=== PATIENT | female | born 1995 | race Caucasian/White ===

== ENCOUNTER → 2020-08-07 08:41 | Outpatient (BNVA) | payer MEDICAID, SELFPAY | PROVIDERS: PCP Internal Medicine; Referring Provider Internal Medicine; Visit Provider Internal Medicine Gastroenterology | DX: K58.1 Irritable bowel syndrome with constipation (principal); R11.0 Nausea; K21.9 Gastro-esophageal reflux disease without esophagitis; Z79.899 Other long term (current) drug therapy | CPT/HCPCS: 99213 ==

== ENCOUNTER 2020-08-20 16:19 | Emergency (ER) | payer MEDICAID, SELFPAY | END 2020-08-20 22:01 | disposition left against medical advice (07) | LOC: HO.ED 22:00 | PROVIDERS: Emergency Provider Internal Medicine; PCP Internal Medicine | DX: R11.2 Nausea with vomiting, unspecified (principal) | CPT/HCPCS: 99281 ==

== ENCOUNTER 2020-08-22 16:37 | Emergency (ER) | payer MEDICAID, SELFPAY ==
--- NOTE | 2020-08-22 19:33 | ED_ITS ---
HPI - Abdominal Pain General Chief Complaint: Nausea/Vomiting/Diarrhea <Jose L Phillips NP - Last Filed: 08/22/20 21:19> Stated Complaint: ABD PAIN/VOMITING <Jose L Phillips NP - Last Filed: 08/22/20 21:19> Time Seen by Provider: 08/22/20 19:30 <Jose L Phillips NP - Last Filed: 08/22/20 21:19> Source: patient <Jose L Phillips NP - Last Filed: 08/22/20 21:19> Mode of arrival: ambulatory <Jose L Phillips NP - Last Filed: 08/22/20 21:19> Limitations: no limitations <Jose L Phillips NP - Last Filed: 08/22/20 21:19> History of Present Illness HPI narrative: 25-year-old with past medical history significant for asthma, PTSD, anxiety, bipolar disorder, gastroesophageal reflux disease with chronic nausea vomiting and IBS with constipation. Presents with past several days of nausea vomiting history of chronic nausea vomiting has seen GI before Has had upper GI studies as well as CT scans Feels similar does take Zofran at home but this episodes has not helped. There is no diarrhea. There is no fever chills. There is no recent travel. There is no recent antibiotic use. <Jose L Phillips NP - Last Filed: 08/22/20 21:19> MD elicited complaint: abdominal pain <Jose L Phillips NP - Last Filed: 08/22/20 21:19> Location: epigastric <Jose L Phillips NP - Last Filed: 08/22/20 21:19> Severity: mild <Jose L Phillips NP - Last Filed: 08/22/20 21:19> Quality: aching <Jose L Phillips NP - Last Filed: 08/22/20 21:19> Radiation: none <Jose L Phillips NP - Last Filed: 08/22/20 21:19> Associated symptoms: nausea and vomiting <Jose L Phillips NP - Last Filed: 08/22/20 21:19> Related Data Home Medications: Home Medications Medication Instructions Recorded Confirmed diazepam 5 mg tablet 5 mg PO BEDTIME PRN 08/06/20 08/07/20 lithium carbonate 300 mg capsule 300 mg PO BEDTIME 08/06/20 08/07/20 lurasidone 20 mg tablet 20 mg PO DAILY 08/06/20 08/07/20 omeprazole 40 mg capsule,delayed 40 mg PO BID cap 08/06/20 08/07/20 release ondansetron HCl 4 mg tablet 4 mg PO Q8H 08/06/20 08/07/20 testosterone cypionate 200 mg/mL 100 mg IM Q4W 08/06/20 08/07/20 intramuscular oil tramadol 50 mg tablet 50 mg PO DAILY 08/06/20 08/07/20 acetazolamide 500 mg 500 mg PO BID 08/07/20 08/07/20 capsule,extended release Previous Rx's Medication Instructions Recorded ondansetron HCl 4 mg tablet 4 mg PO Q8H PRN #30 tab 08/07/20 dicyclomine 20 mg PO BID #14 tab 08/22/20 <Jose L Phillips NP - Last Filed: 08/22/20 21:19> Allergies/Adverse Reactions: Allergies Allergy/AdvReac Type Severity Reaction Status Date / Time trazodone Allergy Unknown Verified 06/13/20 00:00 No Known Allergies Allergy Unverified 07/24/20 16:24 [No Known Allergies*] celexa Allergy Unknown Uncoded 06/13/20 00:00 cymbalta Allergy Unknown Uncoded 06/13/20 00:00 gabapentin Allergy Unknown Uncoded 06/13/20 00:00 lidocaine Allergy Unknown Uncoded 06/13/20 00:00 topamax Allergy Unknown Uncoded 06/13/20 00:00 venlafaxine Allergy Unknown Uncoded 06/13/20 00:00 <Jose L Phillips NP - Last Filed: 08/22/20 21:19> Review of Systems Review of Systems Constitutional: No Weight loss, No Fever, No Chills, No Night Sweats, No Fatigue, No Malaise ENT/Mouth: No Hearing loss, No Ear Pain, No Nasal Congestion, No Sinus Pain, No Hoarseness, No sore throat, No Rhinorrhea, No Swallowing Difficulty Eyes: No Eye Pain, No Swelling, No Redness, No Foreign Body, No Discharge, No Vision Changes Cardiovascular: No Chest Pain, No SOB, No Dyspnea on Exertion, No Orthopnea, No Edema, No Palpitations Respiratory: No Cough, No Sputum, No Wheezing, No Smoke Exposure, No Dyspnea Gastrointestinal: as noted in HPI No Hematochezia, No Melena Genitourinary: no irregular bleeding, No Dysuria, No Urinary Frequency, No Hematuria, No Urinary Incontinence, No Urgency, No Flank Pain, No Urinary Flow Changes, No Hesitancy Musculoskeletal: No joint pain, No Myalgias, No Joint Swelling Skin: No Skin Lesions, No rash Neuro: No Weakness, No Numbness, No Paresthesias, No Loss of Consciousness, No Dizziness, No Headache Psych: No Social Issues Heme/Lymph: No Bruising, No Bleeding,No Lymphadenopathy Endocrine: No Polyuria, No Polydipsia, No Temperature Intolerance <Jose L Phillips NP - Last Filed: 08/22/20 21:19> Physical Exam Vital Signs: Vital Signs: Vital Signs Temp Pulse Resp BP Pulse Ox 08/22/20 21:53 97.8 F 74 99 08/22/20 21:47 78 18 119/63 08/22/20 19:43 95 16 99 Body Mass Index 29.9 Reviewed <Jose L Phillips NP - Last Filed: 08/22/20 21:19> Vital Signs: Vital Signs Temp Pulse Resp BP Pulse Ox 08/22/20 21:53 97.8 F 74 99 08/22/20 21:47 78 18 119/63 08/22/20 19:43 95 16 99 Body Mass Index 29.9 <Galo Robledo MD - Last Filed: 08/23/20 00:29> Const: General: cooperative and healthy appearing; No acute distress or intoxicated appearing <Jos eL Phillips NP - Last Filed: 08/22/20 21:19> Nutritional Appearance: average body habitus <Jose L Phillips NP - Last Filed: 08/22/20 21:19> Orientation/consciousness: patient oriented x3 <Jose L Phillips NP - Last Filed: 08/22/20 21:19> HENMT: Head: Yes normal to inspection <Jose L Phillips NP - Last Filed: 08/22/20 21:19> Ears: hearing grossly normal bilaterally <Jose L Phillips NP - Last Filed: 08/22/20 21:19> Eyes: General: appearance normal, both eyes and all related structures <Jose L Phillips NP - Last Filed: 08/22/20 21:19> Visual Carmona: normal visual carmona by confrontation <[facility] Phillips, [employer] AND D[employer] REPAIRER - Last Filed: 08/22/20 21:19> Neck: Neck: Yes normal visual inspection and No tender <[facility] Phillips, [employer]OL AND DIE REPAIRER - Last Filed: 08/22/20 21:19> Thyroid: Thyroid normal <[facility] Phillips, TOOL AND DIE REPAIRER - Last Filed: 08/22/20 21:19> Chest: Chest palpation & inspection: normal inspection of the chest <[facility] Phillips, TOOL AND DIE REPAIRER - Last Filed: 08/22/20 21:19> Resp: Effort & Inspection: normal respiratory effort <[facility] Phillips, TOOL AND DIE REPAIRER - Last Filed: 08/22/20 21:19> Cardio: Jugular venous distension: no JVD <[facility] - Last Filed: 08/22/20 21:19> GI: Inspection: Yes normal to inspection <[facility] TO[employer] AND DIE REPAIRER - Last Filed: 08/22/20 21:19> Percussion: Yes normal to percussion <[facility] - Last Filed: 08/22/20 21:19> Auscultation: normal bowel sounds <[facility] [employer] AND D[employer] REPAIRER - Last Filed: 08/22/20 21:19> : General: Yes no CVA tenderness <[facility] Phillips, TO[employer] AND DIE REPAIRER - Last Filed: 08/22/20 21:19> Back/Spine/Pelvis: Back: no CVA tenderness <[facility] Phillips, TO[employer] AND DIE REPAIRER - Last Filed: 08/22/20 21:19> Skin: General skin exam: no rashes or lesions noted <[facility] Alan TO[employer] AND DIE REPAIRER - Last Filed: 08/22/20 21:19> Neuro: General: patient oriented x3 <[facility] Alan TO[employer] AND DIE REPAIRER - Last Filed: 08/22/20 21:19> Extrem: General: Yes normal to inspection <[facility] [employer] AND [employer] REPAIRER - Last Filed: 08/22/20 21:19> Course Course Course Narrative: I have reviewed the chart <Galo Robledo MD - Last Filed: 08/23/20 00:29> MDM - Abdominal Pain MDM Narrative Medical decision making narrative: patient has been resting comfortably in no acute distress. Abdominal exam reveals no acute surgical abdomen. Laboratory values overall chronic appearing. No leukocytosis. She received IV fluids here and Zofran. Tolerating p.o. intake afterwards. Will discharge home with Bentyl already has Zofran. Will follow up with GI. Stable for discharge. <Jose L Phillips NP - Last Filed: 08/22/20 21:19> Differential Diagnosis Differential diagnosis: Likely abdominal pain ( IBS), gastroenteritis and gastritis; Unlikely aortic dissection, acute appendicitis, bowel perforation, calculus of kidney, constipation, diverticulitis, endometriosis, mesenteric ischemia, ovarian cyst, pancreatitis, peptic ulcer disease, renal colic and small bowel obstruction <Jose L Phillips NP - Last Filed: 08/22/20 21:19> Medical Records Attestation: I reviewed the patient's medical records. <Jose L Phillips NP - Last Filed: 08/22/20 21:19> Lab Data Result diagrams: : 08/22/20 19:56 08/22/20 19:56 <Jose L Phillips NP - Last Filed: 08/22/20 21:19> Labs: Lab Results 08/22/20 08/22/20 08/22/20 Range/Units 19:56 19:56 19:56 WBC 8.1 (4.8-10.8) X10*3/uL RBC 4.88 (4.20-5.50) X10*6/uL Hgb 15.5 (12.0-16.0) g/dl Hct 46.3 (37-47) % MCV 94.9 (80-98) fL MCH 31.8 (27.0-33.0) pg MCHC 33.5 (31.0-35.0) g/dl RDW 13.5 (11.0-16.0) % Plt Count 247 (160-400) X10*3/uL MPV 13.5 H (9.4-12.3) fL Immature Gran % (Auto) 0.1 (0.0-0.4) % Neut % (Auto) 78.0 H (45-73) % Lymph % (Auto) 14.7 L (20-40) % [place] % (Auto) 5.7 (2-11) % Eos % (Auto) 0.9 (0-4) % Baso % (Auto) 0.6 (0-2) % Lymph # (Auto) 1.2 (1.2-4.9) X10*3/uL [place] # (Auto) 0.5 (0.1-1.2) X10*3/uL Eos # (Auto) 0.1 (0.0-0.4) X10*3/uL Baso # (Auto) 0.1 (0.0-0.2) X10*3/uL Abs Immat Gran (auto) 0.01 (0.00-0.03) X10*3/uL Absolute Neuts (auto) 6.3 (2.0-8.3) X10*3/uL Absolute Nucleated RBC 0.000 (0.0-0.012) X10*3/uL Nucleated RBC % (auto) 0.0 (0.0-0.2) /100WBC Smear Tech's Comments VERIFIED Hold Blue Top SEE NOTE Sodium 141 (135-145) mmol/L Potassium 3.2 L (3.3-5.1) mmol/l Chloride 108 (96-108) mmol/L Carbon Dioxide 22 (22-29) mmol/L Anion Gap 14 (12-20) BUN 6 L (9-16) mg/dL Creatinine 1.23 (0.5-1.4) mg/dL Estim Creat Clear Calc 74.4 Estimated GFR 54 Random Glucose 105 (60-115) mg/dL Calcium 10.0 (8.4-10.2) mg/dL Total Bilirubin 0.3 (0.0-1.0) mg/dL AST 10 (5-31) U/L ALT 13 (0-31) U/L Alkaline Phosphatase 97 (39-117) U/L Total Protein 7.9 (6.5-8.0) g/dL Albumin 4.9 (3.5-5.0) g/dL Lipase 41 (8-78) U/L Urine Color Urine Appearance Urine pH (5.0-8.0) Ur Specific [place] (1.005-1.025) Urine Protein (NEG-TRACE) MG/DL Urine Glucose (UA) (NEG) MG/DL Urine Ketones (NEG) MG/DL Urine Blood (NEG) Urine Nitrite (NEG) Ur Leukocyte Esterase (NEG) Urine RBC (0) /HPF Urine WBC (0-4) /HPF Ur Squamous Epith Cells /LPF Urine Bacteria /LPF Urine Test (NEGATIVE) Urine Opiates Screen (Not Detect) Ur Barbiturates Screen (Not Detect) Ur Phencyclidine Scrn (Not Detect) Ur Amphetamines Screen (Not Detect) U Benzodiazepines Scrn (Not Detect) Urine Cocaine Screen (Not Detect) U Marijuana (THC) Screen (Not Detect) 08/22/20 08/22/20 Range/Units 19:56 19:56 WBC (4.8-10.8) X10*3/uL RBC (4.20-5.50) X10*6/uL Hgb (12.0-16.0) g/dl Hct (37-47) % MCV (80-98) fL MCH (27.0-33.0) pg MCHC (31.0-35.0) g/dl RDW (11.0-16.0) % Plt Count (160-400) X10*3/uL MPV (9.4-12.3) fL Immature Gran % (Auto) (0.0-0.4) % Neut % (Auto) (45-73) % Lymph % (Auto) (20-40) % [place] % (Auto) (2-11) % Eos % (Auto) (0-4) % Baso % (Auto) (0-2) % Lymph # (Auto) (1.2-4.9) X10*3/uL [place] # (Auto) (0.1-1.2) X10*3/uL Eos # (Auto) (0.0-0.4) X10*3/uL Baso # (Auto) (0.0-0.2) X10*3/uL Abs Immat Gran (auto) (0.00-0.03) X10*3/uL Absolute Neuts (auto) (2.0-8.3) X10*3/uL Absolute Nucleated RBC (0.0-0.012) X10*3/uL Nucleated RBC % (auto) (0.0-0.2) /100WBC Smear Tech's Comments Hold Blue Top Sodium (135-145) mmol/L Potassium (3.3-5.1) mmol/l Chloride (96-108) mmol/L Carbon Dioxide (22-29) mmol/L Anion Gap (12-20) BUN (9-16) mg/dL Creatinine (0.5-1.4) mg/dL Estim Creat Clear Calc Estimated GFR Random Glucose (60-115) mg/dL Calcium (8.4-10.2) mg/dL Total Bilirubin (0.0-1.0) mg/dL AST (5-31) U/L ALT (0-31) U/L Alkaline Phosphatase (39-117) U/L Total Protein (6.5-8.0) g/dL Albumin (3.5-5.0) g/dL Lipase (8-78) U/L Urine Color YELLOW Urine Appearance CLEAR Urine pH 7.0 (5.0-8.0) Ur Specific [place] 1.010 (1.005-1.025) Urine Protein 1+ H (NEG-TRACE) MG/DL Urine Glucose (UA) NEG (NEG) MG/DL Urine Ketones NEG (NEG) MG/DL Urine Blood NEG (NEG) Urine Nitrite NEG (NEG) Ur Leukocyte Esterase 2+ H (NEG) Urine RBC 0 (0) /HPF Urine WBC 50-75 H (0-4) /HPF Ur Squamous Epith Cells 2+ /LPF Urine Bacteria TRACE /LPF Urine Test NEGATIVE (NEGATIVE) Urine Opiates Screen Not Detected (Not Detect) Ur Barbiturates Screen Not Detected (Not Detect) Ur Phencyclidine Scrn Not Detected (Not Detect) Ur Amphetamines Screen Not Detected (Not Detect) U Benzodiazepines Scrn POSITIVE H (Not Detect) Urine Cocaine Screen Not Detected (Not Detect) U Marijuana (THC) Screen Not Detected (Not Detect) <Jose L Phillips NP - Last Filed: 08/22/20 21:19> Lab Results 08/22/20 08/22/20 08/22/20 Range/Units 19:56 19:56 19:56 WBC 8.1 (4.8-10.8) X10*3/uL RBC 4.88 (4.20-5.50) X10*6/uL Hgb 15.5 (12.0-16.0) g/dl Hct 46.3 (37-47) % MCV 94.9 (80-98) fL MCH 31.8 (27.0-33.0) pg MCHC 33.5 (31.0-35.0) g/dl RDW 13.5 (11.0-16.0) % Plt Count 247 (160-400) X10*3/uL MPV 13.5 H (9.4-12.3) fL Immature Gran % (Auto) 0.1 (0.0-0.4) % Neut % (Auto) 78.0 H (45-73) % Lymph % (Auto) 14.7 L (20-40) % [place] % (Auto) 5.7 (2-11) % Eos % (Auto) 0.9 (0-4) % Baso % (Auto) 0.6 (0-2) % Lymph # (Auto) 1.2 (1.2-4.9) X10*3/uL [place] # (Auto) 0.5 (0.1-1.2) X10*3/uL Eos # (Auto) 0.1 (0.0-0.4) X10*3/uL Baso # (Auto) 0.1 (0.0-0.2) X10*3/uL Abs Immat Gran (auto) 0.01 (0.00-0.03) X10*3/uL Absolute Neuts (auto) 6.3 (2.0-8.3) X10*3/uL Absolute Nucleated RBC 0.000 (0.0-0.012) X10*3/uL Nucleated RBC % (auto) 0.0 (0.0-0.2) /100WBC Smear Tech's Comments VERIFIED Hold Blue Top SEE NOTE Sodium 141 (135-145) mmol/L Potassium 3.2 L (3.3-5.1) mmol/l Chloride 108 (96-108) mmol/L Carbon Dioxide 22 (22-29) mmol/L Anion Gap 14 (12-20) BUN 6 L (9-16) mg/dL Creatinine 1.23 (0.5-1.4) mg/dL Estim Creat Clear Calc 74.4 Estimated GFR 54 Random Glucose 105 (60-115) mg/dL Calcium 10.0 (8.4-10.2) mg/dL Total Bilirubin 0.3 (0.0-1.0) mg/dL AST 10 (5-31) U/L ALT 13 (0-31) U/L Alkaline Phosphatase 97 (39-117) U/L Total Protein 7.9 (6.5-8.0) g/dL Albumin 4.9 (3.5-5.0) g/dL Lipase 41 (8-78) U/L Urine Color Urine Appearance Urine pH (5.0-8.0) Ur Specific [place] (1.005-1.025) Urine Protein (NEG-TRACE) MG/DL Urine Glucose (UA) (NEG) MG/DL Urine Ketones (NEG) MG/DL Urine Blood (NEG) Urine Nitrite (NEG) Ur Leukocyte Esterase (NEG) Urine RBC (0) /HPF Urine WBC (0-4) /HPF Ur Squamous Epith Cells /LPF Urine Bacteria /LPF Urine Test (NEGATIVE) Urine Opiates Screen (Not Detect) Ur Barbiturates Screen (Not Detect) Ur Phencyclidine Scrn (Not Detect) Ur Amphetamines Screen (Not Detect) U Benzodiazepines Scrn (Not Detect) Urine Cocaine Screen (Not Detect) U Marijuana (THC) Screen (Not Detect) 08/22/20 08/22/20 Range/Units 19:56 19:56 WBC (4.8-10.8) X10*3/uL RBC (4.20-5.50) X10*6/uL Hgb (12.0-16.0) g/dl Hct (37-47) % MCV (80-98) fL MCH (27.0-33.0) pg MCHC (31.0-35.0) g/dl RDW (11.0-16.0) % Plt Count (160-400) X10*3/uL MPV (9.4-12.3) fL Immature Gran % (Auto) (0.0-0.4) % Neut % (Auto) (45-73) % Lymph % (Auto) (20-40) % [place] % (Auto) (2-11) % Eos % (Auto) (0-4) % Baso % (Auto) (0-2) % Lymph # (Auto) (1.2-4.9) X10*3/uL [place] # (Auto) (0.1-1.2) X10*3/uL Eos # (Auto) (0.0-0.4) X10*3/uL Baso # (Auto) (0.0-0.2) X10*3/uL Abs Immat Gran (auto) (0.00-0.03) X10*3/uL Absolute Neuts (auto) (2.0-8.3) X10*3/uL Absolute Nucleated RBC (0.0-0.012) X10*3/uL Nucleated RBC % (auto) (0.0-0.2) /100WBC Smear Tech's Comments Hold Blue Top Sodium (135-145) mmol/L Potassium (3.3-5.1) mmol/l Chloride (96-108) mmol/L Carbon Dioxide (22-29) mmol/L Anion Gap (12-20) BUN (9-16) mg/dL Creatinine (0.5-1.4) mg/dL Estim Creat Clear Calc Estimated GFR Random Glucose (60-115) mg/dL Calcium (8.4-10.2) mg/dL Total Bilirubin (0.0-1.0) mg/dL AST (5-31) U/L ALT (0-31) U/L Alkaline Phosphatase (39-117) U/L Total Protein (6.5-8.0) g/dL Albumin (3.5-5.0) g/dL Lipase (8-78) U/L Urine Color YELLOW Urine Appearance CLEAR Urine pH 7.0 (5.0-8.0) Ur Specific [place] 1.010 (1.005-1.025) Urine Protein 1+ H (NEG-TRACE) MG/DL Urine Glucose (UA) NEG (NEG) MG/DL Urine Ketones NEG (NEG) MG/DL Urine Blood NEG (NEG) Urine Nitrite NEG (NEG) Ur Leukocyte Esterase 2+ H (NEG) Urine RBC 0 (0) /HPF Urine WBC 50-75 H (0-4) /HPF Ur Squamous Epith Cells 2+ /LPF Urine Bacteria TRACE /LPF Urine Test NEGATIVE (NEGATIVE) Urine Opiates Screen Not Detected (Not Detect) Ur Barbiturates Screen Not Detected (Not Detect) Ur Phencyclidine Scrn Not Detected (Not Detect) Ur Amphetamines Screen Not Detected (Not Detect) U Benzodiazepines Scrn POSITIVE H (Not Detect) Urine Cocaine Screen Not Detected (Not Detect) U Marijuana (THC) Screen Not Detected (Not Detect) <Galo Robledo MD - Last Filed: 08/23/20 00:29> Discharge Plan Discharge Clinical Impression: Nausea <Jose L Phillips NP - Last Filed: 08/22/20 21:19> Patient Disposition: Home, Self-Care <Jose L Phillips NP - Last Filed: 08/22/20 21:19> Instructions: Acute Nausea and Vomiting (ED) <Jose L Phillips NP - Last Filed: 08/22/20 21:19> Prescriptions: New dicyclomine 20 mg tablet 20 mg PO BID Qty: 14 RF: 0 No Action acetazolamide 500 mg capsule, extended release 500 mg PO BID RF: 0 ondansetron HCl 4 mg tablet 4 mg PO Q8H PRN (Reason: nausea and vomiting) Qty: 30 RF: 3 lithium carbonate 300 mg capsule 300 mg PO BEDTIME RF: 0 omeprazole 40 mg capsule,delayed release(DR/EC) 40 mg PO BID RF: 0 diazepam [Valium] 5 mg tablet 5 mg PO BEDTIME PRNRF: 0 Latuda 20 mg tablet 20 mg PO DAILY RF: 0 testosterone cypionate 200 mg/mL oil 100 mg IM Q4W RF: 0 ondansetron HCl [Zofran] 4 mg tablet 4 mg PO Q8H RF: 0 tramadol 50 mg tablet 50 mg PO DAILY RF: 0 <Jose L Phillips NP - Last Filed: 08/22/20 21:19> Referrals: Gopi Tapia MD [Physician] - 2 days <Jose L Phillips NP - Last Filed: 08/22/20 21:19> Interventions: ED Discharge Assessment Last Done: 08/22/20 22:56 <Jose L Phillips NP - Last Filed: 08/22/20 21:19> Discharge Date/Time: 08/22/20 22:00 <Jose L Phillips NP - Last Filed: 08/22/20 21:19> [facility] Past Medical History Attestation statement: The following information was validated with the patient. <Jose L Phillips NP - Last Filed: 08/22/20 21:19> Medical History: Medical History (Updated 08/22/20 @ 21:17 by Jose L Phillips NP) Anxiety Asthma Bipolar 1 disorder Gastroesophageal reflux disease without esophagitis Irritable bowel syndrome with constipation Nausea PTSD (post-traumatic stress disorder) <Jose L Phillips NP - Last Filed: 08/22/20 21:19> Surgical History: Surgical History (Updated 08/07/20 @ 09:20 by Lupe Diez MA) No pertinent past surgical history <Jose L Phillips NP - Last Filed: 08/22/20 21:19> Social History Social History: Social History (Updated 08/07/20 @ 09:21 by Lupe Diez MA) Smoking Status: Never smoker Advance Directives: No Advance Directives Information Provided: Yes <Jose L Phillips NP - Last Filed: 08/22/20 21:19>
[2020-08-22 19:43] VITALS: PULSE 95; RESP 16; O2SAT 99; BMI 29.9
[2020-08-22 20:08] LABS: Glucose Urine UA NEG (NEG); Leukocyte Esterase Urine 2+ (NEG); Nitrite Urine NEG (NEG); Urine Blood NEG (NEG); Urine Ketones NEG (NEG); Urine Protein 1+ MG/DL (NEG-TRACE)
[2020-08-22 20:10] LABS: Appearance Urine CLEAR; Color Urine YELLOW
[2020-08-22 20:13] LABS: Basophils Absolute Auto 0.1 X10*3/uL (0.0-0.2); Basophils Percent Auto 0.6 % (0-2); Eosinophils Absolute Auto 0.1 X10*3/uL (0.0-0.4); Eosinophils Percent Auto 0.9 % (0-4); Hematocrit 46.3 % (37-47); Hemoglobin 15.5 g/dl (12.0-16.0); Imm Gran Abs Auto 0.01 X10*3/uL (0.00-0.03); Imm Gran Pct Auto 0.1 % (0.0-0.4); Lymphocytes Absolute Auto 1.2 X10*3/uL (1.2-4.9); Lymphocytes Percent Auto 14.7 % (20-40); MANUAL DIFF FLAG SCAN; Mean Corpuscular HGB Conc 33.5 g/dl (31.0-35.0); Mean Corpuscular Hemoglobin 31.8 pg (27.0-33.0); Mean Corpuscular Volume 94.9 fL (80-98); Mean Platelet Volume 13.5 fL (9.4-12.3); Monocytes Absolute Auto 0.5 X10*3/uL (0.1-1.2); Monocytes Percent Auto 5.7 % (2-11); Neutrophils Absolute Auto 6.3 X10*3/uL (2.0-8.3); Red Blood Count 4.88 X10*6/uL (4.20-5.50); Red Cell Distribution Width 13.5 % (11.0-16.0); SCAN SMEAR FLAG 1; White Blood Count 8.1 X10*3/uL (4.8-10.8)
[2020-08-22 20:22] LABS: Bacteria Urine TRACE /LPF; RBC Urine 0 /HPF (0); Squamous Epithelial Cell Urine 2+ /LPF; WBC Urine 50-75 /HPF (0-4)
[2020-08-22 20:31] LABS: PLT ABN DIST 1
[2020-08-22 20:32] LABS: Platelet Count 247 X10*3/uL (160-400)
[2020-08-22 20:33] LABS: SLIDE REVIEW VERIFIED
[2020-08-22 20:37] LABS: Alanine Aminotransferase 13 U/L (0-31); Albumin Level 4.9 g/dL (3.5-5.0); Alkaline Phosphatase 97 U/L (39-117); Anion Gap 14 (12-20); Aspartate Amino Transferase 10 U/L (5-31); Bilirubin Total 0.3 mg/dL (0.0-1.0); Blood Urea Nitrogen 6 mg/dL (9-16); Carbon Dioxide 22 mmol/L (22-29); Chloride 108 mmol/L (96-108); Creatinine Clr Calc Pharmacy 74.4; Estimated Glomerular Filt Rate 54; Glucose Random 105 mg/dL (60-115); Lipase 41 U/L (8-78); Potassium 3.2 mmol/l (3.3-5.1); Sodium 141 mmol/L (135-145); Total Protein 7.9 g/dL (6.5-8.0)
[2020-08-22 20:38] LABS: Amphetamine Screen Urine Not Detected (Not Detect); Barbiturates, Urine Not Detected (Not Detect); Benzodiazepines Screen Urine POSITIVE (Not Detect); Cannabinoid Screen Urine Not Detected (Not Detect); Cocaine Screen Urine Not Detected (Not Detect); Opiate Screen Urine Not Detected (Not Detect); Phencyclidine Screen Urine Not Detected (Not Detect)
[2020-08-22] MEDS: 0.9 % Sodium Chloride 1,000 ML 999 ML IVCONT (20:53)
[2020-08-22] MEDS: ondansetron HCL 4 MG/2 ML VIAL IVPUSH (20:53)
[2020-08-22 21:15] LABS: UPreg QC Valid YES; Urine Pregnancy NEGATIVE (NEGATIVE)
[2020-08-22 21:47] VITALS: BP 119/63; PULSE 78; RESP 18
[2020-08-22 21:53] VITALS: PULSE 74; TEMP 36.6; O2SAT 99
== END 2020-08-22 22:00 | disposition home or self-care (01) ==
PROVIDERS: Nurse Practitioner Primary Care; Emergency Provider Emergency Medicine
DX: R11.2 Nausea with vomiting, unspecified (principal); R10.9 Unspecified abdominal pain; Z79.899 Other long term (current) drug therapy
CPT/HCPCS: 36415; 80053; 80307; 81001; 81025; 83690; 85025; 96361; 96374; 99284; J2405

== ENCOUNTER 2020-10-16 10:41 | Outpatient (REF) | payer MEDICAID, SELFPAY ==
[2020-10-16 13:54] LABS: Hemoglobin 12.9 g/dl (12.0-16.0)
[2020-10-16 14:41] LABS: Alanine Aminotransferase 7 U/L (0-31); Aspartate Amino Transferase 9 U/L (5-31)
[2020-10-17 08:27] LABS: HIV AB/AG Nonreactive (Nonreactive); HIV Num 1 0.14 S/CO (0.00-0.99)
[2020-10-17 09:16] LABS: Syphilis Screen Nonreactive (Nonreactive)
[2020-10-17 09:58] LABS: Herpes Simplex Type 1 IgG <0.90 index; Herpes Simplex Type 2 IgG <0.90 index
[2020-10-20 16:18] LABS: Testosterone, Free 30.4 pg/mL (0.1-6.4); Testosterone, Total 156 ng/dL (2-45)
== END 2020-10-16 10:42 | disposition home or self-care (01) ==
LOC: HO.HMGCLDS 10:41
PROVIDERS: PCP Internal Medicine; Visit Provider Advanced Practice Midwife
DX: Z11.3 Encounter for screening for infections with a predominantly sexual mode of transmission (principal); F64.9 Gender identity disorder, unspecified
CPT/HCPCS: 36415; 84402; 84403; 84450; 84460; 85014; 85018; 86695; 86696; 86780; 87389

== ENCOUNTER → 2020-10-29 10:29 | Outpatient (BNVA) | payer MEDICAID, SELFPAY | PROVIDERS: PCP Internal Medicine; Visit Provider Nurse Practitioner Family | DX: M25.562 Pain in left knee (principal); M25.561 Pain in right knee; M25.551 Pain in right hip; M25.552 Pain in left hip; M25.571 Pain in right ankle and joints of right foot; M25.572 Pain in left ankle and joints of left foot; M46.1 Sacroiliitis, not elsewhere classified | CPT/HCPCS: 99202 ==

== ENCOUNTER 2020-11-05 12:32 | Outpatient (REF) | payer MEDICAID, SELFPAY ==
--- NOTE | 2020-11-05 12:35 | XR_ITS ---
EXAMINATION: XR KNEE, RIGHT CLINICAL INFORMATION: Right knee pain. COMPARISON: None TECHNIQUE: Four views of the right knee. FINDINGS: Bones and soft tissues are normal. No fracture or joint effusion. Alignment is anatomic. Joint spaces are well maintained. No abnormal soft tissue calcification. XR/XR knee RT 2V IMPRESSION: Unremarkable right knee.
== END 2020-11-05 12:33 | disposition home or self-care (01) ==
LOC: HO.XRAY 12:32
PROVIDERS: PCP Internal Medicine; Visit Provider Nurse Practitioner Family
DX: M25.561 Pain in right knee (principal)
CPT/HCPCS: 73560

== ENCOUNTER 2020-11-06 10:04 | Outpatient (REF) | payer MEDICAID, SELFPAY ==
[2020-11-06 11:14] LABS: MANUAL DIFF FLAG NO
[2020-11-06 11:22] LABS: Basophils Absolute Auto 0.1 X10*3/uL (0.0-0.2); Basophils Percent Auto 0.5 % (0-2); Eosinophils Absolute Auto 0.3 X10*3/uL (0.0-0.4); Eosinophils Percent Auto 3.3 % (0-4); Hematocrit 40.9 % (37-47); Hemoglobin 12.6 g/dl (12.0-16.0); Imm Gran Abs Auto 0.03 X10*3/uL (0.00-0.03); Imm Gran Pct Auto 0.3 % (0.0-0.4); Lymphocytes Absolute Auto 1.4 X10*3/uL (1.2-4.9); Lymphocytes Percent Auto 13.4 % (20-40); Mean Corpuscular HGB Conc 30.8 g/dl (31.0-35.0); Mean Corpuscular Hemoglobin 30.3 pg (27.0-33.0); Mean Corpuscular Volume 98.3 fL (80-98); Monocytes Absolute Auto 0.5 X10*3/uL (0.1-1.2); Monocytes Percent Auto 4.4 % (2-11); Neutrophils Absolute Auto 8.1 X10*3/uL (2.0-8.3); Neutrophils Percent Auto 78.1 % (45-73); Platelet Count 297 X10*3/uL (160-400); Red Blood Count 4.16 X10*6/uL (4.20-5.50); Red Cell Distribution Width 14.1 % (11.0-16.0); White Blood Count 10.3 X10*3/uL (4.8-10.8)
[2020-11-06 11:30] LABS: Estimated Average Glucose 88 mg/dL; Hemoglobin A1c % 4.7 %
[2020-11-06 11:45] LABS: Anion Gap 12 (12-20); Carbon Dioxide 23 mmol/L (22-29); Chloride 108 mmol/L (96-108); Cholesterol 208 mg/dL; HDL Cholesterol 45 mg/dL; LDL Cholesterol Calculated 133 mg/dl; Potassium 4.3 mmol/l (3.3-5.1); Sodium 139 mmol/L (135-145); Triglycerides 153 mg/dL
[2020-11-06 12:08] LABS: Thyroid Stimulating Hormone 1.29 uIU/mL (0.32-4.0)
[2020-11-07 07:07] LABS: Prolactin 12.9 ng/mL
[2020-11-07 09:22] LABS: Insulin Level Total 16.2 uIU/mL
== END 2020-11-06 10:05 | disposition home or self-care (01) ==
LOC: HO.HMGCLDS 10:04
PROVIDERS: PCP Internal Medicine; Visit Provider Registered Nurse Psychiatric/Mental Health
DX: F31.9 Bipolar disorder, unspecified (principal); F43.10 Post-traumatic stress disorder, unspecified; K21.9 Gastro-esophageal reflux disease without esophagitis; Z79.4 Long term (current) use of insulin
CPT/HCPCS: 36415; 80051; 80061; 80178; 83036; 83525; 84146; 84443; 85025

== ENCOUNTER 2020-11-11 05:24 | Outpatient (REF) | payer MEDICAID, SELFPAY ==
--- NOTE | 2020-11-11 13:50 | FL_ITS ---
EXAMINATION: XR FLUOROSCOPY WITH IMAGES CLINICAL INFORMATION: Left sacroiliitis COMPARISON: None. TECHNIQUE: Fluoroscopy performed by Lucia Gonzalez NP. Fluoroscopy time: 0.2 minutes DAP: 1.15 Gycm2 Images: 1 FINDINGS: And the needle positioned overlying left second and with contrast opacifying the adjacent soft tissues and minimal contrast in the joint space. FL/FL guidance in treatment room IMPRESSION: Fluoroscopy provided to referring physician for left SI joint injection.
== END 2020-11-11 05:25 | disposition home or self-care (01) ==
LOC: HO.RADIR 05:24
PROVIDERS: Visit Provider Anesthesiology
DX: M46.1 Sacroiliitis, not elsewhere classified (principal)
CPT/HCPCS: 27096; J3300; Q9967

== ENCOUNTER → 2020-12-18 11:09 | Outpatient (BNVA) | payer MEDICAID, SELFPAY | PROVIDERS: PCP Internal Medicine; Visit Provider Anesthesiology ==

== ENCOUNTER 2020-12-25 12:05 | Outpatient (REF) | payer MEDICAID, SELFPAY ==
[2020-12-25 14:34] LABS: Alanine Aminotransferase 13 U/L (0-31); Aspartate Amino Transferase 12 U/L (5-31)
[2020-12-25 14:37] LABS: Anion Gap 10 (12-20); Blood Urea Nitrogen 8 mg/dL (9-16); Calcium 9.4 mg/dL (8.4-10.2); Carbon Dioxide 28 mmol/L (22-29); Chloride 104 mmol/L (96-108); Estimated Glomerular Filt Rate 56; Glucose Random 86 mg/dL (60-115); Magnesium 2.2 mg/dL (1.6-2.6); Phosphorus 3.2 mg/dL (2.7-4.5); Potassium 4.3 mmol/L (3.3-5.1); Sodium 138 mmol/L (135-145)
[2020-12-31 14:26] LABS: Testosterone, Free 100.5 pg/mL (0.1-6.4); Testosterone, Total 433 ng/dL (2-45)
== END 2020-12-25 12:06 | disposition home or self-care (01) ==
LOC: HO.HMGCLDS 12:05
PROVIDERS: Absent Provider Advanced Practice Midwife; PCP Internal Medicine; Visit Provider Internal Medicine
DX: R25.2 Cramp and spasm (principal); F64.9 Gender identity disorder, unspecified
CPT/HCPCS: 36415; 80048; 83735; 84100; 84402; 84403; 84450; 84460

== ENCOUNTER 2020-12-31 15:28 | Outpatient (REF) | payer MEDICAID, SELFPAY ==
--- NOTE | ~2020-12-31 | US_ITS ---
EXAMINATION: US PELVIS COMPLETE US PELVIS ENDOVAGINAL CLINICAL INFORMATION: Irregular menses COMPARISON: CT 06/05/2020 TECHNIQUE: Transabdominal and transvaginal images of the pelvis were obtained. FINDINGS: UTERUS: Anteverted, anteflexed.. Normal size and contour, measuring 5.0 x 3.2 x 3.3 cm (cervix to fundus x AP x transverse). Uniform, homogeneous endometrium measures 0.2 cm in width. RIGHT OVARY: Normal size and echogenicity measuring 4.5 x 2.3 x 2.6 cm. 14 mL volume. Physiologic follicular cysts are present. LEFT OVARY: Normal size and echogenicity measuring 3.5 x 3.1 x 2.0 cm. 11 mL volume. Physiologic follicular cysts are present. FREE FLUID: No pelvic free fluid. US/US pelvic complete IMPRESSION: Normal pelvic ultrasound. Thin endometrial stripe, 2 mm.
--- NOTE | ~2020-12-31 | US_ITS ---
EXAMINATION: US PELVIS COMPLETE US PELVIS ENDOVAGINAL CLINICAL INFORMATION: Irregular menses COMPARISON: CT 06/05/2020 TECHNIQUE: Transabdominal and transvaginal images of the pelvis were obtained. FINDINGS: UTERUS: Anteverted, anteflexed.. Normal size and contour, measuring 5.0 x 3.2 x 3.3 cm (cervix to fundus x AP x transverse). Uniform, homogeneous endometrium measures 0.2 cm in width. RIGHT OVARY: Normal size and echogenicity measuring 4.5 x 2.3 x 2.6 cm. 14 mL volume. Physiologic follicular cysts are present. LEFT OVARY: Normal size and echogenicity measuring 3.5 x 3.1 x 2.0 cm. 11 mL volume. Physiologic follicular cysts are present. FREE FLUID: No pelvic free fluid. US/US transvaginal IMPRESSION: Normal pelvic ultrasound. Thin endometrial stripe, 2 mm.
== END 2020-12-31 15:29 | disposition home or self-care (01) ==
LOC: HO.US 15:28
PROVIDERS: Visit Provider Advanced Practice Midwife
DX: N92.6 Irregular menstruation, unspecified (principal)
CPT/HCPCS: 76830; 76856

== ENCOUNTER 2021-01-02 13:48 | Outpatient (REF) | payer MEDICAID, SELFPAY ==
--- NOTE | ~2021-01-02 | US_ITS ---
EXAMINATION: US DIAGNOSTIC ULTRASOUND BREAST, RIGHT breast CLINICAL INFORMATION: Right breast pain and palpable lump. COMPARISON: None. TECHNIQUE: Ultrasound of the breast is performed with real-time gaona scale imaging and color Doppler. FINDINGS: Scanning in regions of palpable abnormalities and pain performed in the right breast including the axilla, 9:00, 8:00, 5:00, and 1:00 positions. There is no solid mass, architectural abnormality, duct ectasia, or edema in the soft tissue planes. Results are discussed with the patient at time of visit. US/US breast RT limited IMPRESSION: No suspicious right breast ultrasound findings. ASSESSMENT: BI-RADS 1: Negative RECOMMENDATION: Clinical follow-up
== END 2021-01-02 13:49 | disposition home or self-care (01) ==
LOC: HO.MAMMO 13:48
PROVIDERS: Visit Provider Advanced Practice Midwife
DX: N64.4 Mastodynia (principal)
CPT/HCPCS: 76642

== ENCOUNTER → 2021-01-16 13:06 | Outpatient (BNVA) | payer MEDICAID, SELFPAY | PROVIDERS: PCP Internal Medicine; Visit Provider Nurse Practitioner Family ==

== ENCOUNTER → 2021-01-23 15:30 | Outpatient (BNVA) | payer MEDICAID, SELFPAY | PROVIDERS: PCP Internal Medicine; Visit Provider Nurse Practitioner Family | DX: M79.629 Pain in unspecified upper arm (principal); M62.838 Other muscle spasm; Z79.899 Other long term (current) drug therapy | CPT/HCPCS: 99212 ==

== ENCOUNTER 2021-01-29 07:00 | Outpatient (RCR) | payer MEDICAID, SELFPAY ==
--- NOTE | 2020-11-11 08:53 | MHC.PT.EP ---
[facility] [place] Office [place] Office [place] Office [address] Blanco Hatch [address] [phone] F: [phone] F: [phone] F: [phone] F: [phone] Physical Therapy Plan of Care Date of Evaluation: 11/10/20 Date of Surgery: none Diagnosis: B hip and knee Assessment: Patient is a 25 year old R handed female who presents with s/s consistent with hip and knee pain. Onset has been gradual and not attributed to any incident. She is very sedentary rarely exercising or leaving her home. Patient past medical history includes Anxiety, Asthma, Bipolar 1 disorder, Gastroesophageal reflux disease without esophagitis, Irritable bowel syndrome with constipation, Nausea, PTSD (post-traumatic stress disorder). Current impairments include pain, ROM, strength, safety, independence, activity tolerance and functional mobility. Functional limitations include decreased ability to walk, stand, transfer, negotiate stairs, and perform weight bearing activities.. Patient is motivated with good rehab potential. Skilled PT will address impairments and functional limitations in order to achieve goals. 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 Manual therapy to restore motion and function. Therapeutic exercise to improve strength and flexibility. Neuromuscular re-education for posture and balance. Therapeutic activities to return to functional activities of daily living. Electronically signed by: Mikal Kramer, PT Please sign and return to therapist. Thank you for your referral.
--- NOTE | 2021-03-19 14:42 | MHC.PT.DC ---
[facility] [place] Office [place] Office [place] Office [address] Blanco Hatch [address] [phone] F: [phone] F: [phone] F: [phone] F: [phone] Physical Therapy Discharge Report Diagnosis: B hip and knee Date of Surgery: none Date of Evaluation: 11/10/20 Date of Discharge: 02/17/21 Treatments to Date: 14 Cancellations to Date: 0 No Shows to Date: 0 Discharge Status: Improved Function Discharge Summary: pt notes that she is feeling better overall and returning to work 9-5 schedule. Due to reduced consistence and new work schedule, we will hold on PT at this time. Pt has had some improvement but also continues to have multiple location symptoms from day to day as well Electronically signed by: Mikal Kramer, PT Please sign and return to therapist. Thank you for your referral.
== END 2021-03-19 15:00 | disposition home or self-care (01) ==
LOC: HO.PTCHIC 07:00
PROVIDERS: PCP Internal Medicine; Visit Provider Anesthesiology
DX: M25.50 Pain in unspecified joint (principal)
CPT/HCPCS: 97110; 97162

== ENCOUNTER 2021-01-30 09:42 | Outpatient (REF) | payer MEDICAID, SELFPAY ==
[2021-01-30 10:54] LABS: MANUAL DIFF FLAG NO
[2021-01-30 10:59] LABS: Basophils Absolute Auto 0.1 X10*3/uL (0.0-0.2); Basophils Percent Auto 0.7 % (0-2); Eosinophils Absolute Auto 0.3 X10*3/uL (0.0-0.4); Eosinophils Percent Auto 2.4 % (0-4); Hematocrit 41.8 % (37-47); Hemoglobin 12.9 g/dl (12.0-16.0); Imm Gran Abs Auto 0.04 X10*3/uL (0.00-0.03); Imm Gran Pct Auto 0.3 % (0.0-0.4); Lymphocytes Absolute Auto 1.6 X10*3/uL (1.2-4.9); Lymphocytes Percent Auto 12.1 % (20-40); Mean Corpuscular HGB Conc 30.9 g/dl (31.0-35.0); Mean Corpuscular Hemoglobin 29.5 pg (27.0-33.0); Mean Corpuscular Volume 95.7 fL (80-98); Mean Platelet Volume 11.4 fL (9.4-12.3); Monocytes Absolute Auto 0.6 X10*3/uL (0.1-1.2); Monocytes Percent Auto 4.5 % (2-11); Neutrophils Absolute Auto 10.2 X10*3/uL (2.0-8.3); Platelet Count 374 X10*3/uL (160-400); Red Blood Count 4.37 X10*6/uL (4.20-5.50); Red Cell Distribution Width 13.5 % (11.0-16.0); White Blood Count 12.8 X10*3/uL (4.8-10.8)
[2021-01-30 11:29] LABS: Alanine Aminotransferase 26 U/L (0-31); Albumin Level 4.5 g/dL (3.5-5.0); Alkaline Phosphatase 79 U/L (39-117); Anion Gap 11 (12-20); Aspartate Amino Transferase 20 U/L (5-31); Bilirubin Total 0.4 mg/dL (0.0-1.0); Blood Urea Nitrogen 13 mg/dL (9-16); C Reactive Protein 0.29 mg/dL (< or = 0.50); Calcium 9.6 mg/dL (8.4-10.2); Carbon Dioxide 25 mmol/L (22-29); Chloride 108 mmol/L (96-108); Estimated Glomerular Filt Rate 49; Glucose Random 79 mg/dL (60-115); Potassium 4.4 mmol/L (3.3-5.1); Rheumatoid Factor < 15.0 IU/mL (<15.0); Sodium 140 mmol/L (135-145); Total Protein 7.7 g/dL (6.5-8.0)
[2021-01-30 11:31] LABS: Glucose Urine UA NEG (NEG); Leukocyte Esterase Urine 2+ (NEG); Nitrite Urine NEG (NEG); PH 7.5 (5.0-8.0); Specific Gravity - Urine <= 1.005 (1.005-1.025); Urine Blood NEG (NEG); Urine Ketones NEG (NEG); Urine Protein NEG (NEG-TRACE)
[2021-01-30 11:39] LABS: Appearance Urine CLEAR; Color Urine YELLOW
[2021-01-30 11:45] LABS: Erythrocyte Sedimentation Rate 7 MM/HR (0-20)
[2021-01-30 11:49] LABS: Thyroid Stimulating Hormone 0.86 uIU/mL (0.32-4.0)
[2021-01-30 12:15] LABS: Mucus Urine 1+ /LPF; RBC Urine 0-2 /HPF (0); Squamous Epithelial Cell Urine 1+ /LPF; WBC Urine 0-2 /HPF (0-4)
[2021-01-31 08:31] LABS: Lyme Abs Screen <0.90 index
[2021-01-31 13:16] LABS: Antibody to SS-A Antigen <1.0 NEG AI (<1.0 NEG); Antibody to SS-B Antigen <1.0 NEG AI (<1.0 NEG)
[2021-02-01 13:21] LABS: Anti Nuclear Antibody Screen NEGATIVE (NEGATIVE)
[2021-02-01 23:32] LABS: Cyclic Citrullinated Peptide <16 UNITS
[2021-02-03 14:01] LABS: Vitamin D 25-OH, D2 <4 ng/mL; Vitamin D 25-OH, D3 22 ng/mL; Vitamin D 25-OH, Total 22 ng/mL (30-100)
== END 2021-01-30 09:43 | disposition home or self-care (01) ==
LOC: HO.LAB 09:42
PROVIDERS: PCP Internal Medicine; Visit Provider Student in an Organized Health Care Education/Training Program
DX: M25.50 Pain in unspecified joint (principal); F41.9 Anxiety disorder, unspecified; F31.9 Bipolar disorder, unspecified; Z88.8 Allergy status to other drugs, medicaments and biological substances; Z91.018 Allergy to other foods; Z79.899 Other long term (current) drug therapy
CPT/HCPCS: 36415; 80053; 81001; 82306; 84443; 85025; 85652; 86038; 86039; 86140; 86200; 86235; 86431; 86618; 99202

== ENCOUNTER 2021-05-01 09:43 | Outpatient (REF) | payer MEDICAID, SELFPAY ==
[2021-05-01 11:18] LABS: MANUAL DIFF FLAG NO
[2021-05-01 11:24] LABS: Basophils Absolute Auto 0.1 X10*3/uL (0.0-0.2); Basophils Percent Auto 0.5 % (0-2); Eosinophils Absolute Auto 0.3 X10*3/uL (0.0-0.4); Eosinophils Percent Auto 2.9 % (0-4); Hematocrit 41.4 % (37-47); Hemoglobin 12.5 g/dl (12.0-16.0); Imm Gran Abs Auto 0.03 X10*3/uL (0.00-0.03); Imm Gran Pct Auto 0.3 % (0.0-0.4); Lymphocytes Absolute Auto 1.7 X10*3/uL (1.2-4.9); Lymphocytes Percent Auto 18.3 % (20-40); Mean Corpuscular HGB Conc 30.2 g/dl (31.0-35.0); Mean Corpuscular Hemoglobin 29.1 pg (27.0-33.0); Mean Corpuscular Volume 96.3 fL (80-98); Mean Platelet Volume 12.7 fL (9.4-12.3); Monocytes Absolute Auto 0.6 X10*3/uL (0.1-1.2); Monocytes Percent Auto 6.2 % (2-11); Neutrophils Absolute Auto 6.6 X10*3/uL (2.0-8.3); Neutrophils Percent Auto 71.8 % (45-73); Platelet Count 290 X10*3/uL (160-400); Red Cell Distribution Width 15.9 % (11.0-16.0); White Blood Count 9.2 X10*3/uL (4.8-10.8)
[2021-05-01 11:28] LABS: Lithium 0.86 mmol/L (0.60-1.20)
[2021-05-01 11:35] LABS: Estimated Average Glucose 85 mg/dL; Hemoglobin A1c % 4.6 %
[2021-05-01 11:39] LABS: Anion Gap 11 (12-20); Blood Urea Nitrogen 7 mg/dL (9-16); Calcium 9.2 mg/dL (8.4-10.2); Carbon Dioxide 20 mmol/L (22-29); Chloride 113 mmol/L (96-108); Cholesterol 161 mg/dL; Estimated Glomerular Filt Rate 44; Glucose Fasting 80 mg/dL (60-99); HDL Cholesterol 28 mg/dL; LDL Cholesterol Calculated 111 mg/dl; Potassium 3.9 mmol/L (3.3-5.1); Sodium 140 mmol/L (135-145); Triglycerides 111 mg/dL
[2021-05-02 10:32] LABS: Insulin Level Total 7.6 uIU/mL
== END 2021-05-01 09:44 | disposition home or self-care (01) ==
LOC: HO.HMGCLDS 09:43
PROVIDERS: PCP Internal Medicine; Visit Provider Registered Nurse Psychiatric/Mental Health
DX: F31.9 Bipolar disorder, unspecified (principal); F43.10 Post-traumatic stress disorder, unspecified; Z79.899 Other long term (current) drug therapy
CPT/HCPCS: 36415; 80048; 80061; 80178; 83036; 83525; 84146; 85025

== ENCOUNTER → 2021-06-09 10:33 | Outpatient (BNVA) | payer MEDICAID, SELFPAY | PROVIDERS: PCP Internal Medicine; Visit Provider Nurse Practitioner Family ==

== ENCOUNTER 2021-09-23 08:07 | Outpatient (REF) | payer MEDICAID, SELFPAY ==
[2021-09-23 11:28] LABS: MANUAL DIFF FLAG NO
[2021-09-23 11:42] LABS: Basophils Absolute Auto 0.1 X10*3/uL (0.0-0.2); Basophils Percent Auto 0.5 % (0-2); Eosinophils Absolute Auto 0.4 X10*3/uL (0.0-0.4); Eosinophils Percent Auto 3.2 % (0-4); Hematocrit 42.4 % (37.0-47.0); Hemoglobin 12.7 g/dl (12.0-16.0); Imm Gran Abs Auto 0.05 X10*3/uL (0.00-0.03); Imm Gran Pct Auto 0.5 % (0.0-0.4); Lymphocytes Absolute Auto 1.4 X10*3/uL (1.2-4.9); Lymphocytes Percent Auto 12.8 % (20-40); Mean Corpuscular Hemoglobin 28.9 pg (27.0-33.0); Mean Corpuscular Volume 96.4 fL (80.0-98.0); Mean Platelet Volume 12.7 fL (9.4-12.3); Monocytes Absolute Auto 0.6 X10*3/uL (0.1-1.2); Monocytes Percent Auto 5.5 % (2-11); Neutrophils Absolute Auto 8.6 x10*3/uL (2.0-8.3); Neutrophils Percent Auto 77.5 % (45-73); Platelet Count 299 X10*3/uL (160-400); Red Cell Distribution Width 15.1 % (11.0-16.0); White Blood Count 11.1 X10*3/uL (4.8-10.8)
[2021-09-23 11:51] LABS: Estimated Average Glucose 88 mg/dL; Hemoglobin A1c % 4.7 %
[2021-09-23 11:59] LABS: Alanine Aminotransferase 17 U/L (0-31); Albumin Level 4.3 g/dL (3.5-5.0); Alkaline Phosphatase 99 U/L (39-117); Anion Gap 12 (12-20); Aspartate Amino Transferase 14 U/L (5-31); Bilirubin Direct 0.2 mg/dL (0.0-0.5); Bilirubin Total 0.3 mg/dL (0.0-1.0); Blood Urea Nitrogen 11 mg/dL (9-16); Calcium 9.4 mg/dL (8.4-10.2); Carbon Dioxide 20 mmol/L (22-29); Chloride 112 mmol/L (96-108); Cholesterol 205 mg/dL; Estimated Glomerular Filt Rate 48; Glucose Random 76 mg/dL (60-115); HDL Cholesterol 36 mg/dL; LDL Cholesterol Calculated 142 mg/dl; Potassium 3.9 mmol/L (3.3-5.1); Sodium 140 mmol/L (135-145); Total Protein 7.6 g/dL (6.5-8.0); Triglycerides 138 mg/dL
[2021-09-23 12:21] LABS: TSH reflex Free T4 1.73 uIU/mL (0.32-4.0); Vitamin D 25-OH Total 16.4 ng/mL (>30)
== END 2021-09-23 08:08 | disposition home or self-care (01) ==
LOC: HO.HMGCLDS 08:07
PROVIDERS: PCP Internal Medicine; Visit Provider Internal Medicine
DX: Z00.00 Encounter for general adult medical examination without abnormal findings (principal)
CPT/HCPCS: 36415; 80048; 80061; 80076; 82306; 83036; 84443; 85025

== ENCOUNTER → 2021-11-09 14:32 | Outpatient (BNVA) | payer MEDICAID, SELFPAY | PROVIDERS: PCP Internal Medicine | DX: R33.9 Retention of urine, unspecified (principal) | CPT/HCPCS: 51798; 99202 ==

== ENCOUNTER 2021-11-13 13:23 | Outpatient (REF) | payer MEDICAID, SELFPAY ==
--- NOTE | ~2021-11-13 | MR_ITS ---
MRI OF THE BRAIN WITH AND WITHOUT IV CONTRAST MRV OF THE BRAIN WITH AND WITHOUT IV CONTRAST INDICATION: Encephalopathy. COMPARISON: Head CT 03/17/2020. TECHNIQUE: Multiplanar multisequence MR imaging of the brain was obtained without and following the administration of 10 mL of Gadavist without complication. Additionally, a noncontrast and gadolinium infusion MRV of the head are obtained. Vascular post-processing, including 2-dimensional and 3-dimensional reformatted images were created and reviewed on an independent workstation under concurrent physician supervision. Stenoses are graded per criteria similar to NASCET. FINDINGS: BRAIN MRI: There is no pathologic intracranial enhancement. No parenchymal signal abnormality. There is no hydrocephalus, extra-axial surface collection, or herniation. The major flow voids at the skull base are preserved. There is no acute infarct on diffusion-weighted imaging. There is no intracranial hemorrhage on the gradient recalled echo acquisition. The midline structures are normal. The cerebellar tonsils are normally positioned. The cerebellum and brainstem are normal. The craniocervical junction is normal. Osseous marrow signal intensity is homogenous. The visualized soft tissues are unremarkable. Retention cysts within the maxillary sinuses bilaterally. HEAD MRV: The left venous system is hypoplastic and remains patent. No evidence of cerebral venous thrombosis. MR/MR angio head wo/w con IMPRESSION: - Unremarkable MRI of the brain. - Unremarkable MRV of the head.
--- NOTE | ~2021-11-13 | MR_ITS ---
MRI OF THE BRAIN WITH AND WITHOUT IV CONTRAST MRV OF THE BRAIN WITH AND WITHOUT IV CONTRAST INDICATION: Encephalopathy. COMPARISON: Head CT 03/17/2020. TECHNIQUE: Multiplanar multisequence MR imaging of the brain was obtained without and following the administration of 10 mL of Gadavist without complication. Additionally, a noncontrast and gadolinium infusion MRV of the head are obtained. Vascular post-processing, including 2-dimensional and 3-dimensional reformatted images were created and reviewed on an independent workstation under concurrent physician supervision. Stenoses are graded per criteria similar to NASCET. FINDINGS: BRAIN MRI: There is no pathologic intracranial enhancement. No parenchymal signal abnormality. There is no hydrocephalus, extra-axial surface collection, or herniation. The major flow voids at the skull base are preserved. There is no acute infarct on diffusion-weighted imaging. There is no intracranial hemorrhage on the gradient recalled echo acquisition. The midline structures are normal. The cerebellar tonsils are normally positioned. The cerebellum and brainstem are normal. The craniocervical junction is normal. Osseous marrow signal intensity is homogenous. The visualized soft tissues are unremarkable. Retention cysts within the maxillary sinuses bilaterally. HEAD MRV: The left venous system is hypoplastic and remains patent. No evidence of cerebral venous thrombosis. MR/MR head/brain wo/w con IMPRESSION: - Unremarkable MRI of the brain. - Unremarkable MRV of the head.
== END 2021-11-13 13:24 | disposition home or self-care (01) ==
LOC: HO.MRI 13:23
PROVIDERS: PCP Internal Medicine; Visit Provider Psychiatry & Neurology Neurology
DX: G93.40 Encephalopathy, unspecified (principal)
CPT/HCPCS: 70546; 70553; A9585

== ENCOUNTER 2021-12-25 11:27 | Outpatient (REF) | payer MEDICAID, SELFPAY ==
[2021-12-25 15:18] LABS: Appearance Urine CLEAR; Color Urine YELLOW; Glucose Urine UA 100 MG/DL (NEG); Leukocyte Esterase Urine 3+ (NEG); Nitrite Urine NEG (NEG); Specific Gravity - Urine <= 1.005 (1.005-1.025); Urine Blood NEG (NEG); Urine Ketones NEG (NEG); Urine Protein NEG (NEG-TRACE)
[2021-12-25 15:52] LABS: Bacteria Urine TRACE /LPF; RBC Urine 0 /HPF (0); Squamous Epithelial Cell Urine 1+ /LPF
== END 2021-12-25 11:28 | disposition home or self-care (01) ==
LOC: HO.HMGCLDS 11:27
DX: R33.9 Retention of urine, unspecified (principal)
CPT/HCPCS: 81001; 87086

== ENCOUNTER 2022-01-08 10:35 | Outpatient (REF) | payer MEDICAID, SELFPAY ==
[2022-01-08 11:43] LABS: Hemoglobin 12.7 g/dl (12.0-16.0); Mean Corpuscular HGB Conc 30.2 g/dl (31.0-35.0); Mean Corpuscular Hemoglobin 29.1 pg (27.0-33.0); Mean Corpuscular Volume 96.3 fL (80.0-98.0); Mean Platelet Volume 12.3 fL (9.4-12.3); Platelet Count 313 X10*3/uL (160-400); Red Blood Count 4.36 X10*6/uL (4.20-5.50); Red Cell Distribution Width 16.4 % (11.0-16.0); White Blood Count 12.5 X10*3/uL (4.8-10.8)
[2022-01-08 11:55] LABS: Anion Gap 11 (12-20); Blood Urea Nitrogen 7 mg/dL (9-16); Calcium 9.7 mg/dL (8.4-10.2); Carbon Dioxide 20 mmol/L (22-29); Chloride 111 mmol/L (96-108); Estimated Glomerular Filt Rate 38; Glucose Random 107 mg/dL (60-115); Potassium 3.5 mmol/L (3.3-5.1); Sodium 138 mmol/L (135-145)
== END 2022-01-08 10:36 | disposition home or self-care (01) ==
LOC: HO.HMGCLDS 10:35
PROVIDERS: Visit Provider Ophthalmology
DX: H47.11 Papilledema associated with increased intracranial pressure (principal)
CPT/HCPCS: 36415; 80048; 85027

== ENCOUNTER 2022-01-30 10:06 | Outpatient (REF) | payer MEDICAID, SELFPAY ==
[2022-01-30 11:34] LABS: Lithium 0.63 mmol/L (0.60-1.20)
== END 2022-01-30 10:07 | disposition home or self-care (01) ==
LOC: HO.HMGCLDS 10:06
PROVIDERS: PCP Internal Medicine; Visit Provider Registered Nurse Psychiatric/Mental Health, Adult
DX: F31.9 Bipolar disorder, unspecified (principal); Z51.81 Encounter for therapeutic drug level monitoring; Z79.899 Other long term (current) drug therapy
CPT/HCPCS: 36415; 80178

== ENCOUNTER → 2022-02-19 14:41 | Outpatient (BNVA) | payer MEDICAID, SELFPAY | PROVIDERS: PCP Internal Medicine | DX: R33.9 Retention of urine, unspecified (principal) | CPT/HCPCS: 51798; 99212 ==

== ENCOUNTER 2022-04-16 11:15 | Outpatient (REF) | payer MEDICAID, SELFPAY ==
[2022-04-16 17:07] LABS: Appearance Urine CLEAR; Color Urine YELLOW; Glucose Urine UA NEG (NEG); Leukocyte Esterase Urine 3+ (NEG); Nitrite Urine NEG (NEG); PH 7.5 (5.0-8.0); Specific Gravity - Urine <= 1.005 (1.005-1.025); Urine Blood TRACE (NEG); Urine Ketones NEG (NEG); Urine Protein NEG (NEG-TRACE)
[2022-04-16 17:15] LABS: Bacteria Urine 2+ /LPF; Squamous Epithelial Cell Urine TRACE /LPF
== END 2022-04-16 11:16 | disposition home or self-care (01) ==
LOC: HO.HMGCLDS 11:15
PROVIDERS: PCP Internal Medicine; Visit Provider Urology
DX: R33.9 Retention of urine, unspecified (principal)
CPT/HCPCS: 81001; 87086; 87088; 87186

== ENCOUNTER → 2022-05-17 09:25 | Outpatient (BNVA) | payer MEDICAID, SELFPAY | PROVIDERS: PCP Internal Medicine | DX: R33.9 Retention of urine, unspecified (principal) | CPT/HCPCS: 51798; 99212 ==

== ENCOUNTER → 2022-05-21 08:49 | Outpatient (BNVA) | payer MEDICAID, SELFPAY | PROVIDERS: PCP Internal Medicine; Referring Provider Internal Medicine; Visit Provider Internal Medicine Gastroenterology | DX: K58.1 Irritable bowel syndrome with constipation (principal); K21.9 Gastro-esophageal reflux disease without esophagitis; R11.0 Nausea | CPT/HCPCS: 99212 ==

== ENCOUNTER 2022-06-17 08:17 | Outpatient (REF) | payer MEDICAID, SELFPAY ==
[2022-06-17 11:51] LABS: Appearance Urine HAZY; Color Urine STRAW; Glucose Urine UA NEG (NEG); Leukocyte Esterase Urine 3+ (NEG); Nitrite Urine NEG (NEG); PH 6.5 (5.0-8.0); Specific Gravity - Urine <= 1.005 (1.005-1.025); Urine Blood TRACE (NEG); Urine Ketones NEG (NEG); Urine Protein NEG (NEG-TRACE)
[2022-06-17 12:25] LABS: Anion Gap 14 (12-20); Blood Urea Nitrogen 10 mg/dL (9-16); Calcium 9.3 mg/dL (8.4-10.2); Carbon Dioxide 20 mmol/L (22-29); Chloride 112 mmol/L (96-108); Estimated Glomerular Filt Rate 33; Glucose Random 90 mg/dL (60-115); Potassium 3.9 mmol/L (3.3-5.1); Sodium 142 mmol/L (135-145)
[2022-06-17 12:30] LABS: Bacteria Urine 4+ /LPF; Squamous Epithelial Cell Urine TRACE /LPF
[2022-06-17 12:35] LABS: Lithium 0.89 mmol/L (0.60-1.20)
== END 2022-06-17 08:18 | disposition home or self-care (01) ==
LOC: HO.HMGCLDS 08:17
PROVIDERS: Absent Provider Registered Nurse Psychiatric/Mental Health, Adult; Visit Provider Urology
DX: F31.9 Bipolar disorder, unspecified (principal); Z79.899 Other long term (current) drug therapy
CPT/HCPCS: 36415; 80048; 80178; 81001

== ENCOUNTER 2022-06-18 15:20 | Outpatient (REF) | payer MEDICAID, SELFPAY | END 2022-06-18 15:21 | disposition home or self-care (01) | LOC: HO.HMGCLDS 15:20 | PROVIDERS: Visit Provider Urology | DX: R33.9 Retention of urine, unspecified (principal) | CPT/HCPCS: 87086; 87088; 87186 ==

== ENCOUNTER → 2022-07-14 08:07 | Outpatient (BNVA) | payer MEDICAID, SELFPAY | PROVIDERS: PCP Internal Medicine; Referring Provider Internal Medicine; Visit Provider Internal Medicine | DX: R06.02 Shortness of breath (principal); R00.2 Palpitations | CPT/HCPCS: 93005; 99202 ==

== ENCOUNTER 2022-07-20 10:38 | Outpatient (REF) | payer MEDICAID, SELFPAY ==
--- NOTE | 2022-07-20 | PFT_ITS ---
Forced vital capacity 89%, FEV1 95%, FEV1/FVC ratio is 90, [id number] 125%, and MVV 62%. Post bronchodilator therapy, there is no significant change. Total lung capacity 92%. Residual volume 70%. Diffusion capacity is 103% CONCLUSION: Normal pulmonary function test, and there is no evidence of obstructive or restrictive pulmonary disorder. MD CAIT Ocasio/CARMENCITA / [id number]
== END 2022-07-20 10:39 | disposition home or self-care (01) ==
LOC: HO.RESP 10:38
PROVIDERS: PCP Internal Medicine; Visit Provider Internal Medicine
DX: J45.40 Moderate persistent asthma, uncomplicated (principal)
CPT/HCPCS: 94060; 94727; 94729

== ENCOUNTER → 2022-07-30 09:03 | Outpatient (REF) | payer MEDICAID, SELFPAY ==
--- NOTE | 2022-07-30 09:07 | HM_ITS ---
Conclusion: 1. Patient was monitored for total period of 2 days and 22 hours 2. Baseline was normal sinus rhythm with average heart of 85 beats per minute 3. Very rare ectopy noted 4. No significant pauses or bradycardia noted 5. No patient reported symptoms MTDD
--- NOTE | 2022-07-30 09:07 | CA_ITS ---
Transthoracic Echocardiogram Patient (Last, First, Middle): Denisse Smiley K Gender: Female Date of : 1995 Age: 27 Procedure Date: 07/30/2022 Procedure Type: Transthoracic Echocardiogram Location: OP Height: 167.64 cm Weight: 104.33 kg BSA: 2.12 m2 Heart Rate: 73 bpm BP: 132 / 78 mmHg Leasing Assistant: SB Referring MD: Juarez Lindsey MD Symptoms: R06.02 - Shortness of breath Study Quality: Adequate w contrast ECG Rhythm: Sinus Conclusions: - The left ventricular systolic function is normal. The calculated ejection fraction is 62% by biplane method. - No obvious valvular pathology seen on this study. Findings Procedure Information Contrast agent, definity, is being given per protocol without apparent complications. Left Ventricle Normal left ventricular cavity size. There is normal left ventricular wall thickness. The left ventricular systolic function is normal. The calculated ejection fraction is 62% by biplane method. There is no evidence of regional wall motion abnormalities. Diastolic function is normal for age. Right Ventricle Normal right ventricular cavity size and systolic function. Atria Both atria are normal in size. Aortic Valve There is a normal trileaflet aortic valve. There is no aortic valve stenosis. There is no aortic valve regurgitation. Mitral Valve The mitral valve appears normal. There is no mitral valve regurgitation. There is no mitral valve stenosis. Pulmonic Valve The pulmonic valve is likely normal. Tricuspid Valve Normal tricuspid valve structure. There is no tricuspid valve regurgitation. Tricuspid regurgitation envelope is inadequate for calculation of right ventricular systolic pressure. Great Vessels The aortic annulus, sinuses of valsalva, asc aorta, and aortic arch are normal in size. Venous The inferior vena cava is normal in size and collapses less than 50% with inspiration. Pericardium/Pleural There is no evidence of pericardial effusion. Prior Study Comparison No prior study available for comparison. Recommendations, Care & Conclusions No obvious valvular pathology seen on this study. Measurements 2D Linear Measurements IVSd: 1.01 0.6-0.9/0.6-1.0 cm LVIDd: 5.11 3.9-5.3/4.2-5.9 cm LVIDd Index: 2.41 2.4-3.2/2.2-3.1 cm/m2 LVIDs: 3.07 2.0-3.6 cm LVPWd: 0.69 0.7-1.1 cm LA Diam: 3.30 2.7-3.8/3.0-4.0 cm LAIDs Index: 1.56 1.5-2.3 cm/m2 LV Mass: 190.26 67-162/88-224 g LV Mass Index: 89.75 43-95/49-115 g/m2 LVOT Diam: 2.20 3.0+(-)1.3 cm 2D Systolic Function EF 4C: 68.50 >55% EF 2C: 56.60 >55% EF BiP: 62.40 >55% Mitral Valve MV Pk E: 0.91 MV PK A: 0.54 MV Decel Time: 176.00 E/A: 1.70 E'Lateral: 11.50 E'Medial: 8.05 E/E' Med: 11.30 E/E' Lat: 7.90 PHT: 51.00 MVA PHT: 4.31 Decel [place]: 5.19 Aortic Valve AoV Pk Suraj: 1.06 AoV Mn Suraj: 0.74 AoV VTI: 0.20 AoV Pk Grad: 4.00 Aov Mn Grad: 3.00 KENDRICK Cont.VTI: 3.74 LVOT LVOT Pk Suraj: 1.10 LVOT Mn Suraj: 0.67 LVOT VTI: 0.19 LVOT Pk Grad: 5.00 LVOT Mn Grad: 2.00 LVOT Diam: 2.20 LVOT Area: 3.80 Diastolic Function MV Pk E: 0.91 MV Pk A: 0.54 E/A: 1.70 E'Medial: 8.05 E/E' Med: 11.30 E' Laterial: 11.50 E/E' Lat: 7.90 Right Ventricle TAPSE (mm): 18.00 TVS' Suraj: 7.60 Tricuspid Valve RA Press: 8.00 Great Vessels Aorta Sinus of Valsalva: 3.30 2.0-3.5 cm Ao Asc: 2.70 2.1-3.4 cm Ao Arch: 2.20 Pulmonary Valve PV Pk Suraj: 0.93 Peak PV Grad: 3.00 Updated in Other Vendor System with Status of Final Juarez Lindsey MD electronically signed on 07/31/2022 12:51:33 PM with status of Final
== END ==
LOC: HO.CARD 09:03
PROVIDERS: Visit Provider Internal Medicine
DX: R06.02 Shortness of breath (principal)
CPT/HCPCS: 93242; 93306; Q9957

== ENCOUNTER → 2023-01-17 11:20 | Outpatient (BNVA) | payer MEDICAID, SELFPAY | PROVIDERS: PCP Internal Medicine; Visit Provider Anesthesiology | DX: M62.838 Other muscle spasm (principal); M25.50 Pain in unspecified joint; G43.909 Migraine, unspecified, not intractable, without status migrainosus | CPT/HCPCS: 99212 ==

== ENCOUNTER → 2023-01-31 07:11 | Outpatient (BNVA) | payer MEDICAID, SELFPAY | PROVIDERS: PCP Internal Medicine; Referring Provider Internal Medicine; Visit Provider Internal Medicine Gastroenterology | DX: K58.1 Irritable bowel syndrome with constipation (principal); K21.9 Gastro-esophageal reflux disease without esophagitis; R11.0 Nausea; M25.571 Pain in right ankle and joints of right foot; M25.572 Pain in left ankle and joints of left foot | CPT/HCPCS: 99212 ==

== ENCOUNTER 2023-02-16 13:37 | Outpatient (REF) | payer MEDICAID, SELFPAY | END 2023-02-16 13:38 | disposition home or self-care (01) | LOC: HO.LNP 13:37 | PROVIDERS: PCP Internal Medicine; Visit Provider Nurse Practitioner Family | DX: R33.9 Retention of urine, unspecified (principal); N39.0 Urinary tract infection, site not specified; N18.30 Chronic kidney disease, stage 3 unspecified | CPT/HCPCS: 51798; 87086; 87088; 87186; 99212 ==

== ENCOUNTER 2023-04-08 15:06 | Outpatient (REF) | payer MEDICAID, SELFPAY | END 2023-04-08 15:07 | disposition home or self-care (01) | LOC: HO.LAB 15:06 | PROVIDERS: PCP Internal Medicine; Visit Provider Urology | DX: N39.0 Urinary tract infection, site not specified (principal); R33.9 Retention of urine, unspecified; N39.8 Other specified disorders of urinary system | CPT/HCPCS: 51798; 87086; 99212 ==

== ENCOUNTER 2023-04-08 15:06 | Outpatient (AMB) | payer MEDICAID, SELFPAY ==
--- NOTE | 2023-04-08 15:25 | MHC.OFFVIS ---
Intake Intake Visit Reasons: follow up/UTI Intake Note: Pt presents to the office today for a f/u UTI. Urinalysis done. PVR-128 Allergies lidocaine Allergy (Severe, Verified 04/08/23 15:27) severe burning- injected lidocaine only trazodone Allergy (Severe, Verified 04/08/23 15:27) hives gabapentin Adverse Reaction (Severe, Verified 04/08/23 15:27) blisters sucralose [From Splenda (sucralose)] Adverse Reaction (Severe, Verified 04/08/23 15:27) migraines watermelon Adverse Reaction (Severe, Verified 04/08/23 15:27) swollen tongue Antihistamines - Alkylamine Adverse Reaction (Intermediate, Verified 04/08/23 15:27) nose bleeds citalopram [From Celexa] Adverse Reaction (Intermediate, Verified 04/08/23 15:27) hallucinations duloxetine [From Cymbalta] Adverse Reaction (Intermediate, Verified 04/08/23 15:27) mood swings pregabalin [From Lyrica] Adverse Reaction (Intermediate, Verified 04/08/23 15:27) mood swings tramadol Adverse Reaction (Intermediate, Verified 04/08/23 15:27) hives/itching venlafaxine Adverse Reaction (Intermediate, Verified 04/08/23 15:27) mood swings HPI HPI Comments History of Present Illness Details Denisse is a 28-year-old female who presents to the office for UTI follow-up. 04/08/23-- Hair was seen last in the office by the GORDY Hernandez on 02/16/23. The STERILIZATION TECHNICIAN increased bethanechol dose to 50 mg B.I.D and the patient is adhering to it. Discussed other therapy options to include clean intermittent catheterization. Initially the patient was seen in the urology office by GORDY Christopher. States having urinary retention since 1.5 years. States improvement in the urinary symptoms in the interim. Voiding episodes after 2 hours. States not feeling the urge to void until the bladder is completely full and has to garcia to the washroom. Denies dysuria. The patient does use a cane as an assistive walking aid. Results reviewed--MRI of the brain--11/13/21-- impression was unremarkable Review of chart: OV?02/16/23-- with GORDY Hernandez--Denisse is a pleasant 27-year-old female patient of Dr. Miguel Angel Abel. She presents to the office today for follow-up of her incomplete bladder emptying. In discussion with the patient today she reports recent hospitalization at [facility] approximately 2 weeks ago for urinary retention. She reports having had indwelling Lackey catheter however was able to pass her voiding trial at the hospital and was discharged home with an increase in her bethanechol from 10 mg b.i.d. to 10 mg t.i.d.. In office urinalysis today with 3+ leukocytes negative nitrates. When asked patient does report foul-smelling urine however denies urinary frequency, incontinence, nocturia, hematuria, dysuria, flank pain, fever, and or chills. She does however report urinary urgency however states this is not new for her. PVR 130 mL. Discussed possible near future CIC in the setting of incomplete bladder emptying and recurrent urinary tract infections. Also discussed near future in office cystoscopy if symptoms persist and/or worsen. Will attempt to obtain previous records from [facility] for continuity of care. Patient reports following with Dr. Camacho her field placement director for her chronic kidney disease stage 3. Discussed possible in office cystoscopy for further assessment evaluation given history of recurrent urinary tract infections, incomplete bladder emptying and most recent episode of urinary retention. 04/08/23--Evaluation today: blood: negative, leukocytes: 500 Mariza/uL, Bladder scan PVR: 128 mL. 04/08/23--Plan: Cystoscopy was rescheduled. Retroperitoneal US was ordered. Continue bethanechol 50 mg B.I.D. Follow-up after 3 months. [facility] Medical History Anxiety Asthma Bipolar 1 disorder Encounter for screening Gastroesophageal reflux disease without esophagitis Irritable bowel syndrome with constipation Nausea PTSD (post-traumatic stress disorder) Urinary retention with incomplete bladder emptying Surgical History H/O esophagogastroduodenoscopy Hx of colonoscopy (~02/2020) No pertinent past surgical history (~02/2020) Family History Mother Pacemaker Father Family history unknown Social History Household Members: Family Alcohol intake: current Alcohol intake frequency: holidays/special occasions only Patient Tobacco Use Status: Former Tobacco user Substance Use Type: Marijuana and Other Review of Systems Const All systems reviewed & are unremarkable except as noted in HPI and below Reports no additional complaints Eyes Reports no additional complaints ENT Reports no additional complaints Card Denies dyspnea Resp Denies cough and Denies dyspnea GI Reports no additional complaints Reports no additional complaints Musc Reports no additional complaints Skin/Breast Denies rash and Denies unusual bruising Neuro Reports no additional complaints Psych Reports no additional complaints Endo Reports no additional complaints Jamir/Lymph Reports no additional complaints Aller/Immun Reports no additional complaints Physical Exam Const General: cooperative, healthy appearing and no acute distress Orientation/consciousness: patient oriented x3 HEENT Head: Yes normal to inspection, Yes normocephalic and Yes atraumatic Eyes Conjunctivae: conjunctivae normal Neck Neck: Yes normal visual inspection and Yes trachea midline Chest Chest palpation & inspection: normal inspection of the chest Resp Effort & Inspection: normal respiratory effort Cardio Rate: regular rate GI Inspection: Yes normal to inspection Skin General skin exam: no rashes or lesions noted Neuro General: patient oriented x3 Extrem General: No edema Psych Appearance: grossly normal Office Procedures Post Void Residual Post Residual Void Post Void Residual (PVR): 128 [id number] Void Residual by ultrasound Results AMB Urinalysis, Automated UA Leukoctes 500 Mariza/uL Last Edit by Gwen Swann MA on 04/08/23 15:38 UA Nitrite Negative Last Edit by Gwen Swann MA on 04/08/23 15:38 UA Urobilinogen 0.2 mg/dL Last Edit by Gwen Swann MA on 04/08/23 15:38 UA Protein 0 mg/dL Last Edit by Gwen Swann MA on 04/08/23 15:38 UA pH 7.0 Last Edit by Gwen Swann MA on 04/08/23 15:38 UA Blood 0 Brice/uL Last Edit by Gwen Swann MA on 04/08/23 15:38 UA Specific [place] 1.010 Last Edit by Gwen Swann MA on 04/08/23 15:38 UA Ketone Negative Last Edit by Gwen Swann MA on 04/08/23 15:38 UA Bilirubin 0 mg/dL Last Edit by Gwen Swann MA on 04/08/23 15:38 UA Glucose 0 mg/dL Last Edit by Gwen Swann MA on 04/08/23 15:38 Results Reviewed Results Reviewed: Laboratory Last Values Urine pH (Auto) 7.0 04/08/23 15:36 Specific [place] (Auto) 1.010 04/08/23 15:36 Urine Protein (Auto) 0 mg/dL 04/08/23 15:36 Glucose (UA)(Auto) 0 mg/dL 04/08/23 15:36 Urine Ketones (Auto) Negative 04/08/23 15:36 Urine Blood (Auto) 0 Brice/uL 04/08/23 15:36 Urine Nitrite (Auto) Negative 04/08/23 15:36 Urine Bilirubin (Auto) 0 mg/dL 04/08/23 15:36 Urine Urobilinogen (Auto) 0.2 mg/dL 04/08/23 15:36 Leukocyte Esterase (Auto) 500 Mariza/uL 04/08/23 15:36 Assessment & Plan Assessment & Plan (1) Urinary retention with incomplete bladder emptying: Code(s): R33.9 - Retention of urine, unspecified (2) Voiding dysfunction: Code(s): N39.8 - Other specified disorders of urinary system Plan Cystoscopy was rescheduled. Renal US was ordered. Continue bethanechol 50 mg B.I.D. Follow-up after 3 months. Orders: Orders Urine Culture 04/08/23 N39.0 - Urinary tract infection, site not specified AMB Urinalysis Automated 04/08/23 Z13.9 - Encounter for screening, unspecified AMB Post Void Residual by ultrasound 04/08/23 N39.0 - Urinary tract infection, site not specified Medications: Refilled bethanechol chloride 50 mg PO BID 60 tabs 4RF 30 days N39.0 - Urinary tract infection, site not specified Patient Instructions: The patient had an opportunity to ask questions regarding treatment plan. All questions were answered. Imaging, Laboratory studies and physical exam results were discussed and reviewed in detail. No major barriers to understanding were identified. The patient expressed understanding and agreement with the above treatment plan. The patient is aware they should contact our office by phone for worsening of their current condition or the appearance of new symptoms. Compliance is encouraged with any medications and followup testing that is ordered. It is a privilege to be allowed the opportunity to participate in the urologic care of your patient. If you have any questions or concerns regarding treatment for the above conditions please do not hesitate to contact me. The office telephone contact is [phone]. This note is constructed in part using voice recognition software. While every effort has been made to ensure accuracy internal communications manager errors may have been included. Yours sincerely, Kristi Carpenter MD Coding Level of Care Code Est Pt Level 4 (09716) Diagnoses Urinary retention with incomplete bladder emptying R33.9 Voiding dysfunction N39.8 CPT Codes Post Residual Void - PVR CPT Code: 10113-Gvzu Void Residual by ultrasound ([id number])
== END 2023-04-08 16:02 | disposition home or self-care (01) ==
LOC: HO.HUSH 15:06
PROVIDERS: PCP Internal Medicine; Visit Provider Urology
DX: R33.9 Retention of urine, unspecified (principal); N39.8 Other specified disorders of urinary system
CPT/HCPCS: 99214

== ENCOUNTER 2023-04-14 14:39 | Outpatient (REF) | payer MEDICAID, SELFPAY ==
--- NOTE | ~2023-04-14 | US_ITS ---
EXAMINATION: US SOFT TISSUE, CHEST CLINICAL INFORMATION: Pain upper anterior left chest for close to a year. Intermittent, sharp, some radiation to arm. History fibromyalgia. COMPARISON: None available. TECHNIQUE: Ultrasound of the upper left chest soft tissues is performed using linear grayscale imaging and color Doppler. Patient is able to point to the area of concern at time of imaging. FINDINGS: The area of symptoms corresponds to the soft tissues immediately inferior to the left clavicle. Imaging is performed from the manubrium to the lateral clavicle region. There is no cystic or solid mass or architectural abnormality. No hyperemia. No skin thickening or edema tracking in soft tissue planes. Results are discussed with the patient at time of visit. Additional imaging options discussed as well as availability of pain management consultation. US/US breast LT limited IMPRESSION: -Unremarkable targeted ultrasound left chest soft tissues. -If clinically indicated, further evaluation may be considered with CT or MRI.
== END 2023-04-14 14:40 | disposition home or self-care (01) ==
LOC: HO.MAMMO 14:39
PROVIDERS: PCP Internal Medicine; Visit Provider Advanced Practice Midwife
DX: R07.89 Other chest pain (principal); M79.7 Fibromyalgia
CPT/HCPCS: 76642

== ENCOUNTER 2023-07-12 11:01 | Outpatient (REF) | payer MEDICAID, SELFPAY ==
[2023-07-12 14:21] LABS: MANUAL DIFF FLAG NO
[2023-07-12 14:24] LABS: Basophils Absolute Auto 0.1 X10*3/uL (0.0-0.2); Basophils Percent Auto 0.8 % (0-2); Eosinophils Absolute Auto 0.6 X10*3/uL (0.0-0.4); Eosinophils Percent Auto 3.8 % (0-4); Hematocrit 48.7 % (37.0-47.0); Hemoglobin 15.9 g/dl (12.0-16.0); Imm Gran Abs Auto 0.08 X10*3/uL (0.00-0.03); Imm Gran Pct Auto 0.6 % (0.0-0.4); Lymphocytes Absolute Auto 2.5 X10*3/uL (1.2-4.9); Lymphocytes Percent Auto 17.1 % (20-40); Mean Corpuscular HGB Conc 32.6 g/dl (31.0-35.0); Mean Corpuscular Hemoglobin 32.3 pg (27.0-33.0); Mean Corpuscular Volume 98.8 fL (80.0-98.0); Mean Platelet Volume 12.5 fL (9.4-12.3); Monocytes Absolute Auto 0.8 X10*3/uL (0.1-1.2); Monocytes Percent Auto 5.6 % (2-11); Neutrophils Absolute Auto 10.5 x10*3/uL (2.0-8.3); Neutrophils Percent Auto 72.1 % (45-73); Platelet Count 283 X10*3/uL (160-400); Red Blood Count 4.93 X10*6/uL (4.20-5.50); Red Cell Distribution Width 14.4 % (11.0-16.0); White Blood Count 14.5 X10*3/uL (4.8-10.8)
[2023-07-12 16:07] LABS: Alanine Aminotransferase 47 U/L (0-31); Albumin Level 4.3 g/dL (3.5-5.0); Alkaline Phosphatase 99 U/L (39-117); Anion Gap 14 (12-20); Aspartate Amino Transferase 29 U/L (5-31); Bilirubin Total 0.3 mg/dL (0.0-1.0); Blood Urea Nitrogen 12 mg/dL (9-16); Calcium 9.9 mg/dL (8.4-10.2); Carbon Dioxide 21 mmol/L (22-29); Chloride 107 mmol/L (96-108); Cholesterol 235 mg/dL (<200); Estimated Glomerular Filt Rate 31; Glucose Fasting 121 mg/dL (60-99); HDL Cholesterol 36 mg/dL (>40); Iron 115 mcg/dL (30-160); LDL Cholesterol Calculated 141 mg/dL (<100); Percent Iron Saturation 41 % (15-50); Potassium 3.9 mmol/L (3.3-5.1); Sodium 138 mmol/L (135-145); Total Iron Binding Capacity 281 mcg/dL (228-428); Total Protein 7.6 g/dL (6.5-8.0); Triglycerides 291 mg/dL (<150); Unsaturated Iron Binding 166 ug/dL
== END 2023-07-12 11:02 | disposition home or self-care (01) ==
LOC: HO.CHCLDS 11:01
PROVIDERS: Visit Provider Internal Medicine
DX: D50.8 Other iron deficiency anemias (principal)
CPT/HCPCS: 36415; 80053; 80061; 83540; 85025

== ENCOUNTER 2023-07-20 13:36 | Outpatient (REF) | payer MEDICAID, SELFPAY ==
--- NOTE | ~2023-07-20 | US_ITS ---
EXAMINATION: US RETROPERITONEAL COMPLETE (RENAL) CLINICAL INFORMATION: Other specified disorders of the urinary system. UTI, voiding dysfunction. COMPARISON: CT abdomen and pelvis 06/05/2020. TECHNIQUE: Real-time imaging of the kidneys and bladder. FINDINGS: RIGHT KIDNEY: 11.7 x 4.1 x 5.7 cm (SAG x AP x TRV). The kidney is normal in size, contour, and echogenicity. Renal cortical thickness is normal. No renal calculi or focal parenchymal lesions. There is mild hydronephrosis. LEFT KIDNEY: 9.1 x 4.9 x 4.6 cm (SAG x AP x TRV). The kidney is normal in size, contour, and echogenicity. Renal cortical thickness is normal. No focal parenchymal lesions. There is mild hydronephrosis. At the upper pole, a 6 mm nonobstructing calculus is seen. BLADDER: Well distended and normal. Bilateral ureteral jets are demonstrated. Prevoid bladder volume is 1114 mL. Postvoid bladder volume is 361 mL. US/US retroperitoneal comp IMPRESSION: 1. There is mild bilateral hydronephrosis. 2. A 6 mm nonobstructing left renal calculus is seen. 3. There is an increased postvoid residual volume.
== END 2023-07-20 13:37 | disposition home or self-care (01) ==
LOC: HO.HMGCX 13:36
PROVIDERS: PCP Internal Medicine; Visit Provider Urology
DX: N39.8 Other specified disorders of urinary system (principal); N39.0 Urinary tract infection, site not specified; R33.9 Retention of urine, unspecified
CPT/HCPCS: 76770

== ENCOUNTER 2023-07-25 13:13 | Outpatient (REF) | payer MEDICAID, SELFPAY ==
[2023-07-25 17:24] LABS: Appearance Urine Cloudy; Color Urine Yellow; Glucose Urine UA Negative (Negative); Leukocyte Esterase Urine Large (3+) (Negative); Nitrite Urine Negative (Negative); Specific Gravity - Urine <= 1.005 (1.005-1.025); UMIC TRIGGER UA YES; Urine Blood Large (3+) (Negative); Urine Ketones Negative (Negative); Urine Protein 30 (1+) mg/dL (Neg-Trace)
[2023-07-25 17:52] LABS: Bacteria Urine Trace (None Seen); RBC Urine 0-2 /HPF (0-2); Squamous Epithelial Cell Urine 0-2 /HPF (0-2); WBC Urine >50 /HPF (0-5)
== END 2023-07-25 13:14 | disposition home or self-care (01) ==
LOC: HO.HMGCLDS 13:13
PROVIDERS: PCP Internal Medicine; Visit Provider Urology
DX: N39.0 Urinary tract infection, site not specified (principal)
CPT/HCPCS: 81001; 87086

== ENCOUNTER 2023-07-27 11:31 | Outpatient (AMB) | payer MEDICAID, SELFPAY ==
--- NOTE | 2023-07-27 11:34 | MHC.OFFVIS ---
Intake Intake Visit Reasons: 3m/US Intake Note: Patient presents today for a follow-up on: US booked 07/20/2023 Meds- None Allergies to Antibiotic- No Known Allergies Blood Thinner- None PVR- 118 mL Allergies lidocaine Allergy (Severe, Verified 09/02/23 15:00) severe burning- injected lidocaine only trazodone Allergy (Severe, Verified 09/02/23 15:00) Depression environmental allergies Allergy (Verified 09/02/23 15:00) Runny Nose feathers Allergy (Verified 09/02/23 15:00) Swelling gabapentin Adverse Reaction (Severe, Verified 09/02/23 15:00) blisters sucralose [From Splenda (sucralose)] Adverse Reaction (Severe, Verified 09/02/23 15:00) migraines topiramate [From Topamax] Adverse Reaction (Severe, Verified 09/02/23 15:00) serotonin syndrome watermelon Adverse Reaction (Severe, Verified 09/02/23 15:00) swollen tongue Antihistamines - Alkylamine Adverse Reaction (Intermediate, Verified 09/02/23 15:00) nose bleeds citalopram [From Celexa] Adverse Reaction (Intermediate, Verified 09/02/23 15:00) hallucinations duloxetine [From Cymbalta] Adverse Reaction (Intermediate, Verified 09/02/23 15:00) mood swings pregabalin [From Lyrica] Adverse Reaction (Intermediate, Verified 09/02/23 15:00) mood swings tramadol Adverse Reaction (Intermediate, Verified 09/02/23 15:00) hives/itching venlafaxine Adverse Reaction (Intermediate, Verified 09/02/23 15:00) mood swings HPI HPI Comments History of Present Illness Details Denisse is a 28-year-old female who presents today to the office for a follow-up.? 07/27/2023? Denisse is followed for frequent UTI's, incomplete bladder emptying and LUTS of urgency, here to review US. The patient was last seen by me on 04/08/2023 advised to continue bethanechol 50 mg B.I.D, and Retroperitoneal US was ordered, I reviewed the retroperitoneum US results from 07/20/2023 revealed that there is mild bilateral hydronephrosis. A 6 mm nonobstructing left renal calculus is seen. There is an increased postvoid residual volume. The patient states that she urinates every 2 hours at home in small amounts. She states that she has weakness in her left leg. The patient does use a cane as an assistive walking aid.?She is scheduled for physical therapy. Patient has had full pelvic MRI at the [facility]. Medication list was reviewed and reconciled with the patient. The patient has been on testosterone. Review of chart: Results reviewed--MRI of the brain--11/13/21-- impression was unremarkable 07/27/2023: Plan: Will monitor the left kidney stone. Discussion on treatment options including shock wave lithotripsy. Pt declines at this time. Voiding dysfunction. Consider urod in the future. Recurrent UTI's, LUTS urgency. Cont Bethanochol. Cystoscopy hydrodistention was discussed to be scheduled.?? [facility] Medical History (Updated 09/05/23 @ 12:26 by Kristi Carpenter MD) Hx of concussion History of panic attacks Urinary retention with incomplete bladder emptying Encounter for screening Bipolar 1 disorder Anxiety PTSD (post-traumatic stress disorder) Asthma Irritable bowel syndrome with constipation Gastroesophageal reflux disease without esophagitis Nausea Surgical History (Updated 09/02/23 @ 14:55 by Sara Sevilla RN) Hx of wisdom tooth extraction Hx of colonoscopy (~02/2020) H/O esophagogastroduodenoscopy No pertinent past surgical history (~02/2020) Family History Mother Pacemaker Father Family history unknown Social History (Updated 09/02/23 @ 15:06 by Sara Sevilla RN) Household Members: Family Housing: House Are you a primary acute care certified nursing assistant to a significant other at home: No Do you presently have visiting nurse or other home services: No Alcohol intake: current Alcohol intake frequency: holidays/special occasions only Patient Tobacco Use Status: Former Tobacco user Quit Date: 2008 Tobacco use type: Cigarette Years Smoked: 2008 Substance Use Type: Marijuana and Other Substance Use Type Other:: gummies Have you been hit, kicked, punched, or otherwise hurt by someone within the past year? If so, by whom?: No Review of Systems Const All systems reviewed & are unremarkable except as noted in HPI and below Reports no additional complaints Eyes Reports no additional complaints ENT Reports no additional complaints Card Denies dyspnea Resp Denies cough and Denies dyspnea GI Reports no additional complaints Reports no additional complaints Musc Reports no additional complaints Skin/Breast Denies rash and Denies unusual bruising Neuro Reports no additional complaints Psych Reports no additional complaints Endo Reports no additional complaints Jamir/Lymph Reports no additional complaints Aller/Immun Reports no additional complaints Office Procedures Post Void Residual Post Residual Void Post Void Residual (PVR): 118 [id number] Void Residual by ultrasound Results AMB Urinalysis, Automated UA Leukoctes 0 Mariza/uL Last Edit by Kike Valdez [facility] on 07/27/23 11:51 UA Nitrite Negative Last Edit by Kike Valdez [facility] on 07/27/23 11:51 UA Urobilinogen 0.2 mg/dL Last Edit by Kike Valdez [facility] on 07/27/23 11:51 UA Protein 0 mg/dL Last Edit by Kike Valdez [facility] on 07/27/23 11:51 UA pH 7.0 Last Edit by Kike Valdez [facility] on 07/27/23 11:51 UA Blood 0 Brice/uL Last Edit by Kike Valdez [facility] on 07/27/23 11:51 UA Specific [place] 1.005 Last Edit by Kike Valdez [facility] on 07/27/23 11:51 UA Ketone Negative Last Edit by Kike Valdez [facility] on 07/27/23 11:51 UA Bilirubin 0 mg/dL Last Edit by Kike Valdez [facility] on 07/27/23 11:51 UA Glucose 0 mg/dL Last Edit by Kike Valdez [facility] on 07/27/23 11:51 Results Reviewed Results Reviewed: Laboratory Last Values Urine pH (Auto) 7.0 07/27/23 11:45 Specific [place] (Auto) 1.005 07/27/23 11:45 Urine Protein (Auto) 0 mg/dL 07/27/23 11:45 Glucose (UA)(Auto) 0 mg/dL 07/27/23 11:45 Urine Ketones (Auto) Negative 07/27/23 11:45 Urine Blood (Auto) 0 Brice/uL 07/27/23 11:45 Urine Nitrite (Auto) Negative 07/27/23 11:45 Urine Bilirubin (Auto) 0 mg/dL 07/27/23 11:45 Urine Urobilinogen (Auto) 0.2 mg/dL 07/27/23 11:45 Leukocyte Esterase (Auto) 0 Mariza/uL 07/27/23 11:45 Date of Service: 07/20/23 EXAMINATION:? US RETROPERITONEAL COMPLETE (RENAL) CLINICAL INFORMATION: Other specified disorders of the urinary system. UTI, voiding dysfunction. COMPARISON:? CT abdomen and pelvis 06/05/2020. FINDINGS: RIGHT KIDNEY: 11.7 x 4.1 x 5.7 cm (SAG x AP x TRV). The kidney is normal in size, contour, and echogenicity. Renal cortical thickness is normal. No renal calculi or focal parenchymal lesions. There is mild hydronephrosis. LEFT KIDNEY: 9.1 x 4.9 x 4.6 cm (SAG x AP x TRV). The kidney is normal in size, contour, and echogenicity. Renal cortical thickness is normal. No focal parenchymal lesions. There is mild hydronephrosis. At the upper pole, a 6 mm nonobstructing calculus is seen. BLADDER: Well distended and normal. Bilateral ureteral jets are demonstrated. Prevoid bladder volume is 1114 mL. Postvoid bladder volume is 361 mL. IMPRESSION:? ? 1. There is mild bilateral hydronephrosis. 2. A 6 mm nonobstructing left renal calculus is seen. 3. There is an increased postvoid residual volume. Assessment & Plan Assessment & Plan (1) Urinary retention with incomplete bladder emptying: Code(s): R33.9 - Retention of urine, unspecified (2) Voiding dysfunction: Code(s): N39.8 - Other specified disorders of urinary system (3) Kidney stone on left side: Code(s): N20.0 - Calculus of kidney Plan Will monitor the left kidney stone. Discussion on treatment options including shock wave lithotripsy. Pt declines at this time. Voiding dysfunction. Consider urod in the future. Recurrent UTI's, LUTS urgency. Cont Bethanochol. Cystoscopy hydrodistention was discussed to be scheduled.?? Orders: Orders AMB Urinalysis Automated 07/27/23 Z13.9 - Encounter for screening, unspecified AMB Post Void Residual by ultrasound 07/27/23 N39.8 - Other specified disorders of urinary system Patient Instructions: The patient had an opportunity to ask questions regarding treatment plan. All questions were answered. Imaging, Laboratory studies and physical exam results were discussed and reviewed in detail. No major barriers to understanding were identified. The patient expressed understanding and agreement with the above treatment plan.? ? ? The patient is aware they should contact our office by phone for worsening of their current condition or the appearance of new symptoms. Compliance is encouraged with any medications and followup testing that is ordered.? ? ? It is a privilege to be allowed the opportunity to participate in the urologic care of your patient. If you have any questions or concerns regarding treatment for the above conditions please do not hesitate to contact me. The office telephone contact is [phone].? ? ? This note is constructed in part using voice recognition software. While every effort has been made to ensure accuracy beautician apprentice errors may have been included.? ? ? Yours sincerely,? ? ? Kristi Carpenter MD? Coding Level of Care Code Est Pt Level 4 (19186) Diagnoses Urinary retention with incomplete bladder emptying R33.9 Voiding dysfunction N39.8 Kidney stone on left side N20.0 CPT Codes Post Residual Void - PVR CPT Code: 31955-Dkft Void Residual by ultrasound ([id number])
== END 2023-07-27 12:24 | disposition home or self-care (01) ==
PROVIDERS: PCP Internal Medicine; Visit Provider Urology
DX: R33.9 Retention of urine, unspecified (principal); N39.8 Other specified disorders of urinary system; N20.0 Calculus of kidney
CPT/HCPCS: 99214

== ENCOUNTER → 2023-07-27 11:31 | Outpatient (BNVA) | payer MEDICAID, SELFPAY | PROVIDERS: PCP Internal Medicine; Visit Provider Urology | DX: R33.9 Retention of urine, unspecified (principal); N39.8 Other specified disorders of urinary system; N20.0 Calculus of kidney | CPT/HCPCS: 51798; 81003; 99212 ==

== ENCOUNTER 2023-09-06 05:56 | Day surgery (SDC) | payer OTHER, SELFPAY ==
[2023-09-02 15:08] VITALS: BMI 43.6
--- NOTE | 2023-09-05 09:25 | P.CONAN_ITS ---
Documented by User: Kathleen Hanson NP 09/05/23 09:31 HPI - Anesthesia Eval Consult details Narrative: 28yo F for Cystoscopy Hydrodistention of Bladder *Multiple Med Allergies* Cardiac w/u 2021 for palps was negative Follows renal for CKD [facility] Active Problems Active Problems: All Active Problems (Updated 09/02/23 @ 15:15 by Sara Sevilla, KIMBERLY) Vitamin D deficiency (Acute) Voiding dysfunction (Acute) Urinary tract infection (Acute) Shortness of breath (Acute) Heart palpitations (Acute) Migraines (Acute) Muscle spasm (Acute) Pain in axilla (Acute) Polyarthralgia (Acute) Sacroiliitis (Acute) Bilateral ankle pain (Acute) Bilateral hip pain (Acute) Left knee pain (Acute) Right knee pain (Acute) Urinary retention with incomplete bladder emptying (Acute) Irritable bowel syndrome with constipation (Acute) Gastroesophageal reflux disease without esophagitis (Acute) Nausea (Acute) Past Medical History Medical History Hx of concussion History of panic attacks Urinary retention with incomplete bladder emptying Encounter for screening Bipolar 1 disorder Anxiety PTSD (post-traumatic stress disorder) Asthma Irritable bowel syndrome with constipation Gastroesophageal reflux disease without esophagitis Nausea Family History Family History Mother Pacemaker Father Family history unknown Surgical History Surgical History Hx of wisdom tooth extraction Hx of colonoscopy (~02/2020) H/O esophagogastroduodenoscopy No pertinent past surgical history (~02/2020) Social History Social History Household Members: Family Housing: House Are you a primary farm or ranch animal caretaker to a significant other at home: No Do you presently have visiting nurse or other home services: No Alcohol intake: current Alcohol intake frequency: holidays/special occasions only Patient Tobacco Use Status: Former Tobacco user Quit Date: 2008 Tobacco use type: Cigarette Years Smoked: 2008 Use of substances other than those prescribed or required for medical reasons: Yes Substance Use Type: Marijuana and Other Substance Use Type Other:: gummies Substance Use Frequency: Daily Have you been hit, kicked, punched, or otherwise hurt by someone within the past year? If so, by whom?: No Are you DNR?: No Advance Directives: No Advance Directives Information Provided: Yes Advance Directives on File: No Patient : No FDLMP: 02/15/2020 : No Poor oral hygiene: No Meds Allergies Allergy/AdvReac Type Severity Reaction Status Date / Time lidocaine Allergy Severe severe Verified 09/06/23 06:21 burning- injected lidocaine only trazodone Allergy Severe Depression Verified 09/06/23 06:21 environmental allergies Allergy Runny Nose Verified 09/06/23 06:21 feathers Allergy Swelling Verified 09/06/23 06:21 gabapentin AdvReac Severe blisters Verified 09/06/23 06:21 sucralose AdvReac Severe migraines Verified 09/06/23 06:21 [From Splenda (sucralose)] topiramate [From Topamax] AdvReac Severe serotonin Verified 09/06/23 06:21 syndrome watermelon AdvReac Severe swollen Verified 09/06/23 06:21 tongue Antihistamines - Alkylamine AdvReac Intermediate nose bleeds Verified 09/06/23 06:21 citalopram [From Celexa] AdvReac Intermediate hallucinati Verified 09/06/23 06:21 ons duloxetine [From Cymbalta] AdvReac Intermediate mood swings Verified 09/06/23 06:21 pregabalin [From Lyrica] AdvReac Intermediate mood swings Verified 09/06/23 06:21 tramadol AdvReac Intermediate hives/itchi Verified 09/06/23 06:21 ng venlafaxine AdvReac Intermediate mood swings Verified 09/06/23 06:21 Home Medications Medication Instructions Recorded Confirmed Last Taken Type testosterone cypionate 200 mg/mL 100 mg IM QWEEK 10/29/20 09/02/23 Unknown History intramuscular oil albuterol sulfate 90 mcg/actuation 2 puff inhalation Q4-6H PRN 02/19/22 09/02/23 Unknown History aerosol inhaler (ProAir HFA) Shortness Of Breath Or Wheezing clonazepam 1 mg disintegrating 1 mg PO DAILY PRN panic attack 07/14/22 09/02/23 09/06/23 05:00 History tablet clonazepam 2 mg tablet 2 mg PO BEDTIME 07/14/22 09/02/23 Unknown History amiloride 5 mg tablet 5 mg PO DAILY 01/17/23 09/02/23 Unknown History clonidine HCl 0.1 mg tablet 0.1 mg PO DAILY PRN anxiety attack 01/17/23 09/02/23 09/06/23 05:00 History ferrous sulfate 325 mg (65 mg 325 mg PO DAILY 01/17/23 09/02/23 09/05/23 History iron) tablet (FeroSul) lithium carbonate 450 mg 450 mg PO BID 01/17/23 09/02/23 09/06/23 05:00 History tablet,extended release lurasidone 120 mg tablet 120 mg PO DAILY 01/17/23 09/02/23 Unknown History mirtazapine 45 mg tablet 45 mg PO BEDTIME 01/17/23 09/02/23 Unknown History montelukast 10 mg tablet 10 mg PO QPM 01/17/23 09/02/23 Unknown History naloxone 4 mg/actuation nasal spray spray intranasal DAILY 01/17/23 02/16/23 Unknown History quetiapine 200 mg tablet,extended 200 mg PO BEDTIME 01/17/23 09/02/23 Unknown History release 24 hr calcium 600 mg capsule mg PO 09/02/23 09/02/23 Unknown History Exam Exam Date and Time: September 05, 2023 0925 Height,Weight and Vital Signs: Height 5 ft 6 in Weight 122.47 kg Pertinent Lab Results Pertinent Lab Results: Laboratory Tests 07/12/23 11:03 WBC 14.5 H Hgb 15.9 D Hct 48.7 H Plt Count 283 Sodium 138 Potassium 3.9 Chloride 107 Carbon Dioxide 21 L BUN 12 Creatinine 1.92 H Narrative Narrative: EKG 2021 NSR ECHO 2021 Conclusions: - The left ventricular systolic function is normal. The calculated ejection fraction is 62% by biplane method. - No obvious valvular pathology seen on this study. Holter 2021 Conclusion: 1. Patient was monitored for total period of 2 days and 22 hours 2. Baseline was normal sinus rhythm with average heart of 85 beats per minute 3. Very rare ectopy noted 4. No significant pauses or bradycardia noted 5. No patient reported symptoms Assessment and Plan Assessment Anesthesia Assessment: Chart Reviewed Documented by User: Leonid Baker MD 09/06/23 08:38 PMFSH Past Medical History Medical History Hx of concussion History of panic attacks Urinary retention with incomplete bladder emptying Encounter for screening Bipolar 1 disorder Anxiety PTSD (post-traumatic stress disorder) Asthma Irritable bowel syndrome with constipation Gastroesophageal reflux disease without esophagitis Nausea Family History Family History Mother Pacemaker Father Family history unknown Family history of problems with anesthesia: No Surgical History Surgical History Hx of wisdom tooth extraction Hx of colonoscopy (~02/2020) H/O esophagogastroduodenoscopy No pertinent past surgical history (~02/2020) History of Problems with Anesthesia: No Social History Social History Household Members: Family Housing: House Are you a primary farm or ranch animal caretaker to a significant other at home: No Do you presently have visiting nurse or other home services: No Alcohol intake: current Alcohol intake frequency: holidays/special occasions only Patient Tobacco Use Status: Former Tobacco user Quit Date: 2008 Tobacco use type: Cigarette Years Smoked: 2008 Use of substances other than those prescribed or required for medical reasons: Yes Substance Use Type: Marijuana and Other Substance Use Type Other:: gummies Substance Use Frequency: Daily Have you been hit, kicked, punched, or otherwise hurt by someone within the past year? If so, by whom?: No Are you DNR?: No Advance Directives: No Advance Directives Information Provided: Yes Advance Directives on File: No Patient : No FDLMP: 02/15/2020 : No Poor oral hygiene: No Meds Allergies Allergy/AdvReac Type Severity Reaction Status Date / Time lidocaine Allergy Severe severe Verified 09/06/23 06:21 burning- injected lidocaine only trazodone Allergy Severe Depression Verified 09/06/23 06:21 environmental allergies Allergy Runny Nose Verified 09/06/23 06:21 feathers Allergy Swelling Verified 09/06/23 06:21 gabapentin AdvReac Severe blisters Verified 09/06/23 06:21 sucralose AdvReac Severe migraines Verified 09/06/23 06:21 [From Splenda (sucralose)] topiramate [From Topamax] AdvReac Severe serotonin Verified 09/06/23 06:21 syndrome watermelon AdvReac Severe swollen Verified 09/06/23 06:21 tongue Antihistamines - Alkylamine AdvReac Intermediate nose bleeds Verified 09/06/23 06:21 citalopram [From Celexa] AdvReac Intermediate hallucinati Verified 09/06/23 06:21 ons duloxetine [From Cymbalta] AdvReac Intermediate mood swings Verified 09/06/23 06:21 pregabalin [From Lyrica] AdvReac Intermediate mood swings Verified 09/06/23 06:21 tramadol AdvReac Intermediate hives/itchi Verified 09/06/23 06:21 ng venlafaxine AdvReac Intermediate mood swings Verified 09/06/23 06:21 Home Medications Medication Instructions Recorded Confirmed Last Taken Type testosterone cypionate 200 mg/mL 100 mg IM QWEEK 10/29/20 09/02/23 Unknown History intramuscular oil albuterol sulfate 90 mcg/actuation 2 puff inhalation Q4-6H PRN 02/19/22 09/02/23 Unknown History aerosol inhaler (ProAir HFA) Shortness Of Breath Or Wheezing clonazepam 1 mg disintegrating 1 mg PO DAILY PRN panic attack 07/14/22 09/02/23 09/06/23 05:00 History tablet clonazepam 2 mg tablet 2 mg PO BEDTIME 07/14/22 09/02/23 Unknown History amiloride 5 mg tablet 5 mg PO DAILY 01/17/23 09/02/23 Unknown History clonidine HCl 0.1 mg tablet 0.1 mg PO DAILY PRN anxiety attack 01/17/23 09/02/23 09/06/23 05:00 History ferrous sulfate 325 mg (65 mg 325 mg PO DAILY 01/17/23 09/02/23 09/05/23 History iron) tablet (FeroSul) lithium carbonate 450 mg 450 mg PO BID 01/17/23 09/02/23 09/06/23 05:00 History tablet,extended release lurasidone 120 mg tablet 120 mg PO DAILY 01/17/23 09/02/23 Unknown History mirtazapine 45 mg tablet 45 mg PO BEDTIME 01/17/23 09/02/23 Unknown History montelukast 10 mg tablet 10 mg PO QPM 01/17/23 09/02/23 Unknown History naloxone 4 mg/actuation nasal spray spray intranasal DAILY 01/17/23 02/16/23 Unknown History quetiapine 200 mg tablet,extended 200 mg PO BEDTIME 01/17/23 09/02/23 Unknown History release 24 hr calcium 600 mg capsule mg PO 09/02/23 09/02/23 Unknown History Exam Airway Mallampati Class: II TM Dist: >3cm Neck ROM: Full Loose/Missing/Broken Teeth: Yes (Multiple broken and decayed teeth including front) Assessment and Plan Assessment Anesthesia Assessment: Anesthesia Plan Discussed Final Anesthetic Review Family History of Problems with Anesthesia: No History of Problems with Anesthesia: No NPO: Yes ASA Class: III Final Preanesthetic Review: No Changes in Pt Med Stat, Meds/Allgs Chart Reviewed, Consent Obtained/Reviewed and Anes Risks/Benef Reviewed Patient Risk: High Procedure Risk: Low Anesthetic Plan Anesthetic Plan: GA Disposition: Standard PACU
[2023-09-06 06:19] LABS: UPreg QC Valid YES; Urine Pregnancy NEGATIVE (NEGATIVE)
[2023-09-06 06:24] VITALS: BP 131/84; PULSE 107; RESP 16; TEMP 36.8; O2SAT 94
[2023-09-06] MEDS: Lactated Ringers 1,000 ML 100 ML IVCONT (06:32)
--- NOTE | 2023-09-06 07:46 | MHC.SHP ---
Pre-Procedural Eval Section A Date of Service: 09/06/23 Section B Chief Complaint: Other specified disorders of urinary system Details of Present Illness: Denisse is followed for frequent UTI's, incomplete bladder emptying and LUTS of urgency, I reviewed the retroperitoneum US results from 07/20/2023 revealed that there is mild bilateral hydronephrosis. A 6 mm nonobstructing left renal calculus is seen. There is an increased postvoid residual volume. The patient complains of urinary frequency urgency every 2 hours. h/o KALIA. Relevant Family History (Specify if Yes): No Allergies: Allergies Allergy/AdvReac Type Severity Reaction Status Date / Time lidocaine Allergy Severe severe Verified 09/06/23 06:21 burning- injected lidocaine only trazodone Allergy Severe Depression Verified 09/06/23 06:21 environmental allergies Allergy Runny Nose Verified 09/06/23 06:21 feathers Allergy Swelling Verified 09/06/23 06:21 gabapentin AdvReac Severe blisters Verified 09/06/23 06:21 sucralose AdvReac Severe migraines Verified 09/06/23 06:21 [From Splenda (sucralose)] topiramate [From Topamax] AdvReac Severe serotonin Verified 09/06/23 06:21 syndrome watermelon AdvReac Severe swollen Verified 09/06/23 06:21 tongue Antihistamines - Alkylamine AdvReac Intermediate nose bleeds Verified 09/06/23 06:21 citalopram [From Celexa] AdvReac Intermediate hallucinati Verified 09/06/23 06:21 ons duloxetine [From Cymbalta] AdvReac Intermediate mood swings Verified 09/06/23 06:21 pregabalin [From Lyrica] AdvReac Intermediate mood swings Verified 09/06/23 06:21 tramadol AdvReac Intermediate hives/itchi Verified 09/06/23 06:21 ng venlafaxine AdvReac Intermediate mood swings Verified 09/06/23 06:21 Review of Systems Review of Systems Comment: 10 point ROS negative other than stated in HPI Exam Surgical H&P Exam: Normal: HEENT, Normal: Heart, Normal: Lungs and Normal: Neurological Plan Diagnosis/Plan: Unchanged I have reviewed the history and physical and performed a pertinent physical examination on my patient. No changes have occurred unless specified. Cystoscopy Hydrodistension. Time Spent With Patient Time: Total time managing care of this patient today ____ minutes.
--- NOTE | 2023-09-06 08:19 | W.PM.OPN ---
Operative Note Operative Note Date of Service: 09/06/23 Narrative: PREOP DIAGNOSIS: Frequent UTI's, incomplete bladder emptying, Urgency POSTOP DIAGNOSIS: Frequent UTI's, incomplete bladder emptying, Urgency PROCEDURE: CYSTOSCOPY HYDRODISTENTION Anethesia: General Surgeon: Dr. Kristi Carpenter Indications: Denisse is followed for frequent UTI's, incomplete bladder emptying and LUTS of urgency, I reviewed the retroperitoneum US results from 07/20/2023 revealed that there is mild bilateral hydronephrosis. A 6 mm nonobstructing left renal calculus is seen. There is an increased postvoid residual volume. The patient complains of urinary frequency urgency every 2 hours. h/o KALIA, transgender female to male on testosterone replacement. Details of procedure: The patient was brought into the operating room placed on the OR table in supine position. 2 g of Ancef IV. General anesthesia was administered. The patient was repositioned into lithotomy position, prepped and draped in the usual sterile fashion. Time-out was done per protocol. A 22 fr cystoscope was placed transurethrally into the bladder. Urine was drained from the bladder measuring 550 mL.The right and left ureteral orifices were visualized. The entire bladder was visualized. There were no suspicious bladder lesions seen. There were moderate trabeculations noted. The bladder was filled with sterile water at 80 cm of water pressure under gravity. The bladder was distended for 2 minutes. Bladder capacity measured 400 mL. Revisualization of the bladder, no glomerulations, or Tung ulcerations visualized. The bladder was refilled with sterile water again at 80 cm of water pressure under gravity. The bladder was distended for 1 minutes. The fluid was drained from the bladder and measured 400 mL. The cystoscope was removed. The patient was brought out of anesthesia and taken to recovery in stable condition. Complications: None Drains: none
[2023-09-06 08:23] VITALS: BP 148/90; PULSE 91; RESP 22; TEMP 36.2; O2SAT 95
[2023-09-06 08:28] VITALS: BP 144/83; PULSE 86; RESP 20; O2SAT 93
[2023-09-06 08:33] VITALS: BP 151/82; PULSE 88; RESP 22; O2SAT 93
[2023-09-06 08:38] VITALS: BP 136/87; PULSE 88; RESP 20; TEMP 36.2; O2SAT 93
[2023-09-06 08:53] VITALS: BP 131/78; PULSE 86; RESP 20; TEMP 36.3; O2SAT 94
== END 2023-09-06 10:07 | disposition home or self-care (01) ==
PROVIDERS: Nurse Practitioner; PCP Internal Medicine; Visit Provider Urology
PROC: 0T7B7ZZ Dilation of Bladder, Via Natural or Artificial Opening (ICD-10-PCS; CPT 52000; principal; 2023-09-06 07:30)
DX: N39.8 Other specified disorders of urinary system (principal); Z87.440 Personal history of urinary (tract) infections; R33.9 Retention of urine, unspecified; R39.15 Urgency of urination; N39.43 Post-void dribbling; N20.0 Calculus of kidney; N13.30 Unspecified hydronephrosis; R11.0 Nausea; J45.909 Unspecified asthma, uncomplicated; K21.9 Gastro-esophageal reflux disease without esophagitis; K58.1 Irritable bowel syndrome with constipation; F31.9 Bipolar disorder, unspecified; F41.9 Anxiety disorder, unspecified; F43.10 Post-traumatic stress disorder, unspecified; F12.90 Cannabis use, unspecified, uncomplicated; Z88.8 Allergy status to other drugs, medicaments and biological substances; Z87.891 Personal history of nicotine dependence
CPT/HCPCS: 52000; 81025; J0690; J1100; J1643; J2250; J2405; J2795; J3010

== ENCOUNTER → 2023-09-06 05:56 | Outpatient (BNV) | payer OTHER, SELFPAY | PROVIDERS: PCP Internal Medicine; Visit Provider Urology | DX: N39.8 Other specified disorders of urinary system (principal) | CPT/HCPCS: 52260 ==

== ENCOUNTER → 2023-09-26 09:57 | Outpatient (BNVA) | payer OTHER, SELFPAY | PROVIDERS: PCP Internal Medicine; Visit Provider Urology ==

== ENCOUNTER 2023-10-07 15:33 | Outpatient (AMB) | payer OTHER, SELFPAY ==
--- NOTE | 2023-10-07 15:36 | A.OFFVIS_ITS ---
Intake Intake Visit Reasons: 3 wk ([place]) Intake Note: Patient presents today for a POST OP HYDRO: Meds- FLOMAX Allergies to Antibiotic- No Known Allergies Blood Thinner- None Blister Pack Operator Required: No Accompanied by: Self / Same As Patient Allergies lidocaine Allergy (Severe, Verified 10/07/23 15:49) severe burning- injected lidocaine only trazodone Allergy (Severe, Verified 10/07/23 15:49) Depression environmental allergies Allergy (Verified 10/07/23 15:49) Runny Nose feathers Allergy (Verified 10/07/23 15:49) Swelling gabapentin Adverse Reaction (Severe, Verified 10/07/23 15:49) blisters sucralose [From Splenda (sucralose)] Adverse Reaction (Severe, Verified 10/07/23 15:49) migraines topiramate [From Topamax] Adverse Reaction (Severe, Verified 10/07/23 15:49) serotonin syndrome watermelon Adverse Reaction (Severe, Verified 10/07/23 15:49) swollen tongue Antihistamines - Alkylamine Adverse Reaction (Intermediate, Verified 10/07/23 15:49) nose bleeds citalopram [From Celexa] Adverse Reaction (Intermediate, Verified 10/07/23 15:49) hallucinations duloxetine [From Cymbalta] Adverse Reaction (Intermediate, Verified 10/07/23 15:49) mood swings pregabalin [From Lyrica] Adverse Reaction (Intermediate, Verified 10/07/23 15:49) mood swings tramadol Adverse Reaction (Intermediate, Verified 10/07/23 15:49) hives/itching venlafaxine Adverse Reaction (Intermediate, Verified 10/07/23 15:49) mood swings HPI HPI Comments History of Present Illness Details Denisse is a 28-year-old female who presents today to the office for a follow-up. 10/07/2023?h/o KALIA, transgender female t o male on testosterone replacement. She is a status post cystoscopy hydrodistention done on 09/06/2023. No glomeruations noted, no suspicious bladder lesions noted. Denisse is followed for frequent UTI's, incomplete bladder emptying and LUTS of urgency, etroperitoneum US results from 07/20/2023 note a 6 mm nonobstructing left renal calculus and increased postvoid residual volume. Patient states that she is voiding well at this time. She states that she is not sure that she is emptying the bladder completely. She has been off of the bethanochol and flomax. Bladder scan PVR: 302 mL. Review of chart: retroperitoneum US results from 07/20/2023 revealed that there is mild bilateral hydronephrosis. A 6 mm nonobstructing left renal calculus is seen. There is an increased postvoid residual volume. MRI of the brain--11/13/21-- impression was unremarkable 10/07/2023: Plan: Resume Bethanechol and flomax. Follow-up in 4 months with [facility] Medical History Hx of concussion History of panic attacks Urinary retention with incomplete bladder emptying Encounter for screening Bipolar 1 disorder Anxiety PTSD (post-traumatic stress disorder) Asthma Irritable bowel syndrome with constipation Gastroesophageal reflux disease without esophagitis Nausea Surgical History Hx of wisdom tooth extraction Hx of colonoscopy (~02/2020) H/O esophagogastroduodenoscopy No pertinent past surgical history (~02/2020) Family History Mother Pacemaker Father Family history unknown Social History Household Members: Family Housing: House Are you a primary day care supervisor to a significant other at home: No Do you presently have visiting nurse or other home services: No Alcohol intake: current Alcohol intake frequency: holidays/special occasions only Patient Tobacco Use Status: Former Tobacco user Quit Date: 2008 Tobacco use type: Cigarette Years Smoked: 2008 Substance Use Type: Marijuana and Other Results AMB Urinalysis, Automated UA Leukoctes 15 Mariza/uL Last Edit by Kike Valdez Ephraim on 10/07/23 15:51 UA Nitrite Negative Last Edit by Kike Valdez [facility] on 10/07/23 15:51 UA Urobilinogen 0.2 mg/dL Last Edit by Kike Valdez A on 10/07/23 15:5 1 UA Protein 0 mg/dL Last Edit by Kike Valdez A on 10/07/23 15:51 UA pH 7.5 Last Edit by Kike Valdez A on 10/07/23 15:51 UA Blood 0 Brice/uL Last Edit by Kike Valdez [facility] on 10/07/23 15:51 UA Specific [place]pler 1.005 Last Edit by Kike Valdez [facility] on 10/07/23 15: 51 UA Ketone Negative Last Edit by Kike Valdez [facility] on 10/07/23 15:51 UA Bilirubin 0 mg/dL Last Edit by Kike Valdez [facility] on 10/07/23 15:51 UA Glucose 0 mg/dL Last Edit by Kike Valdez [facility] on 10/07/23 15:51 Results Reviewed Results Reviewed: Laboratory Last Values Urine pH (Auto) 7.5 10/07/23 15:50 Specific Hepler (Auto) 1.005 10/07/23 15:50 Urine Protein (Auto) 0 mg/dL 10/07/23 15:50 Glucose (UA)(Auto) 0 mg/dL 10/07/23 15:50 Urine Ketones (Auto) Negative 10/07/23 15:50 Urine Blood (Auto) 0 Brice/uL 10/07/23 15:50 Urine Nitrite (Auto) Negative 10/07/23 15:50 Urine Bilirubin (Auto) 0 mg/dL 10/07/23 15:50 Urine Urobilinogen (Auto) 0.2 mg/dL 10/07/23 15:50 Leukocyte Esterase (Auto) 15 Mariza/uL 10/07/23 15:50 Assessment & Plan Assessment & Plan (1) Urinary retention with incomplete bladder emptying: Code(s): R33.9 - Retention of urine, unspecified (2) Voiding dysfunction: Code(s): N39.8 - Other specified disorders of urinary system (3) Kidney stone on left side: Code(s): N20.0 - Calculus of kidney Plan Resume Bethanechol and flomax. Follow-up in 4 months with [facility] Orders: Orders AMB Urinalysis Automated 10/07/23 Z13.9 - Encounter for screening, unspecified Medications: New bethanechol chloride 50 mg PO BID 60 tabs 5RF Patient Instructions: The patient had an opportunity to ask questions regarding treatment plan. All questions were answered. Imaging, Laboratory studies and physical exam results were discussed and reviewed in detail. No major barriers to understanding were identified. The patient expressed understanding and agreement with the above treatment plan. The patient is aware they should contact our office by phone for worsening of their current condition or the appearance of new symptoms. Compliance is encouraged with any medications and followup testing that is ordered. It is a privilege to be allowed the opportunity to participate in the urologic care of your patient. If you have any questions or concerns regarding treatment for the above conditions please do not hesitate to contact me. The office telephone contact is [phone]. This note is constructed in part using voice recognition software. While every effort has been made to ensure accuracy sugar cane farm manager errors may have been included. Yours sincerely, Kristi Carpenter MD Coding Level of Care Code Est Pt Level 4 (46973) Diagnoses Urinary retention with incomplete bladder emptying R33.9 Voiding dysfunction N39.8 Kidney stone on left side N20.0
== END 2023-10-07 16:13 | disposition home or self-care (01) ==
PROVIDERS: PCP Internal Medicine; Visit Provider Urology
DX: R33.9 Retention of urine, unspecified (principal); N39.8 Other specified disorders of urinary system; N20.0 Calculus of kidney
CPT/HCPCS: 99214

== ENCOUNTER → 2023-10-07 15:33 | Outpatient (BNVA) | payer OTHER, SELFPAY | PROVIDERS: PCP Internal Medicine; Visit Provider Urology | DX: N39.8 Other specified disorders of urinary system (principal); N20.0 Calculus of kidney; R33.9 Retention of urine, unspecified | CPT/HCPCS: 81003; 99212 ==

== ENCOUNTER 2023-12-24 12:16 | Inpatient (IN) | payer OTHER, SELFPAY ==
--- NOTE | ~2023-12-24 | XR_ITS ---
EXAMINATION: XR ABDOMEN KUB CLINICAL INDICATION: Left lower quadrant pain. Constipation. COMPARISON: None available. TECHNIQUE: AP view of the abdomen. FINDINGS: No dilated air-filled loops of small bowel to suggest an obstructive process. Moderate stool burden throughout the majority of the colon. No acute osseous abnormality. Punctate pelvic calcifications are likely vascular in nature. Visualized lung bases are well aerated. XR/XR KUB IMPRESSION: Moderate colonic stool burden suggesting constipation.
[2023-12-24 12:39] VITALS: BP 126/81; PULSE 96; RESP 17; TEMP 36.7; O2SAT 97; BMI 45.5
--- NOTE | 2023-12-24 12:39 | ED_ITS ---
HPI - Psych General Chief Complaint: Psychiatric Symptoms Stated Complaint: SI Time Seen by Provider: 12/24/23 14:14 Source: patient and RN notes reviewed Mode of arrival: ambulatory Limitations: no limitations History of Present Illness HPI Narrative: This is a 28-year-old female, with a history of anxiety, depression, PTSD, chronic kidney disease, fibromyalgia, urinary retention, and GERD, who presents emergency department with complaints of suicidal homicidal ideation x1 week. Patient states that she has thoughts of ending her life with an overdose. She also reports that she is thoughts of harming her mother. She states that she typically has a good relationship with her mother however for some reason she is thoughts of harming her. She states that she had 8 teeth removed yesterday, has been taking prescribed Tylenol and oxycodone for her pain. She denies any auditory or visual hallucinations. She has been admitted to a psychiatric hospital, states that she has been seeing a psychiatrist and medical provider for many years, denies any missed dosages. Last psychiatric admission was about 10 years ago. She has no physical complaints, no chest pain, shortness of breath, abdominal pain, nausea, vomiting or diarrhea. No other complaints or concerns at this time. MD complaint: suicidal ideation, feels depressed and homicidal ideation Duration: constant History of same: Yes Relieving factors: none Exacerbating factors: none Associated psychiatric symptoms: none Associated symptoms: denies other symptoms Treatments prior to arrival: none Related Data Home Medications Medication Instructions Recorded Confirmed testosterone cypionate 200 mg/mL 100 mg IM QWEEK 10/29/20 12/24/23 intramuscular oil clonazepam 1 mg disintegrating 1 mg PO DAILY PRN panic attack 07/14/22 12/24/23 tablet clonazepam 2 mg tablet 2 mg PO BEDTIME 07/14/22 12/24/23 amiloride 5 mg tablet 5 mg PO DAILY 01/17/23 12/24/23 ferrous sulfate 325 mg (65 mg 160 mg PO DAILY 01/17/23 12/24/23 iron) tablet (FeroSul) lithium carbonate 450 mg 450 mg PO BID 01/17/23 12/24/23 tablet,extended release lurasidone 120 mg tablet 120 mg PO DAILY 01/17/23 12/24/23 mirtazapine 45 mg tablet 45 mg PO BEDTIME 01/17/23 12/24/23 montelukast 10 mg tablet 10 mg PO QPM 01/17/23 12/24/23 quetiapine 200 mg tablet,extended 150 mg PO BEDTIME 01/17/23 12/24/23 release 24 hr calcium 600 mg capsule 600 mg PO QPM 09/02/23 12/24/23 famotidine 20 mg tablet 10 mg PO BID 12/24/23 12/24/23 fexofenadine 180 mg tablet 180 mg PO QPM 12/24/23 12/24/23 finasteride 1 mg tablet 1 mg PO QPM 12/24/23 12/24/23 methocarbamol 750 mg tablet 750 mg PO BID spasms 12/24/23 12/24/23 sertraline 50 mg tablet 50 mg PO DAILY 12/24/23 12/24/23 chlorhexidine gluconate 0.12 % 15 ml PO 12/25/23 mouthwash chlorhexidine gluconate 0.12 % 15 ml PO 12/25/23 mouthwash chlorhexidine gluconate 0.12 % 15 ml mucous membrane BID 12/25/23 12/25/23 mouthwash Previous Rx's Medication Instructions Recorded ondansetron HCl 4 mg tablet 4 mg PO Q8H PRN for 06/29/22 nausea/vomiting #30 tabs omeprazole 40 mg capsule,delayed 40 mg PO BID #180 caps 01/31/23 release bethanechol chloride 50 mg tablet 50 mg PO BID #60 tabs 10/07/23 Allergies Allergy/AdvReac Type Severity Reaction Status Date / Time lidocaine Allergy Severe severe Verified 10/07/23 15:49 burning- injected lidocaine only trazodone Allergy Severe Depression Verified 10/07/23 15:49 environmental allergies Allergy Runny Nose Verified 10/07/23 15:49 feathers Allergy Swelling Verified 10/07/23 15:49 gabapentin AdvReac Severe blisters Verified 10/07/23 15:49 sucralose AdvReac Severe migraines Verified 10/07/23 15:49 [From Splenda (sucralose)] topiramate [From Topamax] AdvReac Severe serotonin Verified 10/07/23 15:49 syndrome watermelon AdvReac Severe swollen Verified 10/07/23 15:49 tongue Antihistamines - Alkylamine AdvReac Intermediate nose bleeds Verified 10/07/23 15:49 citalopram [From Celexa] AdvReac Intermediate hallucinati Verified 10/07/23 15:49 ons duloxetine [From Cymbalta] AdvReac Intermediate mood swings Verified 10/07/23 15:49 pregabalin [From Lyrica] AdvReac Intermediate mood swings Verified 10/07/23 15:49 tramadol AdvReac Intermediate hives/itchi Verified 10/07/23 15:49 ng venlafaxine AdvReac Intermediate mood swings Verified 10/07/23 15:49 Review of Systems 2 Review of Systems: Yes all other systems are reviewed and are negative Constitutional: Constitutional: Reports as per [facility] Past Medical History Medical History Hx of concussion History of panic attacks Urinary retention with incomplete bladder emptying Encounter for screening Bipolar 1 disorder Anxiety PTSD (post-traumatic stress disorder) Asthma Irritable bowel syndrome with constipation Gastroesophageal reflux disease without esophagitis Nausea Surgical History Hx of wisdom tooth extraction Hx of colonoscopy (~02/2020) H/O esophagogastroduodenoscopy No pertinent past surgical history (~02/2020) Family History Family History Mother Pacemaker Father Family history unknown Social History Social History Household Members: Family Housing: House Are you a primary director of career services to a significant other at home: No Do you presently have visiting nurse or other home services: No Alcohol intake: current Alcohol intake frequency: holidays/special occasions only Patient Tobacco Use Status: Former Tobacco user Quit Date: 2008 Tobacco use type: Cigarette Years Smoked: 2009 Smoked in Last 30 Days: No Use of substances other than those prescribed or required for medical reasons: No Substance Use Type: Marijuana and Other Advance Directives: No Advance Directives Information Provided: No Healthcare Proxy: No Guardian: No Patient : No Physical Exam 2 Vital Signs: Vital Signs: Last Vital Signs Temp 97.6 F 12/26/23 06:23 Pulse 93 12/26/23 06:23 Resp 18 12/26/23 06:23 BP 123/78 12/26/23 06:23 Pulse Ox 94 12/26/23 06:23 O2 Del Method Room Air 12/26/23 06:23 BMI result Body Mass Index 45.5 Const: General: cooperative, comfortable and no acute distress O rientation/consciousness: patient oriented x3 Limitations: no limitations HEENT: Head: Yes normal to inspection, Yes normocephalic and Yes atraumatic Ears: hearing grossly normal bilaterally General nose exam: Normal external nose present Face and sinus: Yes normal facial exam Mouth: Normal oral and palatal mucosa present, oropharynx normal and moist mucous membranes Throat: Yes posterior oropharynx normal Eyes: General: appearance normal, both eyes and all related structures E yelids: Yes eyelids normal Conjunctivae: conjunctivae normal Sclerae: s clerae normal Pupils: Equal, round and reactive pupils present EOM: EOMs intact bilaterally Neck: Neck: Yes normal visual inspection, Yes full ROM and Yes no lymphadenopathy Lymphatic: no lymphadenopathy noted Chest: Chest palpation & inspection: normal inspection of the chest Resp: Effort & Inspection: normal respiratory effort and able to speak in complete sentences Auscultation: clear to auscultation bilaterally, no crackles, no rales, no rhonchi and no wheezes Cardio: Rate: regular rate Rhythm: regular rhythm Heart sounds: S1 normal heart sound present and S2 normal heart sound present GI: Inspection: Yes normal to inspection Skin: General skin exam: no rashes or lesions noted Trauma: no lacerations or abrasions Wounds: no wounds Neuro: General: patient oriented x3 and moves all extremities Cranial nerves: Yes CN's II-XII intact bilaterally and Yes Equal, round and reactive pupils present Extrem: General: Yes normal to inspection Right upper extremity: normal to inspection Left upper extremity: normal to inspection Right lower extremity: normal to inspection Left lower extremity: normal to inspection Psych: Speech and movement: Normal speech and movement present Affect: L abile affect present and Sad affect present Attitude: cooperative Thought process: Normal thought process present Thought content: Suicidality present and Homicidality present Insight: Poor insight present (Psych) Judgement: Poor judgement present (Psych) Course Course Course Narrative: RME: 28 year-old F w/ PMHx PTSD, IBS, Asthma, GERD, bipolar, presenting to the ED c/o +SI/HI without plan x this week. Reports medication compliance. denies ETOH or drug use. Admits also had several teeth pulled yesterday, due to broken teeth, currently Rx Oxycodone & mouth wash Labs, Tox screen, CARE team ordered Full HPI, ROS and PE to be performed by primary ED provider. Reevaluation(s) Reevaluation #1: Patient will be an inpatient psychiatric bed search given intrusive thoughts. Physician observation continued pending inpatient bed search Time: 17:02 Reevaluation #2: 07:00 12/25/23 patient remained hemodynamically stable was signed out to me at 07:00, bed search continue Reevaluation #3: 12/26/23 08:00 signed out to me by Dr. Arnold patient is here with inpatient level of care no clinical changes no event overnight continue bed search Time: 07:59 Medications Administered Generic Name Dose Route Start Last Admin Trade Name Freq PRN Reason Stop Dose Admin Bethanechol Chloride 50 mg 12/24/23 21:00 12/25/23 20:33 Bethanechol Chloride 25 Mg Tablet PO 50 mg BID JAVAD Administration Calcium Carbonate 500 mg 12/24/23 17:00 12/25/23 17:01 Calcium Carbonate 500 Mg Tablet PO 500 mg DAILY@1700 JAVAD Administration Chlorhexidine Gluconate 15 ml 12/25/23 09:00 12/25/23 20:37 Chlorhexidine Gluc Oral Rinse 15 Ml Mouthwash BUCCAL 15 ml BID JAVAD Administration Clonazepam 2 mg 12/24/23 21:00 12/25/23 20:36 Clonazepam 1 Mg Tablet PO 2 mg BEDTIME JAVAD Administration Famotidine 10 mg 12/24/23 21:00 12/25/23 20:33 Famotidine 20 Mg Tablet PO 10 mg BID JAVAD Administration Ferrous Sulfate 324 mg 12/25/23 09:00 12/25/23 07:42 Ferrous Sulfate 324 Mg Tablet.Dr PO 324 mg DAILY JAVAD Administration Licking Carbonate 450 mg 12/24/23 21:00 12/25/23 20:36 Licking Carbonate Er 450 Mg Tablet.Er PO 450 mg BID JAVAD Administration Loratadine 10 mg 12/25/23 09:00 12/25/23 07:42 Loratadine 10 Mg Tablet PO 10 mg DAILY JAVAD Administration Lurasidone HCl 120 mg 12/25/23 09:00 12/25/23 07:42 Lurasidone Hcl 40 Mg Tablet PO 120 mg DAILY JAVAD Administration Methocarbamol 750 mg 12/24/23 21:00 12/25/23 20:34 Methocarbamol 750 Mg Tablet PO 750 mg BID JAVAD Administration Mirtazapine 45 mg 12/24/23 21:00 12/25/23 20:36 Mirtazapine 15 Mg Tablet PO 45 mg BEDTIME JAVAD Administration Montelukast Sodium 10 mg 12/24/23 21:00 12/25/23 20:34 Montelukast Sodium 10 Mg Tablet PO 10 mg BEDTIME JAVAD Administration Omeprazole 40 mg 12/25/23 06:30 12/26/23 07:26 Omeprazole 40 Mg Capsule. PO 40 mg BID@0630,1630 JAVAD Administration Oxycodone HCl 5 mg 12/24/23 14:26 12/25/23 17:57 Oxycodone Hcl Immed Release 5 Mg Tablet PO 5 mg Q6H PRN Administration severe pain Quetiapine Fumarate 150 mg 12/24/23 21:00 12/25/23 20:36 Quetiapine Fumarate 50 Mg Tablet PO 150 mg BEDTIME JAVAD Administration Sertraline HCl 50 mg 12/24/23 21:00 12/25/23 20:34 Sertraline Hcl 50 Mg Tablet PO 50 mg BEDTIME JAVAD Administration Spironolactone 25 mg 12/24/23 21:00 12/25/23 20:34 Spironolactone 25 Mg Tablet PO 25 mg BID JAVAD Administration Medical Decision Making Medical Decision Making [facility] Narrative: This is a 28-year-old female, with history of GERD, depression, anxiety, urinary retention, and fibromyalgia, presenting to the emergency department complaints of suicidal or homicidal ideation x1 week. She has been taking her medications as prescribed. No missed dosages. Reports increased anxiety with mother. On arrival, vital signs within normal limits. Patient has slight leukocytosis at 12.3 however denies any current symptoms. She does have leuk esterases however no current urinary symptoms. Will await urine culture for treatment. She has no medical complaints. Patient medically cleared, awaiting crisis eval. Differential Diagnosis Differential Diagnoses: The differential diagnosis associated with the presentation includes Depression, anxiety, suicidal ideation, homicidal ideation Lab Data [facility] Lab Attestation statement: I reviewed the patient's lab results. Slight leukocytosis at 12.3, nonspecific. Creatinine 1.46, she has a history of chronic kidney disease appears to be at around her baseline. Leuk esterases moderate > patient asymptomatic, will await urine culture. 12/24/23 13:39 12/24/23 13:38 Labs: Lab Results 12/24/23 12/24/23 12/24/23 Range/Units 13:12 13:30 13:38 WBC (4.8-10.8) X10*3/uL RBC (4.20-5.50) X10*6/uL Hgb (12.0-16.0) g/dl Hct (37.0-47.0) % MCV (80.0-98.0) fL MCH (27.0-33.0) pg MCHC (31.0-35.0) g/dl RDW (11.0-16.0) % Plt Count (160-400) X10*3/uL MPV (9.4-12.3) fL Immature Gran % (Auto) (0.0-0.4) % Neut % (Auto) (45-73) % Lymph % (Auto) (20-40) % Benzie % (Auto) (2-11) % Eos % (Auto) (0-4) % Baso % (Auto) (0-2) % Lymph # (Auto) (1.2-4.9) X10*3/uL Benzie # (Auto) (0.1-1.2) X10*3/uL Eos # (Auto) (0.0-0.4) X10*3/uL Baso # (Auto) (0.0-0.2) X10*3/uL Abs Immat Gran (auto) (0.00-0.03) X10*3/uL Absolute Neuts (auto) (2.0-8.3) x10*3/uL Absolute Nucleated RBC (0.0-0.012) X10*3/uL Nucleated RBC % (auto) (0.0-0.2) /100WBC Sodium 137 (135-145) mmol/L Potassium 3.8 (3.3-5.1) mmol/L Chloride 106 (96-108) mmol/L Carbon Dioxide 23 (22-29) mmol/L Anion Gap 12 (12-20) BUN 9 (9-16) mg/dL Creatinine 1.46 H (0.5-1.4) mg/dL Estim Creat Clear Calc 79.2 Estimated GFR 43 Random Glucose 87 (60-115) mg/dL Calcium 9.3 D (8.4-10.2) mg/dL Magnesium 2.1 (1.6-2.6) mg/dL Total Bilirubin 0.3 (0.0-1.0) mg/dL Direct Bilirubin 0.1 (0.0-0.5) mg/dL AST 27 (5-31) U/L ALT 41 H (0-31) U/L Alkaline Phosphatase 96 (39-117) U/L Total Protein 7.2 (6.5-8.0) g/dL Albumin 4.1 (3.5-5.0) g/dL Urine Color Yellow Urine Appearance Clear Urine pH 7.0 (5.0-9.0) Ur Specific Lagrange <= 1.005 (1.005-1.025) Urine Protein Negative (Neg-Trace) mg/dL Urine Glucose (UA) Negative (Negative) mg/dL Urine Ketones Negative (Negative) mg/dL Urine Blood Negative (Negative) Urine Nitrite Negative (Negative) Ur Leukocyte Esterase Moderate (2+) H (Negative) Urine RBC 0-2 (0-2) /HPF Urine WBC 6-10 (0-5) /HPF Ur Squamous Epith Cells 0-2 (0-2) /HPF Urine Bacteria None Seen (None Seen) Hyaline Casts 0-2 (0-2) /LPF Salicylates < 5.0 L (15-30) mg/dL Urine Opiates Screen Not Detected (Not Detect) Urine Fentanyl Screen Not Detected (Not Detect) Acetaminophen < 3 (<30) mcg/mL Ur Barbiturates Screen Not Detected (Not Detect) Ur Phencyclidine Scrn Not Detected (Not Detect) Ur Amphetamines Screen Not Detected (Not Detect) U Benzodiazepines Scrn POSITIVE H (Not Detect) Licking (0.60-1.20) mmol/L Urine Cocaine Screen Not Detected (Not Detect) U Marijuana (THC) Screen Not Detected (Not Detect) Ethyl Alcohol < 10 mg/dL COVID-19 (KELLY) Negative (Negative) COVID-19 Clin Com See Note Influenza Type A (ANIVAL) Negative (Negative) Influenza Type B (ANIVAL) Negative (Negative) Influenza A & B Note See Note 12/24/23 Range/Units 13:39 WBC 12.3 H (4.8-10.8) X10*3/uL RBC 4.64 (4.20-5.50) X10*6/uL Hgb 15.0 (12.0-16.0) g/dl Hct 44.9 (37.0-47.0) % MCV 96.8 (80.0-98.0) fL MCH 32.3 (27.0-33.0) pg MCHC 33.4 (31.0-35.0) g/dl RDW 15.3 (11.0-16.0) % Plt Count 243 (160-400) X10*3/uL MPV 11.3 (9.4-12.3) fL Immature Gran % (Auto) 0.4 (0.0-0.4) % Neut % (Auto) 69.6 (45-73) % Lymph % (Auto) 21.0 (20-40) % Benzie % (Auto) 5.4 (2-11) % Eos % (Auto) 3.0 (0-4) % Baso % (Auto) 0.6 (0-2) % Lymph # (Auto) 2.6 (1.2-4.9) X10*3/uL Benzie # (Auto) 0.7 (0.1-1.2) X10*3/uL Eos # (Auto) 0.4 (0.0-0.4) X10*3/uL Baso # (Auto) 0.1 (0.0-0.2) X10*3/uL Abs Immat Gran (auto) 0.05 H (0.00-0.03) X10*3/uL Absolute Neuts (auto) 8.6 H (2.0-8.3) x10*3/uL Absolute Nucleated RBC 0.000 (0.0-0.012) X10*3/uL Nucleated RBC % (auto) 0.0 (0.0-0.2) /100WBC Sodium (135-145) mmol/L Potassium (3.3-5.1) mmol/L Chloride (96-108) mmol/L Carbon Dioxide (22-29) mmol/L Anion Gap (12-20) BUN (9-16) mg/dL Creatinine (0.5-1.4) mg/dL Estim Creat Clear Calc Estimated GFR Random Glucose (60-115) mg/dL Calcium (8.4-10.2) mg/dL Magnesium (1.6-2.6) mg/dL Total Bilirubin (0.0-1.0) mg/dL Direct Bilirubin (0.0-0.5) mg/dL AST (5-31) U/L ALT (0-31) U/L Alkaline Phosphatase (39-117) U/L Total Protein (6.5-8.0) g/dL Albumin (3.5-5.0) g/dL Urine Color Urine Appearance Urine pH (5.0-9.0) Ur Specific Lagrange (1.005-1.025) Urine Protein (Neg-Trace) mg/dL Urine Glucose (UA) (Negative) mg/dL Urine Ketones (Negative) mg/dL Urine Blood (Negative) Urine Nitrite (Negative) Ur Leukocyte Esterase (Negative) Urine RBC (0-2) /HPF Urine WBC (0-5) /HPF Ur Squamous Epith Cells (0-2) /HPF Urine Bacteria (None Seen) Hyaline Casts (0-2) /LPF Salicylates (15-30) mg/dL Urine Opiates Screen (Not Detect) Urine Fentanyl Screen (Not Detect) Acetaminophen (<30) mcg/mL Ur Barbiturates Screen (Not Detect) Ur Phencyclidine Scrn (Not Detect) Ur Amphetamines Screen (Not Detect) U Benzodiazepines Scrn (Not Detect) Licking 0.92 (0.60-1.20) mmol/L Urine Cocaine Screen (Not Detect) U Marijuana (THC) Screen (Not Detect) Ethyl Alcohol mg/dL COVID-19 (KELLY) (Negative) COVID-19 Clin Com Influenza Type A (ANIVAL) (Negative) Influenza Type B (ANIVAL) (Negative) Influenza A & B Note Discharge Plan Discharge Clinical Impression: Suicidal ideation, Homicidal ideation Patient Disposition: Still a Patient Prescriptions: No Action ondansetron HCl 4 mg tablet 4 mg PO Q8H PRN (Reason: for nausea/vomiting) Qty: 30 3RF calcium 600 mg Capsule 600 mg PO QPM famotidine 20 mg tablet 10 mg PO BID methocarbamol 750 mg tablet 750 mg PO BID fexofenadine [Lavonne] 180 mg Tablet 180 mg PO QPM finasteride 1 mg Tablet 1 mg PO QPM sertraline 50 mg Tablet 50 mg PO DAILY chlorhexidine gluconate 0.12 % Mouthwash 15 ml MUCOUS MEMBRANE BID chlorhexidine gluconate 0.12 % mouthwash 15 ml PO chlorhexidine gluconate 0.12 % mouthwash 15 ml PO testosterone cypionate 200 mg/mL oil 100 mg IM QWEEK clonazepam 2 mg tablet 2 mg PO BEDTIME clonazepam 1 mg tablet,disintegrating 1 mg PO DAILY PRN (Reason: panic attack) lurasidone 120 mg tablet 120 mg PO DAILY quetiapine 200 mg tablet extended release 24 hr 150 mg PO BEDTIME mirtazapine 45 mg tablet 45 mg PO BEDTIME lithium carbonate 450 mg tablet extended release 450 mg PO BID montelukast 10 mg tablet 10 mg PO QPM ferrous sulfate [FeroSul] 325 mg (65 mg iron) tablet 160 mg PO DAILY amiloride 5 mg tablet 5 mg PO DAILY omeprazole 40 mg capsule,delayed release(DR/EC) 40 mg PO BID Qty: 180 1RF bethanechol chloride 50 mg tablet 50 mg PO BID Qty: 60 5RF Interventions: [place]-Suicide Risk Severity Scale Last Done: 12/26/23 06:05
[2023-12-24 13:33] LABS: Appearance Urine Clear; Color Urine Yellow; Glucose Urine UA Negative (Negative); Leukocyte Esterase Urine Moderate (2+) (Negative); Nitrite Urine Negative (Negative); Specific Gravity - Urine <= 1.005 (1.005-1.025); UMIC TRIGGER UACC YES; Urine Blood Negative (Negative); Urine Ketones Negative (Negative); Urine Protein Negative (Neg-Trace)
[2023-12-24 13:42] LABS: Bacteria Urine None Seen (None Seen); Hyaline Casts Urine 0-2 /LPF (0-2); RBC Urine 0-2 /HPF (0-2); Squamous Epithelial Cell Urine 0-2 /HPF (0-2); UACC Culture Trigger YES
[2023-12-24 13:43] LABS: Amphetamine Screen Urine Not Detected (Not Detect); Barbiturates, Urine Not Detected (Not Detect); Benzodiazepines Screen Urine POSITIVE (Not Detect); Cannabinoid Screen Urine Not Detected (Not Detect); Cocaine Screen Urine Not Detected (Not Detect); Fentanyl, urine Not Detected (Not Detect); Opiate Screen Urine Not Detected (Not Detect); Phencyclidine Screen Urine Not Detected (Not Detect)
[2023-12-24 13:43] LABS: MANUAL DIFF FLAG NO
[2023-12-24 13:47] LABS: Basophils Absolute Auto 0.1 X10*3/uL (0.0-0.2); Basophils Percent Auto 0.6 % (0-2); Eosinophils Absolute Auto 0.4 X10*3/uL (0.0-0.4); Hematocrit 44.9 % (37.0-47.0); Imm Gran Abs Auto 0.05 X10*3/uL (0.00-0.03); Imm Gran Pct Auto 0.4 % (0.0-0.4); Lymphocytes Absolute Auto 2.6 X10*3/uL (1.2-4.9); Mean Corpuscular HGB Conc 33.4 g/dl (31.0-35.0); Mean Corpuscular Hemoglobin 32.3 pg (27.0-33.0); Mean Corpuscular Volume 96.8 fL (80.0-98.0); Mean Platelet Volume 11.3 fL (9.4-12.3); Monocytes Absolute Auto 0.7 X10*3/uL (0.1-1.2); Monocytes Percent Auto 5.4 % (2-11); Neutrophils Absolute Auto 8.6 x10*3/uL (2.0-8.3); Neutrophils Percent Auto 69.6 % (45-73); Platelet Count 243 X10*3/uL (160-400); Red Blood Count 4.64 X10*6/uL (4.20-5.50); Red Cell Distribution Width 15.3 % (11.0-16.0); White Blood Count 12.3 X10*3/uL (4.8-10.8)
[2023-12-24 14:01] LABS: Lithium 0.92 mmol/L (0.60-1.20)
[2023-12-24 14:02] LABS: COVID-19 Test Negative (Negative); IDNOW Serial# 58CA691E; IDNOW Serial# 9DB6401D; Influenza A Negative (Negative); Influenza B2 Negative (Negative)
[2023-12-24 14:25] LABS: Acetaminophen LAB < 3 mcg/mL (<30); Salicylate < 5.0 mg/dL (15-30)
[2023-12-24 14:26] LABS: Alanine Aminotransferase 41 U/L (0-31); Albumin Level 4.1 g/dL (3.5-5.0); Alkaline Phosphatase 96 U/L (39-117); Anion Gap 12 (12-20); Aspartate Amino Transferase 27 U/L (5-31); Bilirubin Direct 0.1 mg/dL (0.0-0.5); Bilirubin Total 0.3 mg/dL (0.0-1.0); Blood Urea Nitrogen 9 mg/dL (9-16); Calcium 9.3 mg/dL (8.4-10.2); Carbon Dioxide 23 mmol/L (22-29); Chloride 106 mmol/L (96-108); Creatinine Clr Calc Pharmacy 79.2; Estimated Glomerular Filt Rate 43; Ethanol < 10 mg/dL; Glucose Random 87 mg/dL (60-115); Magnesium 2.1 mg/dL (1.6-2.6); Potassium 3.8 mmol/L (3.3-5.1); Sodium 137 mmol/L (135-145); Total Protein 7.2 g/dL (6.5-8.0)
[2023-12-24] MEDS: oxyCODONE HCl Immed Release 5 MG TABLET PO ×2 (14:37→21:42)
[2023-12-24] MEDS: QUEtiapine Fumarate 50 MG TABLET 150 MG PO (21:42)
[2023-12-24] MEDS: Famotidine 20 MG TABLET 10 MG PO (21:42)
[2023-12-24] MEDS: Montelukast Sodium 10 MG TABLET PO (21:42)
[2023-12-24] MEDS: methocarbamoL 750 MG TABLET PO (21:42)
[2023-12-24] MEDS: Spironolactone 25 MG TABLET PO (21:43)
[2023-12-24] MEDS: Sertraline HCL 50 MG TABLET PO (21:43)
[2023-12-24] MEDS: clonazePAM 1 MG TABLET 2 MG PO (21:43)
[2023-12-24] MEDS: Lithium Carbonate ER 450 MG TABLET.ER PO (21:43)
[2023-12-24] MEDS: Mirtazapine 15 MG TABLET 45 MG PO (21:43)
[2023-12-24] MEDS: Bethanechol Chloride 25 MG TABLET 50 MG PO (22:07)
[2023-12-25 00:39] VITALS: BP 126/86; PULSE 91; RESP 16; TEMP 36.6; O2SAT 94
[2023-12-25] MEDS: Omeprazole 40 MG CAPSULE.DR PO ×2 (05:55→17:01)
[2023-12-25] MEDS: oxyCODONE HCl Immed Release 5 MG TABLET PO ×2 (05:58→17:57)
--- NOTE | 2023-12-25 07:25 | PC.NURSE ---
patient awake, ambulated to community area, patient now sitting in room eating breakfast. respirations equal and unlabored, skin PWD.
[2023-12-25] MEDS: Lithium Carbonate ER 450 MG TABLET.ER PO ×2 (07:42→20:36)
[2023-12-25] MEDS: Lurasidone HCl 40 MG TABLET 120 MG PO (07:42)
[2023-12-25] MEDS: Loratadine 10 MG TABLET PO (07:42)
[2023-12-25] MEDS: Ferrous Sulfate 324 MG TABLET.DR PO (07:42)
[2023-12-25] MEDS: methocarbamoL 750 MG TABLET PO ×2 (07:46→20:34)
[2023-12-25] MEDS: Famotidine 20 MG TABLET 10 MG PO ×2 (07:46→20:33)
[2023-12-25] MEDS: Spironolactone 25 MG TABLET PO ×2 (07:46→20:34)
[2023-12-25] MEDS: Bethanechol Chloride 25 MG TABLET 50 MG PO ×2 (09:09→20:33)
[2023-12-25] MEDS: Chlorhexidine Gluc Oral Rinse 15 ML MOUTHWASH BUCCAL ×2 (09:09→20:37)
[2023-12-25 11:40] VITALS: BP 119/71; PULSE 93; RESP 18; TEMP 36.3; O2SAT 98
--- NOTE | 2023-12-25 15:43 | PC.NURSE ---
patient resting quietly in bed, given sensory bin for something to do while in room. patient playing with small toys in room. has remained calm and cooperative able to make needs known
--- NOTE | 2023-12-25 17:58 | PC.NURSE ---
patient requested prn pain medication, medicated per MAR
[2023-12-25] MEDS: Sertraline HCL 50 MG TABLET PO (20:34)
[2023-12-25] MEDS: Montelukast Sodium 10 MG TABLET PO (20:34)
[2023-12-25] MEDS: QUEtiapine Fumarate 50 MG TABLET 150 MG PO (20:36)
[2023-12-25] MEDS: Mirtazapine 15 MG TABLET 45 MG PO (20:36)
[2023-12-25] MEDS: clonazePAM 1 MG TABLET 2 MG PO (20:36)
--- NOTE | 2023-12-26 04:15 | PC.NURSE ---
patient primarily staying intheir own room comes out for water periodically, maintains safe behavior patient appears in no distress.
[2023-12-26 05:19] VITALS: BP 135/77; PULSE 81; RESP 16; TEMP 36.6; O2SAT 93
[2023-12-26 06:23] VITALS: BP 123/78; PULSE 93; RESP 18; TEMP 36.4; O2SAT 94
[2023-12-26] MEDS: Omeprazole 40 MG CAPSULE.DR PO ×2 (07:26→17:26)
--- NOTE | 2023-12-26 07:47 | PC.NURSE ---
Assumed care of patient at 0700, patient appears to be in no apparent distress. Offers no complaints to this RN, respirations even and unlabored. Continue plan of care for IPLOC
[2023-12-26] MEDS: Chlorhexidine Gluc Oral Rinse 15 ML MOUTHWASH BUCCAL ×2 (08:00→20:56)
[2023-12-26] MEDS: Lithium Carbonate ER 450 MG TABLET.ER PO ×2 (08:00→20:59)
[2023-12-26] MEDS: Lurasidone HCl 40 MG TABLET 120 MG PO (08:00)
[2023-12-26] MEDS: methocarbamoL 750 MG TABLET PO ×2 (08:00→20:56)
[2023-12-26] MEDS: Famotidine 20 MG TABLET 10 MG PO ×2 (08:00→20:55)
[2023-12-26] MEDS: Spironolactone 25 MG TABLET PO ×2 (08:00→20:56)
[2023-12-26] MEDS: Loratadine 10 MG TABLET PO (08:00)
[2023-12-26] MEDS: Bethanechol Chloride 25 MG TABLET 50 MG PO ×2 (08:00→20:56)
[2023-12-26] MEDS: Ferrous Sulfate 324 MG TABLET.DR PO (08:01)
[2023-12-26] MEDS: oxyCODONE HCl Immed Release 5 MG TABLET PO ×2 (08:10→18:34)
[2023-12-26 08:40] VITALS: BP 140/84; PULSE 91; RESP 18; TEMP 36.9; O2SAT 96
--- NOTE | 2023-12-26 08:47 | MHC.CARE ---
RAD Team conducted [place] bedsearch, referral being reviewed by j[facility] schuler, [facility], [facility], [facility] , [facility] , [facility] , [facility],and [facility]. RAD team to f/u with facilities to see outcome
[2023-12-26] MEDS: clonazePAM 1 MG TABLET PO (10:10)
[2023-12-26] MEDS: Meclizine HCl 25 MG TABLET PO (11:32)
--- NOTE | 2023-12-26 11:36 | PC.NURSE ---
Pt reporting to this RN that they feel dizzy. Patient was encouraged to drink more water and eat something. MD aware, Meclizine administered per JAN. Pt now resting on stretcher, respirations even and unlabored, no apparent distress
--- NOTE | 2023-12-26 18:43 | PC.NURSE ---
Pt had uneventful day, spending majority of the time in their room, offering no complaints to this RN, ambulatory to nurses station when needing something. Pt is calm and cooperative in no apparent distress at this time
[2023-12-26 20:13] VITALS: BP 129/71; PULSE 86; RESP 18; TEMP 36.6; O2SAT 99
[2023-12-26] MEDS: Sertraline HCL 50 MG TABLET PO (20:56)
[2023-12-26] MEDS: Montelukast Sodium 10 MG TABLET PO (20:56)
[2023-12-26] MEDS: Mirtazapine 15 MG TABLET 45 MG PO (20:59)
[2023-12-26] MEDS: clonazePAM 1 MG TABLET 2 MG PO (20:59)
[2023-12-26] MEDS: QUEtiapine Fumarate 50 MG TABLET 150 MG PO (21:00)
--- NOTE | 2023-12-27 | ECG_ITS ---
Test Reason : QT INTERVAL Blood Pressure : / mmHG Vent. Rate : 076 BPM Atrial Rate : 076 BPM P-R Int : 162 ms QRS Dur : 080 ms QT Int : 392 ms P-R-T Axes : 000 162 169 degrees QTc Int : 441 ms Suspect limb lead reversal, interpretation assumes no reversal Normal sinus rhythm Lateral infarct , age undetermined ST & T wave abnormality, consider inferior ischemia Abnormal ECG No previous ECGs available Referred By: Galo Robledo Electronically Signed By:PAGE JIN MD
[2023-12-27 05:02] VITALS: BP 111/58; PULSE 88; RESP 16; TEMP 37.1; O2SAT 94
[2023-12-27] MEDS: Omeprazole 40 MG CAPSULE.DR PO ×2 (06:52→18:27)
[2023-12-27] MEDS: Chlorhexidine Gluc Oral Rinse 15 ML MOUTHWASH BUCCAL ×2 (08:48→19:34)
[2023-12-27] MEDS: Lithium Carbonate ER 450 MG TABLET.ER PO ×2 (08:48→19:36)
[2023-12-27] MEDS: Famotidine 20 MG TABLET 10 MG PO ×2 (08:48→19:35)
[2023-12-27] MEDS: Ferrous Sulfate 324 MG TABLET.DR PO (08:48)
[2023-12-27] MEDS: Loratadine 10 MG TABLET PO (08:48)
[2023-12-27] MEDS: methocarbamoL 750 MG TABLET PO (08:49)
[2023-12-27] MEDS: Spironolactone 25 MG TABLET PO ×2 (08:50→19:36)
[2023-12-27] MEDS: Lurasidone HCl 40 MG TABLET 120 MG PO (08:50)
[2023-12-27] MEDS: Bethanechol Chloride 25 MG TABLET 50 MG PO ×2 (08:58→19:36)
--- NOTE | 2023-12-27 10:26 | MHC.CARE ---
RAD Team conducted statewide bedsearch, referral being reviewed by [facility]ohn sch[facility], [facility], [facility], [facility] , [facility] , [facility] , [facility] and [facility]. RAD team to f/u with facilities to see outcome
[2023-12-27] MEDS: oxyCODONE HCl Immed Release 5 MG TABLET PO ×2 (11:19→19:34)
[2023-12-27 11:49] LABS: COVID-19 Test Negative (Negative); IDNOW Serial# 9DB6401D
[2023-12-27 15:11] VITALS: BP 127/87; PULSE 85; RESP 16; TEMP 36.6; O2SAT 95
--- NOTE | 2023-12-27 16:22 | PC.NURSE ---
RN-RN report given. pt transported upstairs w tech and security.
[2023-12-27 16:46] VITALS: BP 132/77; PULSE 88; RESP 18; TEMP 36.8; O2SAT 96
[2023-12-27 18:00] VITALS: BP 134/77; PULSE 109; RESP 18; TEMP 36.8; O2SAT 97
--- NOTE | 2023-12-27 19:26 | PC.NURSE ---
Patient was brought up to floor at about 16:30 at which time was assigned to room 512-1, a male bed, per policy as pt is female to male transgender. Pt was not comfortable at all with being in a room with another male patient and requested a single room at which time request was accommodated was accommodated.
[2023-12-27] MEDS: Montelukast Sodium 10 MG TABLET PO (19:34)
[2023-12-27] MEDS: clonazePAM 1 MG TABLET 2 MG PO (19:35)
[2023-12-27] MEDS: QUEtiapine Fumarate 50 MG TABLET 150 MG PO (19:35)
[2023-12-27] MEDS: Mirtazapine 15 MG TABLET 45 MG PO (19:36)
--- NOTE | 2023-12-27 22:52 | PC.ADMIT ---
Addendum entered by Jama Jackson RN 12/28/23 00:23: Reports Insomnia, I haven't slept in a while, reports 2 hours of sleep at most. Denisse recently had 8 teeth removed, poor intake due to pain and discomfort, currently on a soft diet. Original Note: Denisse arrived to the unit at 1630 on a Conditional Voluntary, sharp check done by insurance underwriter sales and female RN, skin appears intact, superficial scratches to abdomen. Denisse appears tremulous, poor eye contact, when asked how he felt stated Ok, reports endorsing 7/10 anxiety, 8/10 depression, denied AVH, when asked if he had any thoughts of wanting to hurt self stated Just thoughts, verbalized to look for staff if urge to hurt self occurred. When asked if he had any thoughts of wanting to hurt others stated My mom, it skips around it can sometimes be other people. Denisse reports trauma, declined to elaborate, identifies as he/him pronouns. Per assessment was assessed by care team after self presenting due to increase SI and HI, per Denisse he was on a virtual session with his therapist through [facility] and said some things to his therapist that caused her to suggest that patient is a harm to self and others. Denisse reports that they have experienced intrusive thoughts to slit the throat of self and others. Reports thoughts have become unmanageable and not feeling safe. Denisse is currently on 5 minute safety checks ULB.
[2023-12-28] MEDS: Acetaminophen 325 MG TABLET 650 MG PO ×2 (03:27→09:27)
[2023-12-28] MEDS: Throat Lozenge, Medicated LOZENGE 1 LOZENGE MUCOUS MEM ×4 (03:28→21:37)
[2023-12-28] MEDS: oxyCODONE HCl Immed Release 5 MG TABLET PO ×4 (03:28→21:37)
[2023-12-28] MEDS: Omeprazole 40 MG CAPSULE.DR PO ×2 (06:39→16:03)
[2023-12-28] MEDS: Loratadine 10 MG TABLET PO (08:01)
[2023-12-28] MEDS: Famotidine 20 MG TABLET 10 MG PO ×2 (08:01→21:35)
[2023-12-28] MEDS: Bethanechol Chloride 25 MG TABLET 50 MG PO ×2 (08:01→21:35)
[2023-12-28] MEDS: Spironolactone 25 MG TABLET PO ×2 (08:01→21:35)
[2023-12-28] MEDS: Ferrous Sulfate 324 MG TABLET.DR PO (08:01)
[2023-12-28] MEDS: Sertraline HCL 50 MG TABLET PO (08:01)
[2023-12-28] MEDS: Lurasidone HCl 40 MG TABLET 120 MG PO (08:01)
[2023-12-28] MEDS: Lithium Carbonate ER 450 MG TABLET.ER PO ×2 (08:01→21:36)
[2023-12-28] MEDS: Chlorhexidine Gluc Oral Rinse 15 ML MOUTHWASH BUCCAL ×2 (08:04→21:34)
[2023-12-28 08:12] VITALS: BP 123/59; PULSE 89; RESP 18; TEMP 36.5; O2SAT 95
[2023-12-28 08:48] LABS: Estimated Average Glucose 85 mg/dL; Hemoglobin A1c % 4.6 % (<6.0)
[2023-12-28 09:02] LABS: Cholesterol 226 mg/dL (<200); HDL Cholesterol 27 mg/dL (>40); LDL Cholesterol Calculated 151 mg/dL (<100); Triglycerides 241 mg/dL (<150)
[2023-12-28 09:16] LABS: Free T4 (Free Thyroxine) 0.83 ng/dL (0.71-1.85); Thyroid Stimulating Hormone 3.65 uIU/mL (0.32-4.0)
[2023-12-28 09:28] LABS: Folate 12.8 ng/mL (> or = 4.0); Vitamin B12 459 pg/mL (200-900)
[2023-12-28] MEDS: Testosterone Cypionate 200 MG/1 ML VIAL 100 MG IM (09:49)
[2023-12-28] MEDS: clonazePAM 1 MG TABLET PO (11:29)
[2023-12-28] MEDS: Ondansetron ODT 4 MG TAB.RAPDIS TRANSLINGU (11:49)
[2023-12-28] MEDS: Meclizine HCl 25 MG TABLET PO (14:26)
[2023-12-28 16:30] VITALS: BP 148/87; PULSE 95; RESP 18; TEMP 36.6; O2SAT 95
--- NOTE | 2023-12-28 18:55 | P.HPPS_ITS ---
HPI Date of Service: 12/28/23 Chief Complaint: Depression anxiety PTSD Autism SI HI Sources of Information: patient interviewed, chart reviewed and crisis/core team assessment reviewed HPI Subjective Notes: [place] Warning and Conditional Voluntary Healthcare Proxy: No Guardianship: No Medical Problems Affecting Mental Status: No Narrative: 28 yo transgender male, prefers he, they pronouns, hx of depression, anxiety, psychosis reports SI, HI. Pt was meeting with therapist on telehealth, discussed thoughts of self harm and harm to others along with intrusive thoughts to slit his throat, his mother's and his cat's. This is not a new sx, however it has become more intense and pt was feeling unable to mange it. Pt reports I think I need my medicine adjusted . I cannot tell if my meds caused this or not. Reports SI for a while with the ability to distract himself. HI is new, within the last week-toward mother and his cat. Denies hx of HI. Reports recent Sertraline increase, 25-50 mg Reports surgery 11/29/23-hysterectomy. No hormone dose changes recently Reports surgery last week-8 teeth removed-oxycodone for pain with sutures to dissolve Past Psychiatric History: IP: 2011 (high school) for SI, [facility]BS-[place]- an awful experience OP: [facility]- Crystal Kristopher therapy- not ideal there are expectations I cannot follow up with and I feel she is disappointed in me Curtis Traore-med provider Trials: Several [place]-caused CKD-wants to get off and was going to do so as an outpatient One trial left-Depakote, others have not been tolerated SIBS-[place], had stopped but re-started recently. Never has urges, just self injures. No window betewen urge and action. Medical Evaluation Reviewed: Yes [facility] Medical History (Updated 12/29/23 @ 17:42 by Nika Matthews APRN) Bipolar disorder Hx of concussion History of panic attacks Urinary retention with incomplete bladder emptying Encounter for screening Bipolar 1 disorder Anxiety PTSD (post-traumatic stress disorder) Asthma Irritable bowel syndrome with constipation Gastroesophageal reflux disease without esophagitis Nausea Narrative: Migraine CKD Fibromyalgia Renal Calculi Recent vertigo with nausea Memory Loss Surgical History Hx of wisdom tooth extraction Hx of colonoscopy (~02/2020) H/O esophagogastroduodenoscopy No pertinent past surgical history (~02/2020) Social History: Reports a great deal of memory loss in childhood. Weighed 9 lbs, 10oz. Met developmental milestones. 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 Currently lives with parents-reports not a great situation. He will be asked to leave the home if he has top surgery. States he did not tell parents about the hysterectomy. Lives with several restrictions. He believes parents are transphobic. They are not accepting of his choices Enjoys: video games, TV, [employer], the show [employer] Substance History: 1-2 times per month, cannabis Trauma History: Affirms Diagnostics Vital Signs (24Hr): Vital Signs - 24 hr 12/28/23 08:12 12/28/23 16:30 Temperature 97.7 F 97.9 F Pulse Rate 89 95 Respiratory Rate 18 18 Blood Pressure 123/59 L 148/87 H Pulse Oximetry 95 95 Oxygen Delivery Method Room Air BMI result Body Mass Index 45.5 Labs 12/24/23 13:39 12/24/23 13:38 Labs: Laboratory Results - last 48 hr 12/27/23 12/28/23 11:16 08:30 Estimat Average Glucose 85 Hemoglobin A1c % 4.6 Magnesium 2.0 Triglycerides 241 H Cholesterol 226 H LDL Cholesterol, Calc 151 H HDL Cholesterol 27 L Vitamin B12 459 Folate 12.8 TSH 3.65 Free T4 0.83 COVID-19 ([facility]) Negative COVID-19 Clin Com See Note Meds/Allergies Meds Home Medications Medication Instructions Recorded Confirmed Type testosterone cypionate 200 mg/mL 100 mg IM QWEEK 10/29/20 12/24/23 History intramuscular oil clonazepam 1 mg disintegrating 1 mg PO DAILY PRN panic attack 07/14/22 12/24/23 History tablet clonazepam 2 mg tablet 2 mg PO BEDTIME 07/14/22 12/24/23 History amiloride 5 mg tablet 5 mg PO DAILY 01/17/23 12/24/23 History ferrous sulfate 325 mg (65 mg 160 mg PO DAILY 01/17/23 12/24/23 History iron) tablet (FeroSul) lithium carbonate 450 mg 450 mg PO BID 01/17/23 12/24/23 History tablet,extended release lurasidone 120 mg tablet 120 mg PO DAILY 01/17/23 12/24/23 History mirtazapine 45 mg tablet 45 mg PO BEDTIME 01/17/23 12/24/23 History montelukast 10 mg tablet 10 mg PO QPM 01/17/23 12/24/23 History quetiapine 200 mg tablet,extended 150 mg PO BEDTIME 01/17/23 12/24/23 History release 24 hr calcium 600 mg capsule 600 mg PO QPM 09/02/23 12/24/23 History famotidine 20 mg tablet 10 mg PO BID 12/24/23 12/24/23 History fexofenadine 180 mg tablet 180 mg PO QPM 12/24/23 12/24/23 History finasteride 1 mg tablet 1 mg PO QPM 12/24/23 12/24/23 History methocarbamol 750 mg tablet 750 mg PO BID spasms 12/24/23 12/24/23 History sertraline 50 mg tablet 50 mg PO DAILY 12/24/23 12/24/23 History chlorhexidine gluconate 0.12 % 15 ml mucous membrane BID 12/25/23 12/25/23 History mouthwash Allergies Allergies Allergy/AdvReac Type Severity Reaction Status Date / Time lidocaine Allergy Severe severe Verified 10/07/23 15:49 burning- injected lidocaine only trazodone Allergy Severe Depression Verified 10/07/23 15:49 environmental allergies Allergy Runny Nose Verified 10/07/23 15:49 feathers Allergy Swelling Verified 10/07/23 15:49 gabapentin AdvReac Severe blisters Verified 10/07/23 15:49 sucralose AdvReac Severe migraines Verified 10/07/23 15:49 [From Splenda (sucralose)] topiramate [From Topamax] AdvReac Severe serotonin Verified 10/07/23 15:49 syndrome watermelon AdvReac Severe swollen Verified 10/07/23 15:49 tongue Antihistamines - Alkylamine AdvReac Intermediate nose bleeds Verified 10/07/23 15:49 citalopram [From Celexa] AdvReac Intermediate hallucinati Verified 10/07/23 15:49 ons duloxetine [From Cymbalta] AdvReac Intermediate mood swings Verified 10/07/23 15:49 pregabalin [From Lyrica] AdvReac Intermediate mood swings Verified 10/07/23 15:49 tramadol AdvReac Intermediate hives/itchi Verified 10/07/23 15:49 ng venlafaxine AdvReac Intermediate mood swings Verified 10/07/23 15:49 NSAIDS (Non-Steroidal AdvReac Unknown Verified 12/29/23 17:23 Anti-Inflamma Mental Status Exam Mental Status Exam Patient Appearance: Appropriate Patient Orientation: Person, Place, Time and Situation Level of Consciousness: Alert Patient Behavior: Appropriate, Talkative, Anxious and Good Eye Contact Mood Description: Depressed and Anxious Affect Description: Flat Patient Cognition Impaired: No Ability to Follow Directions: Good Speech Pattern: Spontaneous Speech Memory Description: Intact (reports limited childhood memory) Hallucinations: Auditory Perceptual Disturbances: Depersonalization and Derealization Thought Process: Rumination Thought Content: positive for [place], positive for Perseveration, positive for Suicidal Ideation and positive for Homicidal Ideation Depressive Symptoms: Increased Anxiety, Changes in Appetite and Thoughts of /Suicide Judgement: Fair Assessment & Plan Assessment & Plan (1) Suicidal ideation: Status: Acute Code(s): R45.851 - Suicidal ideations (2) Homicidal ideation: Status: Acute Code(s): R45.850 - Homicidal ideations (3) Bipolar disorder: Status: Acute Code(s): F31.9 - Bipolar disorder, unspecified Plan 28 yo transgender male, history of PTSD, bipolar disorder with SI, HI. HI being a new sx of approx 1 week. Recent surgery-hysterectomy and several teeth removed with use of pain meds, Hx of CKD secondary to [place]. Pt is interested in making a change to Depakote. Plan: Collateral contact Full milieu Pt will allow discussion with family, however, we are not allowed to share information, only to listen to information given by family. Message left for Curtis Traore APRN to discuss med changes. Clonidine prn-taking at home Meclizine prn for vertigo Oxycodone q 4 hours prn post dental surgical pain. Patient educated on: medication risk/benefits and therapeutic strategies Informed Consent: understands and further education needed Reason for continued inpatient stay Substantial Risk for: harm to self, harm to others and rapid decompensation Statement Statement: I have reviewed the history and physical and performed a pertinent examination on my patient. No changes have occurred unless specified. If the History and Physical was not performed prior to admission, the Hospitalist's service will be consulted for completing the admission physical. Time Spent With Patient Time: Total time managing care of this patient today ____ minutes.
[2023-12-28] MEDS: Mirtazapine 15 MG TABLET 45 MG PO (21:35)
[2023-12-28] MEDS: QUEtiapine Fumarate 50 MG TABLET 150 MG PO (21:35)
[2023-12-28] MEDS: clonazePAM 1 MG TABLET 2 MG PO (21:37)
[2023-12-28] MEDS: Montelukast Sodium 10 MG TABLET PO (21:37)
[2023-12-29] MEDS: Acetaminophen 325 MG TABLET 650 MG PO ×2 (00:25→15:52)
[2023-12-29] MEDS: Omeprazole 40 MG CAPSULE.DR PO ×2 (06:10→15:52)
[2023-12-29] MEDS: Chlorhexidine Gluc Oral Rinse 15 ML MOUTHWASH BUCCAL ×2 (08:48→20:12)
[2023-12-29] MEDS: Famotidine 20 MG TABLET 10 MG PO ×2 (08:49→20:07)
[2023-12-29] MEDS: Loratadine 10 MG TABLET PO (08:49)
[2023-12-29] MEDS: Bethanechol Chloride 25 MG TABLET 50 MG PO ×2 (08:49→20:09)
[2023-12-29] MEDS: Lithium Carbonate ER 450 MG TABLET.ER PO ×2 (08:49→20:10)
[2023-12-29] MEDS: Ferrous Sulfate 324 MG TABLET.DR PO (08:49)
[2023-12-29] MEDS: Sertraline HCL 50 MG TABLET PO (08:49)
[2023-12-29] MEDS: Spironolactone 25 MG TABLET PO ×2 (08:49→20:11)
[2023-12-29] MEDS: Magnesium Oxide 400 MG TABLET PO (08:49)
[2023-12-29 08:50] VITALS: BP 110/55; PULSE 76; RESP 18; TEMP 36.4; O2SAT 94
[2023-12-29] MEDS: Lurasidone HCl 40 MG TABLET 120 MG PO (08:50)
[2023-12-29] MEDS: oxyCODONE HCl Immed Release 5 MG TABLET PO ×3 (08:54→20:10)
[2023-12-29] MEDS: Throat Lozenge, Medicated LOZENGE 1 LOZENGE MUCOUS MEM ×3 (09:38→20:12)
--- NOTE | 2023-12-29 09:44 | MHC.CLN ---
NUTRITION CONSULT FOR SOFTER FOOD CHOICES. PATIENT WITH 8 TEETH REMOVED 12/23 INCLUDING FRONT TEETH. DISCUSSED SELECTING SOFTER FOODS. DISLIKES YOGURT, COTTAGE CHEESE AND ADEN. HAD OMELETTE FOR BREAKFAST. WOULD LIKE ENSURE SUPPLEMENT. ADDING ENSURE MAX PROTEIN BID. PROVIDES 300 KCALS, 60 G PROTEIN.
[2023-12-29] MEDS: Meclizine HCl 25 MG TABLET PO (11:37)
[2023-12-29] MEDS: Ondansetron ODT 4 MG TAB.RAPDIS TRANSLINGU (11:37)
--- NOTE | 2023-12-29 12:06 | P.PNPSI_ITS ---
Subjective Subjective Date of Service: 12/29/23 Reason For Visit: Depression anxiety PTSD Autism SI HI Subjective Notes: Conditional Voluntary Healthcare Proxy: No Guardianship: No Medical Problems Affecting Mental Status: No Interim History: Reports poor sleep-discussed adding trial of Thorazine 25 mg HS for sleep/voices. Discussed Depakote trial, will begin 250 mg bid Reports allergy sx, Benadryl added to claritin Reports sx excema-between fingers-Hydrocortisone cream ordered Reports constipation- colace bid, miralax prn, dulcolax prn ordered Care discussed with Curtis Traore APRN- will begin Depakote transition and will trial some antipsychotics for improved sx control. Pt beginning to integrate into milieu. Medication Compliance: Yes Side effects from medications: No Attending Groups: Intermittent Review of Systems Acute medical concerns: No Medical Review of Systems: unchanged Review of Systems Review of Systems Dental pain Mental Status Exam Mental Status Exam Patient Appearance: Appropriate Patient Orientation: Person, Place, Time and Situation Level of Consciousness: Alert Patient Behavior: Appropriate, Talkative, Anxious and Good Eye Contact Mood Description: Depressed and Anxious Affect Description: Flat Patient Cognition Impaired: No Ability to Follow Directions: Good Speech Pattern: Spontaneous Speech Memory Description: Intact (reports limited childhood memory) Hallucinations: Auditory Perceptual Disturbances: Depersonalization and Derealization Thought Process: Rumination Thought Content: positive for [place], positive for Perseveration, positive for Suicidal Ideation and positive for Homicidal Ideation Depressive Symptoms: Increased Anxiety, Changes in Appetite and Thoughts of /Suicide Judgement: Fair Diagnostics Vital Signs (24Hr): Vital Signs - 24 hr 12/28/23 16:30 12/29/23 08:50 Temperature 97.9 F 97.5 F Pulse Rate 95 76 Respiratory Rate 18 18 Blood Pressure 148/87 H 110/55 L Pulse Oximetry 95 94 Oxygen Delivery Method Room Air BMI result Body Mass Index 45.5 Labs 12/24/23 13:39 12/24/23 13:38 Labs: Laboratory Results - last 48 hr 12/28/23 08:30 Estimat Average Glucose 85 Hemoglobin A1c % 4.6 Magnesium 2.0 Triglycerides 241 H Cholesterol 226 H LDL Cholesterol, Calc 151 H HDL Cholesterol 27 L Vitamin B12 459 Folate 12.8 TSH 3.65 Free T4 0.83 Medications Medications Current Medications Acetaminophen (Acetaminophen 325 Mg Tablet) 650 mg PO Q6H PRN PRN Reason: Headache/Pain Mild Scale (1-3) Last Admin: 12/29/23 00:25 Dose: 650 mg Al Hydroxide/Mg Hydroxide (Magnesium Hydrox/Alum Hydrox 30 Ml Oral.Susp) 30 ml PO Q6H PRN PRN Reason: Heartburn/Nausea Benzocaine (Throat Lozenge, Medicated Lozenge) 1 lozenge MUCOUS MEM Q2H PRN PRN Reason: Sore Throat Last Admin: 12/29/23 09:38 Dose: 1 lozenge Bethanechol Chloride (Bethanechol Chloride 25 Mg Tablet) 50 mg PO BID [facility] Last Admin: 12/29/23 08:49 Dose: 50 mg Calcium Carbonate (Calcium Carbonate 500 Mg Tablet) 500 mg PO DAILY@1700 [facility] Last Admin: 12/28/23 16:03 Dose: 500 mg Chlorhexidine Gluconate (Chlorhexidine Gluc Oral Rinse 15 Ml Mouthwash) 15 ml BUCCAL BID [facility] Last Admin: 12/29/23 08:48 Dose: 15 ml Clonazepam (Clonazepam 1 Mg Tablet) 1 mg PO DAILY PRN PRN Reason: panic attack Last Admin: 12/28/23 11:29 Dose: 1 mg Clonazepam (Clonazepam 1 Mg Tablet) 2 mg PO BEDTIME [facility] Last Admin: 12/28/23 21:37 Dose: 2 mg Clonidine HCl (Clonidine Hcl 0.1 Mg Tablet) 0.1 mg PO DAILY PRN; Protocol PRN Reason: Anxiety Famotidine (Famotidine 20 Mg Tablet) 10 mg PO BID [facility] Last Admin: 12/29/23 08:49 Dose: 10 mg Ferrous Sulfate (Ferrous Sulfate 324 Mg Tablet.Dr) 324 mg PO DAILY [facility] Last Admin: 12/29/23 08:49 Dose: 324 mg Hydroxyzine HCl (Hydroxyzine Hcl 25 Mg Tablet) 25 mg PO Q6H PRN PRN Reason: Anxiety Fyffe Carbonate (Fyffe Carbonate Er 450 Mg Tablet.Er) 450 mg PO BID [facility] Last Admin: 12/29/23 08:49 Dose: 450 mg Loratadine (Loratadine 10 Mg Tablet) 10 mg PO DAILY [facility] Last Admin: 12/29/23 08:49 Dose: 10 mg Lurasidone HCl (Lurasidone Hcl 40 Mg Tablet) 120 mg PO DAILY [facility] Last Admin: 12/29/23 08:50 Dose: 120 mg Magnesium Hydroxide (Milk Of Magnesia 30 Ml Oral.Susp) 30 ml PO DAILY PRN PRN Reason: Constipation Magnesium Oxide (Magnesium Oxide 400 Mg Tablet) 400 mg PO DAILY [facility] Last Admin: 12/29/23 08:49 Dose: 400 mg Meclizine HCl (Meclizine Hcl 25 Mg Tablet) 25 mg PO Q8H PRN PRN Reason: Vertigo Last Admin: 12/29/23 11:37 Dose: 25 mg Methocarbamol (Methocarbamol 750 Mg Tablet) 750 mg PO BID [facility] Last Admin: 12/27/23 08:49 Dose: 750 mg Mirtazapine (Mirtazapine 15 Mg Tablet) 45 mg PO BEDTIME [facility] Last Admin: 12/28/23 21:35 Dose: 45 mg Montelukast Sodium (Montelukast Sodium 10 Mg Tablet) 10 mg PO BEDTIME [facility] Last Admin: 12/28/23 21:37 Dose: 10 mg Pt Own (Finasteride (1 Mg Tablet)) 1 mg PO BEDTIME [facility] Last Admin: 12/28/23 21:48 Dose: Not Given Omeprazole (Omeprazole 40 Mg Capsule.Dr) 40 mg PO BID@0630,1630 [facility] Last Admin: 12/29/23 06:10 Dose: 40 mg Ondansetron HCl (Ondansetron Odt 4 Mg Tab.Rapdis) 4 mg TRANSLINGU Q8H PRN PRN Reason: for nausea/vomiting Last Admin: 12/29/23 11:37 Dose: 4 mg Oxycodone HCl (Oxycodone Hcl Immed Release 5 Mg Tablet) 5 mg PO Q4H PRN PRN Reason: severe pain Last Admin: 12/29/23 08:54 Dose: 5 mg Quetiapine Fumarate (Quetiapine Fumarate 50 Mg Tablet) 150 mg PO BEDTIME [facility] Last Admin: 12/28/23 21:35 Dose: 150 mg Sertraline HCl (Sertraline Hcl 50 Mg Tablet) 50 mg PO DAILY [facility] Last Admin: 12/29/23 08:49 Dose: 50 mg Spironolactone (Spironolactone 25 Mg Tablet) 25 mg PO BID [facility] Last Admin: 12/29/23 08:49 Dose: 25 mg Testosterone Cypionate (Testosterone Cypionate 200 Mg/1 Ml Vial) 100 mg IM We@1000 [facility] Last Admin: 12/28/23 09:49 Dose: 100 mg Allergies Allergies Allergy/AdvReac Type Severity Reaction Status Date / Time lidocaine Allergy Severe severe Verified 10/07/23 15:49 burning- injected lidocaine only trazodone Allergy Severe Depression Verified 10/07/23 15:49 environmental allergies Allergy Runny Nose Verified 10/07/23 15:49 feathers Allergy Swelling Verified 10/07/23 15:49 gabapentin AdvReac Severe blisters Verified 10/07/23 15:49 sucralose AdvReac Severe migraines Verified 10/07/23 15:49 [From Splenda (sucralose)] topiramate [From Topamax] AdvReac Severe serotonin Verified 10/07/23 15:49 syndrome watermelon AdvReac Severe swollen Verified 10/07/23 15:49 tongue Antihistamines - Alkylamine AdvReac Intermediate nose bleeds Verified 10/07/23 15:49 citalopram [From Celexa] AdvReac Intermediate hallucinati Verified 10/07/23 15:49 ons duloxetine [From Cymbalta] AdvReac Intermediate mood swings Verified 10/07/23 15:49 pregabalin [From Lyrica] AdvReac Intermediate mood swings Verified 10/07/23 15:49 tramadol AdvReac Intermediate hives/itchi Verified 10/07/23 15:49 ng venlafaxine AdvReac Intermediate mood swings Verified 10/07/23 15:49 Assessment & Plan Assessment & Plan (1) PTSD (post-traumatic stress disorder): Status: Acute Code(s): F43.10 - Post-traumatic stress disorder, unspecified (2) Bipolar disorder: Status: Acute Code(s): F31.9 - Bipolar disorder, unspecified (3) Suicidal ideation: Status: Acute Code(s): R45.851 - Suicidal ideations (4) Homicidal ideation: Status: Acute Code(s): R45.850 - Homicidal ideations Plan Chlorpromazine 25 mg HS Depakote 250 mg bid- begin transition from Fyffe Benadryl 25 mg prn allergy sx Hydrocortisone cream for eczema Colace bid Miralax, Dulcolax prn Patient educated on: medication risk/benefits and therapeutic strategies Informed Consent: understands and further education needed Reason for continued inpatient stay Substantial Risk for: harm to self, harm to others and rapid decompensation Time Spent With Patient Time: Total time managing care of this patient today ____ minutes.
[2023-12-29 12:15] VITALS: BMI 44.0
[2023-12-29] MEDS: clonazePAM 1 MG TABLET PO (17:28)
[2023-12-29] MEDS: cloNIDine HCL 0.1 MG TABLET PO (17:28)
[2023-12-29 18:00] VITALS: BP 118/56; PULSE 75; RESP 16; TEMP 36.3; O2SAT 97
[2023-12-29] MEDS: clonazePAM 1 MG TABLET 2 MG PO (20:08)
[2023-12-29] MEDS: Mirtazapine 15 MG TABLET 45 MG PO (20:10)
[2023-12-29] MEDS: Docusate Sodium 100 MG CAPSULE PO (20:11)
[2023-12-29] MEDS: QUEtiapine Fumarate 50 MG TABLET 150 MG PO (20:11)
[2023-12-29] MEDS: Montelukast Sodium 10 MG TABLET PO (20:11)
[2023-12-29] MEDS: chlorproMAZINE HCl 25 MG TABLET PO (20:11)
[2023-12-29] MEDS: Divalproex Sodium 250 MG TABLET.DR PO (20:12)
[2023-12-30] MEDS: Omeprazole 40 MG CAPSULE.DR PO ×2 (06:19→16:46)
[2023-12-30] MEDS: Sertraline HCL 50 MG TABLET PO (08:29)
[2023-12-30] MEDS: Divalproex Sodium 250 MG TABLET.DR PO ×2 (08:29→20:37)
[2023-12-30] MEDS: Lurasidone HCl 40 MG TABLET 120 MG PO (08:29)
[2023-12-30] MEDS: Chlorhexidine Gluc Oral Rinse 15 ML MOUTHWASH BUCCAL ×2 (08:29→20:48)
[2023-12-30] MEDS: Famotidine 20 MG TABLET 10 MG PO ×2 (08:29→20:40)
[2023-12-30] MEDS: Ferrous Sulfate 324 MG TABLET.DR PO (08:30)
[2023-12-30] MEDS: Spironolactone 25 MG TABLET PO ×2 (08:30→20:35)
[2023-12-30] MEDS: Loratadine 10 MG TABLET PO (08:30)
[2023-12-30] MEDS: Magnesium Oxide 400 MG TABLET PO (08:30)
[2023-12-30] MEDS: Bethanechol Chloride 25 MG TABLET 50 MG PO ×2 (08:30→20:38)
[2023-12-30] MEDS: Lithium Carbonate ER 450 MG TABLET.ER PO ×2 (08:30→20:39)
[2023-12-30] MEDS: Docusate Sodium 100 MG CAPSULE PO ×2 (08:30→20:39)
[2023-12-30 08:35] VITALS: BP 115/58; PULSE 86; RESP 16; TEMP 36.3; O2SAT 95
[2023-12-30] MEDS: Throat Lozenge, Medicated LOZENGE 1 LOZENGE MUCOUS MEM ×2 (09:01→20:47)
[2023-12-30] MEDS: oxyCODONE HCl Immed Release 5 MG TABLET PO ×3 (09:16→19:46)
[2023-12-30] MEDS: Acetaminophen 325 MG TABLET 650 MG PO ×2 (09:17→16:45)
[2023-12-30] MEDS: bisacodyL 5 MG TABLET.DR 10 MG PO (15:11)
--- NOTE | 2023-12-30 16:11 | P.PNPSI_ITS ---
Subjective Subjective Date of Service: 12/30/23 Reason For Visit: Depression anxiety PTSD Autism SI HI Subjective Notes: Conditional Voluntary Healthcare Proxy: No Guardianship: No Medical Problems Affecting Mental Status: No Interim History: Some improvement in sleep. Feeling some hangover sx, will decrease CPZ to 10 mg hs Headache upon awakening. Tolerating Depakote. Cross tapering [place] Medication Compliance: Yes Side effects from medications: Yes (sedation) Attending Groups: Yes Review of Systems Acute medical concerns: No Medical Review of Systems: unchanged Review of Systems Review of Systems Dental pain Mental Status Exam Mental Status Exam Patient Appearance: Appropriate Patient Orientation: Person, Place, Time and Situation Level of Consciousness: Alert Patient Behavior: Appropriate, Talkative, Anxious and Good Eye Contact Mood Description: Depressed and Anxious Affect Description: Flat Patient Cognition Impaired: No Ability to Follow Directions: Good Speech Pattern: Spontaneous Speech Memory Description: Intact (reports limited childhood memory) Hallucinations: Auditory Perceptual Disturbances: Depersonalization and Derealization Thought Process: Rumination Thought Content: positive for [place], positive for Perseveration, positive for Suicidal Ideation and positive for Homicidal Ideation Depressive Symptoms: Increased Anxiety, Changes in Appetite and Thoughts of /Suicide Judgement: Fair Diagnostics Vital Signs (24Hr): Vital Signs - 24 hr 12/29/23 18:00 12/30/23 08:35 Temperature 97.4 F 97.4 F Pulse Rate 75 86 Respiratory Rate 16 16 Blood Pressure 118/56 L 115/58 L Pulse Oximetry 97 95 Oxygen Delivery Method Room Air Room Air BMI result Body Mass Index 44.0 Labs 12/24/23 13:39 12/24/23 13:38 Medications Medications Current Medications Acetaminophen (Acetaminophen 325 Mg Tablet) 650 mg PO Q4H PRN PRN Reason: Headache/Pain Mild Scale (1-3) Al Hydroxide/Mg Hydroxide (Magnesium Hydrox/Alum Hydrox 30 Ml Oral.Susp) 30 ml PO Q6H PRN PRN Reason: Heartburn/Nausea Benzocaine (Throat Lozenge, Medicated Lozenge) 1 lozenge MUCOUS MEM Q2H PRN PRN Reason: Sore Throat Last Admin: 12/30/23 09:01 Dose: 1 lozenge Bethanechol Chloride (Bethanechol Chloride 25 Mg Tablet) 50 mg PO BID [facility] Last Admin: 12/30/23 08:30 Dose: 50 mg Bisacodyl (Bisacodyl 5 Mg Tablet.) 10 mg PO DAILY PRN PRN Reason: Constipation Last Admin: 12/30/23 15:11 Dose: 10 mg Calcium Carbonate (Calcium Carbonate 500 Mg Tablet) 500 mg PO DAILY@1700 [facility] Last Admin: 12/29/23 15:52 Dose: 500 mg Chlorhexidine Gluconate (Chlorhexidine Gluc Oral Rinse 15 Ml Mouthwash) 15 ml BUCCAL BID [facility] Last Admin: 12/30/23 08:29 Dose: 15 ml Chlorpromazine HCl (Chlorpromazine Hcl 10 Mg Tablet) 10 mg PO BEDTIME [facility] Clonazepam (Clonazepam 1 Mg Tablet) 1 mg PO DAILY PRN PRN Reason: panic attack Last Admin: 12/29/23 17:28 Dose: 1 mg Clonazepam (Clonazepam 1 Mg Tablet) 2 mg PO BEDTIME [facility] Last Admin: 12/29/23 20:08 Dose: 2 mg Clonidine HCl (Clonidine Hcl 0.1 Mg Tablet) 0.1 mg PO DAILY PRN; Protocol PRN Reason: Anxiety Last Admin: 12/29/23 17:28 Dose: 0.1 mg Diphenhydramine HCl (Diphenhydramine Hcl 25 Mg Capsule) 25 mg PO Q6H PRN PRN Reason: allergy sx Divalproex Sodium (Divalproex Sodium 250 Mg Tablet.) 250 mg PO BID [facility] Last Admin: 12/30/23 08:29 Dose: 250 mg Docusate Sodium (Docusate Sodium 100 Mg Capsule) 100 mg PO BID [facility] Last Admin: 12/30/23 08:30 Dose: 100 mg Famotidine (Famotidine 20 Mg Tablet) 10 mg PO BID [facility] Last Admin: 12/30/23 08:29 Dose: 10 mg Ferrous Sulfate (Ferrous Sulfate 324 Mg Tablet.) 324 mg PO DAILY [facility] Last Admin: 12/30/23 08:30 Dose: 324 mg Hydrocortisone (Hydrocortisone 1 % Cream 28.35 Gm Tube) 1 appl TOPICAL BID PRN; Protocol PRN Reason: eczema Hydroxyzine HCl (Hydroxyzine Hcl 25 Mg Tablet) 25 mg PO Q6H PRN PRN Reason: Anxiety [place] Carbonate ([place] Carbonate Er 450 Mg Tablet.Er) 450 mg PO BID [facility] Last Admin: 12/30/23 08:30 Dose: 450 mg Loratadine (Loratadine 10 Mg Tablet) 10 mg PO DAILY [facility] Last Admin: 12/30/23 08:30 Dose: 10 mg Lurasidone HCl (Lurasidone Hcl 40 Mg Tablet) 120 mg PO DAILY [facility] Last Admin: 12/30/23 08:29 Dose: 120 mg Magnesium Hydroxide (Milk Of Magnesia 30 Ml Oral.Susp) 30 ml PO DAILY PRN PRN Reason: Constipation Magnesium Oxide (Magnesium Oxide 400 Mg Tablet) 400 mg PO DAILY [facility] Last Admin: 12/30/23 08:30 Dose: 400 mg Meclizine HCl (Meclizine Hcl 25 Mg Tablet) 25 mg PO Q8H PRN PRN Reason: Vertigo Last Admin: 12/29/23 11:37 Dose: 25 mg Methocarbamol (Methocarbamol 750 Mg Tablet) 750 mg PO BID [facility] Last Admin: 12/27/23 08:49 Dose: 750 mg Mirtazapine (Mirtazapine 15 Mg Tablet) 45 mg PO BEDTIME [facility] Last Admin: 12/29/23 20:10 Dose: 45 mg Montelukast Sodium (Montelukast Sodium 10 Mg Tablet) 10 mg PO BEDTIME [facility] Last Admin: 12/29/23 20:11 Dose: 10 mg Pt Own (Finasteride (1 Mg Tablet)) 1 mg PO BEDTIME [facility] Last Admin: 12/29/23 20:13 Dose: 1 mg Omeprazole (Omeprazole 40 Mg Capsule.Dr) 40 mg PO BID@0630,1630 [facility] Last Admin: 12/30/23 06:19 Dose: 40 mg Ondansetron HCl (Ondansetron Odt 4 Mg Tab.Rapdis) 4 mg TRANSLINGU Q8H PRN PRN Reason: for nausea/vomiting Last Admin: 12/29/23 11:37 Dose: 4 mg Oxycodone HCl (Oxycodone Hcl Immed Release 5 Mg Tablet) 5 mg PO Q4H PRN PRN Reason: severe pain Last Admin: 12/30/23 13:50 Dose: 5 mg Quetiapine Fumarate (Quetiapine Fumarate 50 Mg Tablet) 150 mg PO BEDTIME [facility] Last Admin: 12/29/23 20:11 Dose: 150 mg Sertraline HCl (Sertraline Hcl 50 Mg Tablet) 50 mg PO DAILY [facility] Last Admin: 12/30/23 08:29 Dose: 50 mg Spironolactone (Spironolactone 25 Mg Tablet) 25 mg PO BID [facility] Last Admin: 12/30/23 08:30 Dose: 25 mg Testosterone Cypionate (Testosterone Cypionate 200 Mg/1 Ml Vial) 100 mg IM We@1000 [facility] Last Admin: 12/28/23 09:49 Dose: 100 mg Allergies Allergies Allergy/AdvReac Type Severity Reaction Status Date / Time lidocaine Allergy Severe severe Verified 10/07/23 15:49 burning- injected lidocaine only trazodone Allergy Severe Depression Verified 10/07/23 15:49 environmental allergies Allergy Runny Nose Verified 10/07/23 15:49 feathers Allergy Swelling Verified 10/07/23 15:49 gabapentin AdvReac Severe blisters Verified 10/07/23 15:49 sucralose AdvReac Severe migraines Verified 10/07/23 15:49 [From Splenda (sucralose)] topiramate [From Topamax] AdvReac Severe serotonin Verified 10/07/23 15:49 syndrome watermelon AdvReac Severe swollen Verified 10/07/23 15:49 tongue Antihistamines - Alkylamine AdvReac Intermediate nose bleeds Verified 10/07/23 15:49 citalopram [From Celexa] AdvReac Intermediate hallucinati Verified 10/07/23 15:49 ons duloxetine [From Cymbalta] AdvReac Intermediate mood swings Verified 10/07/23 15:49 pregabalin [From Lyrica] AdvReac Intermediate mood swings Verified 10/07/23 15:49 tramadol AdvReac Intermediate hives/itchi Verified 10/07/23 15:49 ng venlafaxine AdvReac Intermediate mood swings Verified 10/07/23 15:49 NSAIDS (Non-Steroidal AdvReac Unknown Verified 12/29/23 17:23 Anti-Inflamma Assessment & Plan Assessment & Plan (1) PTSD (post-traumatic stress disorder): Status: Acute Code(s): F43.10 - Post-traumatic stress disorder, unspecified (2) Bipolar disorder: Status: Acute Code(s): F31.9 - Bipolar disorder, unspecified (3) Suicidal ideation: Status: Acute Code(s): R45.851 - Suicidal ideations (4) Homicidal ideation: Status: Acute Code(s): R45.850 - Homicidal ideations Plan Chlorpromazine 25 mg HS Depakote 250 mg bid- begin transition from [place] Benadryl 25 mg prn allergy sx Hydrocortisone cream for eczema Colace bid Miralax, Dulcolax prn 12/30/23: Change Tylenol to q 4 hours Decrease CPZ to 10 mg HS Decrease [place] to 300 mg a.m. 450 mg h.s.-cross titration. Informed Consent: understands and further education needed Reason for continued inpatient stay Substantial Risk for: rapid decompensation Time Spent With Patient Time: Total time managing care of this patient today ____ minutes.
[2023-12-30] MEDS: clonazePAM 1 MG TABLET PO (16:45)
[2023-12-30 19:45] VITALS: BP 145/85; PULSE 94; TEMP 36.9
[2023-12-30] MEDS: Montelukast Sodium 10 MG TABLET PO (20:36)
[2023-12-30] MEDS: QUEtiapine Fumarate 50 MG TABLET 150 MG PO (20:36)
[2023-12-30] MEDS: clonazePAM 1 MG TABLET 2 MG PO (20:37)
[2023-12-30] MEDS: chlorproMAZINE HCl 10 MG TABLET PO (20:38)
[2023-12-30] MEDS: Mirtazapine 15 MG TABLET 45 MG PO (20:39)
[2023-12-30] MEDS: Hydrocortisone 1 % Cream 28.35 GM TUBE 1 APPL TOPICAL (20:41)
[2023-12-31] MEDS: Omeprazole 40 MG CAPSULE.DR PO ×2 (05:44→16:54)
[2023-12-31] MEDS: Throat Lozenge, Medicated LOZENGE 1 LOZENGE MUCOUS MEM ×4 (05:44→21:13)
[2023-12-31] MEDS: diphenhydrAMINE HCL 25 MG CAPSULE PO (05:44)
[2023-12-31] MEDS: Acetaminophen 325 MG TABLET 650 MG PO ×2 (05:46→13:14)
[2023-12-31] MEDS: oxyCODONE HCl Immed Release 5 MG TABLET PO ×4 (05:47→20:42)
[2023-12-31 08:20] VITALS: BP 117/69; PULSE 80; RESP 18; TEMP 36.6; O2SAT 94
[2023-12-31] MEDS: Chlorhexidine Gluc Oral Rinse 15 ML MOUTHWASH BUCCAL ×2 (08:33→20:38)
[2023-12-31] MEDS: Ferrous Sulfate 324 MG TABLET.DR PO (08:33)
[2023-12-31] MEDS: Lurasidone HCl 40 MG TABLET 120 MG PO (08:33)
[2023-12-31] MEDS: Divalproex Sodium 250 MG TABLET.DR PO ×2 (08:33→20:35)
[2023-12-31] MEDS: Magnesium Oxide 400 MG TABLET PO (08:33)
[2023-12-31] MEDS: Docusate Sodium 100 MG CAPSULE PO ×2 (08:33→20:36)
[2023-12-31] MEDS: Famotidine 20 MG TABLET 10 MG PO ×2 (08:34→20:35)
[2023-12-31] MEDS: Loratadine 10 MG TABLET PO (08:34)
[2023-12-31] MEDS: Sertraline HCL 50 MG TABLET PO (08:34)
[2023-12-31] MEDS: Spironolactone 25 MG TABLET PO ×2 (08:34→20:38)
[2023-12-31] MEDS: Bethanechol Chloride 25 MG TABLET 50 MG PO ×2 (08:34→20:37)
[2023-12-31] MEDS: Lithium Carbonate 300 MG TABLET PO (08:34)
[2023-12-31] MEDS: Magnesium Hydrox/Alum Hydrox 30 ML ORAL.SUSP PO (11:11)
[2023-12-31] MEDS: bisacodyL 5 MG TABLET.DR 10 MG PO (13:14)
[2023-12-31] MEDS: clonazePAM 1 MG TABLET PO (13:15)
--- NOTE | 2023-12-31 14:55 | P.PNPSI_ITS ---
Subjective Subjective Date of Service: 12/31/23 Reason For Visit: Depression anxiety PTSD Autism SI HI Interim History: Patient seen and discussed. He reports being anxious because there are people on the unit who are loud and yell. One of them across from his room. Tolerating Depakote. Cross tapering [place] Passive SI. No intent of self harm. Denies AVH. Some poor self care. Review of Systems Review of Systems Dental pain Yes all other systems are reviewed and are negative Constitutional: Reports as per HPI Mental Status Exam Mental Status Exam Patient Appearance: Appropriate Patient Orientation: Person, Place, Time and Situation Level of Consciousness: Alert Patient Behavior: Appropriate, Talkative, Anxious and Good Eye Contact Mood Description: Depressed and Anxious Affect Description: Flat Patient Cognition Impaired: No Ability to Follow Directions: Good Speech Pattern: Spontaneous Speech Memory Description: Intact (reports limited childhood memory) Diagnostics Vital Signs (24Hr): Vital Signs - 24 hr 12/30/23 19:45 12/31/23 08:20 Temperature 98.4 F 97.9 F Pulse Rate 94 80 Respiratory Rate 18 Blood Pressure 145/85 H 117/69 Pulse Oximetry 94 Oxygen Delivery Method Room Air BMI result Body Mass Index 44.0 Labs 12/24/23 13:39 12/24/23 13:38 Medications Medications Current Medications Acetaminophen (Acetaminophen 325 Mg Tablet) 650 mg PO Q4H PRN PRN Reason: Headache/Pain Mild Scale (1-3) Last Admin: 12/31/23 13:14 Dose: 650 mg Al Hydroxide/Mg Hydroxide (Magnesium Hydrox/Alum Hydrox 30 Ml Oral.Susp) 30 ml PO Q6H PRN PRN Reason: Heartburn/Nausea Last Admin: 12/31/23 11:11 Dose: 30 ml Benzocaine (Throat Lozenge, Medicated Lozenge) 1 lozenge MUCOUS MEM Q2H PRN PRN Reason: Sore Throat Last Admin: 12/31/23 13:14 Dose: 1 lozenge Bethanechol Chloride (Bethanechol Chloride 25 Mg Tablet) 50 mg PO BID [facility] Last Admin: 12/31/23 08:34 Dose: 50 mg Bisacodyl (Bisacodyl 5 Mg Tablet.Dr) 10 mg PO DAILY PRN PRN Reason: Constipation Last Admin: 12/31/23 13:14 Dose: 10 mg Calcium Carbonate (Calcium Carbonate 500 Mg Tablet) 500 mg PO DAILY@1700 [facility] Last Admin: 12/30/23 16:47 Dose: 500 mg Chlorhexidine Gluconate (Chlorhexidine Gluc Oral Rinse 15 Ml Mouthwash) 15 ml BUCCAL BID [facility] Last Admin: 12/31/23 08:33 Dose: 15 ml Chlorpromazine HCl (Chlorpromazine Hcl 10 Mg Tablet) 10 mg PO BEDTIME [facility] Last Admin: 12/30/23 20:38 Dose: 10 mg Clonazepam (Clonazepam 1 Mg Tablet) 1 mg PO DAILY PRN PRN Reason: panic attack Last Admin: 12/31/23 13:15 Dose: 1 mg Clonazepam (Clonazepam 1 Mg Tablet) 2 mg PO BEDTIME [facility] Last Admin: 12/30/23 20:37 Dose: 2 mg Clonidine HCl (Clonidine Hcl 0.1 Mg Tablet) 0.1 mg PO DAILY PRN; Protocol PRN Reason: Anxiety Last Admin: 12/29/23 17:28 Dose: 0.1 mg Diphenhydramine HCl (Diphenhydramine Hcl 25 Mg Capsule) 25 mg PO Q6H PRN PRN Reason: allergy sx Last Admin: 12/31/23 05:44 Dose: 25 mg Divalproex Sodium (Divalproex Sodium 250 Mg Tablet.) 250 mg PO BID [facility] Last Admin: 12/31/23 08:33 Dose: 250 mg Docusate Sodium (Docusate Sodium 100 Mg Capsule) 100 mg PO BID [facility] Last Admin: 12/31/23 08:33 Dose: 100 mg Famotidine (Famotidine 20 Mg Tablet) 10 mg PO BID [facility] Last Admin: 12/31/23 08:34 Dose: 10 mg Ferrous Sulfate (Ferrous Sulfate 324 Mg Tablet.) 324 mg PO DAILY [facility] Last Admin: 12/31/23 08:33 Dose: 324 mg Hydrocortisone (Hydrocortisone 1 % Cream 28.35 Gm Tube) 1 appl TOPICAL BID PRN; Protocol PRN Reason: eczema Last Admin: 12/30/23 20:41 Dose: 1 appl Hydroxyzine HCl (Hydroxyzine Hcl 25 Mg Tablet) 25 mg PO Q6H PRN PRN Reason: Anxiety [place] Carbonate ([place] Carbonate Er 450 Mg Tablet.Er) 450 mg PO BEDTIME [facility] Last Admin: 12/30/23 20:39 Dose: 450 mg [place] Carbonate ([place] Carbonate 300 Mg Tablet) 300 mg PO DAILY [facility] Last Admin: 12/31/23 08:34 Dose: 300 mg Loratadine (Loratadine 10 Mg Tablet) 10 mg PO DAILY [facility] Last Admin: 12/31/23 08:34 Dose: 10 mg Lurasidone HCl (Lurasidone Hcl 40 Mg Tablet) 120 mg PO DAILY [facility] Last Admin: 12/31/23 08:33 Dose: 120 mg Magnesium Hydroxide (Milk Of Magnesia 30 Ml Oral.Susp) 30 ml PO DAILY PRN PRN Reason: Constipation Magnesium Oxide (Magnesium Oxide 400 Mg Tablet) 400 mg PO DAILY [facility] Last Admin: 12/31/23 08:33 Dose: 400 mg Meclizine HCl (Meclizine Hcl 25 Mg Tablet) 25 mg PO Q8H PRN PRN Reason: Vertigo Last Admin: 12/29/23 11:37 Dose: 25 mg Methocarbamol (Methocarbamol 750 Mg Tablet) 750 mg PO BID [facility] Last Admin: 12/27/23 08:49 Dose: 750 mg Mirtazapine (Mirtazapine 15 Mg Tablet) 45 mg PO BEDTIME [facility] Last Admin: 12/30/23 20:39 Dose: 45 mg Montelukast Sodium (Montelukast Sodium 10 Mg Tablet) 10 mg PO BEDTIME [facility] Last Admin: 12/30/23 20:36 Dose: 10 mg Pt Own (Finasteride (1 Mg Tablet)) 1 mg PO BEDTIME [facility] Last Admin: 12/30/23 20:41 Dose: 1 mg Omeprazole (Omeprazole 40 Mg Capsule.Dr) 40 mg PO BID@0630,1630 [facility] Last Admin: 12/31/23 05:44 Dose: 40 mg Ondansetron HCl (Ondansetron Odt 4 Mg Tab.Rapdis) 4 mg TRANSLINGU Q8H PRN PRN Reason: for nausea/vomiting Last Admin: 12/29/23 11:37 Dose: 4 mg Oxycodone HCl (Oxycodone Hcl Immed Release 5 Mg Tablet) 5 mg PO Q4H PRN PRN Reason: severe pain Last Admin: 12/31/23 13:15 Dose: 5 mg Quetiapine Fumarate (Quetiapine Fumarate 50 Mg Tablet) 150 mg PO BEDTIME [facility] Last Admin: 12/30/23 20:36 Dose: 150 mg Sertraline HCl (Sertraline Hcl 50 Mg Tablet) 50 mg PO DAILY [facility] Last Admin: 12/31/23 08:34 Dose: 50 mg Spironolactone (Spironolactone 25 Mg Tablet) 25 mg PO BID [facility] Last Admin: 12/31/23 08:34 Dose: 25 mg Testosterone Cypionate (Testosterone Cypionate 200 Mg/1 Ml Vial) 100 mg IM We@1000 [facility] Last Admin: 12/28/23 09:49 Dose: 100 mg Allergies Allergies Allergy/AdvReac Type Severity Reaction Status Date / Time lidocaine Allergy Severe severe Verified 10/07/23 15:49 burning- injected lidocaine only trazodone Allergy Severe Depression Verified 10/07/23 15:49 environmental allergies Allergy Runny Nose Verified 10/07/23 15:49 feathers Allergy Swelling Verified 10/07/23 15:49 gabapentin AdvReac Severe blisters Verified 10/07/23 15:49 sucralose AdvReac Severe migraines Verified 10/07/23 15:49 [From Splenda (sucralose)] topiramate [From Topamax] AdvReac Severe serotonin Verified 10/07/23 15:49 syndrome watermelon AdvReac Severe swollen Verified 10/07/23 15:49 tongue Antihistamines - Alkylamine AdvReac Intermediate nose bleeds Verified 10/07/23 15:49 citalopram [From Celexa] AdvReac Intermediate hallucinati Verified 10/07/23 15:49 ons duloxetine [From Cymbalta] AdvReac Intermediate mood swings Verified 10/07/23 15:49 pregabalin [From Lyrica] AdvReac Intermediate mood swings Verified 10/07/23 15:49 tramadol AdvReac Intermediate hives/itchi Verified 10/07/23 15:49 ng venlafaxine AdvReac Intermediate mood swings Verified 10/07/23 15:49 NSAIDS (Non-Steroidal AdvReac Unknown Verified 12/29/23 17:23 Anti-Inflamma Assessment & Plan Assessment & Plan (1) PTSD (post-traumatic stress disorder): Status: Acute Code(s): F43.10 - Post-traumatic stress disorder, unspecified (2) Bipolar disorder: Status: Acute Code(s): F31.9 - Bipolar disorder, unspecified (3) Suicidal ideation: Status: Acute Code(s): R45.851 - Suicidal ideations (4) Homicidal ideation: Status: Acute Code(s): R45.850 - Homicidal ideations Plan Chlorpromazine 25 mg HS Depakote 250 mg bid- begin transition from [place] Benadryl 25 mg prn allergy sx Hydrocortisone cream for eczema Colace bid Miralax, Dulcolax prn 12/30/23: Change Tylenol to q 4 hours Decrease CPZ to 10 mg HS Decrease [place] to 300 mg a.m. 450 mg h.s.-cross titration. 12/31: Possible increase Depakote to 500 mg HS tomorrow and further taper Li. Continue current management and treatment plan. Reason for continued inpatient stay Substantial Risk for: harm to self, inability to function and rapid decompensation Time Spent With Patient Time: Total time managing care of this patient today ____ minutes.
[2023-12-31] MEDS: polyethylene glycoL 3350 17 GM POWD.PACK PO (15:08)
--- NOTE | 2023-12-31 17:07 | PC.NURSE ---
Patient medicated with Oxycodone 5 mg for C/O mouth pain d/t tooth extraction.
[2023-12-31 17:40] VITALS: BP 121/71; PULSE 86; RESP 18; TEMP 36.3; O2SAT 93
[2023-12-31] MEDS: QUEtiapine Fumarate 50 MG TABLET 150 MG PO (20:33)
[2023-12-31] MEDS: Montelukast Sodium 10 MG TABLET PO (20:35)
[2023-12-31] MEDS: chlorproMAZINE HCl 10 MG TABLET PO (20:36)
[2023-12-31] MEDS: Mirtazapine 15 MG TABLET 45 MG PO (20:36)
[2023-12-31] MEDS: Lithium Carbonate ER 450 MG TABLET.ER PO (20:37)
[2023-12-31] MEDS: clonazePAM 1 MG TABLET 2 MG PO (20:38)
[2024-01-01] MEDS: Omeprazole 40 MG CAPSULE.DR PO ×2 (06:25→18:06)
[2024-01-01 08:15] VITALS: BP 101/55; PULSE 77; RESP 18; TEMP 36.3; O2SAT 95
[2024-01-01] MEDS: polyethylene glycoL 3350 17 GM POWD.PACK PO (08:16)
[2024-01-01] MEDS: Bethanechol Chloride 25 MG TABLET 50 MG PO ×2 (08:16→20:28)
[2024-01-01] MEDS: Lurasidone HCl 40 MG TABLET 120 MG PO (08:16)
[2024-01-01] MEDS: Ferrous Sulfate 324 MG TABLET.DR PO (08:16)
[2024-01-01] MEDS: Docusate Sodium 100 MG CAPSULE PO ×2 (08:16→20:28)
[2024-01-01] MEDS: Famotidine 20 MG TABLET 10 MG PO ×2 (08:16→20:28)
[2024-01-01] MEDS: Sertraline HCL 50 MG TABLET PO (08:17)
[2024-01-01] MEDS: Loratadine 10 MG TABLET PO (08:17)
[2024-01-01] MEDS: Divalproex Sodium 250 MG TABLET.DR PO (08:17)
[2024-01-01] MEDS: Lithium Carbonate 300 MG TABLET PO (08:17)
[2024-01-01] MEDS: Magnesium Oxide 400 MG TABLET PO (08:17)
[2024-01-01] MEDS: Chlorhexidine Gluc Oral Rinse 15 ML MOUTHWASH BUCCAL (08:20)
[2024-01-01] MEDS: oxyCODONE HCl Immed Release 5 MG TABLET PO (08:22)
[2024-01-01] MEDS: Acetaminophen 325 MG TABLET 650 MG PO ×2 (08:22→20:27)
[2024-01-01] MEDS: Throat Lozenge, Medicated LOZENGE 1 LOZENGE MUCOUS MEM ×3 (09:02→20:36)
[2024-01-01] MEDS: Spironolactone 25 MG TABLET PO ×2 (09:15→20:27)
[2024-01-01] MEDS: Sodium Phosphate,Mono-Dibasic 133 ML ENEMA PR (12:01)
--- NOTE | 2024-01-01 14:51 | P.PNPSI_ITS ---
Subjective Subjective Date of Service: 01/01/24 Reason For Visit: Depression anxiety PTSD Autism SI HI Interim History: Patient seen and discussed. I was hoping the switching would be faster. Reports he is tolerating the medication cross taper well. Passive SI. No intent of self harm. Denies AVH. Some poor self care. Review of Systems Review of Systems Dental pain Yes all other systems are reviewed and are negative Constitutional: Reports as per HPI Mental Status Exam Mental Status Exam Patient Appearance: Appropriate Patient Orientation: Person, Place, Time and Situation Level of Consciousness: Alert Patient Behavior: Appropriate, Talkative, Anxious and Good Eye Contact Mood Description: Depressed and Anxious Affect Description: Flat Patient Cognition Impaired: No Ability to Follow Directions: Good Speech Pattern: Spontaneous Speech Memory Description: Intact (reports limited childhood memory) Diagnostics Vital Signs (24Hr): Vital Signs - 24 hr 12/31/23 17:40 01/01/24 08:15 Temperature 97.4 F 97.3 F Pulse Rate 86 77 Respiratory Rate 18 18 Blood Pressure 121/71 101/55 L Pulse Oximetry 93 95 Oxygen Delivery Method Room Air Room Air BMI result Body Mass Index 44.0 Labs 12/24/23 13:39 12/24/23 13:38 Medications Medications Current Medications Acetaminophen (Acetaminophen 325 Mg Tablet) 650 mg PO Q4H PRN PRN Reason: Headache/Pain Mild Scale (1-3) Last Admin: 01/01/24 08:22 Dose: 650 mg Al Hydroxide/Mg Hydroxide (Magnesium Hydrox/Alum Hydrox 30 Ml Oral.Susp) 30 ml PO Q6H PRN PRN Reason: Heartburn/Nausea Last Admin: 12/31/23 11:11 Dose: 30 ml Benzocaine (Throat Lozenge, Medicated Lozenge) 1 lozenge MUCOUS MEM Q2H PRN PRN Reason: Sore Throat Last Admin: 01/01/24 14:16 Dose: 1 lozenge Bethanechol Chloride (Bethanechol Chloride 25 Mg Tablet) 50 mg PO BID [facility] Last Admin: 01/01/24 08:16 Dose: 50 mg Bisacodyl (Bisacodyl 5 Mg Tablet.Dr) 10 mg PO DAILY PRN PRN Reason: Constipation Last Admin: 12/31/23 13:14 Dose: 10 mg Calcium Carbonate (Calcium Carbonate 500 Mg Tablet) 500 mg PO DAILY@1700 [facility] Last Admin: 12/31/23 16:54 Dose: 500 mg Chlorhexidine Gluconate (Chlorhexidine Gluc Oral Rinse 15 Ml Mouthwash) 15 ml BUCCAL BID [facility] Last Admin: 01/01/24 08:20 Dose: 15 ml Chlorpromazine HCl (Chlorpromazine Hcl 10 Mg Tablet) 10 mg PO BEDTIME [facility] Last Admin: 12/31/23 20:36 Dose: 10 mg Clonazepam (Clonazepam 1 Mg Tablet) 1 mg PO DAILY PRN PRN Reason: panic attack Last Admin: 12/31/23 13:15 Dose: 1 mg Clonazepam (Clonazepam 1 Mg Tablet) 2 mg PO BEDTIME [facility] Last Admin: 12/31/23 20:38 Dose: 2 mg Clonidine HCl (Clonidine Hcl 0.1 Mg Tablet) 0.1 mg PO DAILY PRN; Protocol PRN Reason: Anxiety Last Admin: 12/29/23 17:28 Dose: 0.1 mg Diphenhydramine HCl (Diphenhydramine Hcl 25 Mg Capsule) 25 mg PO Q6H PRN PRN Reason: allergy sx Last Admin: 12/31/23 05:44 Dose: 25 mg Divalproex Sodium (Divalproex Sodium 500 Mg Tablet.) 500 mg PO BID [facility] Docusate Sodium (Docusate Sodium 100 Mg Capsule) 100 mg PO BID [facility] Last Admin: 01/01/24 08:16 Dose: 100 mg Famotidine (Famotidine 20 Mg Tablet) 10 mg PO BID [facility] Last Admin: 01/01/24 08:16 Dose: 10 mg Ferrous Sulfate (Ferrous Sulfate 324 Mg Tablet.) 324 mg PO DAILY [facility] Last Admin: 01/01/24 08:16 Dose: 324 mg Hydrocortisone (Hydrocortisone 1 % Cream 28.35 Gm Tube) 1 appl TOPICAL BID PRN; Protocol PRN Reason: eczema Last Admin: 12/30/23 20:41 Dose: 1 appl Hydroxyzine HCl (Hydroxyzine Hcl 25 Mg Tablet) 25 mg PO Q6H PRN PRN Reason: Anxiety [place] Carbonate ([place] Carbonate 300 Mg Tablet) 150 mg PO BID [facility] Loratadine (Loratadine 10 Mg Tablet) 10 mg PO DAILY [facility] Last Admin: 01/01/24 08:17 Dose: 10 mg Lurasidone HCl (Lurasidone Hcl 40 Mg Tablet) 120 mg PO DAILY [facility] Last Admin: 01/01/24 08:16 Dose: 120 mg Magnesium Hydroxide (Milk Of Magnesia 30 Ml Oral.Susp) 30 ml PO DAILY PRN PRN Reason: Constipation Magnesium Oxide (Magnesium Oxide 400 Mg Tablet) 400 mg PO DAILY [facility] Last Admin: 01/01/24 08:17 Dose: 400 mg Meclizine HCl (Meclizine Hcl 25 Mg Tablet) 25 mg PO Q8H PRN PRN Reason: Vertigo Last Admin: 12/29/23 11:37 Dose: 25 mg Methocarbamol (Methocarbamol 750 Mg Tablet) 750 mg PO BID [facility] Last Admin: 12/27/23 08:49 Dose: 750 mg Mirtazapine (Mirtazapine 15 Mg Tablet) 45 mg PO BEDTIME [facility] Last Admin: 12/31/23 20:36 Dose: 45 mg Montelukast Sodium (Montelukast Sodium 10 Mg Tablet) 10 mg PO BEDTIME [facility] Last Admin: 12/31/23 20:35 Dose: 10 mg Pt Own (Finasteride (1 Mg Tablet)) 1 mg PO BEDTIME [facility] Last Admin: 01/01/24 00:16 Dose: Not Given Omeprazole (Omeprazole 40 Mg Capsule.Dr) 40 mg PO BID@0630,1630 [facility] Last Admin: 01/01/24 06:25 Dose: 40 mg Ondansetron HCl (Ondansetron Odt 4 Mg Tab.Rapdis) 4 mg TRANSLINGU Q8H PRN PRN Reason: for nausea/vomiting Last Admin: 12/29/23 11:37 Dose: 4 mg Oxycodone HCl (Oxycodone Hcl Immed Release 5 Mg Tablet) 5 mg PO Q4H PRN PRN Reason: severe pain Last Admin: 01/01/24 08:22 Dose: 5 mg Polyethylene Glycol (Polyethylene Glycol 3350 17 Gm Powd.Pack) 17 gm PO BID PRN PRN Reason: Constipation Last Admin: 01/01/24 08:16 Dose: 17 gm Quetiapine Fumarate (Quetiapine Fumarate 50 Mg Tablet) 150 mg PO BEDTIME [facility] Last Admin: 12/31/23 20:33 Dose: 150 mg Sertraline HCl (Sertraline Hcl 50 Mg Tablet) 50 mg PO DAILY [facility] Last Admin: 01/01/24 08:17 Dose: 50 mg Sodium Biphosphate/Sodium Phosphate (Sodium Phosphate,[place]-Dibasic 133 Ml Enema) 133 ml [place] ONCE PRN PRN Reason: Constipation Last Admin: 01/01/24 12:01 Dose: 133 ml Spironolactone (Spironolactone 25 Mg Tablet) 25 mg PO BID [facility] Last Admin: 01/01/24 09:15 Dose: 25 mg Testosterone Cypionate (Testosterone Cypionate 200 Mg/1 Ml Vial) 100 mg IM We@1000 [facility] Last Admin: 12/28/23 09:49 Dose: 100 mg Allergies Allergies Allergy/AdvReac Type Severity Reaction Status Date / Time lidocaine Allergy Severe severe Verified 10/07/23 15:49 burning- injected lidocaine only trazodone Allergy Severe Depression Verified 10/07/23 15:49 environmental allergies Allergy Runny Nose Verified 10/07/23 15:49 feathers Allergy Swelling Verified 10/07/23 15:49 gabapentin AdvReac Severe blisters Verified 10/07/23 15:49 sucralose AdvReac Severe migraines Verified 10/07/23 15:49 [From Splenda (sucralose)] topiramate [From Topamax] AdvReac Severe serotonin Verified 10/07/23 15:49 syndrome watermelon AdvReac Severe swollen Verified 10/07/23 15:49 tongue Antihistamines - Alkylamine AdvReac Intermediate nose bleeds Verified 10/07/23 15:49 citalopram [From Celexa] AdvReac Intermediate hallucinati Verified 10/07/23 15:49 ons duloxetine [From Cymbalta] AdvReac Intermediate mood swings Verified 10/07/23 15:49 pregabalin [From Lyrica] AdvReac Intermediate mood swings Verified 10/07/23 15:49 tramadol AdvReac Intermediate hives/itchi Verified 10/07/23 15:49 ng venlafaxine AdvReac Intermediate mood swings Verified 10/07/23 15:49 NSAIDS (Non-Steroidal AdvReac Unknown Verified 12/29/23 17:23 Anti-Inflamma Assessment & Plan Assessment & Plan (1) PTSD (post-traumatic stress disorder): Status: Acute Code(s): F43.10 - Post-traumatic stress disorder, unspecified (2) Bipolar disorder: Status: Acute Code(s): F31.9 - Bipolar disorder, unspecified (3) Suicidal ideation: Status: Acute Code(s): R45.851 - Suicidal ideations (4) Homicidal ideation: Status: Acute Code(s): R45.850 - Homicidal ideations Plan Chlorpromazine 25 mg HS Depakote 250 mg bid- begin transition from [place] Benadryl 25 mg prn allergy sx Hydrocortisone cream for eczema Colace bid Miralax, Dulcolax prn 12/30/23: Change Tylenol to q 4 hours Decrease CPZ to 10 mg HS Decrease [place] to 300 mg a.m. 450 mg h.s.-cross titration. 12/31: Possible increase Depakote to 500 mg HS tomorrow and further taper Li. Continue current management and treatment plan. 01/01: Increase Depakote to 500 mg BID and taper Li to 150 mg BID. Otherwise continue current management and treatment plan. Reason for continued inpatient stay Substantial Risk for: harm to self, inability to function and rapid decompensation Time Spent With Patient Time: Total time managing care of this patient today ____ minutes.
[2024-01-01 18:00] VITALS: BP 132/84; PULSE 82; RESP 16; TEMP 36.4; O2SAT 95
[2024-01-01] MEDS: clonazePAM 1 MG TABLET PO (19:14)
[2024-01-01] MEDS: cloNIDine HCL 0.1 MG TABLET PO (19:14)
[2024-01-01] MEDS: Montelukast Sodium 10 MG TABLET PO (20:27)
[2024-01-01] MEDS: Mirtazapine 15 MG TABLET 45 MG PO (20:27)
[2024-01-01] MEDS: clonazePAM 1 MG TABLET 2 MG PO (20:28)
[2024-01-01] MEDS: Divalproex Sodium 500 MG TABLET.DR PO (20:28)
[2024-01-01] MEDS: Lithium Carbonate 300 MG TABLET 150 MG PO (20:28)
[2024-01-01] MEDS: QUEtiapine Fumarate 50 MG TABLET 150 MG PO (20:29)
[2024-01-01] MEDS: chlorproMAZINE HCl 10 MG TABLET PO (20:29)
[2024-01-02] MEDS: Omeprazole 40 MG CAPSULE.DR PO ×2 (05:55→16:24)
[2024-01-02 08:15] VITALS: BP 103/59; PULSE 85; RESP 18; TEMP 36.3; O2SAT 93
[2024-01-02] MEDS: Sertraline HCL 50 MG TABLET PO (08:19)
[2024-01-02] MEDS: Bethanechol Chloride 25 MG TABLET 50 MG PO ×2 (08:19→19:33)
[2024-01-02] MEDS: Lurasidone HCl 40 MG TABLET 120 MG PO (08:19)
[2024-01-02] MEDS: Spironolactone 25 MG TABLET PO ×2 (08:21→19:32)
[2024-01-02] MEDS: Ferrous Sulfate 324 MG TABLET.DR PO (08:21)
[2024-01-02] MEDS: Magnesium Oxide 400 MG TABLET PO (08:21)
[2024-01-02] MEDS: Docusate Sodium 100 MG CAPSULE PO ×2 (08:21→19:36)
[2024-01-02] MEDS: Famotidine 20 MG TABLET 10 MG PO ×2 (08:21→19:34)
[2024-01-02] MEDS: Divalproex Sodium 500 MG TABLET.DR PO ×2 (08:21→19:33)
[2024-01-02] MEDS: Loratadine 10 MG TABLET PO (08:21)
[2024-01-02] MEDS: Lithium Carbonate 300 MG TABLET 150 MG PO ×2 (08:22→19:34)
[2024-01-02] MEDS: polyethylene glycoL 3350 17 GM POWD.PACK PO (08:30)
[2024-01-02] MEDS: Throat Lozenge, Medicated LOZENGE 1 LOZENGE MUCOUS MEM ×2 (09:09→19:02)
[2024-01-02] MEDS: Hydrocortisone 1 % Cream 28.35 GM TUBE 1 APPL TOPICAL (09:20)
[2024-01-02] MEDS: Meclizine HCl 25 MG TABLET PO (10:54)
[2024-01-02] MEDS: Ondansetron ODT 4 MG TAB.RAPDIS TRANSLINGU (10:54)
[2024-01-02] MEDS: clonazePAM 1 MG TABLET PO ×2 (11:33→14:28)
[2024-01-02 18:00] VITALS: BP 115/68; PULSE 80; RESP 18; TEMP 36.7; O2SAT 98
[2024-01-02] MEDS: Acetaminophen 325 MG TABLET 650 MG PO (19:31)
[2024-01-02] MEDS: Mirtazapine 15 MG TABLET 45 MG PO (19:31)
[2024-01-02] MEDS: chlorproMAZINE HCl 10 MG TABLET PO (19:32)
[2024-01-02] MEDS: QUEtiapine Fumarate 50 MG TABLET 150 MG PO (19:32)
[2024-01-02] MEDS: clonazePAM 1 MG TABLET 2 MG PO (19:33)
[2024-01-02] MEDS: oxyCODONE HCl Immed Release 5 MG TABLET PO (19:35)
[2024-01-02] MEDS: Montelukast Sodium 10 MG TABLET PO (19:36)
--- NOTE | 2024-01-02 21:56 | P.PNPSI_ITS ---
Subjective Subjective Date of Service: 01/02/24 Reason For Visit: Depression anxiety PTSD Autism SI HI Subjective Notes: Conditional Voluntary Healthcare Proxy: No Guardianship: No Medical Problems Affecting Mental Status: No Interim History: Pt asleep when tw attempted to meet with him today. I am Ok, there is a lot going on and I am tired . Tolerating Depakote transiton but with fatigue. Pt learned over the weekend that their family has declined their return to the family home so they will need to find new housing. Pt does admit to feeling overwhelmed at this time. Medication Compliance: Yes Side effects from medications: No Attending Groups: Yes Review of Systems Acute medical concerns: No Medical Review of Systems: unchanged Review of Systems Review of Systems Yes Unobtainable due to mental status Mental Status Exam Mental Status Exam Patient Appearance: Appropriate Patient Orientation: Person, Place, Time and Situation Level of Consciousness: Sedated and Lethargic Patient Behavior: Appropriate, Talkative, Anxious and Good Eye Contact Mood Description: Depressed and Anxious Affect Description: Flat Patient Cognition Impaired: No Ability to Follow Directions: Good Speech Pattern: Spontaneous Speech Memory Description: Intact (reports limited childhood memory) Diagnostics Vital Signs (24Hr): Vital Signs - 24 hr 01/02/24 08:15 Temperature 97.4 F Pulse Rate 85 Respiratory Rate 18 Blood Pressure 103/59 L Pulse Oximetry 93 Oxygen Delivery Method Room Air BMI result Body Mass Index 44.0 Labs 12/24/23 13:39 12/24/23 13:38 Labs: Laboratory Results - last 48 hr 01/02/24 08:25 [place] 0.60 Medications Medications Current Medications Acetaminophen (Acetaminophen 325 Mg Tablet) 650 mg PO Q4H PRN PRN Reason: Headache/Pain Mild Scale (1-3) Last Admin: 01/02/24 19:31 Dose: 650 mg Al Hydroxide/Mg Hydroxide (Magnesium Hydrox/Alum Hydrox 30 Ml Oral.Susp) 30 ml PO Q6H PRN PRN Reason: Heartburn/Nausea Last Admin: 12/31/23 11:11 Dose: 30 ml Benzocaine (Throat Lozenge, Medicated Lozenge) 1 lozenge MUCOUS MEM Q2H PRN PRN Reason: Sore Throat Last Admin: 01/02/24 19:02 Dose: 1 lozenge Bethanechol Chloride (Bethanechol Chloride 25 Mg Tablet) 50 mg PO BID [facility] Last Admin: 01/02/24 19:33 Dose: 50 mg Bisacodyl (Bisacodyl 5 Mg Tablet.) 10 mg PO DAILY PRN PRN Reason: Constipation Last Admin: 12/31/23 13:14 Dose: 10 mg Calcium Carbonate (Calcium Carbonate 500 Mg Tablet) 500 mg PO DAILY@1700 [facility] Last Admin: 01/02/24 16:24 Dose: 500 mg Chlorhexidine Gluconate (Chlorhexidine Gluc Oral Rinse 15 Ml Mouthwash) 15 ml BUCCAL BID [facility] Last Admin: 01/02/24 08:29 Dose: Not Given Chlorpromazine HCl (Chlorpromazine Hcl 10 Mg Tablet) 10 mg PO BEDTIME [facility] Last Admin: 01/02/24 19:32 Dose: 10 mg Clonazepam (Clonazepam 1 Mg Tablet) 2 mg PO BEDTIME [facility] Last Admin: 01/02/24 19:33 Dose: 2 mg Clonazepam (Clonazepam 1 Mg Tablet) 1 mg PO BID PRN PRN Reason: anxiety Last Admin: 01/02/24 14:28 Dose: 1 mg Clonidine HCl (Clonidine Hcl 0.1 Mg Tablet) 0.1 mg PO DAILY PRN; Protocol PRN Reason: Anxiety Last Admin: 01/01/24 19:14 Dose: 0.1 mg Diphenhydramine HCl (Diphenhydramine Hcl 25 Mg Capsule) 25 mg PO Q6H PRN PRN Reason: allergy sx Last Admin: 12/31/23 05:44 Dose: 25 mg Divalproex Sodium (Divalproex Sodium 500 Mg Tablet.) 500 mg PO BID [facility] Last Admin: 01/02/24 19:33 Dose: 500 mg Docusate Sodium (Docusate Sodium 100 Mg Capsule) 100 mg PO BID [facility] Last Admin: 01/02/24 19:36 Dose: 100 mg Famotidine (Famotidine 20 Mg Tablet) 10 mg PO BID [facility] Last Admin: 01/02/24 19:34 Dose: 10 mg Ferrous Sulfate (Ferrous Sulfate 324 Mg Tablet.) 324 mg PO DAILY [facility] Last Admin: 01/02/24 08:21 Dose: 324 mg Hydrocortisone (Hydrocortisone 1 % Cream 28.35 Gm Tube) 1 appl TOPICAL BID PRN; Protocol PRN Reason: eczema Last Admin: 01/02/24 09:20 Dose: 1 appl Hydroxyzine HCl (Hydroxyzine Hcl 25 Mg Tablet) 25 mg PO Q6H PRN PRN Reason: Anxiety [place] Carbonate ([place] Carbonate 300 Mg Tablet) 150 mg PO BID [facility] Last Admin: 01/02/24 19:34 Dose: 150 mg Loratadine (Loratadine 10 Mg Tablet) 10 mg PO DAILY [facility] Last Admin: 01/02/24 08:21 Dose: 10 mg Lurasidone HCl (Lurasidone Hcl 40 Mg Tablet) 120 mg PO DAILY [facility] Last Admin: 01/02/24 08:19 Dose: 120 mg Magnesium Hydroxide (Milk Of Magnesia 30 Ml Oral.Susp) 30 ml PO DAILY PRN PRN Reason: Constipation Magnesium Oxide (Magnesium Oxide 400 Mg Tablet) 400 mg PO DAILY [facility] Last Admin: 01/02/24 08:21 Dose: 400 mg Meclizine HCl (Meclizine Hcl 25 Mg Tablet) 25 mg PO Q8H PRN PRN Reason: Vertigo Last Admin: 01/02/24 10:54 Dose: 25 mg Methocarbamol (Methocarbamol 750 Mg Tablet) 750 mg PO BID [facility] Last Admin: 12/27/23 08:49 Dose: 750 mg Mirtazapine (Mirtazapine 15 Mg Tablet) 45 mg PO BEDTIME [facility] Last Admin: 01/02/24 19:31 Dose: 45 mg Montelukast Sodium (Montelukast Sodium 10 Mg Tablet) 10 mg PO BEDTIME [facility] Last Admin: 01/02/24 19:36 Dose: 10 mg Pt Own (Finasteride (1 Mg Tablet)) 1 mg PO BEDTIME [facility] Last Admin: 01/02/24 19:36 Dose: 1 mg Omeprazole (Omeprazole 40 Mg Capsule.Dr) 40 mg PO BID@0630,1630 [facility] Last Admin: 01/02/24 16:24 Dose: 40 mg Ondansetron HCl (Ondansetron Odt 4 Mg Tab.Rapdis) 4 mg TRANSLINGU Q8H PRN PRN Reason: for nausea/vomiting Last Admin: 01/02/24 10:54 Dose: 4 mg Oxycodone HCl (Oxycodone Hcl Immed Release 5 Mg Tablet) 5 mg PO Q4H PRN PRN Reason: severe pain Last Admin: 01/02/24 19:35 Dose: 5 mg Polyethylene Glycol (Polyethylene Glycol 3350 17 Gm Powd.Pack) 17 gm PO BID PRN PRN Reason: Constipation Last Admin: 01/02/24 08:30 Dose: 17 gm Quetiapine Fumarate (Quetiapine Fumarate 50 Mg Tablet) 150 mg PO BEDTIME [facility] Last Admin: 01/02/24 19:32 Dose: 150 mg Sertraline HCl (Sertraline Hcl 50 Mg Tablet) 50 mg PO DAILY [facility] Last Admin: 01/02/24 08:19 Dose: 50 mg Sodium Biphosphate/Sodium Phosphate (Sodium Phosphate,[place]-Dibasic 133 Ml Enema) 133 ml [place] ONCE PRN PRN Reason: Constipation Last Admin: 01/01/24 12:01 Dose: 133 ml Spironolactone (Spironolactone 25 Mg Tablet) 25 mg PO BID [facility] Last Admin: 01/02/24 19:32 Dose: 25 mg Testosterone Cypionate (Testosterone Cypionate 200 Mg/1 Ml Vial) 100 mg IM We@1000 [facility] Last Admin: 12/28/23 09:49 Dose: 100 mg Allergies Allergies Allergy/AdvReac Type Severity Reaction Status Date / Time lidocaine Allergy Severe severe Verified 10/07/23 15:49 burning- injected lidocaine only trazodone Allergy Severe Depression Verified 10/07/23 15:49 environmental allergies Allergy Runny Nose Verified 10/07/23 15:49 feathers Allergy Swelling Verified 10/07/23 15:49 gabapentin AdvReac Severe blisters Verified 10/07/23 15:49 sucralose AdvReac Severe migraines Verified 10/07/23 15:49 [From Splenda (sucralose)] topiramate [From Topamax] AdvReac Severe serotonin Verified 10/07/23 15:49 syndrome watermelon AdvReac Severe swollen Verified 10/07/23 15:49 tongue Antihistamines - Alkylamine AdvReac Intermediate nose bleeds Verified 10/07/23 15:49 citalopram [From Celexa] AdvReac Intermediate hallucinati Verified 10/07/23 15:49 ons duloxetine [From Cymbalta] AdvReac Intermediate mood swings Verified 10/07/23 15:49 pregabalin [From Lyrica] AdvReac Intermediate mood swings Verified 10/07/23 15:49 tramadol AdvReac Intermediate hives/itchi Verified 10/07/23 15:49 ng venlafaxine AdvReac Intermediate mood swings Verified 10/07/23 15:49 NSAIDS (Non-Steroidal AdvReac Unknown Verified 12/29/23 17:23 Anti-Inflamma Assessment & Plan Assessment & Plan (1) PTSD (post-traumatic stress disorder): Status: Acute Code(s): F43.10 - Post-traumatic stress disorder, unspecified (2) Bipolar disorder: Status: Acute Code(s): F31.9 - Bipolar disorder, unspecified (3) Suicidal ideation: Status: Acute Code(s): R45.851 - Suicidal ideations (4) Homicidal ideation: Status: Acute Code(s): R45.850 - Homicidal ideations Plan Chlorpromazine 25 mg HS Depakote 250 mg bid- begin transition from [place] Benadryl 25 mg prn allergy sx Hydrocortisone cream for eczema Colace bid Miralax, Dulcolax prn 12/30/23: Change Tylenol to q 4 hours Decrease CPZ to 10 mg HS Decrease [place] to 300 mg a.m. 450 mg h.s.-cross titration. 12/31: Possible increase Depakote to 500 mg HS tomorrow and further taper Li. Continue current management and treatment plan. 01/01: Increase Depakote to 500 mg BID and taper Li to 150 mg BID. Otherwise continue current management and treatment plan. 01/02: Continue tx Informed Consent: understands Reason for continued inpatient stay Substantial Risk for: rapid decompensation Time Spent With Patient Time: Total time managing care of this patient today ____ minutes.
[2024-01-03] MEDS: Omeprazole 40 MG CAPSULE.DR PO ×2 (06:28→15:47)
[2024-01-03 08:10] VITALS: BP 136/95; PULSE 73; RESP 16; TEMP 36.4; O2SAT 95
[2024-01-03] MEDS: Magnesium Oxide 400 MG TABLET PO (09:05)
[2024-01-03] MEDS: Bethanechol Chloride 25 MG TABLET 50 MG PO ×2 (09:06→20:11)
[2024-01-03] MEDS: Divalproex Sodium 500 MG TABLET.DR PO (09:06)
[2024-01-03] MEDS: Sertraline HCL 50 MG TABLET PO (09:06)
[2024-01-03] MEDS: Loratadine 10 MG TABLET PO (09:06)
[2024-01-03] MEDS: Ferrous Sulfate 324 MG TABLET.DR PO (09:06)
[2024-01-03] MEDS: Docusate Sodium 100 MG CAPSULE PO ×2 (09:06→20:12)
[2024-01-03] MEDS: Lithium Carbonate 300 MG TABLET 150 MG PO ×2 (09:06→20:13)
[2024-01-03] MEDS: Lurasidone HCl 40 MG TABLET 120 MG PO (09:06)
[2024-01-03] MEDS: Throat Lozenge, Medicated LOZENGE 1 LOZENGE MUCOUS MEM ×3 (09:08→21:21)
[2024-01-03] MEDS: Spironolactone 25 MG TABLET PO ×2 (09:16→20:15)
[2024-01-03] MEDS: Famotidine 20 MG TABLET 10 MG PO ×2 (09:17→20:14)
--- NOTE | 2024-01-03 09:56 | HO.PSYCHPN ---
Subjective Subjective Date of Service: 01/03/24 Reason For Visit: Depression anxiety PTSD Autism SI HI Subjective Notes: Conditional Voluntary Healthcare Proxy: No Guardianship: No Medical Problems Affecting Mental Status: No Interim History: Tolerating regime. Constipation/ LLQ pain. Agrees to hospitalist consult Will trial Lactulose Family meeting 01/04 with mother. Medication Compliance: Yes Side effects from medications: Yes (constipation) Attending Groups: Yes Review of Systems Acute medical concerns: No Medical Review of Systems: unchanged Review of Systems Review of Systems constipation LLQ pain Mental Status Exam Mental Status Exam Patient Appearance: Appropriate Patient Orientation: Person, Place, Time and Situation Level of Consciousness: Sedated and Lethargic Patient Behavior: Appropriate, Talkative, Anxious and Good Eye Contact Mood Description: Depressed and Anxious Affect Description: Flat Patient Cognition Impaired: No Ability to Follow Directions: Good Speech Pattern: Spontaneous Speech Memory Description: Intact (reports limited childhood memory) Diagnostics Vital Signs (24Hr): Vital Signs - 24 hr 01/02/24 18:00 01/03/24 08:10 Temperature 98.0 F 97.5 F Pulse Rate 80 73 Respiratory Rate 18 16 Blood Pressure 115/68 136/95 H Pulse Oximetry 98 95 Oxygen Delivery Method Room Air Room Air BMI result Body Mass Index 44.0 Labs 12/24/23 13:39 12/24/23 13:38 Labs: Laboratory Results - last 48 hr 01/02/24 08:25 Haena 0.60 Medications Medications Current Medications Acetaminophen (Acetaminophen 325 Mg Tablet) 650 mg PO Q4H PRN PRN Reason: Headache/Pain Mild Scale (1-3) Last Admin: 01/02/24 19:31 Dose: 650 mg Al Hydroxide/Mg Hydroxide (Magnesium Hydrox/Alum Hydrox 30 Ml Oral.Susp) 30 ml PO Q6H PRN PRN Reason: Heartburn/Nausea Last Admin: 12/31/23 11:11 Dose: 30 ml Benzocaine (Throat Lozenge, Medicated Lozenge) 1 lozenge MUCOUS MEM Q2H PRN PRN Reason: Sore Throat Last Admin: 01/03/24 09:08 Dose: 1 lozenge Bethanechol Chloride (Bethanechol Chloride 25 Mg Tablet) 50 mg PO BID JAVAD Last Admin: 01/03/24 09:06 Dose: 50 mg Bisacodyl (Bisacodyl 5 Mg Tablet.) 10 mg PO DAILY PRN PRN Reason: Constipation Last Admin: 12/31/23 13:14 Dose: 10 mg Calcium Carbonate (Calcium Carbonate 500 Mg Tablet) 500 mg PO DAILY@1700 [facility] Last Admin: 01/02/24 16:24 Dose: 500 mg Chlorhexidine Gluconate (Chlorhexidine Gluc Oral Rinse 15 Ml Mouthwash) 15 ml BUCCAL BID [facility] Last Admin: 01/03/24 09:16 Dose: Not Given Chlorpromazine HCl (Chlorpromazine Hcl 10 Mg Tablet) 10 mg PO BEDTIME [facility] Last Admin: 01/02/24 19:32 Dose: 10 mg Clonazepam (Clonazepam 1 Mg Tablet) 2 mg PO BEDTIME [facility] Last Admin: 01/02/24 19:33 Dose: 2 mg Clonazepam (Clonazepam 1 Mg Tablet) 1 mg PO BID PRN PRN Reason: anxiety Last Admin: 01/02/24 14:28 Dose: 1 mg Clonidine HCl (Clonidine Hcl 0.1 Mg Tablet) 0.1 mg PO DAILY PRN; Protocol PRN Reason: Anxiety Last Admin: 01/01/24 19:14 Dose: 0.1 mg Diphenhydramine HCl (Diphenhydramine Hcl 25 Mg Capsule) 25 mg PO Q6H PRN PRN Reason: allergy sx Last Admin: 12/31/23 05:44 Dose: 25 mg Divalproex Sodium (Divalproex Sodium 500 Mg Tablet.) 500 mg PO BID [facility] Last Admin: 01/03/24 09:06 Dose: 500 mg Docusate Sodium (Docusate Sodium 100 Mg Capsule) 100 mg PO BID [facility] Last Admin: 01/03/24 09:06 Dose: 100 mg Famotidine (Famotidine 20 Mg Tablet) 10 mg PO BID [facility] Last Admin: 01/03/24 09:17 Dose: 10 mg Ferrous Sulfate (Ferrous Sulfate 324 Mg Tablet.) 324 mg PO DAILY [facility] Last Admin: 01/03/24 09:06 Dose: 324 mg Hydrocortisone (Hydrocortisone 1 % Cream 28.35 Gm Tube) 1 appl TOPICAL BID PRN; Protocol PRN Reason: eczema Last Admin: 01/02/24 09:20 Dose: 1 appl Hydroxyzine HCl (Hydroxyzine Hcl 25 Mg Tablet) 25 mg PO Q6H PRN PRN Reason: Anxiety Haena Carbonate (Haena Carbonate 300 Mg Tablet) 150 mg PO BID [facility] Last Admin: 01/03/24 09:06 Dose: 150 mg Loratadine (Loratadine 10 Mg Tablet) 10 mg PO DAILY [facility] Last Admin: 01/03/24 09:06 Dose: 10 mg Lurasidone HCl (Lurasidone Hcl 40 Mg Tablet) 120 mg PO DAILY [facility] Last Admin: 01/03/24 09:06 Dose: 120 mg Magnesium Hydroxide (Milk Of Magnesia 30 Ml Oral.Susp) 30 ml PO DAILY PRN PRN Reason: Constipation Magnesium Oxide (Magnesium Oxide 400 Mg Tablet) 400 mg PO DAILY [facility] Last Admin: 01/03/24 09:05 Dose: 400 mg Meclizine HCl (Meclizine Hcl 25 Mg Tablet) 25 mg PO Q8H PRN PRN Reason: Vertigo Last Admin: 01/02/24 10:54 Dose: 25 mg Methocarbamol (Methocarbamol 750 Mg Tablet) 750 mg PO BID [facility] Last Admin: 12/27/23 08:49 Dose: 750 mg Mirtazapine (Mirtazapine 15 Mg Tablet) 45 mg PO BEDTIME [facility] Last Admin: 01/02/24 19:31 Dose: 45 mg Montelukast Sodium (Montelukast Sodium 10 Mg Tablet) 10 mg PO BEDTIME [facility] Last Admin: 01/02/24 19:36 Dose: 10 mg Pt Own (Finasteride (1 Mg Tablet)) 1 mg PO BEDTIME [facility] Last Admin: 01/02/24 19:36 Dose: 1 mg Omeprazole (Omeprazole 40 Mg Capsule.Dr) 40 mg PO BID@0630,1630 [facility] Last Admin: 01/03/24 06:28 Dose: 40 mg Ondansetron HCl (Ondansetron Odt 4 Mg Tab.Rapdis) 4 mg TRANSLINGU Q8H PRN PRN Reason: for nausea/vomiting Last Admin: 01/02/24 10:54 Dose: 4 mg Oxycodone HCl (Oxycodone Hcl Immed Release 5 Mg Tablet) 5 mg PO Q4H PRN PRN Reason: severe pain Last Admin: 01/02/24 19:35 Dose: 5 mg Polyethylene Glycol (Polyethylene Glycol 3350 17 Gm Powd.Pack) 17 gm PO BID PRN PRN Reason: Constipation Last Admin: 01/02/24 08:30 Dose: 17 gm Quetiapine Fumarate (Quetiapine Fumarate 50 Mg Tablet) 150 mg PO BEDTIME [facility] Last Admin: 01/02/24 19:32 Dose: 150 mg Sertraline HCl (Sertraline Hcl 50 Mg Tablet) 50 mg PO DAILY [facility] Last Admin: 01/03/24 09:06 Dose: 50 mg Sodium Biphosphate/Sodium Phosphate (Sodium Phosphate,[place]-Dibasic 133 Ml Enema) 133 ml [place] ONCE PRN PRN Reason: Constipation Last Admin: 01/01/24 12:01 Dose: 133 ml Spironolactone (Spironolactone 25 Mg Tablet) 25 mg PO BID [facility] Last Admin: 01/03/24 09:16 Dose: 25 mg Testosterone Cypionate (Testosterone Cypionate 200 Mg/1 Ml Vial) 100 mg IM We@1000 [facility] Last Admin: 12/28/23 09:49 Dose: 100 mg Allergies Allergies Allergy/AdvReac Type Severity Reaction Status Date / Time lidocaine Allergy Severe severe Verified 10/07/23 15:49 burning- injected lidocaine only trazodone Allergy Severe Depression Verified 10/07/23 15:49 environmental allergies Allergy Runny Nose Verified 10/07/23 15:49 feathers Allergy Swelling Verified 10/07/23 15:49 gabapentin AdvReac Severe blisters Verified 10/07/23 15:49 sucralose AdvReac Severe migraines Verified 10/07/23 15:49 [From Splenda (sucralose)] topiramate [From Topamax] AdvReac Severe serotonin Verified 10/07/23 15:49 syndrome watermelon AdvReac Severe swollen Verified 10/07/23 15:49 tongue Antihistamines - Alkylamine AdvReac Intermediate nose bleeds Verified 10/07/23 15:49 citalopram [From Celexa] AdvReac Intermediate hallucinati Verified 10/07/23 15:49 ons duloxetine [From Cymbalta] AdvReac Intermediate mood swings Verified 10/07/23 15:49 pregabalin [From Lyrica] AdvReac Intermediate mood swings Verified 10/07/23 15:49 tramadol AdvReac Intermediate hives/itchi Verified 10/07/23 15:49 ng venlafaxine AdvReac Intermediate mood swings Verified 10/07/23 15:49 NSAIDS (Non-Steroidal AdvReac Unknown Verified 12/29/23 17:23 Anti-Inflamma Assessment & Plan Assessment & Plan (1) PTSD (post-traumatic stress disorder): Status: Acute Code(s): F43.10 - Post-traumatic stress disorder, unspecified (2) Bipolar disorder: Status: Acute Code(s): F31.9 - Bipolar disorder, unspecified (3) Suicidal ideation: Status: Acute Code(s): R45.851 - Suicidal ideations (4) Homicidal ideation: Status: Acute Code(s): R45.850 - Homicidal ideations Plan Chlorpromazine 25 mg HS Depakote 250 mg bid- begin transition from Haena Benadryl 25 mg prn allergy sx Hydrocortisone cream for eczema Colace bid Miralax, Dulcolax prn 12/30/23: Change Tylenol to q 4 hours Decrease CPZ to 10 mg HS Decrease Haena to 300 mg a.m. 450 mg h.s.-cross titration. 12/31: Possible increase Depakote to 500 mg HS tomorrow and further taper Li. Continue current management and treatment plan. 01/01: Increase Depakote to 500 mg BID and taper Li to 150 mg BID. Otherwise continue current management and treatment plan. 01/03: LLQ pain, constipation -agrees to see hospitalist -Lactulose trial Continue current regime Patient educated on: medication risk/benefits, therapeutic strategies and medical condition Informed Consent: understands Reason for continued inpatient stay Substantial Risk for: rapid decompensation Time Spent With Patient Time: Total time managing care of this patient today ____ minutes.
[2024-01-03] MEDS: Acetaminophen 325 MG TABLET 650 MG PO ×2 (11:10→20:18)
[2024-01-03] MEDS: polyethylene glycoL 3350 17 GM POWD.PACK PO (11:47)
[2024-01-03] MEDS: clonazePAM 1 MG TABLET PO (12:30)
[2024-01-03] MEDS: oxyCODONE HCl Immed Release 5 MG TABLET PO ×2 (13:46→20:18)
[2024-01-03] MEDS: Lactulose 20 GM/30 ML SOLUTION PO (13:46)
--- NOTE | 2024-01-03 14:36 | P.CONHOSP_ITS ---
History of Present Illness Data of Consult Service Date: 01/03/24 Requesting physician: Nika Matthews Primary Care Provider: Sami Abel MD HPI Reason for consult: llq pain 28 year old transgender male s/p elective hysterectomy/R oophorectomy (L ovary in tact), bipolar disorder, gerd, ibs, asthma admitted to psychiatry with consult placed to hospitalist service due to LLQ pain. The patient is reporting new onset LLQ pain since this morning rated as an 8/10 non radiating constant sharp/stabbing pain. There is nausea that has been ongoing for several days with associated room spinning dizziness. he also states he has some positional lightheadedness as well. Reports drinking plenty of water. of note, has been on oxycodone for about one week following multiple dental extractions. No history of similar pain. No fevers, chills, vomiting, vaginal bleeding, dysuria, hematuria, increased urinary frequency, melena, hematochezia. He is reporting clear vaginal discharge with foul odor. He reports lap hysterectomy was performed at [facility] on 11/29/23 and was uncomplicated. Has had no pain since hysterectomy until today and no vaginal bleeding. Last BM was this morning but states BM's have been small and hard. Limited improvement in pain following BM. KUB earlier today showed moderate stool burden, no obstruction. VSS. Review of Systems 2 Review of Systems: Yes all other systems are reviewed and are negative [facility] Medical History Bipolar disorder Hx of concussion History of panic attacks Urinary retention with incomplete bladder emptying Encounter for screening Bipolar 1 disorder Anxiety PTSD (post-traumatic stress disorder) Asthma Irritable bowel syndrome with constipation Gastroesophageal reflux disease without esophagitis Nausea Family History Mother Pacemaker Father Family history unknown Surgical History Hx of wisdom tooth extraction Hx of colonoscopy (~02/2020) H/O esophagogastroduodenoscopy No pertinent past surgical history (~02/2020) Social History Household Members: Unknown / Unable to assess Housing: House Are you a primary senior care specialist to a significant other at home: No Do you presently have visiting nurse or other home services: No Alcohol intake: current Alcohol intake frequency: holidays/special occasions only Patient Tobacco Use Status: Former Tobacco user Quit Date: 2008 Tobacco use type: Cigarette Years Smoked: 2009 Smoked in Last 30 Days: No Use of substances other than those prescribed or required for medical reasons: Yes Substance Use Type: Marijuana Substance Use Frequency: Occasionally Last Used Substance: Unknown Currently Displaying Signs/Symptoms of Drug Intoxication Withdrawal: No Any prior treatment program specific to substance use: No Spiritual Healthcare Practices: None Reported Voodoo Healthcare Practices: None Reported Cultural Healthcare Practices: None Reported Advance Directives: No Advance Directives Information Provided: No Healthcare Proxy: No Guardian: No Do you have thoughts of harming others: None Do you have a plan to hurt others: No Plan Recently lost weight without trying: Unsure How much weight loss: Not applicable Eating poorly because of decreased appetite: Yes Nutrition screen score: 3 Nutrition Risks: No Nutritional Risk Patient : No : No Poor oral hygiene: Yes (Had 8 teeth removed) service: No Sexual orientation: Transgender Meds Allergies Allergy/AdvReac Type Severity Reaction Status Date / Time lidocaine Allergy Severe severe Verified 10/07/23 15:49 burning- injected lidocaine only trazodone Allergy Severe Depression Verified 10/07/23 15:49 environmental allergies Allergy Runny Nose Verified 10/07/23 15:49 feathers Allergy Swelling Verified 10/07/23 15:49 gabapentin AdvReac Severe blisters Verified 10/07/23 15:49 sucralose AdvReac Severe migraines Verified 10/07/23 15:49 [From Splenda (sucralose)] topiramate [From Topamax] AdvReac Severe serotonin Verified 10/07/23 15:49 syndrome watermelon AdvReac Severe swollen Verified 10/07/23 15:49 tongue Antihistamines - Alkylamine AdvReac Intermediate nose bleeds Verified 10/07/23 15:49 citalopram [From Celexa] AdvReac Intermediate hallucinati Verified 10/07/23 15:49 ons duloxetine [From Cymbalta] AdvReac Intermediate mood swings Verified 10/07/23 15:49 pregabalin [From Lyrica] AdvReac Intermediate mood swings Verified 10/07/23 15:49 tramadol AdvReac Intermediate hives/itchi Verified 10/07/23 15:49 ng venlafaxine AdvReac Intermediate mood swings Verified 10/07/23 15:49 NSAIDS (Non-Steroidal AdvReac Unknown Verified 12/29/23 17:23 Anti-Inflamma Active Medications: Current Medications Acetaminophen (Acetaminophen 325 Mg Tablet) 650 mg PO Q4H PRN PRN Reason: Headache/Pain Mild Scale (1-3) Last Admin: 01/03/24 11:10 Dose: 650 mg Al Hydroxide/Mg Hydroxide (Magnesium Hydrox/Alum Hydrox 30 Ml Oral.Susp) 30 ml PO Q6H PRN PRN Reason: Heartburn/Nausea Last Admin: 12/31/23 11:11 Dose: 30 ml Benzocaine (Throat Lozenge, Medicated Lozenge) 1 lozenge MUCOUS MEM Q2H PRN PRN Reason: Sore Throat Last Admin: 01/03/24 14:16 Dose: 1 lozenge Bethanechol Chloride (Bethanechol Chloride 25 Mg Tablet) 50 mg PO BID [facility] Last Admin: 01/03/24 09:06 Dose: 50 mg Bisacodyl (Bisacodyl 5 Mg Tablet.Dr) 10 mg PO DAILY PRN PRN Reason: Constipation Last Admin: 12/31/23 13:14 Dose: 10 mg Calcium Carbonate (Calcium Carbonate 500 Mg Tablet) 500 mg PO DAILY@1700 [facility] Last Admin: 01/02/24 16:24 Dose: 500 mg Chlorhexidine Gluconate (Chlorhexidine Gluc Oral Rinse 15 Ml Mouthwash) 15 ml BUCCAL BID [facility] Last Admin: 01/03/24 09:16 Dose: Not Given Chlorpromazine HCl (Chlorpromazine Hcl 10 Mg Tablet) 10 mg PO BEDTIME [facility] Last Admin: 01/02/24 19:32 Dose: 10 mg Clonazepam (Clonazepam 1 Mg Tablet) 2 mg PO BEDTIME [facility] Last Admin: 01/02/24 19:33 Dose: 2 mg Clonazepam (Clonazepam 1 Mg Tablet) 1 mg PO BID PRN PRN Reason: anxiety Last Admin: 01/02/24 14:28 Dose: 1 mg Clonidine HCl (Clonidine Hcl 0.1 Mg Tablet) 0.1 mg PO DAILY PRN; Protocol PRN Reason: Anxiety Last Admin: 01/01/24 19:14 Dose: 0.1 mg Diphenhydramine HCl (Diphenhydramine Hcl 25 Mg Capsule) 25 mg PO Q6H PRN PRN Reason: allergy sx Last Admin: 12/31/23 05:44 Dose: 25 mg Divalproex Sodium (Divalproex Sodium 500 Mg Tablet.Dr) 500 mg PO BID [facility] Last Admin: 01/03/24 09:06 Dose: 500 mg Docusate Sodium (Docusate Sodium 100 Mg Capsule) 100 mg PO BID [facility] Last Admin: 01/03/24 09:06 Dose: 100 mg Famotidine (Famotidine 20 Mg Tablet) 10 mg PO BID [facility] Last Admin: 01/03/24 09:17 Dose: 10 mg Ferrous Sulfate (Ferrous Sulfate 324 Mg Tablet.) 324 mg PO DAILY [facility] Last Admin: 01/03/24 09:06 Dose: 324 mg Hydrocortisone (Hydrocortisone 1 % Cream 28.35 Gm Tube) 1 appl TOPICAL BID PRN; Protocol PRN Reason: eczema Last Admin: 01/02/24 09:20 Dose: 1 appl Hydroxyzine HCl (Hydroxyzine Hcl 25 Mg Tablet) 25 mg PO Q6H PRN PRN Reason: Anxiety [place] Carbonate ([place] Carbonate 300 Mg Tablet) 150 mg PO BID [facility] Last Admin: 01/03/24 09:06 Dose: 150 mg Loratadine (Loratadine 10 Mg Tablet) 10 mg PO DAILY [facility] Last Admin: 01/03/24 09:06 Dose: 10 mg Lurasidone HCl (Lurasidone Hcl 40 Mg Tablet) 120 mg PO DAILY [facility] Last Admin: 01/03/24 09:06 Dose: 120 mg Magnesium Hydroxide (Milk Of Magnesia 30 Ml Oral.Susp) 30 ml PO DAILY PRN PRN Reason: Constipation Magnesium Oxide (Magnesium Oxide 400 Mg Tablet) 400 mg PO DAILY [facility] Last Admin: 01/03/24 09:05 Dose: 400 mg Meclizine HCl (Meclizine Hcl 25 Mg Tablet) 25 mg PO Q8H PRN PRN Reason: Vertigo Last Admin: 01/02/24 10:54 Dose: 25 mg Methocarbamol (Methocarbamol 750 Mg Tablet) 750 mg PO BID [facility] Last Admin: 12/27/23 08:49 Dose: 750 mg Mineral Oil (Mineral Oil Enema 133 Ml Enema) 133 ml [place] ONCE PRN PRN Reason: constipation Mirtazapine (Mirtazapine 15 Mg Tablet) 45 mg PO BEDTIME [facility] Last Admin: 01/02/24 19:31 Dose: 45 mg Montelukast Sodium (Montelukast Sodium 10 Mg Tablet) 10 mg PO BEDTIME [facility] Last Admin: 01/02/24 19:36 Dose: 10 mg Pt Own (Finasteride (1 Mg Tablet)) 1 mg PO BEDTIME [facility] Last Admin: 01/02/24 19:36 Dose: 1 mg Omeprazole (Omeprazole 40 Mg Capsule.Dr) 40 mg PO BID@0630,1630 [facility] Last Admin: 01/03/24 06:28 Dose: 40 mg Ondansetron HCl (Ondansetron Odt 4 Mg Tab.Rapdis) 4 mg TRANSLINGU Q8H PRN PRN Reason: for nausea/vomiting Last Admin: 01/02/24 10:54 Dose: 4 mg Oxycodone HCl (Oxycodone Hcl Immed Release 5 Mg Tablet) 5 mg PO Q4H PRN PRN Reason: severe pain Last Admin: 01/03/24 13:46 Dose: 5 mg Polyethylene Glycol (Polyethylene Glycol 3350 17 Gm Powd.Pack) 17 gm PO BID PRN PRN Reason: Constipation Last Admin: 01/03/24 11:47 Dose: 17 gm Quetiapine Fumarate (Quetiapine Fumarate 50 Mg Tablet) 150 mg PO BEDTIME [facility] Last Admin: 01/02/24 19:32 Dose: 150 mg Sertraline HCl (Sertraline Hcl 50 Mg Tablet) 50 mg PO DAILY [facility] Last Admin: 01/03/24 09:06 Dose: 50 mg Sodium Biphosphate/Sodium Phosphate (Sodium Phosphate,[place]-Dibasic 133 Ml Enema) 133 ml [place] ONCE PRN PRN Reason: Constipation Last Admin: 01/01/24 12:01 Dose: 133 ml Spironolactone (Spironolactone 25 Mg Tablet) 25 mg PO BID [facility] Last Admin: 01/03/24 09:16 Dose: 25 mg Testosterone Cypionate (Testosterone Cypionate 200 Mg/1 Ml Vial) 100 mg IM We@1000 [facility] Last Admin: 12/28/23 09:49 Dose: 100 mg Home Medications Medication Instructions Recorded Confirmed Last Taken Type testosterone cypionate 200 mg/mL 100 mg IM QWEEK 10/29/20 12/24/23 Unknown History intramuscular oil clonazepam 1 mg disintegrating 1 mg PO DAILY PRN panic attack 07/14/22 12/24/23 09/06/23 05:00 History tablet clonazepam 2 mg tablet 2 mg PO BEDTIME 07/14/22 12/24/23 Unknown History amiloride 5 mg tablet 5 mg PO DAILY 01/17/23 12/24/23 Unknown History ferrous sulfate 325 mg (65 mg 160 mg PO DAILY 01/17/23 12/24/23 09/05/23 History iron) tablet (FeroSul) lithium carbonate 450 mg 450 mg PO BID 01/17/23 12/24/23 09/06/23 05:00 History tablet,extended release lurasidone 120 mg tablet 120 mg PO DAILY 01/17/23 12/24/23 Unknown History mirtazapine 45 mg tablet 45 mg PO BEDTIME 01/17/23 12/24/23 Unknown History montelukast 10 mg tablet 10 mg PO QPM 01/17/23 12/24/23 Unknown History quetiapine 200 mg tablet,extended 150 mg PO BEDTIME 01/17/23 12/24/23 Unknown History release 24 hr calcium 600 mg capsule 600 mg PO QPM 09/02/23 12/24/23 Unknown History famotidine 20 mg tablet 10 mg PO BID 12/24/23 12/24/23 Unknown History fexofenadine 180 mg tablet 180 mg PO QPM 12/24/23 12/24/23 Unknown History finasteride 1 mg tablet 1 mg PO QPM 12/24/23 12/24/23 Unknown History methocarbamol 750 mg tablet 750 mg PO BID spasms 12/24/23 12/24/23 Unknown History sertraline 50 mg tablet 50 mg PO DAILY 12/24/23 12/24/23 Unknown History chlorhexidine gluconate 0.12 % 15 ml mucous membrane BID 12/25/23 12/25/23 12/23/23 History mouthwash Physical Exam 2 Vital Signs and Narrative: Vital Signs: Last Vital Signs Temp 97.5 F 01/03/24 08:10 Pulse 73 01/03/24 08:10 Resp 16 01/03/24 08:10 BP 136/95 H 01/03/24 08:10 Pulse Ox 95 01/03/24 08:10 O2 Del Method Room Air 01/03/24 08:10 BMI result Body Mass Index 44.0 Constitutional - Awake and Alert, No apparent distress Eyes - PERRLA, EOMI Cardiovascular - S1S2, RRR, No edema Respiratory - Normal lung expansion, Normal respiratory effort, No respiratory distress, CTA bilaterally Gastrointestinal - mild llq ttp without guarding or rebound. ND; +BS Extremities - no calf tenderness bilaterally, no swelling Skin - Warm/Dry Neurological - Alert & oriented x3, CN II-XII in tact except slight horizontal nystagmus Psychological - Appropriate affect Results Labs 12/24/23 13:39 12/24/23 13:38 Imaging Radiologist's Impressions: Impressions KUB X-Ray 01/03/24 11:34 IMPRESSION: Moderate colonic stool burden suggesting constipation. Assessment and Plan (1) LLQ pain: Status: Acute Plan 28 year old transgender male s/p elective hysterectomy/R oophorectomy (L ovary in tact), bipolar disorder, gerd, ibs, asthma admitted to psychiatry with consult placed to hospitalist service due to LLQ pain. The patient's abdominal exam is benign overall. I do suspect pain is related to constipation noted on KUB. At this time, further imaging with CT abd/pelvis is not indicated. There is some vaginal discharge. I have low suspicion that the patient's pain is related to the hysterectomy, but given abd discomfort with vaginal discharge s/p hysterectomy, can consider MANAGER PROCESS IMPROVEMENT consult. Would not advise transvaginal U/S at this time unless advised by MANAGER PROCESS IMPROVEMENT. #LLQ pain -likely r/t constipation. Further imaging with CT not indicated at this time given benign exam, absence of fevers/vomiting/rectal bleed -Recommend jamila miralax and docusate BID while on oxycodone. Can return to prn once narcotics are discontinued. Limit narcotic use -Can continue with prn mild of mag -Given vaginal discharge, check for gonorrhea/chlamydia, trich, bv -Consider sheriff detective consult given recent hysterectomy with new llq pain and vaginal discharge #Dizziness -does have exam findings and clinical history consistent with vertigo. Continue meclizine prn -given positional lightheadedness, would also evaluate for orthostatic hypotension. Check orthostatic VS #Vaginal discharge -as above Thank you for this consult. Will continue following for results. Please reach out sooner should patient develop any worsening pain or fevers.
[2024-01-03 14:41] VITALS: BP 132/88
[2024-01-03] MEDS: Meclizine HCl 25 MG TABLET PO (16:06)
[2024-01-03] MEDS: Hydrocortisone 1 % Cream 28.35 GM TUBE 1 APPL TOPICAL (16:07)
[2024-01-03 16:14] VITALS: BP 155/70; PULSE 95; RESP 18; TEMP 36.6; O2SAT 93
[2024-01-03 18:00] VITALS: BP 155/70; PULSE 95; RESP 18; TEMP 36.6; O2SAT 93
[2024-01-03] MEDS: Montelukast Sodium 10 MG TABLET PO (20:12)
[2024-01-03] MEDS: Mirtazapine 15 MG TABLET 45 MG PO (20:12)
[2024-01-03] MEDS: QUEtiapine Fumarate 50 MG TABLET 150 MG PO (20:12)
[2024-01-03] MEDS: Divalproex Sodium 250 MG TABLET.DR 750 MG PO (20:13)
[2024-01-03] MEDS: chlorproMAZINE HCl 10 MG TABLET PO (20:14)
[2024-01-03] MEDS: clonazePAM 1 MG TABLET 2 MG PO (20:14)
[2024-01-04] MEDS: Throat Lozenge, Medicated LOZENGE 1 LOZENGE MUCOUS MEM ×3 (03:58→17:10)
[2024-01-04] MEDS: Acetaminophen 325 MG TABLET 650 MG PO ×2 (03:58→15:25)
[2024-01-04] MEDS: Omeprazole 40 MG CAPSULE.DR PO ×2 (05:57→16:25)
[2024-01-04 08:55] VITALS: BP 100/53; PULSE 70; RESP 16; TEMP 36.2; O2SAT 95
[2024-01-04] MEDS: Lithium Carbonate 300 MG TABLET 150 MG PO ×2 (09:01→20:00)
[2024-01-04] MEDS: Magnesium Oxide 400 MG TABLET PO (09:01)
[2024-01-04] MEDS: Spironolactone 25 MG TABLET PO ×2 (09:01→19:58)
[2024-01-04] MEDS: Famotidine 20 MG TABLET 10 MG PO ×2 (09:03→20:01)
[2024-01-04] MEDS: Docusate Sodium 100 MG CAPSULE PO ×2 (09:03→19:59)
[2024-01-04] MEDS: Sertraline HCL 50 MG TABLET PO (09:03)
[2024-01-04] MEDS: Divalproex Sodium 250 MG TABLET.DR 750 MG PO ×2 (09:03→19:57)
[2024-01-04] MEDS: Loratadine 10 MG TABLET PO (09:03)
[2024-01-04] MEDS: Lurasidone HCl 40 MG TABLET 120 MG PO (09:03)
[2024-01-04] MEDS: Bethanechol Chloride 25 MG TABLET 50 MG PO ×2 (09:04→19:58)
[2024-01-04] MEDS: Ferrous Sulfate 324 MG TABLET.DR PO (09:05)
[2024-01-04] MEDS: polyethylene glycoL 3350 17 GM POWD.PACK PO (09:05)
[2024-01-04] MEDS: clonazePAM 1 MG TABLET PO ×2 (11:30→17:10)
[2024-01-04] MEDS: Testosterone Cypionate 200 MG/1 ML VIAL 100 MG IM (11:48)
[2024-01-04] MEDS: Sodium Phosphate,Mono-Dibasic 133 ML ENEMA PR (11:52)
--- NOTE | 2024-01-04 16:31 | HO.PSYCHPN ---
Subjective Subjective Date of Service: 01/04/24 Reason For Visit: Depression anxiety PTSD Autism SI HI Subjective Notes: Conditional Voluntary Healthcare Proxy: No Guardianship: No Medical Problems Affecting Mental Status: No Interim History: Review of hospitalist consult with recommendations with pt. At this time, he declines STUDENT ACCOUNTS COORDINATOR referral, believes LLQ pain to be constipation related and this to be resolving. Review of diagnostics Meeting with team, mother via zoom. Family has decided pt cannot return home. Mother believes pt is in need of residential care and quotes [employer] that [facility] is responsible for finding him appropriate housing. Team working with pt to identify options. Medication Compliance: Yes Side effects from medications: Yes (constipation) Attending Groups: Yes Review of Systems constipation Medical Review of Systems: unchanged Review of Systems Review of Systems Constipation LLQ Pain Mental Status Exam Mental Status Exam Patient Appearance: Appropriate Patient Orientation: Person, Place, Time and Situation Level of Consciousness: Sedated and Lethargic Patient Behavior: Appropriate, Talkative, Anxious and Good Eye Contact Mood Description: Depressed and Anxious Affect Description: Flat Patient Cognition Impaired: No Ability to Follow Directions: Good Speech Pattern: Spontaneous Speech Memory Description: Intact (reports limited childhood memory) Diagnostics Vital Signs (24Hr): Vital Signs - 24 hr 01/03/24 18:00 01/04/24 08:55 Temperature 97.9 F 97.2 F Pulse Rate 95 70 Respiratory Rate 18 16 Blood Pressure 155/70 H 100/53 L Pulse Oximetry 93 95 Oxygen Delivery Method Room Air Room Air BMI result Body Mass Index 44.0 Labs 12/24/23 13:39 12/24/23 13:38 Imaging Radiology Impressions: ITS Impressions KUB X-Ray 01/03/24 11:34 IMPRESSION: Moderate colonic stool burden suggesting constipation. Medications Medications Current Medications Acetaminophen (Acetaminophen 325 Mg Tablet) 650 mg PO Q4H PRN PRN Reason: Headache/Pain Mild Scale (1-3) Last Admin: 01/04/24 15:25 Dose: 650 mg Acetaminophen/Butalbital/Caffeine (Butalb/Acetamin/Caff 50/325/40 Tablet) 1 tab PO ONCE PRN PRN Reason: Migraine Headache Al Hydroxide/Mg Hydroxide (Magnesium Hydrox/Alum Hydrox 30 Ml Oral.Susp) 30 ml PO Q6H PRN PRN Reason: Heartburn/Nausea Last Admin: 12/31/23 11:11 Dose: 30 ml Benzocaine (Throat Lozenge, Medicated Lozenge) 1 lozenge MUCOUS MEM Q2H PRN PRN Reason: Sore Throat Last Admin: 01/04/24 11:30 Dose: 1 lozenge Bethanechol Chloride (Bethanechol Chloride 25 Mg Tablet) 50 mg PO BID [facility] Last Admin: 01/04/24 09:04 Dose: 50 mg Bisacodyl (Bisacodyl 5 Mg Tablet.) 10 mg PO DAILY PRN PRN Reason: Constipation Last Admin: 12/31/23 13:14 Dose: 10 mg Calcium Carbonate (Calcium Carbonate 500 Mg Tablet) 500 mg PO DAILY@1700 [facility] Last Admin: 01/04/24 16:24 Dose: 500 mg Chlorhexidine Gluconate (Chlorhexidine Gluc Oral Rinse 15 Ml Mouthwash) 15 ml BUCCAL BID [facility] Last Admin: 01/04/24 08:04 Dose: Not Given Chlorpromazine HCl (Chlorpromazine Hcl 10 Mg Tablet) 10 mg PO BEDTIME [facility] Last Admin: 01/03/24 20:14 Dose: 10 mg Clonazepam (Clonazepam 1 Mg Tablet) 2 mg PO BEDTIME [facility] Last Admin: 01/03/24 20:14 Dose: 2 mg Clonazepam (Clonazepam 1 Mg Tablet) 1 mg PO BID PRN PRN Reason: anxiety Last Admin: 01/04/24 11:30 Dose: 1 mg Clonidine HCl (Clonidine Hcl 0.1 Mg Tablet) 0.1 mg PO DAILY PRN; Protocol PRN Reason: Anxiety Last Admin: 01/01/24 19:14 Dose: 0.1 mg Diphenhydramine HCl (Diphenhydramine Hcl 25 Mg Capsule) 25 mg PO Q6H PRN PRN Reason: allergy sx Last Admin: 12/31/23 05:44 Dose: 25 mg Divalproex Sodium (Divalproex Sodium 250 Mg Tablet.) 750 mg PO BID [facility] Last Admin: 01/04/24 09:03 Dose: 750 mg Docusate Sodium (Docusate Sodium 100 Mg Capsule) 100 mg PO BID [facility] Last Admin: 01/04/24 09:03 Dose: 100 mg Famotidine (Famotidine 20 Mg Tablet) 10 mg PO BID [facility] Last Admin: 01/04/24 09:03 Dose: 10 mg Ferrous Sulfate (Ferrous Sulfate 324 Mg Tablet.) 324 mg PO DAILY [facility] Last Admin: 01/04/24 09:05 Dose: 324 mg Hydrocortisone (Hydrocortisone 1 % Cream 28.35 Gm Tube) 1 appl TOPICAL BID PRN; Protocol PRN Reason: eczema Last Admin: 01/03/24 16:07 Dose: 1 appl Hydroxyzine HCl (Hydroxyzine Hcl 25 Mg Tablet) 25 mg PO Q6H PRN PRN Reason: Anxiety Lactulose (Lactulose 20 Gm/30 Ml Solution) 20 gm PO DAILY PRN PRN Reason: severe constipation [place] Carbonate ([place] Carbonate 300 Mg Tablet) 150 mg PO BID [facility] Last Admin: 01/04/24 09:01 Dose: 150 mg Loratadine (Loratadine 10 Mg Tablet) 10 mg PO DAILY [facility] Last Admin: 01/04/24 09:03 Dose: 10 mg Lurasidone HCl (Lurasidone Hcl 40 Mg Tablet) 120 mg PO DAILY [facility] Last Admin: 01/04/24 09:03 Dose: 120 mg Magnesium Hydroxide (Milk Of Magnesia 30 Ml Oral.Susp) 30 ml PO DAILY PRN PRN Reason: Constipation Magnesium Oxide (Magnesium Oxide 400 Mg Tablet) 400 mg PO DAILY [facility] Last Admin: 01/04/24 09:01 Dose: 400 mg Meclizine HCl (Meclizine Hcl 25 Mg Tablet) 25 mg PO Q8H PRN PRN Reason: Vertigo Last Admin: 01/03/24 16:06 Dose: 25 mg Methocarbamol (Methocarbamol 750 Mg Tablet) 750 mg PO BID [facility] Last Admin: 12/27/23 08:49 Dose: 750 mg Mineral Oil (Mineral Oil Enema 133 Ml Enema) 133 ml HI ONCE PRN PRN Reason: constipation Mirtazapine (Mirtazapine 15 Mg Tablet) 45 mg PO BEDTIME [facility] Last Admin: 01/03/24 20:12 Dose: 45 mg Montelukast Sodium (Montelukast Sodium 10 Mg Tablet) 10 mg PO BEDTIME [facility] Last Admin: 01/03/24 20:12 Dose: 10 mg Pt Own (Finasteride (1 Mg Tablet)) 1 mg PO BEDTIME [facility] Last Admin: 01/03/24 20:11 Dose: 1 mg Omeprazole (Omeprazole 40 Mg Capsule.) 40 mg PO BID@0630,1630 [facility] Last Admin: 01/04/24 16:25 Dose: 40 mg Ondansetron HCl (Ondansetron Odt 4 Mg Tab.Rapdis) 4 mg TRANSLINGU Q8H PRN PRN Reason: for nausea/vomiting Last Admin: 01/02/24 10:54 Dose: 4 mg Polyethylene Glycol (Polyethylene Glycol 3350 17 Gm Powd.Pack) 17 gm PO DAILY [facility] Last Admin: 01/04/24 09:05 Dose: 17 gm Quetiapine Fumarate (Quetiapine Fumarate 50 Mg Tablet) 150 mg PO BEDTIME [facility] Last Admin: 01/03/24 20:12 Dose: 150 mg Sertraline HCl (Sertraline Hcl 50 Mg Tablet) 50 mg PO DAILY [facility] Last Admin: 01/04/24 09:03 Dose: 50 mg Sodium Biphosphate/Sodium Phosphate (Sodium Phosphate,[place]-Dibasic 133 Ml Enema) 133 ml HI ONCE PRN PRN Reason: Constipation Last Admin: 01/04/24 11:52 Dose: 133 ml Spironolactone (Spironolactone 25 Mg Tablet) 25 mg PO BID [facility] Last Admin: 01/04/24 09:01 Dose: 25 mg Testosterone Cypionate (Testosterone Cypionate 200 Mg/1 Ml Vial) 100 mg IM We@1000 [facility] Last Admin: 01/04/24 11:48 Dose: 100 mg Allergies Allergies Allergy/AdvReac Type Severity Reaction Status Date / Time lidocaine Allergy Severe severe Verified 10/07/23 15:49 burning- injected lidocaine only trazodone Allergy Severe Depression Verified 10/07/23 15:49 environmental allergies Allergy Runny Nose Verified 10/07/23 15:49 feathers Allergy Swelling Verified 10/07/23 15:49 gabapentin AdvReac Severe blisters Verified 10/07/23 15:49 sucralose AdvReac Severe migraines Verified 10/07/23 15:49 [From Splenda (sucralose)] topiramate [From Topamax] AdvReac Severe serotonin Verified 10/07/23 15:49 syndrome watermelon AdvReac Severe swollen Verified 10/07/23 15:49 tongue Antihistamines - Alkylamine AdvReac Intermediate nose bleeds Verified 10/07/23 15:49 citalopram [From Celexa] AdvReac Intermediate hallucinati Verified 10/07/23 15:49 ons duloxetine [From Cymbalta] AdvReac Intermediate mood swings Verified 10/07/23 15:49 pregabalin [From Lyrica] AdvReac Intermediate mood swings Verified 10/07/23 15:49 tramadol AdvReac Intermediate hives/itchi Verified 10/07/23 15:49 ng venlafaxine AdvReac Intermediate mood swings Verified 10/07/23 15:49 NSAIDS (Non-Steroidal AdvReac Unknown Verified 12/29/23 17:23 Anti-Inflamma Assessment & Plan Assessment & Plan (1) LLQ pain: Status: Acute Code(s): R10.32 - Left lower quadrant pain (2) PTSD (post-traumatic stress disorder): Status: Acute Code(s): F43.10 - Post-traumatic stress disorder, unspecified (3) Bipolar disorder: Status: Acute Code(s): F31.9 - Bipolar disorder, unspecified Assessment and Plan: 01/04- Continue regime Pt working with team on housing and discharge planning. Plan 28 year old transgender male s/p elective hysterectomy/R oophorectomy (L ovary in tact), bipolar disorder, gerd, ibs, asthma admitted to psychiatry with consult placed to hospitalist service due to LLQ pain. The patient's abdominal exam is benign overall. I do suspect pain is related to constipation noted on KUB. At this time, further imaging with CT abd/pelvis is not indicated. There is some vaginal discharge. I have low suspicion that the patient's pain is related to the hysterectomy, but given abd discomfort with vaginal discharge s/p hysterectomy, can consider STUDENT ACCOUNTS COORDINATOR consult. Would not advise transvaginal U/S at this time unless advised by STUDENT ACCOUNTS COORDINATOR. #LLQ pain -likely r/t constipation. Further imaging with CT not indicated at this time given benign exam, absence of fevers/vomiting/rectal bleed -Recommend jamila miralax and docusate BID while on oxycodone. Can return to prn once narcotics are discontinued. Limit narcotic use -Can continue with prn mild of mag -Given vaginal discharge, check for gonorrhea/chlamydia, trich, bv -Consider obstetrics gynecology physician consult given recent hysterectomy with new llq pain and vaginal discharge #Dizziness -does have exam findings and clinical history consistent with vertigo. Continue meclizine prn -given positional lightheadedness, would also evaluate for orthostatic hypotension. Check orthostatic VS #Vaginal discharge -as above Thank you for this consult. Will continue following for results. Please reach out sooner should patient develop any worsening pain or fevers. Patient educated on: medication risk/benefits, therapeutic strategies and medical condition Informed Consent: understands and further education needed Reason for continued inpatient stay Substantial Risk for: rapid decompensation and med/psych decompensation Time Spent With Patient Time: Total time managing care of this patient today ____ minutes.
[2024-01-04 17:03] LABS: CT PCR NOT DETECTED (Not Detect.); NG PCR NOT DETECTED (Not Detect.)
[2024-01-04] MEDS: Butalb/Acetamin/Caff 50/325/40 TABLET 1 TAB PO (17:45)
[2024-01-04 18:00] VITALS: BP 113/55; PULSE 88; TEMP 36.8
[2024-01-04] MEDS: bisacodyL 5 MG TABLET.DR 10 MG PO (18:05)
[2024-01-04] MEDS: Mirtazapine 15 MG TABLET 45 MG PO (19:57)
[2024-01-04] MEDS: Montelukast Sodium 10 MG TABLET PO (19:59)
[2024-01-04] MEDS: clonazePAM 1 MG TABLET 2 MG PO (20:00)
[2024-01-04] MEDS: chlorproMAZINE HCl 10 MG TABLET PO (20:02)
[2024-01-04] MEDS: QUEtiapine Fumarate 50 MG TABLET 150 MG PO (20:02)
[2024-01-05] MEDS: Omeprazole 40 MG CAPSULE.DR PO ×2 (06:17→16:24)
[2024-01-05 07:00] VITALS: BMI 45.7
[2024-01-05 08:05] VITALS: BP 100/54; PULSE 74; RESP 16; TEMP 36.3; O2SAT 95
[2024-01-05] MEDS: Lithium Carbonate 300 MG TABLET 150 MG PO (08:27)
[2024-01-05] MEDS: Ferrous Sulfate 324 MG TABLET.DR PO (08:27)
[2024-01-05] MEDS: Famotidine 20 MG TABLET 10 MG PO ×2 (08:27→20:16)
[2024-01-05] MEDS: Sertraline HCL 50 MG TABLET PO (08:27)
[2024-01-05] MEDS: Divalproex Sodium 250 MG TABLET.DR 750 MG PO ×2 (08:27→20:17)
[2024-01-05] MEDS: Lurasidone HCl 40 MG TABLET 120 MG PO (08:27)
[2024-01-05] MEDS: Docusate Sodium 100 MG CAPSULE PO (08:27)
[2024-01-05] MEDS: Loratadine 10 MG TABLET PO (08:28)
[2024-01-05] MEDS: Spironolactone 25 MG TABLET PO ×2 (08:28→20:15)
[2024-01-05] MEDS: Bethanechol Chloride 25 MG TABLET 50 MG PO ×2 (08:28→20:16)
[2024-01-05] MEDS: Magnesium Oxide 400 MG TABLET PO (08:29)
[2024-01-05 08:48] LABS: Lithium 0.27 mmol/L (0.60-1.20)
[2024-01-05 08:57] LABS: Alanine Aminotransferase 33 U/L (0-31); Albumin Level 3.7 g/dL (3.5-5.0); Alkaline Phosphatase 82 U/L (39-117); Anion Gap 12 (12-20); Aspartate Amino Transferase 19 U/L (5-31); Bilirubin Total 0.2 mg/dL (0.0-1.0); Blood Urea Nitrogen 15 mg/dL (9-16); Calcium 9.2 mg/dL (8.4-10.2); Carbon Dioxide 24 mmol/L (22-29); Chloride 110 mmol/L (96-108); Creatinine Clr Calc Pharmacy 82.2; Estimated Glomerular Filt Rate 46; Glucose Random 96 mg/dL (60-115); Potassium 3.8 mmol/L (3.3-5.1); Sodium 142 mmol/L (135-145); Total Protein 6.7 g/dL (6.5-8.0)
[2024-01-05] MEDS: Acetaminophen 325 MG TABLET 650 MG PO (09:04)
[2024-01-05] MEDS: Throat Lozenge, Medicated LOZENGE 1 LOZENGE MUCOUS MEM ×2 (12:52→15:10)
[2024-01-05] MEDS: Butalb/Acetamin/Caff 50/325/40 TABLET 1 TAB PO (14:24)
[2024-01-05 15:42] LABS: BV Int Neg Control Negative (Negative); BV Int Pos Control Positive (Positive)
[2024-01-05] MEDS: clonazePAM 1 MG TABLET PO (17:48)
[2024-01-05 18:00] VITALS: BP 137/71; PULSE 81; RESP 18; TEMP 36.5; O2SAT 98
[2024-01-05] MEDS: diphenhydrAMINE HCL 25 MG CAPSULE PO (18:44)
--- NOTE | 2024-01-05 18:53 | HO.PSYCHPN ---
Subjective Subjective Date of Service: 01/05/24 Reason For Visit: Depression anxiety PTSD Autism SI HI Subjective Notes: Conditional Voluntary Healthcare Proxy: No Guardianship: No Medical Problems Affecting Mental Status: No Interim History: Pt reports they have found a place to stay with a friend. [place] to decrease to 150 mg Fiorcet prn for migraine Denies SI, HI. Reports feeling improved Discussed discharge for 01/10. Medication Compliance: Yes Side effects from medications: No Attending Groups: Yes Review of Systems Acute medical concerns: No Medical Review of Systems: unchanged Review of Systems Review of Systems migraine constipation resolving LLQ pain resolving Mental Status Exam Mental Status Exam Patient Appearance: Appropriate Patient Orientation: Person, Place, Time and Situation Level of Consciousness: Sedated and Lethargic Patient Behavior: Appropriate, Talkative, Anxious and Good Eye Contact Mood Description: Depressed and Anxious Affect Description: Flat Patient Cognition Impaired: No Ability to Follow Directions: Good Speech Pattern: Spontaneous Speech Memory Description: Intact (reports limited childhood memory) Diagnostics Vital Signs (24Hr): Vital Signs - 24 hr 01/05/24 08:05 Temperature 97.4 F Pulse Rate 74 Respiratory Rate 16 Blood Pressure 100/54 L Pulse Oximetry 95 Oxygen Delivery Method Room Air BMI result Body Mass Index 45.7 Labs 12/24/23 13:39 01/05/24 08:22 Labs: Laboratory Results - last 48 hr 01/04/24 01/05/24 12:10 08:22 Sodium 142 Potassium 3.8 Chloride 110 H Carbon Dioxide 24 Anion Gap 12 BUN 15 Creatinine 1.38 Estim Creat Clear Calc 82.2 Estimated GFR 46 Random Glucose 96 Calcium 9.2 Total Bilirubin 0.2 AST 19 ALT 33 H Alkaline Phosphatase 82 Total Protein 6.7 Albumin 3.7 [place] 0.27 L Donya species DNA Negative Chlam trachomat DNA PCR NOT DETECTED Gardnerella DNA Probe Negative N.gonorrhoeae DNA (PCR) NOT DETECTED Trichomonas DNA Probe Negative Imaging Radiology Impressions: ITS Impressions KUB X-Ray 01/03/24 11:34 IMPRESSION: Moderate colonic stool burden suggesting constipation. Medications Medications Current Medications Acetaminophen (Acetaminophen 325 Mg Tablet) 650 mg PO Q4H PRN PRN Reason: Headache/Pain Mild Scale (1-3) Last Admin: 01/05/24 09:04 Dose: 650 mg Acetaminophen/Butalbital/Caffeine (Butalb/Acetamin/Caff 50/325/40 Tablet) 1 tab PO ONCE PRN PRN Reason: Migraine Headache Last Admin: 01/04/24 17:45 Dose: 1 tab Al Hydroxide/Mg Hydroxide (Magnesium Hydrox/Alum Hydrox 30 Ml Oral.Susp) 30 ml PO Q6H PRN PRN Reason: Heartburn/Nausea Last Admin: 12/31/23 11:11 Dose: 30 ml Benzocaine (Throat Lozenge, Medicated Lozenge) 1 lozenge MUCOUS MEM Q2H PRN PRN Reason: Sore Throat Last Admin: 01/05/24 15:10 Dose: 1 lozenge Bethanechol Chloride (Bethanechol Chloride 25 Mg Tablet) 50 mg PO BID [facility] Last Admin: 01/05/24 08:28 Dose: 50 mg Bisacodyl (Bisacodyl 5 Mg Tablet.) 10 mg PO DAILY PRN PRN Reason: Constipation Last Admin: 01/04/24 18:05 Dose: 10 mg Calcium Carbonate (Calcium Carbonate 500 Mg Tablet) 500 mg PO DAILY@1700 [facility] Last Admin: 01/05/24 16:24 Dose: 500 mg Chlorhexidine Gluconate (Chlorhexidine Gluc Oral Rinse 15 Ml Mouthwash) 15 ml BUCCAL BID [facility] Last Admin: 01/05/24 08:29 Dose: Not Given Chlorpromazine HCl (Chlorpromazine Hcl 10 Mg Tablet) 10 mg PO BEDTIME [facility] Last Admin: 01/04/24 20:02 Dose: 10 mg Clonazepam (Clonazepam 1 Mg Tablet) 2 mg PO BEDTIME [facility] Last Admin: 01/04/24 20:00 Dose: 2 mg Clonazepam (Clonazepam 1 Mg Tablet) 1 mg PO BID PRN PRN Reason: anxiety Last Admin: 01/05/24 17:48 Dose: 1 mg Clonidine HCl (Clonidine Hcl 0.1 Mg Tablet) 0.1 mg PO DAILY PRN; Protocol PRN Reason: Anxiety Last Admin: 01/01/24 19:14 Dose: 0.1 mg Diphenhydramine HCl (Diphenhydramine Hcl 25 Mg Capsule) 25 mg PO Q6H PRN PRN Reason: allergy sx Last Admin: 01/05/24 18:44 Dose: 25 mg Divalproex Sodium (Divalproex Sodium 250 Mg Tablet.) 750 mg PO BID [facility] Last Admin: 01/05/24 08:27 Dose: 750 mg Docusate Sodium (Docusate Sodium 100 Mg Capsule) 100 mg PO DAILY [facility] Famotidine (Famotidine 20 Mg Tablet) 10 mg PO BID [facility] Last Admin: 01/05/24 08:27 Dose: 10 mg Ferrous Sulfate (Ferrous Sulfate 324 Mg Tablet.Dr) 324 mg PO DAILY [facility] Last Admin: 01/05/24 08:27 Dose: 324 mg Hydrocortisone (Hydrocortisone 1 % Cream 28.35 Gm Tube) 1 appl TOPICAL BID PRN; Protocol PRN Reason: eczema Last Admin: 01/03/24 16:07 Dose: 1 appl Hydroxyzine HCl (Hydroxyzine Hcl 25 Mg Tablet) 25 mg PO Q6H PRN PRN Reason: Anxiety Lactulose (Lactulose 20 Gm/30 Ml Solution) 20 gm PO DAILY PRN PRN Reason: severe constipation [place] Carbonate ([place] Carbonate 300 Mg Tablet) 150 mg PO BID [facility] Last Admin: 01/05/24 08:27 Dose: 150 mg Loratadine (Loratadine 10 Mg Tablet) 10 mg PO DAILY [facility] Last Admin: 01/05/24 08:28 Dose: 10 mg Lurasidone HCl (Lurasidone Hcl 40 Mg Tablet) 120 mg PO DAILY [facility] Last Admin: 01/05/24 08:27 Dose: 120 mg Magnesium Hydroxide (Milk Of Magnesia 30 Ml Oral.Susp) 30 ml PO DAILY PRN PRN Reason: Constipation Magnesium Oxide (Magnesium Oxide 400 Mg Tablet) 400 mg PO DAILY [facility] Last Admin: 01/05/24 08:29 Dose: 400 mg Meclizine HCl (Meclizine Hcl 25 Mg Tablet) 25 mg PO Q8H PRN PRN Reason: Vertigo Last Admin: 01/03/24 16:06 Dose: 25 mg Methocarbamol (Methocarbamol 750 Mg Tablet) 750 mg PO BID [facility] Last Admin: 12/27/23 08:49 Dose: 750 mg Mineral Oil (Mineral Oil Enema 133 Ml Enema) 133 ml DC ONCE PRN PRN Reason: constipation Mirtazapine (Mirtazapine 15 Mg Tablet) 45 mg PO BEDTIME [facility] Last Admin: 01/04/24 19:57 Dose: 45 mg Montelukast Sodium (Montelukast Sodium 10 Mg Tablet) 10 mg PO BEDTIME [facility] Last Admin: 01/04/24 19:59 Dose: 10 mg Pt Own (Finasteride (1 Mg Tablet)) 1 mg PO BEDTIME [facility] Last Admin: 01/04/24 20:02 Dose: 1 mg Omeprazole (Omeprazole 40 Mg Capsule.Dr) 40 mg PO BID@0630,1630 [facility] Last Admin: 01/05/24 16:24 Dose: 40 mg Ondansetron HCl (Ondansetron Odt 4 Mg Tab.Rapdis) 4 mg TRANSLINGU Q8H PRN PRN Reason: for nausea/vomiting Last Admin: 01/02/24 10:54 Dose: 4 mg Polyethylene Glycol (Polyethylene Glycol 3350 17 Gm Powd.Pack) 17 gm PO DAILY PRN PRN Reason: Constipation Quetiapine Fumarate (Quetiapine Fumarate 50 Mg Tablet) 150 mg PO BEDTIME [facility] Last Admin: 01/04/24 20:02 Dose: 150 mg Sertraline HCl (Sertraline Hcl 50 Mg Tablet) 50 mg PO DAILY [facility] Last Admin: 01/05/24 08:27 Dose: 50 mg Sodium Biphosphate/Sodium Phosphate (Sodium Phosphate,[place]-Dibasic 133 Ml Enema) 133 ml DC ONCE PRN PRN Reason: Constipation Last Admin: 01/04/24 11:52 Dose: 133 ml Spironolactone (Spironolactone 25 Mg Tablet) 25 mg PO BID [facility] Last Admin: 01/05/24 08:28 Dose: 25 mg Testosterone Cypionate (Testosterone Cypionate 200 Mg/1 Ml Vial) 100 mg IM We@1000 [facility] Last Admin: 01/04/24 11:48 Dose: 100 mg Allergies Allergies Allergy/AdvReac Type Severity Reaction Status Date / Time lidocaine Allergy Severe severe Verified 10/07/23 15:49 burning- injected lidocaine only trazodone Allergy Severe Depression Verified 10/07/23 15:49 environmental allergies Allergy Runny Nose Verified 10/07/23 15:49 feathers Allergy Swelling Verified 10/07/23 15:49 gabapentin AdvReac Severe blisters Verified 10/07/23 15:49 sucralose AdvReac Severe migraines Verified 10/07/23 15:49 [From Splenda (sucralose)] topiramate [From Topamax] AdvReac Severe serotonin Verified 10/07/23 15:49 syndrome watermelon AdvReac Severe swollen Verified 10/07/23 15:49 tongue Antihistamines - Alkylamine AdvReac Intermediate nose bleeds Verified 10/07/23 15:49 citalopram [From Celexa] AdvReac Intermediate hallucinati Verified 10/07/23 15:49 ons duloxetine [From Cymbalta] AdvReac Intermediate mood swings Verified 10/07/23 15:49 pregabalin [From Lyrica] AdvReac Intermediate mood swings Verified 10/07/23 15:49 tramadol AdvReac Intermediate hives/itchi Verified 10/07/23 15:49 ng venlafaxine AdvReac Intermediate mood swings Verified 10/07/23 15:49 NSAIDS (Non-Steroidal AdvReac Unknown Verified 12/29/23 17:23 Anti-Inflamma Assessment & Plan Assessment & Plan (1) PTSD (post-traumatic stress disorder): Status: Acute Code(s): F43.10 - Post-traumatic stress disorder, unspecified (2) Bipolar disorder: Status: Acute Code(s): F31.9 - Bipolar disorder, unspecified Assessment and Plan: 01/04- Continue regime Pt working with team on housing and discharge planning. - Valproate level Fiorcet prn Plan 28 year old transgender male s/p elective hysterectomy/R oophorectomy (L ovary in tact), bipolar disorder, gerd, ibs, asthma admitted to psychiatry with consult placed to hospitalist service due to LLQ pain. The patient's abdominal exam is benign overall. I do suspect pain is related to constipation noted on KUB. At this time, further imaging with CT abd/pelvis is not indicated. There is some vaginal discharge. I have low suspicion that the patient's pain is related to the hysterectomy, but given abd discomfort with vaginal discharge s/p hysterectomy, can consider FUNDRAISING COORDINATOR consult. Would not advise transvaginal U/S at this time unless advised by FUNDRAISING COORDINATOR. #LLQ pain -likely r/t constipation. Further imaging with CT not indicated at this time given benign exam, absence of fevers/vomiting/rectal bleed -Recommend jamila miralax and docusate BID while on oxycodone. Can return to prn once narcotics are discontinued. Limit narcotic use -Can continue with prn mild of mag -Given vaginal discharge, check for gonorrhea/chlamydia, trich, bv -Consider professor sculpture consult given recent hysterectomy with new llq pain and vaginal discharge #Dizziness -does have exam findings and clinical history consistent with vertigo. Continue meclizine prn -given positional lightheadedness, would also evaluate for orthostatic hypotension. Check orthostatic VS #Vaginal discharge -as above Thank you for this consult. Will continue following for results. Please reach out sooner should patient develop any worsening pain or fevers. Informed Consent: understands Reason for continued inpatient stay Substantial Risk for: rapid decompensation Time Spent With Patient Time: Total time managing care of this patient today ____ minutes.
[2024-01-05] MEDS: Mirtazapine 15 MG TABLET 45 MG PO (20:15)
[2024-01-05] MEDS: clonazePAM 1 MG TABLET 2 MG PO (20:15)
[2024-01-05] MEDS: chlorproMAZINE HCl 10 MG TABLET PO (20:16)
[2024-01-05] MEDS: QUEtiapine Fumarate 50 MG TABLET 150 MG PO (20:16)
[2024-01-05] MEDS: Montelukast Sodium 10 MG TABLET PO (20:16)
[2024-01-06] MEDS: Omeprazole 40 MG CAPSULE.DR PO ×2 (05:19→15:38)
[2024-01-06 06:00] VITALS: BP 122/55; PULSE 71; RESP 18; TEMP 36.9; O2SAT 96
[2024-01-06 08:27] LABS: Valproate 51.7 mcg/mL (50.0-100.0)
[2024-01-06] MEDS: Lithium Carbonate 300 MG TABLET 150 MG PO (08:35)
[2024-01-06] MEDS: Lurasidone HCl 40 MG TABLET 120 MG PO (08:35)
[2024-01-06] MEDS: Divalproex Sodium 250 MG TABLET.DR 750 MG PO (08:35)
[2024-01-06] MEDS: Famotidine 20 MG TABLET 10 MG PO ×2 (08:36→21:35)
[2024-01-06] MEDS: Bethanechol Chloride 25 MG TABLET 50 MG PO ×2 (08:36→21:34)
[2024-01-06] MEDS: Magnesium Oxide 400 MG TABLET PO (08:37)
[2024-01-06] MEDS: Docusate Sodium 100 MG CAPSULE PO (08:37)
[2024-01-06] MEDS: Spironolactone 25 MG TABLET PO ×2 (08:37→21:38)
[2024-01-06] MEDS: Ferrous Sulfate 324 MG TABLET.DR PO (08:37)
[2024-01-06] MEDS: Sertraline HCL 50 MG TABLET PO (08:37)
[2024-01-06] MEDS: Loratadine 10 MG TABLET PO (08:37)
[2024-01-06] MEDS: Throat Lozenge, Medicated LOZENGE 1 LOZENGE MUCOUS MEM ×5 (10:04→18:37)
[2024-01-06] MEDS: clonazePAM 1 MG TABLET PO ×2 (11:56→16:56)
--- NOTE | 2024-01-06 13:08 | HO.PSYCHPN ---
Subjective Subjective Date of Service: 01/06/24 Reason For Visit: Depression anxiety PTSD Autism SI HI Subjective Notes: Conditional Voluntary Healthcare Proxy: No Guardianship: No Medical Problems Affecting Mental Status: No Interim History: Valproate level 51.7. Will titrate dosing Diarrhea/Constipation is resolved per pt report Planning discharge for 01/09. Medication Compliance: Yes Side effects from medications: No Attending Groups: Yes Review of Systems Acute medical concerns: No Medical Review of Systems: unchanged Review of Systems Review of Systems Yes all other systems are reviewed and are negative Mental Status Exam Mental Status Exam Patient Appearance: Appropriate Patient Orientation: Person, Place, Time and Situation Level of Consciousness: Sedated and Lethargic Patient Behavior: Appropriate, Talkative, Anxious and Good Eye Contact Mood Description: Depressed and Anxious Affect Description: Flat Patient Cognition Impaired: No Ability to Follow Directions: Good Speech Pattern: Spontaneous Speech Memory Description: Intact (reports limited childhood memory) Diagnostics Vital Signs (24Hr): Vital Signs - 24 hr 01/05/24 18:00 01/06/24 06:00 Temperature 97.7 F 98.4 F Pulse Rate 81 71 Respiratory Rate 18 18 Blood Pressure 137/71 122/55 L Pulse Oximetry 98 96 Oxygen Delivery Method Room Air Room Air BMI result Body Mass Index 45.7 Labs 12/24/23 13:39 01/05/24 08:22 Labs: Laboratory Results - last 48 hr 01/04/24 01/05/24 01/06/24 12:10 08:22 07:57 Sodium 142 Potassium 3.8 Chloride 110 H Carbon Dioxide 24 Anion Gap 12 BUN 15 Creatinine 1.38 Estim Creat Clear Calc 82.2 Estimated GFR 46 Random Glucose 96 Calcium 9.2 Total Bilirubin 0.2 AST 19 ALT 33 H Alkaline Phosphatase 82 Total Protein 6.7 Albumin 3.7 Valproic Acid 51.7 [place]un[place] 0.27 L Donya species DNA Negative Chlam trachomat DNA PCR NOT DETECTED Gardnerella DNA Probe Negative N.gonorrhoeae DNA (PCR) NOT DETECTED Trichomonas DNA Probe Negative Imaging Radiology Impressions: ITS Impressions KUB X-Ray 01/03/24 11:34 IMPRESSION: Moderate colonic stool burden suggesting constipation. Medications Medications Current Medications Acetaminophen (Acetaminophen 325 Mg Tablet) 650 mg PO Q4H PRN PRN Reason: Headache/Pain Mild Scale (1-3) Last Admin: 01/05/24 09:04 Dose: 650 mg Acetaminophen/Butalbital/Caffeine (Butalb/Acetamin/Caff 50/325/40 Tablet) 1 tab PO ONCE PRN PRN Reason: Migraine Headache Last Admin: 01/04/24 17:45 Dose: 1 tab Al Hydroxide/Mg Hydroxide (Magnesium Hydrox/Alum Hydrox 30 Ml Oral.Susp) 30 ml PO Q6H PRN PRN Reason: Heartburn/Nausea Last Admin: 12/31/23 11:11 Dose: 30 ml Benzocaine (Throat Lozenge, Medicated Lozenge) 1 lozenge MUCOUS MEM Q1H PRN PRN Reason: Sore Throat Bethanechol Chloride (Bethanechol Chloride 25 Mg Tablet) 50 mg PO BID [facility] Last Admin: 01/06/24 08:36 Dose: 50 mg Bisacodyl (Bisacodyl 5 Mg Tablet.) 10 mg PO DAILY PRN PRN Reason: Constipation Last Admin: 01/04/24 18:05 Dose: 10 mg Calcium Carbonate (Calcium Carbonate 500 Mg Tablet) 500 mg PO DAILY@1700 [facility] Last Admin: 01/05/24 16:24 Dose: 500 mg Chlorpromazine HCl (Chlorpromazine Hcl 10 Mg Tablet) 10 mg PO BEDTIME [facility] Last Admin: 01/05/24 20:16 Dose: 10 mg Clonazepam (Clonazepam 1 Mg Tablet) 2 mg PO BEDTIME [facility] Last Admin: 01/05/24 20:15 Dose: 2 mg Clonazepam (Clonazepam 1 Mg Tablet) 1 mg PO DAILY [facility] Clonazepam (Clonazepam 1 Mg Tablet) 1 mg PO DAILY PRN PRN Reason: anxiety Clonidine HCl (Clonidine Hcl 0.1 Mg Tablet) 0.1 mg PO DAILY PRN; Protocol PRN Reason: Anxiety Last Admin: 01/01/24 19:14 Dose: 0.1 mg Diphenhydramine HCl (Diphenhydramine Hcl 25 Mg Capsule) 25 mg PO Q6H PRN PRN Reason: allergy sx Last Admin: 01/05/24 18:44 Dose: 25 mg Divalproex Sodium (Divalproex Sodium 500 Mg Tablet.) 1,000 mg PO BID [facility] Docusate Sodium (Docusate Sodium 100 Mg Capsule) 100 mg PO DAILY [facility] Last Admin: 01/06/24 08:37 Dose: 100 mg Famotidine (Famotidine 20 Mg Tablet) 10 mg PO BID [facility] Last Admin: 01/06/24 08:36 Dose: 10 mg Ferrous Sulfate (Ferrous Sulfate 324 Mg Tablet.) 324 mg PO DAILY [facility] Last Admin: 01/06/24 08:37 Dose: 324 mg Hydrocortisone (Hydrocortisone 1 % Cream 28.35 Gm Tube) 1 appl TOPICAL BID PRN; Protocol PRN Reason: eczema Last Admin: 01/03/24 16:07 Dose: 1 appl Hydroxyzine HCl (Hydroxyzine Hcl 25 Mg Tablet) 25 mg PO Q6H PRN PRN Reason: Anxiety Lactulose (Lactulose 20 Gm/30 Ml Solution) 20 gm PO DAILY PRN PRN Reason: severe constipation [place] Carbonate (Ferrer [place]un[place] Carbonate 300 Mg Tablet) 150 mg PO DAILY [facility] Last Admin: 01/06/24 08:35 Dose: 150 mg Loratadine (Loratadine 10 Mg Tablet) 10 mg PO DAILY [facility] Last Admin: 01/06/24 08:37 Dose: 10 mg Lurasidone HCl (Lurasidone Hcl 40 Mg Tablet) 120 mg PO DAILY [facility] Last Admin: 01/06/24 08:35 Dose: 120 mg Magnesium Hydroxide (Milk Of Magnesia 30 Ml Oral.Susp) 30 ml PO DAILY PRN PRN Reason: Constipation Magnesium Oxide (Magnesium Oxide 400 Mg Tablet) 400 mg PO DAILY [facility] Last Admin: 01/06/24 08:37 Dose: 400 mg Meclizine HCl (Meclizine Hcl 25 Mg Tablet) 25 mg PO Q8H PRN PRN Reason: Vertigo Last Admin: 01/03/24 16:06 Dose: 25 mg Methocarbamol (Methocarbamol 750 Mg Tablet) 750 mg PO BID [facility] Last Admin: 12/27/23 08:49 Dose: 750 mg Mineral Oil (Mineral Oil Enema 133 Ml Enema) 133 ml [place] ONCE PRN PRN Reason: constipation Mirtazapine (Mirtazapine 15 Mg Tablet) 45 mg PO BEDTIME [facility] Last Admin: 01/05/24 20:15 Dose: 45 mg Montelukast Sodium (Montelukast Sodium 10 Mg Tablet) 10 mg PO BEDTIME [facility] Last Admin: 01/05/24 20:16 Dose: 10 mg Pt Own (Finasteride (1 Mg Tablet)) 1 mg PO BEDTIME [facility] Last Admin: 01/05/24 20:14 Dose: 1 mg Omeprazole (Omeprazole 40 Mg Capsule.) 40 mg PO BID@0630,1630 [facility] Last Admin: 01/06/24 05:19 Dose: 40 mg Ondansetron HCl (Ondansetron Odt 4 Mg Tab.Rapdis) 4 mg TRANSLINGU Q8H PRN PRN Reason: for nausea/vomiting Last Admin: 01/02/24 10:54 Dose: 4 mg Polyethylene Glycol (Polyethylene Glycol 3350 17 Gm Powd.Pack) 17 gm PO DAILY PRN PRN Reason: Constipation Quetiapine Fumarate (Quetiapine Fumarate 50 Mg Tablet) 150 mg PO BEDTIME [facility] Last Admin: 01/05/24 20:16 Dose: 150 mg Sertraline HCl (Sertraline Hcl 50 Mg Tablet) 50 mg PO DAILY [facility] Last Admin: 01/06/24 08:37 Dose: 50 mg Sodium Biphosphate/Sodium Phosphate (Sodium Phosphate,[place]-Dibasic 133 Ml Enema) 133 ml [place] ONCE PRN PRN Reason: Constipation Last Admin: 01/04/24 11:52 Dose: 133 ml Spironolactone (Spironolactone 25 Mg Tablet) 25 mg PO BID [facility] Last Admin: 01/06/24 08:37 Dose: 25 mg Tamsulosin HCl (Tamsulosin Hcl 0.4 Mg Capsule) 0.4 mg PO BEDTIME [facility] Testosterone Cypionate (Testosterone Cypionate 200 Mg/1 Ml Vial) 100 mg IM We@1000 [facility] Last Admin: 01/04/24 11:48 Dose: 100 mg Allergies Allergies Allergy/AdvReac Type Severity Reaction Status Date / Time lidocaine Allergy Severe severe Verified 10/07/23 15:49 burning- injected lidocaine only trazodone Allergy Severe Depression Verified 10/07/23 15:49 environmental allergies Allergy Runny Nose Verified 10/07/23 15:49 feathers Allergy Swelling Verified 10/07/23 15:49 gabapentin AdvReac Severe blisters Verified 10/07/23 15:49 sucralose AdvReac Severe migraines Verified 10/07/23 15:49 [From Splenda (sucralose)] topiramate [From Topamax] AdvReac Severe serotonin Verified 10/07/23 15:49 syndrome watermelon AdvReac Severe swollen Verified 10/07/23 15:49 tongue Antihistamines - Alkylamine AdvReac Intermediate nose bleeds Verified 10/07/23 15:49 citalopram [From Celexa] AdvReac Intermediate hallucinati Verified 10/07/23 15:49 ons duloxetine [From Cymbalta] AdvReac Intermediate mood swings Verified 10/07/23 15:49 pregabalin [From Lyrica] AdvReac Intermediate mood swings Verified 10/07/23 15:49 tramadol AdvReac Intermediate hives/itchi Verified 10/07/23 15:49 ng venlafaxine AdvReac Intermediate mood swings Verified 10/07/23 15:49 NSAIDS (Non-Steroidal AdvReac Unknown Verified 12/29/23 17:23 Anti-Inflamma Assessment & Plan Assessment & Plan (1) PTSD (post-traumatic stress disorder): Status: Acute Code(s): F43.10 - Post-traumatic stress disorder, unspecified (2) Bipolar disorder: Status: Acute Code(s): F31.9 - Bipolar disorder, unspecified Assessment and Plan: 01/04- Continue regime Pt working with team on housing and discharge planning. 01/05- Continue Depakote titration Plan 28 year old transgender male s/p elective hysterectomy/R oophorectomy (L ovary in tact), bipolar disorder, gerd, ibs, asthma admitted to psychiatry with consult placed to hospitalist service due to LLQ pain. The patient's abdominal exam is benign overall. I do suspect pain is related to constipation noted on KUB. At this time, further imaging with CT abd/pelvis is not indicated. There is some vaginal discharge. I have low suspicion that the patient's pain is related to the hysterectomy, but given abd discomfort with vaginal discharge s/p hysterectomy, can consider BODY JOINER consult. Would not advise transvaginal U/S at this time unless advised by BODY JOINER. #LLQ pain -likely r/t constipation. Further imaging with CT not indicated at this time given benign exam, absence of fevers/vomiting/rectal bleed -Recommend jamila miralax and docusate BID while on oxycodone. Can return to prn once narcotics are discontinued. Limit narcotic use -Can continue with prn mild of mag -Given vaginal discharge, check for gonorrhea/chlamydia, trich, bv -Consider head strength and conditioning coach consult given recent hysterectomy with new llq pain and vaginal discharge #Dizziness -does have exam findings and clinical history consistent with vertigo. Continue meclizine prn -given positional lightheadedness, would also evaluate for orthostatic hypotension. Check orthostatic VS #Vaginal discharge -as above Thank you for this consult. Will continue following for results. Please reach out sooner should patient develop any worsening pain or fevers. Patient educated on: medication risk/benefits Informed Consent: understands Reason for continued inpatient stay Substantial Risk for: rapid decompensation Time Spent With Patient Time: Total time managing care of this patient today ____ minutes.
[2024-01-06 18:15] VITALS: BP 139/64; PULSE 91; RESP 16; TEMP 36.6; O2SAT 95
[2024-01-06] MEDS: Meclizine HCl 25 MG TABLET PO (18:37)
[2024-01-06] MEDS: hydrOXYzine HCL 25 MG TABLET PO (19:25)
[2024-01-06] MEDS: chlorproMAZINE HCl 10 MG TABLET PO (21:34)
[2024-01-06] MEDS: clonazePAM 1 MG TABLET 2 MG PO (21:34)
[2024-01-06] MEDS: Divalproex Sodium 500 MG TABLET.DR 1000 MG PO (21:35)
[2024-01-06] MEDS: QUEtiapine Fumarate 50 MG TABLET 150 MG PO (21:37)
[2024-01-06] MEDS: Mirtazapine 15 MG TABLET 45 MG PO (21:37)
[2024-01-06] MEDS: Montelukast Sodium 10 MG TABLET PO (21:37)
[2024-01-06] MEDS: Tamsulosin HCL 0.4 MG CAPSULE PO (21:38)
[2024-01-06] MEDS: Butalb/Acetamin/Caff 50/325/40 TABLET 1 TAB PO (21:38)
[2024-01-06] MEDS: Acetaminophen 325 MG TABLET 650 MG PO (21:40)
[2024-01-07] MEDS: Omeprazole 40 MG CAPSULE.DR PO ×2 (05:24→16:51)
[2024-01-07 07:38] LABS: Iron 79 mcg/dL (30-160); Percent Iron Saturation 31 % (15-50); Total Iron Binding Capacity 255 mcg/dL (228-428); Unsaturated Iron Binding 176 ug/dL
[2024-01-07] MEDS: Famotidine 20 MG TABLET 10 MG PO ×2 (08:43→20:16)
[2024-01-07] MEDS: Lurasidone HCl 40 MG TABLET 120 MG PO (08:43)
[2024-01-07] MEDS: Loratadine 10 MG TABLET PO (08:43)
[2024-01-07] MEDS: Ferrous Sulfate 324 MG TABLET.DR PO (08:43)
[2024-01-07] MEDS: Docusate Sodium 100 MG CAPSULE PO (08:43)
[2024-01-07] MEDS: Divalproex Sodium 500 MG TABLET.DR 1000 MG PO ×2 (08:43→20:15)
[2024-01-07] MEDS: Magnesium Oxide 400 MG TABLET PO (08:44)
[2024-01-07] MEDS: Bethanechol Chloride 25 MG TABLET 50 MG PO ×2 (08:44→20:15)
[2024-01-07] MEDS: Spironolactone 25 MG TABLET PO ×2 (08:44→20:16)
[2024-01-07] MEDS: Lithium Carbonate 300 MG TABLET 150 MG PO (08:44)
[2024-01-07 08:45] VITALS: BP 93/58; PULSE 84; RESP 18; TEMP 36.4; O2SAT 94
[2024-01-07] MEDS: Sertraline HCL 50 MG TABLET PO (08:45)
[2024-01-07] MEDS: clonazePAM 1 MG TABLET PO (08:45)
[2024-01-07] MEDS: Throat Lozenge, Medicated LOZENGE 1 LOZENGE MUCOUS MEM ×2 (10:11→12:51)
[2024-01-07] MEDS: Meclizine HCl 25 MG TABLET PO (10:11)
[2024-01-07] MEDS: Simethicone 80 MG TAB.CHEW PO (11:22)
--- NOTE | 2024-01-07 12:11 | HO.PSYCHPN ---
Subjective Subjective Date of Service: 01/07/24 Reason For Visit: Depression anxiety PTSD Autism SI HI Subjective Notes: Conditional Voluntary Healthcare Proxy: No Guardianship: No Medical Problems Affecting Mental Status: Yes (kidney impaired from lithium tapering off ) Interim History: Feels less si since admission, depakote is helping - Medication Compliance: Yes Side effects from medications: Yes (mild grogginess with inc dose) Attending Groups: Intermittent Review of Systems Acute medical concerns: No Medical Review of Systems: unchanged Mental Status Exam Mental Status Exam Patient Appearance: Unkempt Patient Orientation: Person, Place, Time and Situation Level of Consciousness: Awake Patient Behavior: Appropriate Mood Description: Anxious Affect Description: Blunted Patient Cognition Impaired: No Ability to Follow Directions: Good Speech Pattern: Clear Hallucinations: None Delusions: Not Present Thought Process: Intact and Goal Oriented Thought Content: positive for Intact, positive for Suicidal Ideation (less) and positive for Homicidal Ideation (lessened) Depressive Symptoms: Increased Anxiety (ongoing but better) and Difficulty Sleeping (slept a bit better last pm- but has never slept well ) Judgement: Fair Diagnostics Vital Signs (24Hr): Vital Signs - 24 hr 01/06/24 18:15 01/07/24 08:45 Temperature 97.9 F 97.6 F Pulse Rate 91 84 Respiratory Rate 16 18 Blood Pressure 139/64 93/58 L Pulse Oximetry 95 94 Oxygen Delivery Method Room Air Room Air BMI result Body Mass Index 45.7 Labs 12/24/23 13:39 01/05/24 08:22 Labs: Laboratory Results - last 48 hr 01/04/24 01/06/24 01/07/24 12:10 07:57 07:14 Iron 79 TIBC 255 % Saturation 31 Unsat Iron Binding 176 Valproic Acid 51.7 Donya species DNA Negative Gardnerella DNA Probe Negative Trichomonas DNA Probe Negative Imaging Radiology Impressions: ITS Impressions KUB X-Ray 01/03/24 11:34 IMPRESSION: Moderate colonic stool burden suggesting constipation. Medications Medications Current Medications Acetaminophen (Acetaminophen 325 Mg Tablet) 650 mg PO Q4H PRN PRN Reason: Headache/Pain Mild Scale (1-3) Last Admin: 01/06/24 21:40 Dose: 650 mg Acetaminophen/Butalbital/Caffeine (Butalb/Acetamin/Caff 50/325/40 Tablet) 1 tab PO Q4H PRN PRN Reason: MANDEL Last Admin: 01/06/24 21:38 Dose: 1 tab Al Hydroxide/Mg Hydroxide (Magnesium Hydrox/Alum Hydrox 30 Ml Oral.Susp) 30 ml PO Q6H PRN PRN Reason: Heartburn/Nausea Last Admin: 12/31/23 11:11 Dose: 30 ml Benzocaine (Throat Lozenge, Medicated Lozenge) 1 lozenge MUCOUS MEM Q1H PRN PRN Reason: Sore Throat Last Admin: 01/07/24 10:11 Dose: 1 lozenge Bethanechol Chloride (Bethanechol Chloride 25 Mg Tablet) 50 mg PO BID [facility] Last Admin: 01/07/24 08:44 Dose: 50 mg Bisacodyl (Bisacodyl 5 Mg Tablet.Dr) 10 mg PO DAILY PRN PRN Reason: Constipation Last Admin: 01/04/24 18:05 Dose: 10 mg Calcium Carbonate (Calcium Carbonate 500 Mg Tablet) 500 mg PO DAILY@1700 [facility] Last Admin: 01/06/24 15:38 Dose: 500 mg Chlorpromazine HCl (Chlorpromazine Hcl 10 Mg Tablet) 10 mg PO BEDTIME [facility] Last Admin: 01/06/24 21:34 Dose: 10 mg Clonazepam (Clonazepam 1 Mg Tablet) 2 mg PO BEDTIME [facility] Last Admin: 01/06/24 21:34 Dose: 2 mg Clonazepam (Clonazepam 1 Mg Tablet) 1 mg PO DAILY [facility] Last Admin: 01/07/24 08:45 Dose: 1 mg Clonazepam (Clonazepam 1 Mg Tablet) 1 mg PO DAILY PRN PRN Reason: anxiety Last Admin: 01/06/24 16:56 Dose: 1 mg Clonidine HCl (Clonidine Hcl 0.1 Mg Tablet) 0.1 mg PO DAILY PRN; Protocol PRN Reason: Anxiety Last Admin: 01/01/24 19:14 Dose: 0.1 mg Diphenhydramine HCl (Diphenhydramine Hcl 25 Mg Capsule) 25 mg PO Q6H PRN PRN Reason: allergy sx Last Admin: 01/05/24 18:44 Dose: 25 mg Divalproex Sodium (Divalproex Sodium 500 Mg Tablet.Dr) 1,000 mg PO BID [facility] Last Admin: 01/07/24 08:43 Dose: 1,000 mg Docusate Sodium (Docusate Sodium 100 Mg Capsule) 100 mg PO DAILY [facility] Last Admin: 01/07/24 08:43 Dose: 100 mg Famotidine (Famotidine 20 Mg Tablet) 10 mg PO BID [facility] Last Admin: 01/07/24 08:43 Dose: 10 mg Ferrous Sulfate (Ferrous Sulfate 324 Mg Tablet.Dr) 324 mg PO DAILY [facility] Last Admin: 01/07/24 08:43 Dose: 324 mg Hydrocortisone (Hydrocortisone 1 % Cream 28.35 Gm Tube) 1 appl TOPICAL BID PRN; Protocol PRN Reason: eczema Last Admin: 01/03/24 16:07 Dose: 1 appl Hydroxyzine HCl (Hydroxyzine Hcl 25 Mg Tablet) 25 mg PO Q6H PRN PRN Reason: Anxiety Last Admin: 01/06/24 19:25 Dose: 25 mg Lactulose (Lactulose 20 Gm/30 Ml Solution) 20 gm PO DAILY PRN PRN Reason: severe constipation [place] Carbonate ([place] Carbonate 300 Mg Tablet) 150 mg PO DAILY [facility] Last Admin: 01/07/24 08:44 Dose: 150 mg Loratadine (Loratadine 10 Mg Tablet) 10 mg PO DAILY [facility] Last Admin: 01/07/24 08:43 Dose: 10 mg Lurasidone HCl (Lurasidone Hcl 40 Mg Tablet) 120 mg PO DAILY [facility] Last Admin: 01/07/24 08:43 Dose: 120 mg Magnesium Hydroxide (Milk Of Magnesia 30 Ml Oral.Susp) 30 ml PO DAILY PRN PRN Reason: Constipation Magnesium Oxide (Magnesium Oxide 400 Mg Tablet) 400 mg PO DAILY [facility] Last Admin: 01/07/24 08:44 Dose: 400 mg Meclizine HCl (Meclizine Hcl 25 Mg Tablet) 25 mg PO Q8H PRN PRN Reason: Vertigo Last Admin: 01/07/24 10:11 Dose: 25 mg Methocarbamol (Methocarbamol 750 Mg Tablet) 750 mg PO BID [facility] Last Admin: 12/27/23 08:49 Dose: 750 mg Mineral Oil (Mineral Oil Enema 133 Ml Enema) 133 ml [place] ONCE PRN PRN Reason: constipation Mirtazapine (Mirtazapine 15 Mg Tablet) 45 mg PO BEDTIME [facility] Last Admin: 01/06/24 21:37 Dose: 45 mg Montelukast Sodium (Montelukast Sodium 10 Mg Tablet) 10 mg PO BEDTIME [facility] Last Admin: 01/06/24 21:37 Dose: 10 mg Pt Own (Finasteride (1 Mg Tablet)) 1 mg PO BEDTIME [facility] Last Admin: 01/06/24 21:36 Dose: 1 mg Omeprazole (Omeprazole 40 Mg Capsule.Dr) 40 mg PO BID@0630,1630 [facility] Last Admin: 01/07/24 05:24 Dose: 40 mg Ondansetron HCl (Ondansetron Odt 4 Mg Tab.Rapdis) 4 mg TRANSLINGU Q8H PRN PRN Reason: for nausea/vomiting Last Admin: 01/02/24 10:54 Dose: 4 mg Polyethylene Glycol (Polyethylene Glycol 3350 17 Gm Powd.Pack) 17 gm PO DAILY PRN PRN Reason: Constipation Quetiapine Fumarate (Quetiapine Fumarate 50 Mg Tablet) 150 mg PO BEDTIME [facility] Last Admin: 01/06/24 21:37 Dose: 150 mg Sertraline HCl (Sertraline Hcl 50 Mg Tablet) 50 mg PO DAILY [facility] Last Admin: 01/07/24 08:45 Dose: 50 mg Simethicone (Simethicone 80 Mg Tab.Chew) 80 mg PO QIDWMHS PRN PRN Reason: Gas Last Admin: 01/07/24 11:22 Dose: 80 mg Sodium Biphosphate/Sodium Phosphate (Sodium Phosphate,[place]-Dibasic 133 Ml Enema) 133 ml [place] ONCE PRN PRN Reason: Constipation Last Admin: 01/04/24 11:52 Dose: 133 ml Spironolactone (Spironolactone 25 Mg Tablet) 25 mg PO BID [facility] Last Admin: 01/07/24 08:44 Dose: 25 mg Tamsulosin HCl (Tamsulosin Hcl 0.4 Mg Capsule) 0.4 mg PO BEDTIME [facility] Last Admin: 01/06/24 21:38 Dose: 0.4 mg Testosterone Cypionate (Testosterone Cypionate 200 Mg/1 Ml Vial) 100 mg IM We@1000 [facility] Last Admin: 01/04/24 11:48 Dose: 100 mg Allergies Allergies Allergy/AdvReac Type Severity Reaction Status Date / Time lidocaine Allergy Severe severe Verified 10/07/23 15:49 burning- injected lidocaine only trazodone Allergy Severe Depression Verified 10/07/23 15:49 environmental allergies Allergy Runny Nose Verified 10/07/23 15:49 feathers Allergy Swelling Verified 10/07/23 15:49 gabapentin AdvReac Severe blisters Verified 10/07/23 15:49 sucralose AdvReac Severe migraines Verified 10/07/23 15:49 [From Splenda (sucralose)] topiramate [From Topamax] AdvReac Severe serotonin Verified 10/07/23 15:49 syndrome watermelon AdvReac Severe swollen Verified 10/07/23 15:49 tongue Antihistamines - Alkylamine AdvReac Intermediate nose bleeds Verified 10/07/23 15:49 citalopram [From Celexa] AdvReac Intermediate hallucinati Verified 10/07/23 15:49 ons duloxetine [From Cymbalta] AdvReac Intermediate mood swings Verified 10/07/23 15:49 pregabalin [From Lyrica] AdvReac Intermediate mood swings Verified 10/07/23 15:49 tramadol AdvReac Intermediate hives/itchi Verified 10/07/23 15:49 ng venlafaxine AdvReac Intermediate mood swings Verified 10/07/23 15:49 NSAIDS (Non-Steroidal AdvReac Unknown Verified 12/29/23 17:23 Anti-Inflamma Assessment & Plan Assessment & Plan (1) PTSD (post-traumatic stress disorder): Status: Acute Code(s): F43.10 - Post-traumatic stress disorder, unspecified Assessment and Plan: decreased anxiety/ managing trigger on unit with roommate situation- (2) Bipolar disorder: Qualifiers: Current bipolar episode type: mixed Current episode severity: moderate Status: Acute Code(s): F31.9 - Bipolar disorder, unspecified Assessment and Plan: 01/04- Continue regime Pt working with team on housing and discharge planning. 01/05- Continue Depakote titration 01/06 tolerating inc depakote Plan 28 year old transgender male s/p elective hysterectomy/R oophorectomy (L ovary in tact), bipolar disorder, gerd, ibs, asthma admitted to psychiatry with consult placed to hospitalist service due to LLQ pain. The patient's abdominal exam is benign overall. I do suspect pain is related to constipation noted on KUB. At this time, further imaging with CT abd/pelvis is not indicated. There is some vaginal discharge. I have low suspicion that the patient's pain is related to the hysterectomy, but given abd discomfort with vaginal discharge s/p hysterectomy, can consider ACTIMIZE ARCHITECT consult. Would not advise transvaginal U/S at this time unless advised by ACTIMIZE ARCHITECT. #LLQ pain -likely r/t constipation. Further imaging with CT not indicated at this time given benign exam, absence of fevers/vomiting/rectal bleed -Recommend jamila miralax and docusate BID while on oxycodone. Can return to prn once narcotics are discontinued. Limit narcotic use -Can continue with prn mild of mag -Given vaginal discharge, check for gonorrhea/chlamydia, trich, bv -Consider simulation specialist consult given recent hysterectomy with new llq pain and vaginal discharge #Dizziness -does have exam findings and clinical history consistent with vertigo. Continue meclizine prn -given positional lightheadedness, would also evaluate for orthostatic hypotension. Check orthostatic VS #Vaginal discharge -as above Thank you for this consult. Will continue following for results. Please reach out sooner should patient develop any worsening pain or fevers. Patient educated on: therapeutic strategies and other Informed Consent: understands Reason for continued inpatient stay Substantial Risk for: rapid decompensation Time Spent With Patient Time: Total time managing care of this patient today ____ minutes.
[2024-01-07] MEDS: hydrOXYzine HCL 25 MG TABLET PO (12:50)
[2024-01-07] MEDS: cloNIDine HCL 0.1 MG TABLET PO (12:54)
[2024-01-07 19:45] VITALS: BP 95/54; PULSE 85; RESP 16; TEMP 36.2; O2SAT 96
[2024-01-07] MEDS: QUEtiapine Fumarate 50 MG TABLET 150 MG PO (20:15)
[2024-01-07] MEDS: Mirtazapine 15 MG TABLET 45 MG PO (20:15)
[2024-01-07] MEDS: clonazePAM 1 MG TABLET 2 MG PO (20:16)
[2024-01-07] MEDS: Tamsulosin HCL 0.4 MG CAPSULE PO (20:16)
[2024-01-07] MEDS: Montelukast Sodium 10 MG TABLET PO (20:16)
[2024-01-07] MEDS: chlorproMAZINE HCl 10 MG TABLET PO (20:16)
[2024-01-08] MEDS: Omeprazole 40 MG CAPSULE.DR PO ×2 (06:23→16:49)
[2024-01-08] MEDS: Magnesium Oxide 400 MG TABLET PO (09:07)
[2024-01-08] MEDS: Ferrous Sulfate 324 MG TABLET.DR PO (09:07)
[2024-01-08] MEDS: Famotidine 20 MG TABLET 10 MG PO ×2 (09:07→20:04)
[2024-01-08] MEDS: Spironolactone 25 MG TABLET PO ×2 (09:07→20:04)
[2024-01-08] MEDS: Lurasidone HCl 40 MG TABLET 120 MG PO (09:07)
[2024-01-08] MEDS: Docusate Sodium 100 MG CAPSULE PO (09:08)
[2024-01-08] MEDS: Loratadine 10 MG TABLET PO (09:08)
[2024-01-08] MEDS: Divalproex Sodium 500 MG TABLET.DR 1000 MG PO ×2 (09:08→20:02)
[2024-01-08] MEDS: Bethanechol Chloride 25 MG TABLET 50 MG PO ×2 (09:08→20:04)
[2024-01-08] MEDS: clonazePAM 1 MG TABLET PO ×2 (09:08→14:09)
[2024-01-08] MEDS: Sertraline HCL 50 MG TABLET PO (09:08)
[2024-01-08 09:15] VITALS: BP 98/63; PULSE 78; RESP 18; TEMP 36.4; O2SAT 94
[2024-01-08] MEDS: Throat Lozenge, Medicated LOZENGE 1 LOZENGE MUCOUS MEM ×4 (09:16→21:00)
[2024-01-08] MEDS: Meclizine HCl 25 MG TABLET PO ×2 (09:16→20:12)
[2024-01-08] MEDS: diphenhydrAMINE HCL 25 MG CAPSULE PO (09:18)
--- NOTE | 2024-01-08 11:09 | HO.PSYCHPN ---
Subjective Subjective Date of Service: 01/08/24 Reason For Visit: Depression anxiety PTSD Autism SI HI Subjective Notes: Conditional Voluntary Healthcare Proxy: No Guardianship: No Medical Problems Affecting Mental Status: Yes (kidney issues from lithium) Interim History: 28 yo Male identified patient who has been having alot of sensory reaction to body aches/pains as well as having had this kidney reaction to lithium- which today was to be last dose but pt refused- Pt feeling over all better- not groggy today and thinks inc depakote with clonazepam yesterday exacerbated making them groggy- feel fine today- also wants colace dced (not found by provider on list though there are many prn anti constipation meds) Hoping to go home tomorrow- tolerating medication changes well denies si/hi. Medication Compliance: Yes Side effects from medications: No Attending Groups: Intermittent Review of Systems Acute medical concerns: No Review of Systems: as discussed above Mental Status Exam Mental Status Exam Patient Appearance: Well Grooomed and Appropriate Patient Orientation: Person, Place, Time and Situation Level of Consciousness: Awake Patient Behavior: Appropriate and Cooperative Mood Description: Anxious Affect Description: Calm Patient Cognition Impaired: No Ability to Follow Directions: Good Speech Pattern: Clear Hallucinations: None Thought Content: positive for Intact Depressive Symptoms: Back Pain ( from kidney problem ) Judgement: Fair Diagnostics Vital Signs (24Hr): Vital Signs - 24 hr 01/07/24 19:45 01/08/24 09:15 Temperature 97.2 F 97.5 F Pulse Rate 85 78 Respiratory Rate 16 18 Blood Pressure 95/54 L 98/63 Pulse Oximetry 96 94 Oxygen Delivery Method Room Air Room Air BMI result Body Mass Index 45.7 Labs 12/24/23 13:39 01/05/24 08:22 Labs: Laboratory Results - last 48 hr 01/07/24 07:14 Iron 79 TIBC 255 % Saturation 31 Unsat Iron Binding 176 Imaging Radiology Impressions: ITS Impressions KUB X-Ray 01/03/24 11:34 IMPRESSION: Moderate colonic stool burden suggesting constipation. Medications Medications Current Medications Acetaminophen (Acetaminophen 325 Mg Tablet) 650 mg PO Q4H PRN PRN Reason: Headache/Pain Mild Scale (1-3) Last Admin: 01/06/24 21:40 Dose: 650 mg Acetaminophen/Butalbital/Caffeine (Butalb/Acetamin/Caff 50/325/40 Tablet) 1 tab PO Q4H PRN PRN Reason: MANDEL Last Admin: 01/06/24 21:38 Dose: 1 tab Al Hydroxide/Mg Hydroxide (Magnesium Hydrox/Alum Hydrox 30 Ml Oral.Susp) 30 ml PO Q6H PRN PRN Reason: Heartburn/Nausea Last Admin: 12/31/23 11:11 Dose: 30 ml Benzocaine (Throat Lozenge, Medicated Lozenge) 1 lozenge MUCOUS MEM Q1H PRN PRN Reason: Sore Throat Last Admin: 01/08/24 10:17 Dose: 1 lozenge Bethanechol Chloride (Bethanechol Chloride 25 Mg Tablet) 50 mg PO BID [facility] Last Admin: 01/08/24 09:08 Dose: 50 mg Bisacodyl (Bisacodyl 5 Mg Tablet.) 10 mg PO DAILY PRN PRN Reason: Constipation Last Admin: 01/04/24 18:05 Dose: 10 mg Calcium Carbonate (Calcium Carbonate 500 Mg Tablet) 500 mg PO DAILY@1700 [facility] Last Admin: 01/07/24 16:52 Dose: 500 mg Chlorpromazine HCl (Chlorpromazine Hcl 10 Mg Tablet) 10 mg PO BEDTIME [facility] Last Admin: 01/07/24 20:16 Dose: 10 mg Clonazepam (Clonazepam 1 Mg Tablet) 2 mg PO BEDTIME [facility] Last Admin: 01/07/24 20:16 Dose: 2 mg Clonazepam (Clonazepam 1 Mg Tablet) 1 mg PO DAILY [facility] Last Admin: 01/08/24 09:08 Dose: 1 mg Clonazepam (Clonazepam 1 Mg Tablet) 1 mg PO DAILY PRN PRN Reason: anxiety Last Admin: 01/06/24 16:56 Dose: 1 mg Clonidine HCl (Clonidine Hcl 0.1 Mg Tablet) 0.1 mg PO DAILY PRN; Protocol PRN Reason: Anxiety Last Admin: 01/07/24 12:54 Dose: 0.1 mg Diphenhydramine HCl (Diphenhydramine Hcl 25 Mg Capsule) 25 mg PO Q6H PRN PRN Reason: allergy sx Last Admin: 01/08/24 09:18 Dose: 25 mg Divalproex Sodium (Divalproex Sodium 500 Mg Tablet.) 1,000 mg PO BID [facility] Last Admin: 01/08/24 09:08 Dose: 1,000 mg Docusate Sodium (Docusate Sodium 100 Mg Capsule) 100 mg PO DAILY [facility] Last Admin: 01/08/24 09:08 Dose: 100 mg Famotidine (Famotidine 20 Mg Tablet) 10 mg PO BID [facility] Last Admin: 01/08/24 09:07 Dose: 10 mg Ferrous Sulfate (Ferrous Sulfate 324 Mg Tablet.Dr) 324 mg PO DAILY [facility] Last Admin: 01/08/24 09:07 Dose: 324 mg Hydrocortisone (Hydrocortisone 1 % Cream 28.35 Gm Tube) 1 appl TOPICAL BID PRN; Protocol PRN Reason: eczema Last Admin: 01/03/24 16:07 Dose: 1 appl Hydroxyzine HCl (Hydroxyzine Hcl 25 Mg Tablet) 25 mg PO Q6H PRN PRN Reason: Anxiety Last Admin: 01/07/24 12:50 Dose: 25 mg Lactulose (Lactulose 20 Gm/30 Ml Solution) 20 gm PO DAILY PRN PRN Reason: severe constipation Rafael Capo Carbonate (Rafael Capo Carbonate 300 Mg Tablet) 150 mg PO DAILY [facility] Last Admin: 01/08/24 09:24 Dose: Not Given Loratadine (Loratadine 10 Mg Tablet) 10 mg PO DAILY [facility] Last Admin: 01/08/24 09:08 Dose: 10 mg Lurasidone HCl (Lurasidone Hcl 40 Mg Tablet) 120 mg PO DAILY [facility] Last Admin: 01/08/24 09:07 Dose: 120 mg Magnesium Hydroxide (Milk Of Magnesia 30 Ml Oral.Susp) 30 ml PO DAILY PRN PRN Reason: Constipation Magnesium Oxide (Magnesium Oxide 400 Mg Tablet) 400 mg PO DAILY [facility] Last Admin: 01/08/24 09:07 Dose: 400 mg Meclizine HCl (Meclizine Hcl 25 Mg Tablet) 25 mg PO Q8H PRN PRN Reason: Vertigo Last Admin: 01/08/24 09:16 Dose: 25 mg Methocarbamol (Methocarbamol 750 Mg Tablet) 750 mg PO BID [facility] Last Admin: 12/27/23 08:49 Dose: 750 mg Mineral Oil (Mineral Oil Enema 133 Ml Enema) 133 ml [place] ONCE PRN PRN Reason: constipation Mirtazapine (Mirtazapine 15 Mg Tablet) 45 mg PO BEDTIME [facility] Last Admin: 01/07/24 20:15 Dose: 45 mg Montelukast Sodium (Montelukast Sodium 10 Mg Tablet) 10 mg PO BEDTIME [facility] Last Admin: 01/07/24 20:16 Dose: 10 mg Pt Own (Finasteride (1 Mg Tablet)) 1 mg PO BEDTIME [facility] Last Admin: 01/07/24 20:36 Dose: 1 mg Omeprazole (Omeprazole 40 Mg Capsule.Dr) 40 mg PO BID@0630,1630 [facility] Last Admin: 01/08/24 06:23 Dose: 40 mg Ondansetron HCl (Ondansetron Odt 4 Mg Tab.Rapdis) 4 mg TRANSLINGU Q8H PRN PRN Reason: for nausea/vomiting Last Admin: 01/02/24 10:54 Dose: 4 mg Polyethylene Glycol (Polyethylene Glycol 3350 17 Gm Powd.Pack) 17 gm PO DAILY PRN PRN Reason: Constipation Quetiapine Fumarate (Quetiapine Fumarate 50 Mg Tablet) 150 mg PO BEDTIME [facility] Last Admin: 01/07/24 20:15 Dose: 150 mg Sertraline HCl (Sertraline Hcl 50 Mg Tablet) 50 mg PO DAILY [facility] Last Admin: 01/08/24 09:08 Dose: 50 mg Simethicone (Simethicone 80 Mg Tab.Chew) 80 mg PO QIDWMHS PRN PRN Reason: Gas Last Admin: 01/07/24 11:22 Dose: 80 mg Sodium Biphosphate/Sodium Phosphate (Sodium Phosphate,Rock-Dibasic 133 Ml Enema) 133 ml [place] ONCE PRN PRN Reason: Constipation Last Admin: 01/04/24 11:52 Dose: 133 ml Spironolactone (Spironolactone 25 Mg Tablet) 25 mg PO BID [facility] Last Admin: 01/08/24 09:07 Dose: 25 mg Tamsulosin HCl (Tamsulosin Hcl 0.4 Mg Capsule) 0.4 mg PO BEDTIME [facility] Last Admin: 01/07/24 20:16 Dose: 0.4 mg Testosterone Cypionate (Testosterone Cypionate 200 Mg/1 Ml Vial) 100 mg IM We@1000 [facility] Last Admin: 01/04/24 11:48 Dose: 100 mg Allergies Allergies Allergy/AdvReac Type Severity Reaction Status Date / Time lidocaine Allergy Severe severe Verified 10/07/23 15:49 burning- injected lidocaine only trazodone Allergy Severe Depression Verified 10/07/23 15:49 environmental allergies Allergy Runny Nose Verified 10/07/23 15:49 feathers Allergy Swelling Verified 10/07/23 15:49 gabapentin AdvReac Severe blisters Verified 10/07/23 15:49 sucralose AdvReac Severe migraines Verified 10/07/23 15:49 [From Splenda (sucralose)] topiramate [From Topamax] AdvReac Severe serotonin Verified 10/07/23 15:49 syndrome watermelon AdvReac Severe swollen Verified 10/07/23 15:49 tongue Antihistamines - Alkylamine AdvReac Intermediate nose bleeds Verified 10/07/23 15:49 citalopram [From Celexa] AdvReac Intermediate hallucinati Verified 10/07/23 15:49 ons duloxetine [From Cymbalta] AdvReac Intermediate mood swings Verified 10/07/23 15:49 pregabalin [From Lyrica] AdvReac Intermediate mood swings Verified 10/07/23 15:49 tramadol AdvReac Intermediate hives/itchi Verified 10/07/23 15:49 ng venlafaxine AdvReac Intermediate mood swings Verified 10/07/23 15:49 NSAIDS (Non-Steroidal AdvReac Unknown Verified 12/29/23 17:23 Anti-Inflamma Assessment & Plan Assessment & Plan (1) PTSD (post-traumatic stress disorder): Status: Acute Code(s): F43.10 - Post-traumatic stress disorder, unspecified Assessment and Plan: decreased anxiety/ managing trigger on unit with roommate situation- (2) Bipolar disorder: Qualifiers: Current bipolar episode type: mixed Current episode severity: moderate Status: Acute Code(s): F31.9 - Bipolar disorder, unspecified Assessment and Plan: 01/04- Continue regime Pt working with team on housing and discharge planning. 01/05- Continue Depakote titration 01/06 tolerating inc depakote 01/08/24- ongoing somatic feelings but managing better and pleased with med changes - hoping for dc Plan 28 year old transgender male s/p elective hysterectomy/R oophorectomy (L ovary in tact), bipolar disorder, gerd, ibs, asthma admitted to psychiatry with consult placed to hospitalist service due to LLQ pain. The patient's abdominal exam is benign overall. I do suspect pain is related to constipation noted on KUB. At this time, further imaging with CT abd/pelvis is not indicated. There is some vaginal discharge. I have low suspicion that the patient's pain is related to the hysterectomy, but given abd discomfort with vaginal discharge s/p hysterectomy, can consider RECRUITING COORDINATOR consult. Would not advise transvaginal U/S at this time unless advised by RECRUITING COORDINATOR. #LLQ pain -likely r/t constipation. Further imaging with CT not indicated at this time given benign exam, absence of fevers/vomiting/rectal bleed -Recommend jamila miralax and docusate BID while on oxycodone. Can return to prn once narcotics are discontinued. Limit narcotic use -Can continue with prn mild of mag -Given vaginal discharge, check for gonorrhea/chlamydia, trich, bv -Consider disintegrator operator consult given recent hysterectomy with new llq pain and vaginal discharge #Dizziness -does have exam findings and clinical history consistent with vertigo. Continue meclizine prn -given positional lightheadedness, would also evaluate for orthostatic hypotension. Check orthostatic VS #Vaginal discharge -as above Thank you for this consult. Will continue following for results. Please reach out sooner should patient develop any worsening pain or fevers. Patient educated on: medication risk/benefits and therapeutic strategies Informed Consent: understands Reason for continued inpatient stay Substantial Risk for: rapid decompensation Time Spent With Patient Time: Total time managing care of this patient today ____ minutes.
[2024-01-08 18:00] VITALS: BP 120/77; PULSE 84; TEMP 36.8; O2SAT 99
[2024-01-08] MEDS: Mirtazapine 15 MG TABLET 45 MG PO (20:02)
[2024-01-08] MEDS: chlorproMAZINE HCl 10 MG TABLET PO (20:03)
[2024-01-08] MEDS: Montelukast Sodium 10 MG TABLET PO (20:03)
[2024-01-08] MEDS: clonazePAM 1 MG TABLET 2 MG PO (20:03)
[2024-01-08] MEDS: Tamsulosin HCL 0.4 MG CAPSULE PO (20:04)
[2024-01-08] MEDS: QUEtiapine Fumarate 50 MG TABLET 150 MG PO (20:05)
[2024-01-08] MEDS: Acetaminophen 325 MG TABLET 650 MG PO (20:12)
[2024-01-09] MEDS: cloNIDine HCL 0.1 MG TABLET PO (00:53)
[2024-01-09] MEDS: Throat Lozenge, Medicated LOZENGE 1 LOZENGE MUCOUS MEM ×3 (00:53→20:34)
[2024-01-09] MEDS: Omeprazole 40 MG CAPSULE.DR PO ×2 (06:03→17:20)
[2024-01-09 08:15] VITALS: BP 86/48; PULSE 80; RESP 18; TEMP 36.2
[2024-01-09] MEDS: Lurasidone HCl 40 MG TABLET 120 MG PO (08:44)
[2024-01-09] MEDS: clonazePAM 1 MG TABLET PO ×2 (08:44→14:34)
[2024-01-09] MEDS: Famotidine 20 MG TABLET 10 MG PO ×2 (08:45→20:25)
[2024-01-09] MEDS: Loratadine 10 MG TABLET PO (08:46)
[2024-01-09] MEDS: Sertraline HCL 50 MG TABLET PO (08:46)
[2024-01-09] MEDS: Ferrous Sulfate 324 MG TABLET.DR PO (08:46)
[2024-01-09] MEDS: Divalproex Sodium 500 MG TABLET.DR 1000 MG PO ×2 (08:46→20:28)
[2024-01-09] MEDS: Bethanechol Chloride 25 MG TABLET 50 MG PO ×2 (08:46→20:29)
[2024-01-09] MEDS: Magnesium Oxide 400 MG TABLET PO (08:46)
[2024-01-09] MEDS: Spironolactone 25 MG TABLET PO ×2 (08:46→20:26)
[2024-01-09 09:35] VITALS: BP 128/75; PULSE 107
[2024-01-09] MEDS: Acetaminophen 325 MG TABLET 650 MG PO ×2 (14:34→20:30)
--- NOTE | 2024-01-09 15:38 | HO.PSYCHPN ---
Subjective Subjective Date of Service: 01/09/24 Reason For Visit: Depression anxiety PTSD Autism SI HI Subjective Notes: Conditional Voluntary Healthcare Proxy: No Guardianship: No Medical Problems Affecting Mental Status: No Interim History: 28 yo Male identified patient states medications are helping; reports still has depression and anxiety but feeling much better; taking care of ADLS and eating well. Has meeting with [facility] to connect with supports and housing options today; feeling ready for discharge tomorrow morning. using PRNS due to noise and high energy on unti - feels helpful; no SI or HO; expresses hope for future Medication Compliance: Yes Side effects from medications: No Attending Groups: Yes Review of Systems Acute medical concerns: No Medical Review of Systems: unchanged Review of Systems Review of Systems migraine constipation resolving LLQ pain resolving Yes all other systems are reviewed and are negative and Unobtainable due to mental status Constitutional: Reports as per [facility] Mental Status Exam Mental Status Exam Patient Appearance: Well Grooomed and Appropriate Patient Orientation: Person, Place, Time and Situation Level of Consciousness: Awake Patient Behavior: Appropriate and Cooperative Mood Description: Anxious Affect Description: Calm Patient Cognition Impaired: No Ability to Follow Directions: Good Speech Pattern: Clear Memory Description: Intact (reports limited childhood memory) Hallucinations: None Delusions: Not Present Thought Process: Intact and Goal Oriented Thought Content: positive for Intact and positive for Goal Oriented Judgement: Good Diagnostics Vital Signs (24Hr): Vital Signs - 24 hr 01/08/24 18:00 01/09/24 08:15 01/09/24 09:35 Temperature 98.2 F 97.2 F Pulse Rate 84 80 107 H Respiratory Rate 18 Blood Pressure 120/77 86/48 L 128/75 Pulse Oximetry 99 Oxygen Delivery Method Room Air Room Air BMI result Body Mass Index 45.7 Labs 12/24/23 13:39 01/05/24 08:22 Imaging Radiology Impressions: ITS Impressions KUB X-Ray 01/03/24 11:34 IMPRESSION: Moderate colonic stool burden suggesting constipation. Medications Medications Current Medications Acetaminophen (Acetaminophen 325 Mg Tablet) 650 mg PO Q4H PRN PRN Reason: Headache/Pain Mild Scale (1-3) Last Admin: 01/09/24 14:34 Dose: 650 mg Acetaminophen/Butalbital/Caffeine (Butalb/Acetamin/Caff 50/325/40 Tablet) 1 tab PO Q4H PRN PRN Reason: MANDEL Last Admin: 01/06/24 21:38 Dose: 1 tab Al Hydroxide/Mg Hydroxide (Magnesium Hydrox/Alum Hydrox 30 Ml Oral.Susp) 30 ml PO Q6H PRN PRN Reason: Heartburn/Nausea Last Admin: 12/31/23 11:11 Dose: 30 ml Benzocaine (Throat Lozenge, Medicated Lozenge) 1 lozenge MUCOUS MEM Q1H PRN PRN Reason: Sore Throat Last Admin: 01/09/24 14:34 Dose: 1 lozenge Bethanechol Chloride (Bethanechol Chloride 25 Mg Tablet) 50 mg PO BID [facility] Last Admin: 01/09/24 08:46 Dose: 50 mg Bisacodyl (Bisacodyl 5 Mg Tablet.Dr) 10 mg PO DAILY PRN PRN Reason: Constipation Last Admin: 01/04/24 18:05 Dose: 10 mg Calcium Carbonate (Calcium Carbonate 500 Mg Tablet) 500 mg PO DAILY@1700 [facility] Last Admin: 01/08/24 16:49 Dose: 500 mg Chlorpromazine HCl (Chlorpromazine Hcl 10 Mg Tablet) 10 mg PO BEDTIME [facility] Last Admin: 01/08/24 20:03 Dose: 10 mg Clonazepam (Clonazepam 1 Mg Tablet) 2 mg PO BEDTIME [facility] Last Admin: 01/08/24 20:03 Dose: 2 mg Clonazepam (Clonazepam 1 Mg Tablet) 1 mg PO DAILY [facility] Last Admin: 01/09/24 08:44 Dose: 1 mg Clonazepam (Clonazepam 1 Mg Tablet) 1 mg PO DAILY PRN PRN Reason: anxiety Last Admin: 01/09/24 14:34 Dose: 1 mg Clonidine HCl (Clonidine Hcl 0.1 Mg Tablet) 0.1 mg PO DAILY PRN; Protocol PRN Reason: Anxiety Last Admin: 01/09/24 00:53 Dose: 0.1 mg Diphenhydramine HCl (Diphenhydramine Hcl 25 Mg Capsule) 25 mg PO Q6H PRN PRN Reason: allergy sx Last Admin: 01/08/24 09:18 Dose: 25 mg Divalproex Sodium (Divalproex Sodium 500 Mg Tablet.) 1,000 mg PO BID [facility] Last Admin: 01/09/24 08:46 Dose: 1,000 mg Famotidine (Famotidine 20 Mg Tablet) 10 mg PO BID [facility] Last Admin: 01/09/24 08:45 Dose: 10 mg Ferrous Sulfate (Ferrous Sulfate 324 Mg Tablet.) 324 mg PO DAILY [facility] Last Admin: 01/09/24 08:46 Dose: 324 mg Hydrocortisone (Hydrocortisone 1 % Cream 28.35 Gm Tube) 1 appl TOPICAL BID PRN; Protocol PRN Reason: eczema Last Admin: 01/03/24 16:07 Dose: 1 appl Hydroxyzine HCl (Hydroxyzine Hcl 25 Mg Tablet) 25 mg PO Q6H PRN PRN Reason: Anxiety Last Admin: 01/07/24 12:50 Dose: 25 mg Lactulose (Lactulose 20 Gm/30 Ml Solution) 20 gm PO DAILY PRN PRN Reason: severe constipation Loratadine (Loratadine 10 Mg Tablet) 10 mg PO DAILY [facility] Last Admin: 01/09/24 08:46 Dose: 10 mg Lurasidone HCl (Lurasidone Hcl 40 Mg Tablet) 120 mg PO DAILY [facility] Last Admin: 01/09/24 08:44 Dose: 120 mg Magnesium Hydroxide (Milk Of Magnesia 30 Ml Oral.Susp) 30 ml PO DAILY PRN PRN Reason: Constipation Magnesium Oxide (Magnesium Oxide 400 Mg Tablet) 400 mg PO DAILY [facility] Last Admin: 01/09/24 08:46 Dose: 400 mg Meclizine HCl (Meclizine Hcl 25 Mg Tablet) 25 mg PO Q8H PRN PRN Reason: Vertigo Last Admin: 01/08/24 20:12 Dose: 25 mg Methocarbamol (Methocarbamol 750 Mg Tablet) 750 mg PO BID [facility] Last Admin: 12/27/23 08:49 Dose: 750 mg Mineral Oil (Mineral Oil Enema 133 Ml Enema) 133 ml [place] ONCE PRN PRN Reason: constipation Mirtazapine (Mirtazapine 15 Mg Tablet) 45 mg PO BEDTIME [facility] Last Admin: 01/08/24 20:02 Dose: 45 mg Montelukast Sodium (Montelukast Sodium 10 Mg Tablet) 10 mg PO BEDTIME [facility] Last Admin: 01/08/24 20:03 Dose: 10 mg Pt Own (Finasteride (1 Mg Tablet)) 1 mg PO BEDTIME [facility] Last Admin: 01/08/24 20:02 Dose: 1 mg Omeprazole (Omeprazole 40 Mg Capsule.) 40 mg PO BID@0630,1630 [facility] Last Admin: 01/09/24 06:03 Dose: 40 mg Ondansetron HCl (Ondansetron Odt 4 Mg Tab.Rapdis) 4 mg TRANSLINGU Q8H PRN PRN Reason: for nausea/vomiting Last Admin: 01/02/24 10:54 Dose: 4 mg Polyethylene Glycol (Polyethylene Glycol 3350 17 Gm Powd.Pack) 17 gm PO DAILY PRN PRN Reason: Constipation Quetiapine Fumarate (Quetiapine Fumarate 50 Mg Tablet) 150 mg PO BEDTIME [facility] Last Admin: 01/08/24 20:05 Dose: 150 mg Sertraline HCl (Sertraline Hcl 50 Mg Tablet) 50 mg PO DAILY [facility] Last Admin: 01/09/24 08:46 Dose: 50 mg Simethicone (Simethicone 80 Mg Tab.Chew) 80 mg PO QIDWMHS PRN PRN Reason: Gas Last Admin: 01/07/24 11:22 Dose: 80 mg Sodium Biphosphate/Sodium Phosphate (Sodium Phosphate,[place]-Dibasic 133 Ml Enema) 133 ml [place] ONCE PRN PRN Reason: Constipation Last Admin: 01/04/24 11:52 Dose: 133 ml Spironolactone (Spironolactone 25 Mg Tablet) 25 mg PO BID [facility] Last Admin: 01/09/24 08:46 Dose: 25 mg Tamsulosin HCl (Tamsulosin Hcl 0.4 Mg Capsule) 0.4 mg PO BEDTIME [facility] Last Admin: 01/08/24 20:04 Dose: 0.4 mg Testosterone Cypionate (Testosterone Cypionate 200 Mg/1 Ml Vial) 100 mg IM We@1000 [facility] Last Admin: 01/04/24 11:48 Dose: 100 mg Allergies Allergies Allergy/AdvReac Type Severity Reaction Status Date / Time lidocaine Allergy Severe severe Verified 10/07/23 15:49 burning- injected lidocaine only trazodone Allergy Severe Depression Verified 10/07/23 15:49 environmental allergies Allergy Runny Nose Verified 10/07/23 15:49 feathers Allergy Swelling Verified 10/07/23 15:49 gabapentin AdvReac Severe blisters Verified 10/07/23 15:49 sucralose AdvReac Severe migraines Verified 10/07/23 15:49 [From Splenda (sucralose)] topiramate [From Topamax] AdvReac Severe serotonin Verified 10/07/23 15:49 syndrome watermelon AdvReac Severe swollen Verified 10/07/23 15:49 tongue Antihistamines - Alkylamine AdvReac Intermediate nose bleeds Verified 10/07/23 15:49 citalopram [From Celexa] AdvReac Intermediate hallucinati Verified 10/07/23 15:49 ons duloxetine [From Cymbalta] AdvReac Intermediate mood swings Verified 10/07/23 15:49 pregabalin [From Lyrica] AdvReac Intermediate mood swings Verified 10/07/23 15:49 tramadol AdvReac Intermediate hives/itchi Verified 10/07/23 15:49 ng venlafaxine AdvReac Intermediate mood swings Verified 10/07/23 15:49 NSAIDS (Non-Steroidal AdvReac Unknown Verified 12/29/23 17:23 Anti-Inflamma Assessment & Plan Assessment & Plan (1) PTSD (post-traumatic stress disorder): Status: Acute Code(s): F43.10 - Post-traumatic stress disorder, unspecified Assessment and Plan: decreased anxiety/ managing trigger on unit with roommate situation- (2) Bipolar disorder: Qualifiers: Current bipolar episode type: mixed Current episode severity: moderate Status: Acute Code(s): F31.9 - Bipolar disorder, unspecified Assessment and Plan: 01/04- Continue regime Pt working with team on housing and discharge planning. 01/05- Continue Depakote titration 01/06 tolerating inc depakote 01/08/24- ongoing somatic feelings but managing better and pleased with med changes - hoping for dc 01/09/24 continue to participate in tx; working on d/c planning and ready for discharge in am Plan 01/09/24 continue to participate in tx; working on d/c planning and ready for discharge in am Patient educated on: diagnosis, medication risk/benefits and therapeutic strategies Informed Consent: understands Reason for continued inpatient stay Substantial Risk for: harm to self and rapid decompensation Time Spent With Patient Time: Total time managing care of this patient today ____ minutes.
[2024-01-09 20:05] VITALS: BP 128/72; PULSE 91; RESP 18; TEMP 36.7; O2SAT 97
[2024-01-09] MEDS: clonazePAM 1 MG TABLET 2 MG PO (20:26)
[2024-01-09] MEDS: Tamsulosin HCL 0.4 MG CAPSULE PO (20:26)
[2024-01-09] MEDS: QUEtiapine Fumarate 50 MG TABLET 150 MG PO (20:27)
[2024-01-09] MEDS: Mirtazapine 15 MG TABLET 45 MG PO (20:27)
[2024-01-09] MEDS: Montelukast Sodium 10 MG TABLET PO (20:28)
[2024-01-09] MEDS: chlorproMAZINE HCl 10 MG TABLET PO (20:29)
[2024-01-09] MEDS: Butalb/Acetamin/Caff 50/325/40 TABLET 1 TAB PO (20:29)
[2024-01-10] MEDS: Omeprazole 40 MG CAPSULE.DR PO (06:28)
[2024-01-10 08:00] VITALS: BP 108/55; PULSE 71; RESP 18; TEMP 36.3; O2SAT 96
[2024-01-10] MEDS: Ferrous Sulfate 324 MG TABLET.DR PO (08:25)
[2024-01-10] MEDS: Spironolactone 25 MG TABLET PO (08:25)
[2024-01-10] MEDS: clonazePAM 1 MG TABLET PO (08:25)
[2024-01-10] MEDS: Famotidine 20 MG TABLET 10 MG PO (08:25)
[2024-01-10] MEDS: Sertraline HCL 50 MG TABLET PO (08:25)
[2024-01-10] MEDS: Loratadine 10 MG TABLET PO (08:26)
[2024-01-10] MEDS: Bethanechol Chloride 25 MG TABLET 50 MG PO (08:26)
[2024-01-10] MEDS: Magnesium Oxide 400 MG TABLET PO (08:26)
[2024-01-10] MEDS: Divalproex Sodium 500 MG TABLET.DR 1000 MG PO (08:26)
[2024-01-10] MEDS: Lurasidone HCl 40 MG TABLET 120 MG PO (08:26)
--- NOTE | 2024-01-10 14:30 | P.DS_ITS ---
DS: Providers Provider Date of Service: 01/10/24 Date of admission: 12/27/23 16:00 Date of discharge: 01/10/24 Primary care physician: Sami Abel MD Admitting clinician: Nika Matthews Attending physician on admission: Nika Matthews Consults: 01/03/24 13:31 Consult to Hospitalist Routine Comment: constipation Consulting Provider: Hospitalist Reason For Exam: LLQ Pain,Hysterectomy 11/29/23-L ovary intact, Attending physician on discharge: Sara Ledezma Discharging clinician: Sara Ledezma DS: Diagnosis Discharge Diagnosis (1) PTSD (post-traumatic stress disorder): Start date: 12/27/23 Start time: 17:00 Status: Acute (2) Bipolar disorder: Start date: 12/27/23 Start time: 17:00 Status: Acute DS: Medications Discharge Medications Home Medications: Home Medications Medication Instructions Recorded Confirmed testosterone cypionate 200 mg/mL 100 mg IM QWEEK 10/29/20 12/24/23 intramuscular oil Previous Rx's Medication Instructions Recorded bethanechol chloride 25 mg tablet 50 mg (2 x 25 mg) PO BID #60 tabs 01/10/24 calcium carbonate 500 mg calcium 500 mg PO DAILY@1700 #30 tabs 01/10/24 (1,250 mg) tablet (Oyster Shell Calcium 500) chlorpromazine 10 mg tablet 10 mg PO BEDTIME #30 tabs 01/10/24 clonazepam 1 mg tablet 1 mg PO DAILY #30 tabs 01/10/24 clonazepam 1 mg tablet 2 mg (2 x 1 mg) PO BEDTIME #30 tabs 01/10/24 clonazepam 2 mg tablet 2 mg PO BEDTIME #30 tabs 01/10/24 clonidine HCl 0.1 mg tablet 0.1 mg PO DAILY PRN Anxiety #30 01/10/24 tabs diphenhydramine HCl 25 mg capsule 25 mg PO Q6H PRN allergy sx #15 01/10/24 caps divalproex 500 mg tablet,delayed 1,000 mg (2 x 500 mg) PO BID #60 01/10/24 release tabs famotidine 20 mg tablet 10 mg (1/2 x 20 mg) PO BID #60 tabs 01/10/24 ferrous sulfate 324 mg (65 mg 324 mg PO DAILY #30 tabs 01/10/24 iron) tablet,delayed release finasteride 1 mg tablet 1 mg PO BEDTIME #30 tabs 01/10/24 loratadine 10 mg tablet 10 mg PO DAILY #30 tabs 01/10/24 lurasidone 40 mg tablet (Latuda) 120 mg (3 x 40 mg) PO DAILY #90 01/10/24 tabs mirtazapine 15 mg tablet 45 mg (3 x 15 mg) PO BEDTIME #30 01/10/24 tabs montelukast 10 mg tablet 10 mg PO BEDTIME #30 tabs 01/10/24 omeprazole 40 mg capsule,delayed 40 mg PO BID@0630,1630 #60 caps 01/10/24 release ondansetron 4 mg disintegrating 4 mg translingual Q8H PRN for 01/10/24 tablet nausea/vomiting #10 tabs quetiapine 50 mg tablet 150 mg (3 x 50 mg) PO BEDTIME #90 01/10/24 tabs sertraline 50 mg tablet 50 mg PO DAILY #30 tabs 01/10/24 spironolactone 25 mg tablet 25 mg PO BID #60 tabs 01/10/24 tamsulosin 0.4 mg capsule 0.4 mg PO BEDTIME #30 caps 01/10/24 Mental Status Exam Mental Status Exam Narrative: Well-developed, well-nourished, in NAD. Alert and oriented x4. General appearance, well groomed, appropriately dressed for season and age. Musculoskeletal: No involuntary movements noted, motor activity calm, posture within normal limits. Manner/behavior: Calm, cooperative. Speech: Fluent, unimpaired, normal rate volume and rhythm. Mood: anxious. Affect: Mood congruent. Thought process/associations: Linear Thought content: Normal Delusions: None. Hallucinations: None. Suicidality/self destructive behavior: No SI, no intent or plan Homicidality/violence: none. Reliability: Good Judgment: good Insight: Fair MSK exam: Normal ambulation, no cogwheeling or rigidity noted. Data Data Completed and Pending Completed studies during hospitalization [Text1]: 01/04/24 01/05/24 01/06/24 12:10 08:22 07:57 Sodium 142 Potassium 3.8 Chloride 110 H Carbon Dioxide 24 Anion Gap 12 BUN 15 Creatinine 1.38 Estim Creat Clear Calc 82.2 Estimated GFR 46 Random Glucose 96 Calcium 9.2 Iron TIBC % Saturation Unsat Iron Binding Total Bilirubin 0.2 AST 19 ALT 33 H Alkaline Phosphatase 82 Total Protein 6.7 Albumin 3.7 Valproic Acid 51.7 [place] 0.27 L Donya species DNA Negative Chlam trachomat DNA PCR NOT DETECTED Gardnerella DNA Probe Negative N.gonorrhoeae DNA (PCR) NOT DETECTED Trichomonas DNA Probe Negative 01/07/24 07:14 Sodium Potassium Chloride Carbon Dioxide Anion Gap BUN Creatinine Estim Creat Clear Calc Estimated GFR Random Glucose Calcium Iron 79 TIBC 255 % Saturation 31 Unsat Iron Binding 176 Total Bilirubin AST ALT Alkaline Phosphatase Total Protein Albumin Valproic Acid [place] Donya species DNA Chlam trachomat DNA PCR Gardnerella DNA Probe N.gonorrhoeae DNA (PCR) Trichomonas DNA Probe 12/24/23 Unknown Urine clean catch - Urine gaona top Urine Culture - Final Imaging Diagnostic Imaging Impressions KUB X-Ray 01/03/24 11:34 IMPRESSION: Moderate colonic stool burden suggesting constipation. DS: Summary Hospital Course Hospital Course: 28 year old transgender male with Bipolar Disorder and PTSD admitted to inpatient psychiatry . Pt also s/p elective hysterectomy/R oophorectomy (L ovary in tact), bipolar disorder, gerd, ibs, asthma admitted to psychiatry with consult placed to hospitalist service due to LLQ pain. The patient's abdominal exam is benign overall. I do suspect pain is related to constipation noted on KUB. At this time, further imaging with CT abd/pelvis is not indicated. There is some vaginal discharge. I have low suspicion that the patient's pain is related to the hysterectomy, but given abd discomfort with vaginal discharge s/p hysterectomy, can consider MRI TECHNICIAN consult. Pt treated for constipation with good results; Pt tapered off lithium due to kidney involvement and symptom and titrated onto Depakote with good results. Pt connected with additional support while inpatient and participated in discharge planning. Time spent discussing smoking cessation with patient: more than 10 minutes Status at Discharge Cognitive/behavioral status at discharge: alert and oriented x 4 ; anxious; mood stable; no pressure speech, expressing hope for future; no SI or HI. no psychosis Functional status at discharge: independent ambulation Overall status at discharge: patient is back to baseline (continues with mild anxiety) Time Spent with Patient Time attestation: Total time managing care of this patient today __35__ minutes. Time spent: Greater than 30 minutes Specific discharge activities: meeting with patient, discussion with team, review of medications, prescribing, document d/c summary Discharge Plan Discharge Anticipated Discharge Date/Time: 01/10/24 11:00 Patient Disposition: Home, Self-Care Discharge Diagnosis: Bipolar Disorder, PTSD Referrals: [facility] Therapy w Wilma Summers [Other] - 01/20/24 2:00 pm [facility] Psychiatry w Jean Traore [Other] - 01/30/24 4:15 pm (Telehealth) [facility] [Other] - 1 Week [facility] Behavioral Health Clinician Billy Peterson [Other] - 1 Week Sami Shaffer MD [Primary Care Provider] - 1 Week Discharge Medications: New clonidine HCl 0.1 mg Tablet 0.1 mg PO DAILY PRN (Reason: Anxiety) Qty: 30 0RF Protocol: Hold for SBP< HOLD for SBP < : 90 spironolactone 25 mg Tablet 25 mg PO BID Qty: 60 0RF bethanechol chloride 25 mg Tablet 50 mg PO BID Qty: 60 0RF tamsulosin 0.4 mg Capsule 0.4 mg PO BEDTIME Qty: 30 0RF diphenhydramine HCl 25 mg Capsule 25 mg PO Q6H PRN (Reason: allergy sx) Qty: 15 0RF mirtazapine 15 mg Tablet 45 mg PO BEDTIME Qty: 30 0RF sertraline 50 mg Tablet 50 mg PO DAILY Qty: 30 0RF loratadine 10 mg Tablet 10 mg PO DAILY Qty: 30 0RF quetiapine 50 mg Tablet 150 mg PO BEDTIME Qty: 90 0RF ferrous sulfate 324 mg (65 mg iron) Tablet,Delayed Release (Dr/Ec) 324 mg PO DAILY Qty: 30 0RF lurasidone [Latuda] 40 mg Tablet 120 mg PO DAILY Qty: 90 0RF clonazepam 1 mg Tablet 2 mg PO BEDTIME Qty: 30 0RF clonazepam 1 mg Tablet 1 mg PO DAILY Qty: 30 0RF divalproex 500 mg Tablet,Delayed Release (Dr/Ec) 1,000 mg PO BID Qty: 60 0RF omeprazole 40 mg Capsule,Delayed Release(Dr/Ec) 40 mg PO BID@0630,1630 Qty: 60 0RF chlorpromazine 10 mg Tablet 10 mg PO BEDTIME Qty: 30 0RF famotidine 20 mg Tablet 10 mg PO BID Qty: 60 0RF calcium carbonate [Oyster Shell Calcium 500] 500 mg calcium (1,250 mg) Tablet 500 mg PO DAILY@1700 Qty: 30 0RF montelukast 10 mg Tablet 10 mg PO BEDTIME Qty: 30 0RF ondansetron 4 mg Tablet,Disintegrating 4 mg translingual Q8H PRN (Reason: for nausea/vomiting) Qty: 10 0RF finasteride 1 mg Tablet 1 mg PO BEDTIME Qty: 30 0RF Continued clonazepam 2 mg tablet 2 mg PO BEDTIME Qty: 30 0RF testosterone cypionate 200 mg/mL oil 100 mg IM QWEEK Discontinued ondansetron HCl 4 mg tablet 4 mg PO Q8H PRN (Reason: for nausea/vomiting) Qty: 30 3RF calcium 600 mg Capsule 600 mg PO QPM famotidine 20 mg tablet 10 mg PO BID methocarbamol 750 mg tablet 750 mg PO BID fexofenadine [Lavonne] 180 mg Tablet 180 mg PO QPM finasteride 1 mg Tablet 1 mg PO QPM sertraline 50 mg Tablet 50 mg PO DAILY chlorhexidine gluconate 0.12 % Mouthwash 15 ml MUCOUS MEMBRANE BID clonazepam 1 mg tablet,disintegrating 1 mg PO DAILY PRN (Reason: panic attack) lurasidone 120 mg tablet 120 mg PO DAILY quetiapine 200 mg tablet extended release 24 hr 150 mg PO BEDTIME mirtazapine 45 mg tablet 45 mg PO BEDTIME lithium carbonate 450 mg tablet extended release 450 mg PO BID montelukast 10 mg tablet 10 mg PO QPM ferrous sulfate [FeroSul] 325 mg (65 mg iron) tablet 160 mg PO DAILY amiloride 5 mg tablet 5 mg PO DAILY omeprazole 40 mg capsule,delayed release(DR/EC) 40 mg PO BID Qty: 180 1RF bethanechol chloride 50 mg tablet 50 mg PO BID Qty: 60 5RF Discharge Orders: Discharge Order (Routine); Ordered 01/10/24 Ordered By: Sara Ledezma Activity on Discharge: As tolerated Stand Alone Forms: Patient Portal Discharge page, Community Support Care Plan Goals: continue medications follow up with outpatient providers Health Concerns: mood stabilty Plan of Treatment: continue medications as prescribed Assessment: alert and oriented x 4 ; mood stable mild anxiety, future oriented, no psychosis, no SI or HI Discharge Date/Time: 01/10/24 11:59
== END 2024-01-10 11:59 | disposition home or self-care (01) | DRG 885 ==
LOC: HO.ED 16:31 → HO.PM5 12-27 16:09
PROVIDERS: Emergency Medicine; Physician Assistant; Physician Assistant Medical; Admitting Provider Clinical Nurse Specialist Psychiatric/Mental Health, Adult; Emergency Provider Internal Medicine; PCP Internal Medicine; Visit Provider Clinical Nurse Specialist Psychiatric/Mental Health, Adult
DX: F31.9 Bipolar disorder, unspecified (principal); R45.851 Suicidal ideations; F43.10 Post-traumatic stress disorder, unspecified; K59.00 Constipation, unspecified; F64.0 Transsexualism; R45.850 Homicidal ideations; K21.9 Gastro-esophageal reflux disease without esophagitis; Z20.822 Contact with and (suspected) exposure to COVID-19; Z87.891 Personal history of nicotine dependence; Z79.899 Other long term (current) drug therapy
CPT/HCPCS: 0353U; 36415; 74018; 80048; 80053; 80061; 80076; 80143; 80164; 80178; 80179; 80307; 81001; 82607; 82746; 83036; 83540; 83735; 84439; 84443; 85025; 87086; 87480; 87502; 87510; 87635; 87660; 93005; 99285; J1071; S9485

== ENCOUNTER → 2023-12-27 12:35 | Outpatient (BNV) | payer OTHER, SELFPAY | PROVIDERS: Admitting Provider Clinical Nurse Specialist Psychiatric/Mental Health, Adult; Emergency Provider Internal Medicine; PCP Internal Medicine; Visit Provider Internal Medicine Cardiovascular Disease | DX: I45.81 Long QT syndrome (principal) | CPT/HCPCS: 93010 ==

== ENCOUNTER → 2023-12-27 16:00 | Outpatient (BNV) | payer OTHER, SELFPAY | PROVIDERS: Admitting Provider Clinical Nurse Specialist Psychiatric/Mental Health, Adult; Emergency Provider Internal Medicine; PCP Internal Medicine; Visit Provider Clinical Nurse Specialist Psychiatric/Mental Health, Adult | DX: F31.4 Bipolar disorder, current episode depressed, severe, without psychotic features (principal); F43.11 Post-traumatic stress disorder, acute | CPT/HCPCS: 90792; 99231; 99232; 99239 ==

== ENCOUNTER → 2023-12-27 16:00 | Outpatient (BNV) | payer OTHER, SELFPAY | PROVIDERS: Admitting Provider Clinical Nurse Specialist Psychiatric/Mental Health, Adult; Emergency Provider Internal Medicine; PCP Internal Medicine; Visit Provider Physician Assistant | DX: R10.32 Left lower quadrant pain (principal) | CPT/HCPCS: 99222 ==

== ENCOUNTER 2024-02-29 10:24 | Outpatient (AMB) | payer OTHER, SELFPAY ==
--- NOTE | 2024-02-29 10:25 | A.OFFVIS_ITS ---
Vital Signs 02/29/24 10:36 Height 5 ft 6 in Weight 288 lb 6 oz BMI 46.5 BP 124/76 Blood Pressure Location Lt brachial Position Sitting Respiration 18 Pulse 100 Pulse Source Pulse Oximeter Pulse Oximetry (%) 95 Oxygen Delivery Method Room Air Intake Visit Reasons: Medication review Intake Note: Patient comes in for medication review. Reports pain 05/16. Allergies lidocaine Allergy (Severe, Verified 02/29/24 10:38) severe burning- injected lidocaine only trazodone Allergy (Severe, Verified 02/29/24 10:38) Depression environmental allergies Allergy (Verified 02/29/24 10:38) Runny Nose feathers Allergy (Verified 02/29/24 10:38) Swelling gabapentin Adverse Reaction (Severe, Verified 02/29/24 10:38) blisters sucralose [From Splenda (sucralose)] Adverse Reaction (Severe, Verified 02/29/24 10:38) migraines topiramate [From Topamax] Adverse Reaction (Severe, Verified 02/29/24 10:38) serotonin syndrome watermelon Adverse Reaction (Severe, Verified 02/29/24 10:38) swollen tongue Antihistamines - Alkylamine Adverse Reaction (Intermediate, Verified 02/29/24 10:38) nose bleeds citalopram [From Celexa] Adverse Reaction (Intermediate, Verified 02/29/24 10:38) hallucinations duloxetine [From Cymbalta] Adverse Reaction (Intermediate, Verified 02/29/24 10:38) mood swings pregabalin [From Lyrica] Adverse Reaction (Intermediate, Verified 02/29/24 10:38) mood swings tramadol Adverse Reaction (Intermediate, Verified 02/29/24 10:38) hives/itching venlafaxine Adverse Reaction (Intermediate, Verified 02/29/24 10:38) mood swings NSAIDS (Non-Steroidal Anti-Inflamma Adverse Reaction (Verified 02/29/24 10:38) Unknown HPI Comments Details: Denisse is very pleasant 29 years old transgender female who presents in my office with complains on lower back pain. She was in the past in this office with widespread spasticity symptoms. She was started on Robaxin. Now she reports that most of the pain she has in the projection of the lower lumbar spine. Physical exam is as below. I suspect sacroiliitis bilateral more on the right, I will schedule the patient for bilateral sacroiliac joint injection and I will see her after the injection in my office. She was under care of search specialist in the past. She request the renewal of her Robaxin prescription. Explained to the patient that the her primary care physician may continue to prescribe the same medication for her. I do not mind to renew his prescription with some refills for her but she is recommended to continue with PCP [facility] Medical History Bipolar disorder Hx of concussion History of panic attacks Urinary retention with incomplete bladder emptying Encounter for screening Bipolar 1 disorder Anxiety PTSD (post-traumatic stress disorder) Asthma Irritable bowel syndrome with constipation Gastroesophageal reflux disease without esophagitis Nausea Surgical History Hx of wisdom tooth extraction Hx of colonoscopy (~02/2020) H/O esophagogastroduodenoscopy No pertinent past surgical history (~02/2020) Family History Mother Pacemaker Father Family history unknown Social History Household Members: Unknown / Unable to assess Housing: House Are you a primary long term care administrator to a significant other at home: No Do you presently have visiting nurse or other home services: No Alcohol intake: current Alcohol intake frequency: holidays/special occasions only Patient Tobacco Use Status: Former Tobacco user Quit Date: 2008 Tobacco use type: Cigarette Years Smoked: 2008 Substance Use Type: Marijuana service: No Sexual orientation: Transgender Review of Systems Const All systems reviewed & are unremarkable except as noted in HPI and below ENT Denies Normal hearing present Neuro Denies Normal hearing present, Denies Abnormal speech present and Denies confusion Psych Denies confusion Physical Exam Vital Signs: Last Vital Signs Pulse 100 02/29/24 10:36 Resp 18 02/29/24 10:36 BP 124/76 02/29/24 10:36 Pulse Ox 95 02/29/24 10:36 Oxygen Delivery Method Room Air 02/29/24 10:36 BMI result Body Mass Index 46.5 Const General: No confusion Orientation/consciousness: No confusion Resp Effort & Inspection: normal respiratory effort and able to speak in complete sentences Back/Spine/Pelvis Other: Yan test is positive more on the left and less on the right. Stinchfield test is positive on the right. Pelvic compression test is positive on the right. Pelvic distraction test is negative. Fourteen finger test is positive on the right. Neuro General: No confusion Cranial nerves: No Normal hearing present Speech: No Abnormal speech present Psych Mental Status: mental status grossly normal Speech and movement: Clear speech present Attitude: cooperative Thought process: Normal thought process present Thought content: Normal thought content present Insight: Good insight present (Psych) Judgement: Good judgement present (Psych) Assessment & Plan Assessment & Plan (1) Muscle spasm: Code(s): M62.838 - Other muscle spasm Category: Medical (2) Polyarthralgia: Code(s): M25.50 - Pain in unspecified joint Category: Medical (3) Migraines: Code(s): G43.909 - Migraine, unspecified, not intractable, without status migrainosus Category: Medical (4) Bilateral sacroiliitis: Code(s): M46.1 - Sacroiliitis, not elsewhere classified Category: Medical (5) Sacroiliac joint pain: Code(s): M53.3 - Sacrococcygeal disorders, not elsewhere classified Category: Medical Plan Sacroiliac joint injection will be scheduled for this patient. It will be bilateral sacroiliac joint injection. After that I will see the patient for the follow-up soon after the procedure. Patient Instructions: I here by testify that I spent 30 minutes in conversation with this patient as well as planning their care and organizing this note. Coding Level of Care Code Est Pt Level 4 (12187) Diagnoses Muscle spasm M62.838 Polyarthralgia M25.50 Migraines G43.909 Bilateral sacroiliitis M46.1 Sacroiliac joint pain M53.3
[2024-02-29 10:36] VITALS: BP 124/76; PULSE 100; RESP 18; O2SAT 95; BMI 46.5
== END 2024-02-29 10:44 | disposition home or self-care (01) ==
PROVIDERS: PCP Internal Medicine; Visit Provider Anesthesiology
DX: M62.838 Other muscle spasm (principal); M25.50 Pain in unspecified joint; G43.909 Migraine, unspecified, not intractable, without status migrainosus; M46.1 Sacroiliitis, not elsewhere classified; M53.3 Sacrococcygeal disorders, not elsewhere classified
CPT/HCPCS: 99214

== ENCOUNTER → 2024-02-29 10:24 | Outpatient (BNVA) | payer OTHER, SELFPAY | PROVIDERS: PCP Internal Medicine; Visit Provider Anesthesiology | DX: Z51.81 Encounter for therapeutic drug level monitoring (principal); M53.3 Sacrococcygeal disorders, not elsewhere classified; M46.1 Sacroiliitis, not elsewhere classified; M25.50 Pain in unspecified joint; M62.838 Other muscle spasm; G43.909 Migraine, unspecified, not intractable, without status migrainosus; Z79.899 Other long term (current) drug therapy | CPT/HCPCS: 99212 ==

== ENCOUNTER 2024-04-03 06:18 | Outpatient (REF) | payer OTHER, SELFPAY | END 2024-04-03 06:19 | disposition home or self-care (01) | LOC: CF 06:18 | PROVIDERS: Visit Provider Anesthesiology | DX: Z13.89 Encounter for screening for other disorder (principal) ==

== ENCOUNTER 2024-05-08 10:39 | Outpatient (AMB) | payer OTHER, SELFPAY ==
--- NOTE | 2024-05-08 10:47 | MHC.OFFVIS ---
Vital Signs 05/08/24 10:55 Height 5 ft 6 in Weight 298 lb BMI 48.1 BP 137/60 Blood Pressure Location Rt brachial Position Sitting Pulse 116 H Intake Visit Reasons: Abdominal wall lipoma Intake Note: Patient referred by pcp Dr. Michelle for lipoma on abdomen. Noticed it about 1.5m ago. Patient c/o: tender to touch, enlarging. No hx of skin CA. Allergy: Lidocaine Professor Of Religion Required: No Accompanied by: Self / Same As Patient Allergies lidocaine Allergy (Severe, Verified 05/08/24 10:52) severe burning- injected lidocaine only trazodone Allergy (Severe, Verified 05/08/24 10:52) Depression environmental allergies Allergy (Verified 05/08/24 10:52) Runny Nose feathers Allergy (Verified 05/08/24 10:52) Swelling gabapentin Adverse Reaction (Severe, Verified 05/08/24 10:52) blisters sucralose [From Splenda (sucralose)] Adverse Reaction (Severe, Verified 05/08/24 10:52) migraines topiramate [From Topamax] Adverse Reaction (Severe, Verified 05/08/24 10:52) serotonin syndrome watermelon Adverse Reaction (Severe, Verified 05/08/24 10:52) swollen tongue Antihistamines - Alkylamine Adverse Reaction (Intermediate, Verified 05/08/24 10:52) nose bleeds citalopram [From Celexa] Adverse Reaction (Intermediate, Verified 05/08/24 10:52) hallucinations duloxetine [From Cymbalta] Adverse Reaction (Intermediate, Verified 05/08/24 10:52) mood swings pregabalin [From Lyrica] Adverse Reaction (Intermediate, Verified 05/08/24 10:52) mood swings tramadol Adverse Reaction (Intermediate, Verified 05/08/24 10:52) hives/itching venlafaxine Adverse Reaction (Intermediate, Verified 05/08/24 10:52) mood swings NSAIDS (Non-Steroidal Anti-Inflamma Adverse Reaction (Verified 05/08/24 10:52) Unknown Medication List - Last Reconciled 05/08/24 by Abdifatah Carter MD bethanechol chloride 50 mg PO BID calcium carbonate (Oyster Shell Calcium 500) 500 mg PO DAILY@1700 chlorpromazine 10 mg PO BEDTIME clonazepam 2 mg (2 x 1 mg) PO BEDTIME clonazepam 1 mg PO DAILY clonazepam 2 mg PO BEDTIME clonidine HCl 0.1 mg See Protocol PO DAILY PRN diphenhydramine HCl 25 mg PO Q6H PRN divalproex 1,000 mg (2 x 500 mg) PO BID famotidine 10 mg (1/2 x 20 mg) PO BID finasteride 1 mg PO BEDTIME linaclotide (Linzess) 72 mcg PO QAM 60 days lurasidone mg PO methocarbamol 750 mg PO BID PRN 30 days mirtazapine 45 mg PO BEDTIME montelukast 10 mg PO BEDTIME omeprazole 40 mg PO BID@0630,1630 ondansetron 4 mg translingual Q8H PRN quetiapine mg PO sertraline 50 mg PO DAILY tamsulosin 0.4 mg PO BEDTIME testosterone cypionate 100 mg IM QWEEK HPI Comments Details: Patient presents for evaluation of a symptomatic abdominal wall lipoma. Been there several months time. Increasing in size and become more symptomatic. Patient would like to have this removed. No such lesions elsewhere. Chart was reviewed the patient evaluate [facility] Medical History Bipolar disorder Hx of concussion History of panic attacks Urinary retention with incomplete bladder emptying Encounter for screening Bipolar 1 disorder Anxiety PTSD (post-traumatic stress disorder) Asthma Irritable bowel syndrome with constipation Gastroesophageal reflux disease without esophagitis Nausea Surgical History (Updated 05/08/24 @ 11:27 by Abdifatah Carter MD) H/O: hysterectomy Hx of wisdom tooth extraction Hx of colonoscopy (~02/2020) H/O esophagogastroduodenoscopy No pertinent past surgical history (~02/2020) Family History Mother Pacemaker Father Family history unknown Social History Household Members: Unknown / Unable to assess Housing: House Are you a primary care support representative to a significant other at home: No Do you presently have visiting nurse or other home services: No Alcohol intake: current Alcohol intake frequency: holidays/special occasions only Patient Tobacco Use Status: Former Tobacco user Tobacco use type: Cigarette Years Smoked: 2008 Substance Use Type: Marijuana service: No Sexual orientation: Transgender Physical Exam Vital Signs: Last Vital Signs Pulse 116 H 05/08/24 10:55 BP 137/60 05/08/24 10:55 BMI result Body Mass Index 48.1 GI Other: Abdomen corpulent, soft. Right of umbilicus is a deeply situated lipoma measuring approximately 3 x 3 cm. Office Procedures Excision Details: Risks, benefits, alternatives of abdominal wall lipoma excision reviewed the patient included but not limited to bleeding, infection, recurrence, numbness, pain, scarring and the patient wished to proceed. All questions answered. Consent signed. After appropriate positioning patient underwent 1% lidocaine (without preservative) and Betadine prep and a transverse incision was made over the deeply situated lipoma in question and carried down through skin, subcutaneous tissue, was uneventfully excision. Specimen measured approximately 3 x 3 cm. Specimen sent to pathology. Wound was irrigated, secured hemostasis, and closed using running subcuticular 3-0 Vicryl suture followed by Steri-Strips and sterile dressings. Patient tolerated procedure well. 07631-dlusv/arms/legs 2.1-3cm Procedure code (CPT) selection complete Office Meds lidocaine 1 %-epinephrine 1:100,000 injection solution Performing Provider: Abdifatah Carter MD Performing Location: [facility] [place] [facility] Sur[facility] Administered by: Abdifatah Carter MD on 05/08/24 11:26 Dose Route Admin Location Dispensed Lot Number Expiration Date [facility] Line Maintenance Supervisor 12 mL Infiltration 12 mL Comments: Lidocaine without preservative patient can use and this is what was used today Assessment & Plan Assessment & Plan (1) Lipoma of abdominal wall: Code(s): D17.1 - Benign lipomatous neoplasm of skin and subcutaneous tissue of trunk Category: Surgical Plan: Patient has been given local instructions including ice to the wound periodically, Tylenol p.r.n. pain, shower in 2 days, least Steri-Strips intact. All questions answered. Patient will see me as directed or p.r.n.. Orders: Orders Surgical Today D17.9 - Benign lipomatous neoplasm, unspecified AMB Excision Today D17.1 - Benign lipomatous neoplasm of skin and subcutaneous tissue of trunk Medications: New lidocaine-epinephrine 1 %-1:100,000 12 mL Infiltration ONCE 30 mL 0RF D17.1 - Benign lipomatous neoplasm of skin and subcutaneous tissue of trunk Coding Level of Care Code New Pt Level 5 (30620) Diagnoses Lipoma of abdominal wall D17.1 CPT Codes Trunk/Arms/Legs - CPT: 77291-zhiov/arms/legs 2.1-3cm ([id number])
[2024-05-08 10:55] VITALS: BP 137/60; PULSE 116; BMI 48.1
== END 2024-05-08 11:19 | disposition home or self-care (01) ==
PROVIDERS: PCP Internal Medicine; Visit Provider Surgery
DX: D17.1 Benign lipomatous neoplasm of skin and subcutaneous tissue of trunk (principal)
CPT/HCPCS: 22903; 99204

== ENCOUNTER 2024-05-08 10:39 | Outpatient (REF) | payer OTHER, SELFPAY | END 2024-05-08 10:40 | disposition home or self-care (01) | LOC: HO.LNP 10:39 | PROVIDERS: PCP Internal Medicine; Visit Provider Surgery | DX: D17.1 Benign lipomatous neoplasm of skin and subcutaneous tissue of trunk (principal) | CPT/HCPCS: 22903; 88304; 99202 ==

== ENCOUNTER 2024-06-02 11:15 | Outpatient (REF) | payer OTHER, SELFPAY ==
--- NOTE | ~2024-06-02 | XR_ITS ---
EXAMINATION: XR FOOT, RIGHT CLINICAL INFORMATION: Right foot pain. COMPARISON: None available. TECHNIQUE: AP, lateral, and oblique views of the right foot. FINDINGS: Bipartite medial hallux sesamoid. No fracture or malalignment. Bone mineralization is normal. Mild generalized soft tissue swelling in the foot with associated subcutaneous edema. XR/XR foot RT min 3V IMPRESSION: No acute osseous findings. Mild generalized soft tissue swelling.
[2024-06-02 13:19] LABS: Appearance Urine Clear; Color Urine Yellow; Glucose Urine UA Negative (Negative); Leukocyte Esterase Urine Moderate (2+) (Negative); Nitrite Urine Negative (Negative); PH 6.5 (5.0-9.0); UMIC TRIGGER UA YES; Urine Blood Negative (Negative); Urine Ketones Negative (Negative); Urine Protein Negative (Neg-Trace)
[2024-06-02 13:34] LABS: Bacteria Urine None Seen (None Seen); Hyaline Casts Urine 0-2 /LPF (0-2); RBC Urine 0-2 /HPF (0-2); WBC Urine 21-50 /HPF (0-5)
== END 2024-06-02 11:16 | disposition home or self-care (01) ==
LOC: HO.HMGCX 11:15
PROVIDERS: PCP Internal Medicine; Referring Provider Registered Nurse; Visit Provider Nurse Practitioner Family
DX: N20.0 Calculus of kidney (principal); N39.0 Urinary tract infection, site not specified; R33.9 Retention of urine, unspecified; M79.671 Pain in right foot
CPT/HCPCS: 73630; 81001; 87086

== ENCOUNTER 2024-06-05 13:50 | Outpatient (REF) | payer OTHER, SELFPAY ==
--- NOTE | ~2024-06-05 | US_ITS ---
EXAMINATION: US RETROPERITONEAL COMPLETE (RENAL) CLINICAL INFORMATION: Kidney stone, UTI, incomplete emptying of bladder. COMPARISON: KUB 01/03/2024, ultrasound retroperitoneum 07/20/2023. TECHNIQUE: Real-time imaging of the kidneys and bladder. Limited visualization due to bowel gas. FINDINGS: RIGHT KIDNEY: 11.9 x 5.9 x 5.0 cm (SAG x AP x TRV). Mild hydronephrosis. No renal calculi. Renal cortical thickness is normal. Limited visualization. LEFT KIDNEY: 9.1 x 5.4 x 5.4 cm (SAG x AP x TRV). No hydronephrosis. No renal calculi. Renal cortical thickness is normal. Limited visualization. BLADDER: Well-distended. Bilateral ureteral jets are demonstrated. Prevoid bladder volume is 569 mL. Postvoid bladder volume is 16 mL. US/US retroperitoneal comp IMPRESSION: 1. Mild right hydronephrosis. No renal calculi. 2. Postvoid bladder volume is 16 mL. This study was presented today June 06, 2024 for interpretation. Stat results provided at this time as requested by referring provider.
== END 2024-06-05 13:51 | disposition home or self-care (01) ==
LOC: HO.HMGCX 13:50
PROVIDERS: PCP Internal Medicine; Visit Provider Nurse Practitioner Family
DX: N20.0 Calculus of kidney (principal); N39.0 Urinary tract infection, site not specified; R33.9 Retention of urine, unspecified
CPT/HCPCS: 76770

== ENCOUNTER 2024-06-13 13:53 | Outpatient (AMB) | payer OTHER, SELFPAY ==
--- NOTE | 2024-06-13 13:56 | MHC.OFFVIS ---
Intake Visit Reasons: 4m follow up Intake Note: Patient is present for 4M F/U Urology Medication: Antibiotic Allergy:TAMSULOSIN,FINASTERIDE Blood Thinner:NONE Ems Coordinator Required: No Accompanied by: Self / Same As Patient Allergies lidocaine Allergy (Severe, Verified 06/13/24 14:22) severe burning- injected lidocaine only trazodone Allergy (Severe, Verified 06/13/24 14:22) Depression environmental allergies Allergy (Verified 06/13/24 14:22) Runny Nose feathers Allergy (Verified 06/13/24 14:22) Swelling gabapentin Adverse Reaction (Severe, Verified 06/13/24 14:22) blisters sucralose [From Splenda (sucralose)] Adverse Reaction (Severe, Verified 06/13/24 14:22) migraines topiramate [From Topamax] Adverse Reaction (Severe, Verified 06/13/24 14:22) serotonin syndrome watermelon Adverse Reaction (Severe, Verified 06/13/24 14:22) swollen tongue Antihistamines - Alkylamine Adverse Reaction (Intermediate, Verified 06/13/24 14:22) nose bleeds citalopram [From Celexa] Adverse Reaction (Intermediate, Verified 06/13/24 14:22) hallucinations duloxetine [From Cymbalta] Adverse Reaction (Intermediate, Verified 06/13/24 14:22) mood swings pregabalin [From Lyrica] Adverse Reaction (Intermediate, Verified 06/13/24 14:22) mood swings tramadol Adverse Reaction (Intermediate, Verified 06/13/24 14:22) hives/itching venlafaxine Adverse Reaction (Intermediate, Verified 06/13/24 14:22) mood swings NSAIDS (Non-Steroidal Anti-Inflamma Adverse Reaction (Verified 06/13/24 14:22) Unknown Medication List - Last Reconciled 06/13/24 by JEANNETTE Hauser bethanechol chloride 50 mg PO BID 90 days calcium carbonate (Oyster Shell Calcium 500) 500 mg PO DAILY@1700 chlorpromazine 10 mg PO BEDTIME clonazepam 2 mg (2 x 1 mg) PO BEDTIME clonazepam 1 mg PO DAILY clonazepam 2 mg PO BEDTIME clonidine HCl 0.1 mg See Protocol PO DAILY PRN diphenhydramine HCl 25 mg PO Q6H PRN divalproex 1,000 mg (2 x 500 mg) PO BID famotidine 10 mg (1/2 x 20 mg) PO BID finasteride 1 mg PO BEDTIME linaclotide (Linzess) 72 mcg PO QAM 60 days lurasidone mg PO methocarbamol 750 mg PO BID PRN 30 days mirtazapine 45 mg PO BEDTIME omeprazole 40 mg PO BID@0630,1630 ondansetron 4 mg translingual Q8H PRN quetiapine mg PO sertraline 50 mg PO DAILY tamsulosin 0.4 mg PO BEDTIME 90 days testosterone cypionate 100 mg IM QWEEK HPI Comments Details: Denisse is a 29-year-old female patient who presents of Dr.?Betancourt Abel. She has a past medical history of bipolar, anxiety, panic attacks, PTSD, asthma, transgender on testosterone therapy and irritable bowel syndrome. She presents to the office today for follow-up of her incomplete bladder emptying, frequent urinary tract infections, and LUTS of urgency. Of note, patient underwent cystoscopy hydrodistention with Dr. Pedro Grigsby 08/29 no glomerulations noted, no suspicious bladder lesions noted. She reports since her last office visit here approximately 8 months ago she has been doing and feeling well urologically. She denies any bothersome urinary issues or concerns. She discusses having missed her last office appointment and is in need of refills. In office urinalysis results reviewed with the patient today. [id number]. When asked she denies urinary urgency, urinary frequency, incontinence, nocturia, hematuria, dysuria, foul smelling urine, changes to urinary stream, flank pain, fever, and or chills. She is happy with her current voiding parameters. She otherwise denies any bothersome urinary issues or concerns. Previous workup has included a retroperitoneal ultrasound noting bilateral hydronephrosis, a 6 mm nonobstructing left renal calculus and increased postvoid residual volume. [facility] Medical History Bipolar disorder Hx of concussion History of panic attacks Urinary retention with incomplete bladder emptying Encounter for screening Bipolar 1 disorder Anxiety PTSD (post-traumatic stress disorder) Asthma Irritable bowel syndrome with constipation Gastroesophageal reflux disease without esophagitis Nausea Surgical History (Updated 05/08/24 @ 11:27 by Abdifatah Carter MD) H/O: hysterectomy Hx of wisdom tooth extraction Hx of colonoscopy (~02/2020) H/O esophagogastroduodenoscopy No pertinent past surgical history (~02/2020) Family History Mother Pacemaker Father Family history unknown Social History Household Members: Unknown / Unable to assess Housing: House Are you a primary intensive care specialist to a significant other at home: No Do you presently have visiting nurse or other home services: No Alcohol intake: current Alcohol intake frequency: holidays/special occasions only Patient Tobacco Use Status: Former Tobacco user Tobacco use type: Cigarette Years Smoked: 2008 Substance Use Type: Marijuana service: No Sexual orientation: Transgender Review of Systems Eyes Reports no additional complaints ENT Reports no additional complaints Card Reports no additional complaints Resp Reports no additional complaints GI Reports as per HPI Reports as per HPI Musc Reports no additional complaints Neuro Reports as per HPI Psych Reports as per HPI Endo Reports no additional complaints Jamir/Lymph Reports no additional complaints Aller/Immun Reports no additional complaints Physical Exam Const General: cooperative, comfortable, no acute distress, well developed, alert and awake Nutritional Appearance: overweight Orientation/consciousness: patient oriented x3 Limitations: ambulation with cane HEENT Head: Yes normal to inspection, Yes normocephalic and Yes atraumatic Ears: hearing grossly normal bilaterally Eyes General: appearance normal, both eyes and all related structures Neck Neck: Yes normal visual inspection and Yes trachea midline Chest Chest palpation & inspection: normal inspection of the chest Resp Effort & Inspection: normal respiratory effort and able to speak in complete sentences Cardio Rate: regular rate GI Inspection: Yes normal to inspection General: Yes no CVA tenderness Back/Spine/Pelvis Back: no CVA tenderness Skin General skin exam: no rashes or lesions noted Neuro General: patient oriented x3 Extrem Other: tremors noted to bilateral upper extremities General: Yes normal to inspection Psych Appearance: grossly normal and well kempt Mental Status: mental status grossly normal Speech and movement: Normal speech and movement present and Clear speech present Affect: Other affect and mood findings present (flat affect) Attitude: cooperative Thought process: Normal thought process present Thought content: Normal thought content present Insight: Fair insight present (Psych) Judgement: Fair judgement present (Psych) Results AMB Urinalysis, Automated UA Leukoctes 0 Mariza/uL Last Edit by CHARLI Lewis on 06/13/24 14:10 UA Nitrite Negative Last Edit by Milla Hyatt [facility] on 06/13/24 14:10 UA Urobilinogen 0.2 mg/dL Last Edit by Milla Hyatt [facility] on 06/13/24 14:10 UA Protein 0 mg/dL Last Edit by Milla Hyatt [facility] on 06/13/24 14:10 UA pH 6.0 Last Edit by Milla Hyatt [facility] on 06/13/24 14:10 UA Blood 0 Brice/uL Last Edit by Milla Hyatt [facility] on 06/13/24 14:10 UA Specific [place] 1.015 Last Edit by Milla Hyatt [facility] on 06/13/24 14:10 UA Ketone Negative Last Edit by Milla Hyatt [facility] on 06/13/24 14:10 UA Bilirubin 0 mg/dL Last Edit by Milla Hyatt [facility] on 06/13/24 14:10 UA Glucose 0 mg/dL Last Edit by Milla Hyatt [facility] on 06/13/24 14:10 Results Reviewed Results Reviewed: Laboratory Last Values Urine pH (Auto) 6.0 06/13/24 14:08 Specific [place] (Auto) 1.015 06/13/24 14:08 Urine Protein (Auto) 0 mg/dL 06/13/24 14:08 Glucose (UA)(Auto) 0 mg/dL 06/13/24 14:08 Urine Ketones (Auto) Negative 06/13/24 14:08 Urine Blood (Auto) 0 Brice/uL 06/13/24 14:08 Urine Nitrite (Auto) Negative 06/13/24 14:08 Urine Bilirubin (Auto) 0 mg/dL 06/13/24 14:08 Urine Urobilinogen (Auto) 0.2 mg/dL 06/13/24 14:08 Leukocyte Esterase (Auto) 0 Mariza/uL 06/13/24 14:08 Assessment & Plan Assessment & Plan (1) Urinary retention with incomplete bladder emptying: Code(s): R33.9 - Retention of urine, unspecified Category: Medical (2) Voiding dysfunction: Code(s): N39.8 - Other specified disorders of urinary system Category: Medical (3) Kidney stone on left side: Code(s): N20.0 - Calculus of kidney Category: Medical Plan In office urinalysis results reviewed with the patient today; as noted above. PVR 112 mL. Continue Flomax and bethanechol as discussed and prescribed; refills provided. Patient currently denies any bothersome urinary issues or concerns. She reports be happy with current voiding parameters. Discussed obtaining retroperitoneal ultrasound for surveillance monitoring of nephrolithiasis as well as voiding dysfunction Discussed bladder triggers/irritants. Discussed lifestyle modifications to assist with incomplete bladder emptying such as double voiding Follow-up in 6 months with imaging to be completed prior and PVR at next office visit; or sooner with any issues, concerns, and or questions.. Orders: Orders AMB Urinalysis Automated Today Z13.9 - Encounter for screening, unspecified US retroperitoneal comp Today N20.0 - Calculus of kidney, N39.8 - Other specified disorders of urinary system, R33.9 - Retention of urine, unspecified Medications: Changed From tamsulosin 0.4 mg PO BEDTIME 30 caps 0RF To tamsulosin 0.4 mg PO BEDTIME 90 caps 2RF 90 days From bethanechol chloride 50 mg PO BID To bethanechol chloride 50 mg PO BID 180 tabs 1RF 90 days Patient Instructions: The patient had an opportunity to ask questions regarding the treatment plan. All questions were answered. Physical exam, labs, and imaging were discussed and reviewed in detail. As well as risks, benefits, and discussion of treatment choices. No major barriers to understanding were identified. The patient expressed understanding and agreement with the above treatment plan. The patient was made aware they should contact our office by phone for worsening of their current condition, the appearance of new symptoms, or with any questions or concerns. Compliance is encouraged with any medications and follow up testing that is ordered. It is a privilege to be allowed the opportunity to participate in? your urological care.? Again, if you have any questions or concerns If you have any questions or concerns please do not hesitate to contact me. The office is [phone]. This note is constructed using voice recognition software. While every effort has been made to ensure accuracy card lacer errors may have been included. Yours sincerely, OLU Hauser- Scribe Plan - Not visible on output: Scribed for Dr. Kristi Carpenter by dion hernandez, medical billing and coding specialist, 10/07/2023. I, Dr. Kristi Carpenter, have personally reviewed and agree with the information entered by the scribe. Coding Level of Care Code Est Pt Level 3 (58592) Complex EM visit Add On G2211 Diagnoses Urinary retention with incomplete bladder emptying R33.9 Voiding dysfunction N39.8 Kidney stone on left side N20.0
== END 2024-06-13 14:15 | disposition home or self-care (01) ==
PROVIDERS: PCP Internal Medicine; Visit Provider Nurse Practitioner Family
DX: R33.9 Retention of urine, unspecified (principal); N39.8 Other specified disorders of urinary system; N20.0 Calculus of kidney; Z13.9 Encounter for screening, unspecified
CPT/HCPCS: 99213; G2211

== ENCOUNTER → 2024-06-13 13:53 | Outpatient (BNVA) | payer OTHER, SELFPAY | PROVIDERS: PCP Internal Medicine; Visit Provider Nurse Practitioner Family | DX: R33.9 Retention of urine, unspecified (principal); N39.8 Other specified disorders of urinary system; N20.0 Calculus of kidney | CPT/HCPCS: 81003; 99212 ==

== ENCOUNTER 2024-06-29 13:51 | Outpatient (REF) | payer OTHER, SELFPAY ==
--- NOTE | ~2024-06-29 | US_ITS ---
EXAMINATION: US RETROPERITONEAL COMPLETE (RENAL) CLINICAL INFORMATION: Calculus of kidney. COMPARISON: Ultrasound kidneys and bladder 06/05/2024 and 07/20/2023. TECHNIQUE: Real-time imaging of the kidneys and bladder. FINDINGS: RIGHT KIDNEY: 10.9 x 4.8 x 5.3 cm (SAG x AP x TRV). The kidney is normal in size, contour, and echogenicity. Renal cortical thickness is normal. No calculi or focal parenchymal lesions. No hydronephrosis. LEFT KIDNEY: 9.7 x 6.1 x 5.8 cm (SAG x AP x TRV). The kidney is normal in size, contour, and echogenicity. Renal cortical thickness is normal. No calculi or focal parenchymal lesions. No hydronephrosis. BLADDER: Well distended and normal. Bilateral ureteral jets are demonstrated. Prevoid bladder volume is 274 mL. Postvoid bladder volume is 3.9 mL. US/US retroperitoneal comp IMPRESSION: No nephrolithiasis or hydronephrosis. Electronically signed by: Alan Wise MD 07/17/2024 10:40 AM EDT
== END 2024-06-29 13:52 | disposition home or self-care (01) ==
LOC: HO.HMGCX 13:51
PROVIDERS: PCP Internal Medicine; Visit Provider Nurse Practitioner Family
DX: N20.0 Calculus of kidney (principal); N39.8 Other specified disorders of urinary system; R33.9 Retention of urine, unspecified
CPT/HCPCS: 76770

== ENCOUNTER 2024-08-07 06:22 | Outpatient (REF) | payer OTHER, SELFPAY | END 2024-08-07 06:23 | disposition home or self-care (01) | LOC: CF 06:22 | PROVIDERS: Visit Provider Anesthesiology | DX: M53.3 Sacrococcygeal disorders, not elsewhere classified (principal); M46.1 Sacroiliitis, not elsewhere classified | CPT/HCPCS: 27096; J2003; J2795; J3301; Q9967 ==

== ENCOUNTER 2024-08-07 14:19 | Outpatient (AMB) | payer OTHER, SELFPAY ==
--- NOTE | 2024-08-07 14:20 | A.OFFVIS_ITS ---
Vital Signs 08/07/24 14:53 08/07/24 14:54 Height 5 ft 6 in 5 ft 6 in Weight 298 lb 298 lb BMI 48.1 48.1 BP 129/86 133/78 Blood Pressure Location Rt radial Lt radial Position Sitting Sitting Respiration 16 16 Pulse 105 H 90 Pulse Source Pulse Oximeter Pulse Oximeter Pulse Oximetry (%) 97 96 Oxygen Delivery Method Room Air Room Air Comment pre-op post-op Intake Visit Reasons: BILATERAL THERAPEUTIC SIJ INJECTIONS Allergies lidocaine Allergy (Severe, Verified 08/07/24 14:54) severe burning- injected lidocaine only trazodone Allergy (Severe, Verified 08/07/24 14:54) Depression environmental allergies Allergy (Verified 08/07/24 14:54) Runny Nose feathers Allergy (Verified 08/07/24 14:54) Swelling gabapentin Adverse Reaction (Severe, Verified 08/07/24 14:54) blisters sucralose [From Splenda (sucralose)] Adverse Reaction (Severe, Verified 08/07/24 14:54) migraines topiramate [From Topamax] Adverse Reaction (Severe, Verified 08/07/24 14:54) serotonin syndrome watermelon Adverse Reaction (Severe, Verified 08/07/24 14:54) swollen tongue Antihistamines - Alkylamine Adverse Reaction (Intermediate, Verified 08/07/24 14:54) nose bleeds citalopram [From Celexa] Adverse Reaction (Intermediate, Verified 08/07/24 14:54) hallucinations duloxetine [From Cymbalta] Adverse Reaction (Intermediate, Verified 08/07/24 14:54) mood swings pregabalin [From Lyrica] Adverse Reaction (Intermediate, Verified 08/07/24 14:54) mood swings tramadol Adverse Reaction (Intermediate, Verified 08/07/24 14:54) hives/itching venlafaxine Adverse Reaction (Intermediate, Verified 08/07/24 14:54) mood swings NSAIDS (Non-Steroidal Anti-Inflamma Adverse Reaction (Verified 08/07/24 14:54) Unknown [facility] Medical History Bipolar disorder Hx of concussion History of panic attacks Urinary retention with incomplete bladder emptying Encounter for screening Bipolar 1 disorder Anxiety PTSD (post-traumatic stress disorder) Asthma Irritable bowel syndrome with constipation Gastroesophageal reflux disease without esophagitis Nausea Surgical History (Updated 05/08/24 @ 11:27 by Abdifatah Carter MD) H/O: hysterectomy Hx of wisdom tooth extraction Hx of colonoscopy (~02/2020) H/O esophagogastroduodenoscopy No pertinent past surgical history (~02/2020) Family History Mother Pacemaker Father Family history unknown Social History Household Members: Unknown / Unable to assess Housing: House Are you a primary child care attendant to a significant other at home: No Do you presently have visiting nurse or other home services: No Alcohol intake: current Alcohol intake frequency: holidays/special occasions only Patient Tobacco Use Status: Former Tobacco user Tobacco use type: Cigarette Years Smoked: 2008 Substance Use Type: Marijuana service: No Sexual orientation: Transgender Physical Exam Vital Signs: Last Vital Signs Pulse 90 08/07/24 14:54 Resp 16 08/07/24 14:54 BP 133/78 08/07/24 14:54 Pulse Ox 96 08/07/24 14:54 Oxygen Delivery Method Room Air 08/07/24 14:54 BMI result Body Mass Index 48.1 Assessment & Plan Assessment & Plan (1) Sacroiliac joint pain: Code(s): M53.3 - Sacrococcygeal disorders, not elsewhere classified Category: Medical (2) Bilateral sacroiliitis: Code(s): M46.1 - Sacroiliitis, not elsewhere classified Category: Medical Plan Bilateral therapeutic sacroiliac joint injection Informed consent was explained thoroughly to the patient.? All questions about benefits and risks for the procedure were answered. Patient came to the operating room and was positioned prone on the operating table with the pillow under the abdomen. The lower back and buttocks of the patient were prepped with ChloraPrep prepped and draped with sterile utility towels.? Sterilely draped C-arm was brought over the operating field and sq picture of patient's pelvis was demonstrated on the screen.? For the right joint tilting C-arm contralateral to the site of the joint the most posterior portion of the joints was superimposed with anterior silhouette of the joint.? Skin was injected in the projection of the joint slightly medial to the location of the joint with 25 gauge 1/2 inch needle using local lidocaine 2% . After that 22 gauge 3 and 1/2 inch needle was driven to the right joint in tunnel vision fashion.? When needle entered the joint capsule injection of the contrast was performed demonstrating intra-articular and minimally periarticular spread of the contrast.? After that 4 cc. of ropivacaine 0.5% mixed with Kenalog 40 mg was injected in the joint. After that procedure was repeated on the left side in mirroring fashion. Same dose of ropivacaine was injected into the joint. And same dose of the Kenalog was injected into the left joint. Total dose of Kenalog was 80 mg. Upon completion of the injections the needle was removed and Band-Aid was applied.? Upon completion of the injection patient was taken outside of the operating room to the recovery room where recovered uneventfully. Orders: Orders FL guidance in treatment room Today M53.3 - Sacrococcygeal disorders, not elsewhere classified Coding Level of Care Code Procedure Only Diagnoses Sacroiliac joint pain M53.3 Bilateral sacroiliitis M46.1
[2024-08-07 14:53] VITALS: BP 129/86; PULSE 105; RESP 16; O2SAT 97; BMI 48.1
[2024-08-07 14:54] VITALS: BP 133/78; PULSE 90; RESP 16; O2SAT 96; BMI 48.1
== END 2024-08-07 14:47 | disposition home or self-care (01) ==
LOC: HO.PMCPRC 14:19
PROVIDERS: PCP Internal Medicine; Visit Provider Anesthesiology
DX: M53.3 Sacrococcygeal disorders, not elsewhere classified (principal); M46.1 Sacroiliitis, not elsewhere classified
CPT/HCPCS: 27096

== ENCOUNTER 2024-08-28 10:18 | Outpatient (REF) | payer OTHER, SELFPAY ==
[2024-08-28 14:11] LABS: TSH reflex Free T4 3.89 uIU/mL (0.32-4.0)
[2024-08-28 14:12] LABS: Valproate 50.2 mcg/mL (50.0-100.0)
== END 2024-08-28 10:19 | disposition home or self-care (01) ==
LOC: HO.HMGCX 10:18
PROVIDERS: PCP Internal Medicine; Visit Provider Internal Medicine
DX: E04.1 Nontoxic single thyroid nodule (principal); F31.77 Bipolar disorder, in partial remission, most recent episode mixed; Z79.899 Other long term (current) drug therapy
CPT/HCPCS: 36415; 76536; 80164; 84443

== ENCOUNTER 2024-09-06 14:28 | Outpatient (AMB) | payer OTHER, SELFPAY ==
--- NOTE | 2024-09-06 14:37 | A.OFFVIS_ITS ---
Vital Signs 09/06/24 14:48 Height 5 ft 6 in Weight 298 lb 8 oz BMI 48.2 BP 148/90 H Blood Pressure Location Lt brachial Position Sitting Respiration 17 Pulse 112 H Pulse Source Pulse Oximeter Pulse Oximetry (%) 97 Oxygen Delivery Method Room Air Intake Visit Reasons: BILATERAL THERAPEUTIC SIJ INJECTIONS Intake Note: Patient comes in for post-op. Reports pain 3-4. Allergies lidocaine Allergy (Severe, Verified 09/06/24 14:46) severe burning- injected lidocaine only trazodone Allergy (Severe, Verified 09/06/24 14:46) Depression environmental allergies Allergy (Verified 09/06/24 14:46) Runny Nose feathers Allergy (Verified 09/06/24 14:46) Swelling gabapentin Adverse Reaction (Severe, Verified 09/06/24 14:46) blisters sucralose [From Splenda (sucralose)] Adverse Reaction (Severe, Verified 09/06/24 14:46) migraines topiramate [From Topamax] Adverse Reaction (Severe, Verified 09/06/24 14:46) serotonin syndrome watermelon Adverse Reaction (Severe, Verified 09/06/24 14:46) swollen tongue Antihistamines - Alkylamine Adverse Reaction (Intermediate, Verified 09/06/24 14:46) nose bleeds citalopram [From Celexa] Adverse Reaction (Intermediate, Verified 09/06/24 14:46) hallucinations duloxetine [From Cymbalta] Adverse Reaction (Intermediate, Verified 09/06/24 14:46) mood swings pregabalin [From Lyrica] Adverse Reaction (Intermediate, Verified 09/06/24 14:46) mood swings tramadol Adverse Reaction (Intermediate, Verified 09/06/24 14:46) hives/itching venlafaxine Adverse Reaction (Intermediate, Verified 09/06/24 14:46) mood swings NSAIDS (Non-Steroidal Anti-Inflamma Adverse Reaction (Verified 09/06/24 14:46) Unknown HPI Comments Details: Denisse is very pleasant 29 years old transgender female who presents in my office with complains on lower back pain. She was in the past in this office with widespread spasticity symptoms. She was started on Robaxin. Now she reports that most of the pain she has in the projection of the lower lumbar spine. We performed bilateral therapeutic sacroiliac joint injection however patient reported that her pain relief lasted only 2 days. Not enough for therapeutic injection. I decided to explore a possibility that the pain generators is facet joints in the lumbar spine. I will schedule the patient for the bilateral L3-L4 dorsal ramus L5 medial branch block diagnostic after that I will evaluate the results of the injections. She also reported today that she was diagnose with idiopathic intracranial hypertension. She was started on Diamox. 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 She request the renewal of her Robaxin prescription. Explained to the patient that the her primary care physician may continue to prescribe the same medication for her. I do not mind to renew his prescription with some refills for her but she is recommended to continue with PCP [facility] Medical History Bipolar disorder Hx of concussion History of panic attacks Urinary retention with incomplete bladder emptying Encounter for screening Bipolar 1 disorder Anxiety PTSD (post-traumatic stress disorder) Asthma Irritable bowel syndrome with constipation Gastroesophageal reflux disease without esophagitis Nausea Surgical History (Updated 05/08/24 @ 11:27 by Abdifatah Carter MD) H/O: hysterectomy Hx of wisdom tooth extraction Hx of colonoscopy (~02/2020) H/O esophagogastroduodenoscopy No pertinent past surgical history (~02/2020) Family History Mother Pacemaker Father Family history unknown Social History Household Members: Unknown / Unable to assess Housing: House Are you a primary pet care attendant to a significant other at home: No Do you presently have visiting nurse or other home services: No Alcohol intake: current Alcohol intake frequency: holidays/special occasions only Patient Tobacco Use Status: Former Tobacco user Tobacco use type: Cigarette Years Smoked: 2008 Substance Use Type: Marijuana service: No Sexual orientation: Transgender Review of Systems Const All systems reviewed & are unremarkable except as noted in HPI and below ENT Denies Normal hearing present Neuro Denies Normal hearing present, Denies Abnormal speech present and Denies confusion Psych Denies confusion Physical Exam Vital Signs: Last Vital Signs Pulse 112 H 09/06/24 14:48 Resp 17 09/06/24 14:48 BP 148/90 H 10/31/24 14:48 Pulse Ox 97 09/06/24 14:48 Oxygen Delivery Method Room Air 09/06/24 14:48 BMI result Body Mass Index 48.2 Const General: No confusion Orientation/consciousness: No confusion Resp Effort & Inspection: normal respiratory effort and able to speak in complete sentences Back/Spine/Pelvis Other: Yan test is positive more on the left and less on the right. Stinchfield test is positive on the right. Pelvic compression test is positive on the right. Pelvic distraction test is negative. Loading test is positive bilaterally, tenderness on palpation in bilateral paraspinal spinal region lumbar spine. Flexing backwards aggravate pain slightly. Neuro General: No confusion Cranial nerves: No Normal hearing present Speech: No Abnormal speech present Psych Mental Status: mental status grossly normal Speech and movement: Clear speech present Attitude: cooperative Thought process: Normal thought process present Thought content: Normal thought content present Insight: Good insight present (Psych) Judgement: Good judgement present (Psych) Assessment & Plan Assessment & Plan (1) Muscle spasm: Code(s): M62.838 - Other muscle spasm Category: Medical (2) Polyarthralgia: Code(s): M25.50 - Pain in unspecified joint Category: Medical (3) Migraines: Code(s): G43.909 - Migraine, unspecified, not intractable, without status migrainosus Category: Medical (4) Bilateral sacroiliitis: Code(s): M46.1 - Sacroiliitis, not elsewhere classified Category: Medical (5) Sacroiliac joint pain: Code(s): M53.3 - Sacrococcygeal disorders, not elsewhere classified Category: Medical Plan The patient received sacroiliac joint injection therapeutic however she reported that her pain relief lasted only 2 days. I decided based on physical exam today to address the possibility of her pain stemming out of the lower lumbar facet joints. I will schedule her for bilateral L3-L4 dorsal ramus L5 medial branch block. Patient also received today that she has idiopathic intracranial hypertension she recently was started on Diamox. Coding Level of Care Code Est Pt Level 3 (81084) Diagnoses Muscle spasm M62.838 Polyarthralgia M25.50 Migraines G43.909 Bilateral sacroiliitis M46.1 Sacroiliac joint pain M53.3
[2024-09-06 14:48] VITALS: BP 148/90; PULSE 112; RESP 17; O2SAT 97; BMI 48.2
== END 2024-09-06 15:04 | disposition home or self-care (01) ==
LOC: HO.PMC 14:28
PROVIDERS: PCP Internal Medicine; Visit Provider Anesthesiology
DX: M62.838 Other muscle spasm (principal); M25.50 Pain in unspecified joint; G43.909 Migraine, unspecified, not intractable, without status migrainosus; M46.1 Sacroiliitis, not elsewhere classified; M53.3 Sacrococcygeal disorders, not elsewhere classified
CPT/HCPCS: 99213

== ENCOUNTER → 2024-09-06 14:28 | Outpatient (BNVA) | payer OTHER, SELFPAY | PROVIDERS: PCP Internal Medicine; Visit Provider Anesthesiology | DX: M62.838 Other muscle spasm (principal); M46.1 Sacroiliitis, not elsewhere classified; M53.3 Sacrococcygeal disorders, not elsewhere classified; M25.50 Pain in unspecified joint; G43.909 Migraine, unspecified, not intractable, without status migrainosus | CPT/HCPCS: 99212 ==

== ENCOUNTER 2024-09-24 15:49 | Outpatient (REF) | payer OTHER, SELFPAY ==
[2024-09-24 23:15] LABS: Influenza A PCR NEGATIVE (Negative); Influenza B PCR NEGATIVE (Negative); Resp Syncy Virus RNA Qual PCR NEGATIVE (Negative); SARS COV2 PCR INHOUSE NEGATIVE (Negative)
== END 2024-09-24 15:50 | disposition home or self-care (01) ==
LOC: HO.CHCLNP 15:49
PROVIDERS: Visit Provider Registered Nurse
DX: B34.9 Viral infection, unspecified (principal); H92.03 Otalgia, bilateral
CPT/HCPCS: 0241U; 36415; 87070

== ENCOUNTER 2025-02-20 11:38 | Outpatient (REF) | payer OTHER, SELFPAY ==
[2025-02-20 13:21] LABS: Valproate 80.8 mcg/mL (50.0-100.0)
--- OUTSIDE RECORDS SUMMARY | 2025-02-20 14:09 | XMS_ITS | Encounter Summary ---
Author Organization [employer] Address [address] [facility] 7t [place] [address] Care Team Providers Care Assistant Paralegal Name Role Phone Sami Shaffer MD Primary Care Prov ider Reason for Visit * Reason Onset Date Comments Durable Medical Equipment 01/23/2025 Encounter Details Date Type Department Care Team (Late st Contact Info) Description 01/23/2025 Telephone [facility] [address] [place] [address] Sami Shaffer MD [address] [place] [address] Durable Medical Equipment Social History Tobacco Use Types Packs/Day Years Used Date Smoking Tobacco: Never Passive Smoke Exposure: Never Smokeless Tobacco: Never Alcohol Use Standard Drinks/Week Comments Not Currently 0 (1 standard drink = 0.6 oz pur e alcohol) Depression Answer Date Recorded Patient Health Questionnaire-9 Score 15 01/19/2024 Patient Health Questionnaire-9 Score 15 01/19/2024 Last PHQ-9: Questionnaire Data Not on file 0 01/19/2024 Housing Stability Answer Date Recorded What is your housing situation today? I have ewelina dill 04/11/[address] you li ve. Do you have problems with any of the following? None of the above 04/11/2024 Food Insecurity Answer Date Recorded Within the past 12 months, y ou worried that your food would run out before you got money to buy more: Never True 04/11/2024 Within the past 12 months,th e food you bought just didn't last and you didn't have enough money to get more: Never True 03/2024 Transportation Answer Date Recorded In the past 12 months, has l ack of transportation kept you from medical appts, meetings, work or from getting things needed for daily living? No 04/11/2024 Utilities Answer Date Recorded In the past 12 months, has t he electric, gas, oil or water company threatened to shut off services in your home? No 04/11/2024 Depression Answer Date Recorded Patient Health Questionnaire-2 Score 0 01/19/2024 Comments Unknown Sex and Gender Information Value Date Recorded Sex Assigned at Female 09/06/2022 10:36 AM EDT Legal Sex Male 10:36 AM EDT Gender Identity Non-Binary Transmasculine 2022 12:54 PM EDT Sexual Orientation Bisexual 09/06/2022 10 :36 AM EDT documented as of this encounter Miscellaneous Notes * Telephone Encounter - Carolee Berger LPN - 01/25/2025 1:45 PM EDT Please review message below and advise if agreed please provide DX to support. Tc from pt requesting Compression socks. Pt has tried to buy them online but every time they are too small. Pt would like to get measured. Contact pt at [phone] * Telephone Encounter - Kavon Walter - 01/23/2025 11:14 AM EDT Tc from pt requesting Compression socks. Pt has tried to buy them online but every time they are too small. Pt would like to get measured. Contact pt at [phone] documented in this encounter Plan of Treatment Not on file documented as of this encounter Visit Diagnoses Not on filedocumented in this encounter Additional Health Concerns Assessment Noted Time PHQ-9 Depression Total Score: 15 024 12:57 PM EDT documented as of this encounter Care Teams Assistant Paralegal Relationship Specialty Start Date End Date Sami Shaffer MD [address] [place] [address] PCP - General Internal Medicine 08/28/19 documented as of this encounter
--- OUTSIDE RECORDS SUMMARY | 2025-02-20 14:09 | XMS_ITS | Encounter Summary ---
Author Organization [employer] Address 75 [facility] 7t [place] [address] Care Team Providers Care Information Clerk [employer] Name Role Phone Sami Shaffer MD Primary Care Prov ider Reason for Visit * Reason Comments Med Refill Encounter Details Date Type Department Care Team ([facility] Contact Info) Description 03/30/2023 Refill [facility] CHC MED & PEDS [address] [place] [address] Sami Shaffer MD [address] [place] [address] Chronic rhinitis Social History Tobacco Use Types Packs/Day Years Used Date Smoking Tobacco: Never Smokeless Tobacco: Never Comments Unknown Sex and Gender Information Value Date Recorded Sex Assigned at Female 09/06/2022 10:36 AM EDT Legal Sex Male 10:36 AM EDT Gender Identity Non-Binary Transmasculine 2022 12:54 PM EDT Sexual Orientation Bisexual 09/06/2022 10 :36 AM EDT COVID-19 Exposure Response Date Recorded In the last 10 days, have yo u been in contact with someone who was confirmed or suspected to have Coronavirus/COVID-19? No / Unsure 03/29/2023 12:43 PM EDT documented as of this encounter Miscellaneous Notes * Telephone Encounter - Felisha Sanchez RN - 03/31/2023 10:23 AM EDT Okay, will give Gardasil shot at her BP check - nurse visit. Thanks! * Telephone Encounter - Sissy Valadez CNM - 03/30/2023 11:17 AM EDT Actually, second dose can be given 1-2m after first dose * Telephone Encounter - Felisha Sanchez RN - 03/30/2023 11:10 AM EDT The second dose should be given 2 months after the first dose and he received it on 03/08. We also can't have to different types of visit within 1 visit. * Telephone Encounter - Sissy Valadez CNM - 03/30/2023 11:06 AM EDT Noted. Thanks. Does he want 2nd dose at nurse visit? I will send in vaccine rx to [facility] pharmacy. * Telephone Encounter - Felisha Sanchez RN - 03/30/2023 11:03 AM EDT TC placed to pt in regards to below message. Pt agrees to nurse visit on 04/05 for a BP check. Pt requesting a manual BP cuff be used. Pt wants Sissy to know that pt received first Gardasil shot on 03/08/23 and would like to receive the rest of the series. Will fwd to Sissy. Pt to f/u PRN. * Telephone Encounter - Sissy Valadez CNM - 03/30/2023 10:54 AM EDT Needs nurse visit for BP check this week. documented in this encounter Plan of Treatment Not on file documented as of this encounter Visit Diagnoses Diagnosis Chronic rhinitis documented in this encounter Care Teams Information Clerk [employer] Relationship Specialty Start Date End Date Sami Shaffer MD [address] [place] [id number] PCP - General Internal Medicine 08/28/19 documented as of this encounter
--- OUTSIDE RECORDS SUMMARY | 2025-02-20 14:09 | XMS_ITS | Encounter Summary ---
Author Organization [employer] Address 75 [facility] 7t [place] [address] Care Team Providers Care Pumper Head Name Role Phone Sami Shaffer MD Primary Care Prov ider Reason for Visit * Reason Onset Date Comments Nurse Triage 08/21/2024 Encounter Details Date Type Department Care Team ([facility] st Contact Info) Description 08/21/2024 Telephone [facility] CHC MED & PEDS [address] [place] [address] Sami Shaffer MD [address] [place] [address] Nurse Triage Social History Tobacco Use Types Packs/Day Years [...] encounter Miscellaneous Notes * Telephone Encounter - Do Wolf RN - 08/21/2024 12:16 PM EDT Pt. States having an ongoing migraine x 5 days. Pt states that they do not have a Neurologist anymore due to Neurologist not in practice anymore. Pt did go to [facility] ED 08/17/24 for a migraine and they did CT scan and found a nodule on thyroid. Pt was given Reglan in ED and given a RX for Fioricet butonly took one dose and has been relying on Tylenol and Caffeine. Pt still having migraine sx and also wants new referral and further testing on Thyroid nodule found on CT scan. Will send note to clinical coordinators to get [facility] ED note into chart from 08/17/24 visit for todays televisit with PCP at 215pm. [facility] ED note is in chart under Media * Telephone Encounter - Mary Jo Sandoval - 08/21/2024 12:07 PM EDT Symptom: Headache ( migraine) Outcome: Schedule a same-day appointment or talk to a nurse or provider today Reason: Caller denied all higher acuity questions The caller accepted this outcome. Patient calling to report ED visit on : Date: 08/17/24 Hospital: [facility] Seen for: blood pressure and migraine documented in this encounter Plan of Treatment Not on file documented as of this encounter Visit Diagnoses Not on filedocumented in this encounter Additional Health Concerns Assessment Noted Time PHQ-9 Depression Total Score: 15 024 12:57 PM EDT documented as of this encounter Care Teams Pumper Head Relationship Specialty Start Date End Date Sami Shaffer MD [address] [place] [id number] PCP - General Internal Medicine 08/28/19 documented as of this encounter
--- OUTSIDE RECORDS SUMMARY | 2025-02-20 14:09 | XMS_ITS | Encounter Summary ---
Author Organization [employer] Address [address] [facility] 7t [place] [address] Care Team Providers Care Concession Manager Name Role Phone Sami Shaffer MD Primary Care Prov ider Reason for Visit * Reason Comments Med Refill Encounter Details Date Type Department Care Team ([facility] Contact Info) Description 05/20/[address] [facility] CHC MED & PEDS [address] [place] [address] Sami Shaffer MD [address] [place] [address] Social History Tobacco Use Types Packs/Day Years Used Date Smoking Tobacco: Never Smokeless Tobacco: Never Alcohol Use Standard [...] AM EDT documented as of this encounter Plan of Treatment Not on file documented as of this encounter Visit Diagnoses Not on filedocumented in this encounter Additional Health Concerns Assessment Noted Time PHQ-9 Depression Total Score: 15 024 12:57 PM EDT documented as of this encounter Care Teams Concession Manager Relationship Specialty Start Date End Date Sami Shaffer MD [address] [place] [id number] PCP - General Internal Medicine 08/28/19 documented as of this encounter
--- OUTSIDE RECORDS SUMMARY | 2025-02-20 14:09 | XMS_ITS | Encounter Summary ---
Author Organization [employer] Address 75 [facility] 7t [place] [address] Care Team Providers Care Brush Maker Name Role Phone Sami Shaffer MD Primary Care Prov ider Reason for Visit * Reason Onset Date Comments Appointment Request 06/25/2024 Encounter Details Date Type Department Care Team ([facility] st Contact Info) Description 06/25/2024 Telephone [facility] MEDICINE [address] [place] [address] Sami Shaffer MD [address] [place], [place] [phone] Appointment Request Social History Tobacco Use Types Packs/Day Years [...] encounter Miscellaneous Notes * Telephone Encounter - Mulugeta Ennis - 06/25/2024 12:11 PM EDT Tc from patient calling to cancel appt with on 06/26 due to having Covid documented in this encounter Plan of Treatment Not on file documented as of this encounter Visit Diagnoses Not on filedocumented in this encounter Additional Health Concerns Assessment Noted Time PHQ-9 Depression Total Score: 15 024 12:57 PM EDT documented as of this encounter Care Teams Brush Maker Relationship Specialty Start Date End Date Sami Shaffer MD [address] [place] [address] PCP - General Internal Medicine 08/28/19 documented as of this encounter
--- OUTSIDE RECORDS SUMMARY | 2025-02-20 14:09 | XMS_ITS | Clinical Summary ---
Author Organization [facility] Address [address] [facility] [address] [place] [address] Phone Care Team Providers Care Professional Shopper Name Role Phone Miguel Angel Sami Primary Care Provider [phone] Allergies Active Allergy Reactions Criticality Noted Date Comments Adhesive Tape Rash,Swelling Low 06/18/2022 Mcadoo Oil Other (see comments) 06/18/2022 Cat Dander 10/29/2022 Citalopram Anxiety,Other (see comments),Palpitatio ns High 06/18/2022 Citrullus Vulgaris Anaphylaxis,Itching, Swelling High 06/18/2022 Duloxetine Other (see comments) 06/18/2022 Flavoring Agent (Non-Screening) 10/29/2022 Gabapentin Dermatitis,Hives,Oth er (see comments),Rash Low 06/18/2022 Other reaction(s): Tremor Lidocaine 06/18/2022 Mixed Feathers 10/29/2022 Nsaids 10/29/2022 Pregabalin Other (see comments) 06/18/2022 Sucralose 10/29/2022 Topiramate Other (see comments) 06/18/2022 Tramadol Hives 06/18/2022 Trazodone Other (see comments) 06/18/2022 Venlafaxine Other (see comments) 06/18/2022 Medications Calcium Carb-Cholecalcif macarena (Calcium-Vitamin D3) 250-125 MG-UNIT tablet Use 1,200 mg in the mouth or throat twice a day Active clonazePAM (KlonoPIN) 2 MG tablet Take 2 mg by mouth Active methocarbamol (ROBAXIN) 750 MG tablet Take 1,500 mg by mouth in the morning. 2021 Active testosterone cypionate (DEPO-TESTOTERON E) 200 MG/ML injection per week 04/11/2021 Active ondansetron (ZOFRAN) 4 MG tablet Take 4 mg by mouth Active omeprazole (PriLOSEC) [address] capsule Take 40 mg by mouth in the morning and 40 mg in the evening. 05/16/2022 Active clonazePAM (KlonoPIN) 1 MG dispersible tablet TAKE ONE TABLET BY MOUTH ONCE A DAY NEEDED FOR PANIC ATTACK UP TO 10 TIMES PER MONTH 07/15/2022 Active famotidine (PEPCID) 20 MG tablet Take 20 mg by mouth in the morning and 20 mg in the evening. 06/28/2022 Active mirtazapine (REMERON) 45 MG tablet Take 45 mg by mouth every night 09/01/2022 Active Latuda 120 MG tablet TAKE ONE TABLET BY MOUTH ONCE A DAY WITH MEAL 11/02/2022 Active bethanechol (URECHOLINE) 50 MG tablet Take 50 mg by mouth in the morning and 50 mg in the evening. 04/08/2023 Active cloNIDine (CATAPRES) 0.1 MG tablet TAKE ONE TABLET BY MOUTH EVERY DAY NEEDED FOR SEVERE ANXIETY/AGIT ATION 04/24/2023 Active Linzess 72 MCG capsule every other day 03/13/2023 Active Botox 200 units injection 04/27/2023 Active QUEtiapine (SEROquel) 100 MG tablet Take 200 mg by mouth at bed time 03/18/2023 Active divalproex (DEPAKOTE) 500 MG EC tablet Take 1,000 mg by mouth in the morning and 1,000 mg in the evening. 01/11/2024 Active finasteride (PROSCAR) 5 MG tablet Take 5 mg by mouth 1 (one) time each day DO NOT CRUSH CHEW OR SPLIT Active co-enzyme Q-10 30 MG capsule Take 400 mg by mouth 1 (one) time each day Active Magnesium 400 MG tablet Take by mouth Active acetaZOLAMIDE (DIAMOX) 500 MG 12 hr capsule Take 500 mg by mouth in the morning and 500 mg in the evening. Active Active Problems Problem Noted Date Diagnosed Date Adjustment disorder with mixed emotional feature s 12/31/2024 Migraine without aura 12/31/2024 Severe obesity 12/31/2024 Irritable bowel syndrome with constipation 11/19 Acute otitis media 10/01/2024 Iron deficiency anemia 11/30/2023 Increased frequency of urination 08/29/2023 Loss of hair 08/29/2023 Gender dysphoria 03/28/2023 Fibromyalgia 02/10/2023 Chronic migraine without aura 02/10/2023 Bipolar disorder 02/10/2023 Benign intracranial hypertension 02/10/2023 Pain of breast 02/10/2023 Recurrent major depression in partial remission 02/10/2023 Severe obesity 02/10/2023 Visual disturbance 02/10/2023 Multiple joint pain 10/29/2022 Overview (11/10/2022): Last Assessment & Plan: Patient refers that for the past 2 weeks has been having ankle, shoulder, hand pain, denied swelling, has been trying tylenol and robaxin without improvement in symptoms, no trauma. Since patient has CKD, will provide tramadol, continue resting, applying ice/heat, in case of swelling, redness, visit er Ay[place] 02/18/2022 Encounters Date Type Department Care Team Description 01/04/2025 Orders Only [facility] [address] [facility] [address] [place] [address] Du Nolen MD Stage 3 chronic kidney disease, not otherwise specified (HCC) 12/31/2024 2:30 PM EST Office Visit [facility] [address] [facility] [address] [place] [address] Du Nolen MD Stage 3 chronic kidney disease, not otherwise specified (HCC) (Primary Dx); Nephrogenic diabetes insipidus (HCC); Hematuria of undiagnosed cause from Last 3 Months Immunizations Immunization Administration Dates Next Due Pfizer SARS-COV-2 02/22/2021,01/30/2021 Social History Tobacco Use Types Packs/Day Years Used Date Smoking Tobacco: Never Passive Smoke Exposure: Never Smokeless Tobacco: Never Tobacco Cessation:Counseling Given: Not Answered Alcohol Use Standard Drinks/Week Comments Yes 0 (1 standard drink = 0.6 oz pur e alcohol) once a year Comments Unknown Sex and Gender Information Value Date Recorded Sex Assigned at Female 05/31/2022 9:21 AM EDT Legal Sex Male 7:24 AM EDT Gender Identity Transgender Male 05/31/2022 9:21 AM EDT Sexual Orientation Not on file Last Filed Vital Signs Vital Sign Reading Time Taken Comments Blood Pressure 132/88 12/31/2024 2:23 PM EST Pulse 64 12/31/2024 2:23 PM EST Temperature - - Respiratory Rate - - Oxygen Saturation 99% 12/31/2024 2:23 PM EST Inhaled Oxygen Concentration - - Weight 132 kg (291 lb) 12/31/2024 2:23 PM EST Height - - Body Mass Index - - Plan of Treatment Upcoming Encounters Date Type Department Care Team (Late st Contact Info) Description 07/03/2025 1:00 PM EDT Office Visit [facility] [address] [address] Du Nolen MD [address] [phone] Health Maintenance Due Date Last Done Comments Hepatitis B Vaccine (1 of 3 - 19+ 3-dose series) 02/25/2015 06/09/2020 Pneumococcal Vaccine: Peds ( 0 to 5 Years) and At-Risk Patients (6 to 49 Years) (1 of 2 - PCV) 02/25/2015 Influenza Vaccine Completed 09/03/2024, , 09/22/2021, Additional history exists Procedures Procedure Name Priority Date/Time Associated Diagnosis Comments URINALYSIS WITH MICROSCOPIC Routine 01/09/2025 3:41 PM EST Stage 3 chronic kidney disease, not otherwise specified (HCC) VITAMIN D 25 HYDROXY Routine 01/09/2025 3:41 PM EST Stage 3 chronic kidney disease, not otherwise specified (HCC) PTH, INTACT Routine 01/09/2025 3:41 PM EST Stage 3 chronic kidney disease, not otherwise specified (HCC) URINE ALBUMIN / CREATININE RATIO Routine 01/09/2025 3:41 PM EST Stage 3 chronic kidney disease, not otherwise specified (HCC) RENAL FUNCTION PANEL Routine 01/09/2025 3:41 PM EST Stage 3 chronic kidney disease, not otherwise specified (HCC) MICROSCOPIC EXAMINATION - DO NOT USE Routine 01/09/2025 3:41 PM EST from Last 3 Months Results * Microscopic Examination (01/09/2025 3:41 PM EST) WBC, Urine None seen 0 - 5 /hpf [facility] RBC, Urine None seen 0 - 2 /hpf [facility] Squamous Epithelial, Urine None seen 0 - 10 /hpf [facility] Casts None seen None seen /lpf [facility] Bacteria, Urine None seen None seen/Few [facility] 01/09/2025 3:41 PM EST 01/09/2025 Du Nolen MD LAB MICROBIOLOGY - GENERAL ORDER ABIGAIL Final Result [facility] [address] [place] [address] * urine albumin / creatinine ratio (01/09/2025 3:41 PM EST) Creatinine, Ur 50.4 Not Estab. mg/dL [facility] Albumin, Urine 3.1 Not Estab. ug/mL [facility] Albumin/Creatin ine Ratio 6 0 - 29 mg/g creat [facility] Comment: ? Normal: ?0 - ??29 ? Moderately increased: 30 - 300 ? Severely increased: ? >300 Urine (Urine, Clean Catch) 01/09/2025 3:41 PM EST 01/09/2025 Du Nolen MD LAB URINE ORDERABLES Final Resul t [facility] [address] [place] [address] * (ABNORMAL) Vit D 25 hydroxy (01/09/2025 3:41 PM EST) Vitamin D, 25-OH, Total 19.7(L) 30.0 - 100.0 ng/mL [facility] Comment: Vitamin D deficiency has been defined by the [place] [employer] and an Endocrine Society practice guideline as a level of serum 25-OH vitamin D less than 20 ng/mL (1,2). The Endocrine Society went on to further define vitamin D insufficiency as a level between 21 and 29 ng/mL (2). 1. IOM ([place] [employer]). 2010. Dietary reference ?? intakes for calcium and D. [place]: The ?? National [employer] Press. 2. Maximo MF, Trevor NC, Fredis MANDEL, et al. ?? Evaluation, treatment, and prevention of vitamin D ?? deficiency: an Endocrine Society clinical practice ?? guideline. JCEM. 2010; 96(7):1911-30. Blood (Blood, Venous) 01/09/2025 3:41 PM EST 01/09/2025 Du Nolen MD LAB BLOOD ORDERABLES Final Resul t [facility] [address] [place] [address] * Urinalysis with microscopic exam OUTSIDE OFFICE (01/09/2025 3:41 PM EST) Specific [place], Urine 1.008 1.005 - 1.030 [facility] [phone] pH Urine 7.0 5.0 - 7.5 [facility] Color, Urine Yellow Yellow [facility] Appearance Urine Clear Clear [facility] [phone] WBC Esterase Urine Negative Negative [facility] Protein, Ur Negative Negative/Tra ce [facility] Glucose, Ur Negative Negative [facility] Ketones, Urine Negative Negative [facility] Blood Urine Negative Negative [facility] [phone] Bilirubin Urine Negative Negative [facility] Urobilinogen Urine 0.2 0.2 - 1.0 mg/dL [facility] Nitrite, Urine Negative Negative [facility] [phone] Microscopic Examination Comment [facility] Comment:Microscopic follows if indicated. Other Microsc. Observations See below: [facility] Comment:Microscopic was glory cated and was performed. Urine (Urine, Clean Catch) 01/09/2025 3:41 PM EST 01/09/2025 Du Nolen MD LAB URINE ORDERABLES Final Resul t Performing Organization Address City/[facility]/ZIP Co de Phone Number [facility] [address] [place] [address] * PTH, intact (01/09/2025 3:41 PM EST) PTH 38 15 - 65 pg/mL [facility] Blood (Blood, Venous) 01/09/2025 3:41 PM EST 01/09/2025 Du Nolen MD LAB BLOOD ORDERABLES Final Resul t [facility] [address] [place] [address] * (ABNORMAL) Renal funtion panel (01/09/2025 3:41 PM EST) Glucose 87 70 - 99 mg/dL [facility] BUN 14 6 - 20 mg/dL [facility] Creatinine 1.64(H) 0.76 - 1.27 mg/dL [facility] eGFR CKD-EPI CR 2020 58(L) >59 mL/min/1.7 3 [facility] BUN/Creatinine Ratio 9 9 - 20 [facility] Sodium 141 134 - 144 mmol/L [facility] Potassium 3.8 3.5 - 5.2 mmol/L [facility] Chloride 109(H) 96 - 106 mmol/L [facility] Bicarbonate (CO2) 17(L) 20 - 29 mmol/L [facility] Calcium 9.4 8.7 - 10.2 mg/dL [facility] Albumin 4.1(L) 4.3 - 5.2 g/dL [facility] Phosphorus 2.7(L) 2.8 - 4.1 mg/dL [facility] Blood (Blood, Venous) 01/09/2025 3:41 PM EST 01/09/2025 us Du Nolen MD LAB BLOOD ORDERABLES Final Resul t [facility] [address] [place] [address] from Last 3 Months Insurance [facility] ([id number]) [facility] ([id number]) Care Teams Professional Shopper Relationship Specialty Start Date End Date Sami Michelle [address] [place] [phone] PCP - General Internal Medicine 07/05/24
--- OUTSIDE RECORDS SUMMARY | 2025-02-20 14:09 | XMS_ITS | Encounter Summary ---
Author Organization [employer] Address [address] [place] [address] [address] [place] [address] Care Team Providers Care Scarfer Operator Name Role Phone Sami Shaffer MD Primary Care Prov ider Reason for Visit * Reason Onset Date Comments Appointment Request 04/21/2023 Encounter Details Date Type Department Care Team ([facility] st Contact Info) Description 04/21/2023 Telephone [facility] CHC MED & PEDS [address] [place] [address] Sami Shaffer MD [address] [place] [address] Appointment Request Social History Tobacco Use Types [...] suspected to have Coronavirus/COVID-19? No / Unsure 04/22/2023 10:49 AM EDT documented as of this encounter Miscellaneous Notes * Telephone Encounter - Sergey Ching - 04/21/2023 2:41 PM EDT Tc from pt requesting the second does of Gardasil shot Please contact pt at [phone] documented in this encounter Plan of Treatment Not on file documented as of this encounter Visit Diagnoses Not on filedocumented in this encounter Care Teams Scarfer Operator Relationship Specialty Start Date End Date Sami Shaffer MD [address] [place] [id number] PCP - General Internal Medicine 08/28/19 documented as of this encounter
--- OUTSIDE RECORDS SUMMARY | 2025-02-20 14:09 | XMS_ITS | Clinical Summary ---
Author Organization [facility] Address [address] [place] [address] Care Team Providers Care Energy Control Officer Name Role Phone Unavailable Primary Care Provider Unavailabl e Social History Tobacco Use Types Packs/Day Years Used Date Smoking Tobacco: Never Assessed Comments Unknown Sex and Gender Information Value Date Recorded Sex Assigned at Not on file Legal Sex Unknown 10/04/2022 7:43 PM EST Gender Identity Not on file Sexual Orientation Not on file Plan of Treatment Health Maintenance Due Date Last Done Comments DTaP,Tdap,and Td Vaccines (1 - Tdap) 02/25/2015 Hepatitis B Vaccines (1 of 3 - 19+ 3-dose series) 02/25/2015 Cervical Cancer Screening: P ap Smear 02/25/2017 COVID-19 Vaccine (2023-2 5 season) 2024 Influenza Vaccine (Season Ended) 2025 HIB Vaccines Aged Out No longer eligi ble based on patient's age to complete this topic HPV Vaccines Aged Out No longer eligi ble based on patient's age to complete this topic Hepatitis A Vaccines Aged Out No long er eligible based on patient's age to complete this topic IPV Vaccines Aged Out No longer eligi ble based on patient's age to complete this topic MMR Vaccines Aged Out No longer eligi ble based on patient's age to complete this topic Meningococcal ACWY Vaccine Aged Out N o longer eligible based on patient's age to complete this topic Meningococcal B Vaccine Aged Out No l onger eligible based on patient's age to complete this topic Pneumococcal Vaccine: Pediat rics (0 to 5 Years) and At-Risk Patients (6 to 64 Years) Aged Out No longer eligible b ased on patient's age to complete this topic RSV Immunization Patients Un andrew 20 months Aged Out No longer eligible b ased on patient's age to complete this topic Varicella Vaccines Aged Out No longer eligible based on patient's age to complete this topic
--- OUTSIDE RECORDS SUMMARY | 2025-02-20 14:09 | XMS_ITS | Encounter Summary ---
Author Organization [employer] Address [address] [place] [address] Care Team Providers Care Document Control Manager Name Role Phone Sami Shaffer MD Primary Care Prov ider Encounter Details Date Type Department Care Team ([facility] st Contact Info) Description 11/30/2024 Telephone [facility] [address] [place] [address] Sami Shaffer MD [address] [place] [address] Social History Tobacco Use Types Packs/Day Years [...] encounter Miscellaneous Notes * Telephone Encounter - Sheri Gunn RN - 11/30/2024 2:02 PM EST TC to patient. She states she has started going to a neurologist ([facility]) to rule out MS d/t her having multiple falls, unbalanced, dropping items. Per patient, approximately 3 months ago, patient had fallen with positive head strike, which lead to bloody nose. Neurologist stated she would need to get a CT of head completed at the ER. Patient is wondering if it was possible for an order for CT of head could be placed so she does not have to go to ER to have it completed? Routing to provider for review and advice. * Telephone Encounter - Mary Jo Sandoval - 11/30/2024 1:37 PM EST TC from the patient requesting a CT scan of her head. She states that her neurologist requested it,but she was advised to go to the ER. The patient does not want to go to the emergency room and is asking to see if PCP can do the order. Please call the patient to clarify. documented in this encounter Plan of Treatment Not on file documented as of this encounter Visit Diagnoses Not on filedocumented in this encounter Additional Health Concerns Assessment Noted Time PHQ-9 Depression Total Score: 15 024 12:57 PM EDT documented as of this encounter Care Teams Document Control Manager Relationship Specialty Start Date End Date Sami Shaffer MD [address] [place] [id number] PCP - General Internal Medicine 08/28/19 documented as of this encounter
--- OUTSIDE RECORDS SUMMARY | 2025-02-20 14:09 | XMS_ITS | Encounter Summary ---
Author Organization [employer] Address [address] [facility] [address] [place] [address] Care Team Providers Care Clerk Guide Name Role Phone Sami Shaffer MD Primary Care Prov ider Reason for Visit * Reason Onset Date Comments Referral 06/28/2024 Encounter Details Date Type Department Care Team (Late st Contact Info) Description 06/28/2024 Telephone [facility] [address] [place] [address] Sami Shaffer MD [address] [place], [place] [phone] Referral Social History Tobacco Use Types Packs/Day Years [...] encounter Miscellaneous Notes * Telephone Encounter - Nakul Sanchez - 06/28/2024 2:06 PM EDT TC from pt requesting new referral: Address: [address] [place] [address] Facility Name: [facility] Type of Specialist: Gastroenterology documented in this encounter Plan of Treatment Not on file documented as of this encounter Visit Diagnoses Not on filedocumented in this encounter Additional Health Concerns Assessment Noted Time PHQ-9 Depression Total Score: 15 024 12:57 PM EDT documented as of this encounter Care Teams Clerk Guide Relationship Specialty Start Date End Date Sami Shaffer MD [address] [place] [id number] PCP - General Internal Medicine 08/28/19 documented as of this encounter
--- OUTSIDE RECORDS SUMMARY | 2025-02-20 14:09 | XMS_ITS | Data Portability ---
Author Organization [employer], [place] [facility] Address [address] [place] [address] Care Team Providers Care Cio Name Role Phone HIM CCA OTHER Assessment Encounter Date Assessment Date Assessment LastModified by Organization Details LastModified Time 06/28/2024 06/28/2024 29 yo F with CKD (2/2 long-term lithium use), on day 5 of COVID19 with ongoing malaise, myalgias. No SOB or CP. VS wnl, lungs CTAB. Unable to offer toradol given CKD (per patient last Cr 1.9). Offered tylenol, but pt already taking 4g total daily. Given reassurance about time limited symptom course and reviewed red flag precautions for which to call back or go to ED. Not available 06/28/2024 21:01:34 08/17/2024 08/17/2024 I provided real -time medical direction via phone for this encounter, and was available for additional phone based assistance as needed. I have reviewed and agree with the Assessment and Plan as documented by the Acoustical Material Worker. We discussed the diagnostic uncertainty of home visits and the risk associated with this. [email or web address] Not available 08/17/2024 12:54:11 12/20/2024 12/20/2024 I have reviewed and agree with the assessment and plan as documented by the e learning designer. I provided real time medical direction for this encounter and was immediately available to provide additional phone based assistance as needed. History as noted by e learning designer. Pt with history of chronic intermittent vertigo, migraine MANDEL and recurrent syncope and falls. Pt reports that yesterday AM she had an episode of dizziness and syncope and struck her head on a dresser during the fall. She reports 5-10 secs of LOC. She reports that she had a MANDEL initially after the episode but this has resolved. She reports persistent vertigo since the fall which continues today. She reports that this is unusual as her episodes of vertigo typically last for only a few seconds after her syncope. She also reports blurred vison but no diplopia. No neck pain or vomiting. On exam, pt alert, no distress. Vitals ok. Pupils normal and reactive. Speech normal. Neuro exam non focal. Impression: Pt with recurrent syncope and vertigo, reporting an episode of syncope and head injury with LOC yesterday AM. She reports persistent vertigo and feeling off balance since the episode yesterday AM which is unusual for her. She denies any current MANDEL or neck pain but does endorse blurred vision. I suspect that her symptoms are related to concussive injury, but I discuss with her that given her symptoms, she should have a CT scan of her head to r/o acute intracranial injury. She agrees to go to the ED for evaluation. Medic arranges for EMS transport to the [facility] ED and I call a pt expect to the ED grip assembler as well. [email or web address] Not available 12/20/2024 15:43:36 Plan of Treatment Reminders Order Date Submit Date Provider Last Modified By Organization Details Last Modified Time Details Appointments None recorded . Lab BMP, serum or plasma 024 08/17/20 [email or web address], [phone] 13:00:20 Referral None recorded . Procedures None recorded . Surgeries None recorded . Imaging None recorded . Medication Orders None recorded . Patient TargetsNo targets recorded. Patient InstructionsNo instructions recorded. Reason for Referral None Reported. Results Created Date Observation Date Name Description Value Unit Range Abnormal Flag Note LastModifiedBy Organization Detail LastModifiedTime 08/17/2008/17/2024 BMP, serum or plasm a CRE 1.8 Not Available [facility] - [facility] [address] [place] [address], [phone] 08/17/2024 12:58:44 Result Notes None recorded. Medical Equipment None Reported. Allergies Allergen ID Allergen Name Allergen Category Reaction Reaction Severity Criticality Documentation Date Start Date Code Code System Note Provider Name and Address Organization Details Recorded Time 6508 almond allergeni c extract food Not available Not available Not available 08/17/2024 86921 7 RxNorm Lizzette Lizama MD [address] [place] [address],[address], [place], [address], [employer] 19:31:33 6506 tramadol medicatio n hives Not available Not available 08/17/2024 23718 RxNorm Lizzette Lizama MD [address] [place] [address],[address], [place], [phone], [employer] 19:31:47 6507 citalopra m medicatio n hallucina tions Not available Not available 08/17/2024 2556 RxNorm Lizzette Lizama MD [address] [facility],[address], [place], [address], [employer] 19:32:07 6508 gabapenti n medicatio n Not available Not available Not available 08/17/2024 62566 RxNorm mood swing s Lizzette Lizama MD [address] [place] [address],[address], [place], [address], [employer] 19:32:28 6509 duloxetin e medicatio n Not available Not available Not available 08/17/2024 82539 RxNorm mood swing s Lizzette Lizama MD [address] [facility],[address], [place], [address], [employer] 19:32:47 6510 venlafaxi ne medicatio n Not available Not available Not available 08/17/2024 09899 RxNorm mood swing s Lizzette Lizama MD [address] [place] [address],[address], [place], [address], [employer] 19:32:57 6511 Non-stero idal anti-infl ammatory agent (product) medicatio n Not available Not available Not available 08/17/2024 17949 005 SNOMED State s she canno t take it as it inter acts with her Depak ote Lizzette Lizama MD [address] [facility],[address], [place], [address], [employer] 19:33:45 6512 sucralose food,medi cation headache Not available Not available 08/17/2024 20874 15 RxNorm Lizzette Lizama MD [address] [place] [address],[address], [place], [address], [employer] 4 19:33:55 6513 topiramat e medicatio n Not available Not available Not available 08/17/2024 61338 RxNorm serot onin syndr ome Lizzette Lizama MD [address] [place] [address],[address], [place], [address], [employer] 19:34:35 6514 trazodone medicatio n Not available Not available Not available 08/17/2024 71874 RxNorm incre asing depre ssion Lizzette Lizama MD [address] [place] [address],[address], [place], [address], [employer] 19:34:54 6515 watermelo n preparati on food Not available Not available Not available 08/17/2024 01483 4 RxNorm tongu e swell s Lizzette Lizama MD [address] [place] [address],[address], [place], [address], [employer] 19:35:07 6516 adhesive tape environme nt,medica tion hives Not available Not available 08/17/2024 56772 UNK Lizzette Lizama MD [address] [place] [address],[address], [place], [address], [employer] 19:35:25 6517 lidocaine medicatio n Not available Not available Not available 08/17/2024 6387 RxNorm Not Available [facility] - production 04:13:21 Medications Name Sig Start Date Stop Date Status Note LastModified by Organization Details LastModified Time Rogaine 2 % topical solution APPLY TWO TIMES A DAY active Not Available Not Available Not Available clonidine HCl 0.1 mg tablet TAKE ONE TABLET BY MOUTH EVERY DAY NEEDED FOR ANXIETY active Not Available Not Available No t Available acetaminophe n 325 mg tablet TAKE 3 TABLETS BY MOUTH EVERY 6 HOURS (LIMIT 4000MG OF TYLENOL/RUBEN TAMINOPHEN PER DAY) active Not Available Not Available No t Available quetiapine 300 mg tablet TAKE ONE TABLET BY MOUTH EVERY DAY AT BEDTIME active Not Available Not Available No t Available clonazepam 1 mg tablet TAKE ONE TABLET BY MOUTH EVERY MORNING active Not Available Not Available No t Available divalproex 500 mg tablet,delay ed release TAKE TWO TABLETS BY MOUTH TWICE A DAY active Not Available Not Available No t Available omeprazole 40 mg capsule,maria dolores yed release TAKE ONE CAPSULE BY MOUTH TWICE A DAY AT 0630 AND 1630 active Not Available Not Available No t Available acetaminophe n 500 mg tablet TAKE ONE TABLET BY MOUTH EVERY 4 TO 6 HOURS NEEDED active Not Available Not Available No t Available spironolacto ne 25 mg tablet TAKE ONE TABLET BY MOUTH TWICE A DAY active Not Available Not Available No t Available butalbital-a cetaminophen -caffeine 50 mg-325 mg-40 mg tablet TAKE 1 TABLET BY MOUTH EVERY 4 HOURS NEEDED FOR MIGRAINE NOT TO EXCEED 4000MG OF ACETAMINOPH EN PER DAY active Not Available Not Available N ot Available lithium carbonate ER 450 mg tablet,exten ded release TAKE ONE TABLET BY MOUTH TWICE A DAY active Not Available Not Available No t Available chlorpromazi ne 10 mg tablet TAKE ONE TABLET BY MOUTH EVERY NIGHT AT 04:00 ON NIGHTTIME AWAKENING) active Not Available Not Available N ot Available bethanechol chloride 25 mg tablet TAKE TWO TABLETS BY MOUTH TWICE A DAY active Not Available Not Available No t Available amiloride 5 mg tablet TAKE ONE TABLET BY MOUTH EVERY DAY active Not Available Not Available No t Available clonidine HCl 0.2 mg tablet TAKE ONE TABLET BY MOUTH TWICE A DAY NEEDED FOR SEVERE ANXIETY / AGITATION active Not Available Not Available No t Available hydromorphon e 2 mg tablet TAKE ONE TABLET BY MOUTH EVERY 4 HOURS active Not Available Not Available No t Available famotidine 20 mg tablet TAKE 1/2 TABLET BY MOUTH TWICE DAILY active Not Available Not Available No t Available methocarbamo l 750 mg tablet TAKE ONE TABLET BY MOUTH TWICE A DAY NEEDED FOR MUSCLE SPASM active Not Available Not Available No t Available tamsulosin 0.4 mg capsule TAKE ONE CAPSULE BY MOUTH DAILY AT BEDTIME active Not Available Not Available N ot Available phenazopyrid ine 100 mg tablet TAKE ONE TABLET BY MOUTH THREE TIMES A DAY AFTER MEALS NEEDED active Not Available Not Available No t Available bisacodyl 10 mg rectal suppository INSERT ONE SUPPOSITORY RECTALLY EVERY DAY active Not Available Not Available No t Available ferrous sulfate 325 mg (65 mg iron) tablet TAKE ONE TABLET BY MOUTH EVERY MORNING active Not Available Not Available No t Available divalproex ER 500 mg tablet,exten ded release 24 hr TAKE TWO TABLETS BY MOUTH TWICE A DAY active Not Available Not Available No t Available clonazepam 2 mg tablet TAKE ONE TABLET BY MOUTH DAILY AT BEDTIME active Not Available Not Available N ot Available docusate sodium 100 mg capsule TAKE 1 CAPSULE BY MOUTH TWO TIMES A DAY NEEDED FOR CONSTIPATIO N active Not Available Not Available No t Available sertraline 25 mg tablet TAKE ONE TABLET BY MOUTH EVERY DAY active Not Available Not Available No t Available omeprazole 20 mg capsule,maria dolores yed release TAKE ONE CAPSULE BY MOUTH EVERY DAY BEFORE BREAKFAST DO NOT CRUSH OR CHEW active Not Available Not Available No t Available Banophen 25 mg capsule TAKE 1 CAPSULE BY MOUTH EVERY 6 HOURS NEEDED FOR ALLERGY SYMPTOMS active Not Available Not Available No t Available mirtazapine 45 mg tablet TAKE ONE TABLET BY MOUTH EVERY DAY AT BEDTIME active Not Available Not Available No t Available montelukast 10 mg tablet TAKE ONE TABLET BY MOUTH EVERY EVENING AT BEDTIME active Not Available Not Available No t Available mupirocin 2 % topical ointment APPLY ONE APPLICATION EXTERNALLY THREE TIMES A DAY FOR 10 DAYS active Not Available Not Available No t Available bethanechol chloride 50 mg tablet TAKE ONE TABLET BY MOUTH TWICE A DAY active Not Available Not Available No t Available mirtazapine 15 mg tablet TAKE THREE TABLETS BY MOUTH EVERY EVENING AT BEDTIME active Not Available Not Available No t Available testosterone cypionate 200 mg/mL intramuscula r oil INJECT 0.5 ML INTRAMUSCUL CHOLO ONCE A WEEK active Not Available Not Available No t Available hydromorphon e 4 mg tablet TAKE 1 TABLET BY MOUTH EVERY 4 HOURS NEEDED FOR MODERATE PAIN active Not Available Not Available No t Available ondansetron 4 mg disintegrati ng tablet DISSOLVE ONE TABLET BY MOUTH EVERY 8 HOURS NEEDED FOR NAUSEA AND VOMITING active Not Available Not Available No t Available fluoxetine 20 mg capsule TAKE ONE CAPSULE BY MOUTH EVERY DAY IN THE MORNING active Not Available Not Available No t Available clotrimazole 1 % topical cream APPLY ONE APPLICATION EXTERNAL TWICE A DAY active Not Available Not Available Not Available sertraline 50 mg tablet TAKE ONE TABLET BY MOUTH EVERY DAY active Not Available Not Available No t Available finasteride 5 mg tablet TAKE ONE TABLET BY MOUTH EVERY DAY. DO NOT CRUSH, CHEW, OR SPLIT. active Not Available Not Available No t Available dextroamphet amine-amphet amine 5 mg tablet TAKE ONE TABLET BY MOUTH EVERY MORNING active Not Available Not Available No t Available simethicone 80 mg chewable tablet CHEW 1 TABLET BY MOUTH 5 TIMES A DAY NEEDED FOR GASEOUS DISTENTION/ DISCOMFORT active Not Available Not Available N ot Available oxycodone 5 mg tablet TAKE ONE TABLET BY MOUTH EVERY 6 HOURS NEEDED FOR BREAK THROUGH PAIN active Not Available Not Available No t Available Oyster Shell Calcium-500 500 mg (as carbonate 1,250 mg) tablet TAKE ONE TABLET BY MOUTH EVERY DAY AT 1700 active Not Available Not Available Not Available Allergy Relief (loratadine) 10 mg tablet TAKE ONE TABLET BY MOUTH EVERY DAY active Not Available Not Available No t Available clonazepam 1 mg disintegrati ng tablet DISSOLVE ONE TABLET BY MOUTH EVERY DAY NEEDED FOR PANIC ATTACK UP TO 10 TIMES PER MONTH active Not Available Not Available No t Available nitrofuranto in monohydrate/ macrocrystal s 100 mg capsule TAKE ONE CAPSULE BY MOUTH TWICE A DAY FOR 7 DAYS active Not Available Not Available No t Available cholecalcife rol (vitamin D3) 250 mcg (10,000 unit) capsule TAKE ONE CAPSULE 2 TIMES A WEEK active Not Available Not Available No t Available chlorhexidin e gluconate 0.12 % mouthwash RINSE MOUTH WITH 15ML 1 CAPFUL) FOR 30 SECONDS IN THE MORNING AND EVENING AFTER BRUSHING TEETH. EXPECTORATE AFTER RINSING, DO NOT SWALLOW active Not Available Not Available Not Available quetiapine 50 mg tablet TAKE THREE TABLETS BY MOUTH EVERY EVENING AT BEDTIME active Not Available Not Available No t Available ferrous sulfate 324 mg (65 mg iron) tablet,delay ed release TAKE ONE TABLET BY MOUTH EVERY DAY active Not Available Not Available No t Available quetiapine ER 150 mg tablet,exten ded release 24 hr TAKE ONE TABLET BY MOUTH EVERY DAY AT BEDTIME active Not Available Not Available No t Available Botox 200 unit injection active Not Available Not Available No t Available lurasidone 40 mg tablet TAKE THREE TABLETS BY MOUTH EVERY DAY active Not Available Not Available No t Available lurasidone 120 mg tablet TAKE ONE TABLET BY MOUTH EVERY DAY WITH MEAL active Not Available Not Available No t Available Linzess 72 mcg capsule TAKE ONE CAPSULE BY MOUTH EVERY MORNING active Not Available Not Available No t Available quetiapine 150 mg tablet TAKE ONE TABLET BY MOUTH DAILY AT BEDTIME active Not Available Not Available N ot Available Vitals Date Recorded Oxygen saturation Oxygen saturation in Arterial blood by Pulse oximetry Body temperature Respiratory rate Heart rate Systolic blood pressure Diastolic blood pressure Provider Name and Address Organization Details Last Updated DateTime 4 97 % 97 % 97.7 [degF] 18 /min 98 /min 138 mm[Hg] 76 mm[Hg] Not Available [facility] 4 20:21:06 Date Recorded Oxygen saturation Oxygen saturation in Arterial blood by Pulse oximetry Respiratory rate Body weight Body temperature Heart rate Body height Systolic blood pressure Diastolic blood pressure Provider Name and Address Organization Details Last Updated DateTime 4 97 % 97 % 18 /min 345159. 6 g 97.7 [degF] 81 /min 167.64 cm 126 mm[Hg] 88 mm[Hg] Not Available [facility] - [facility] 4 12:40:07 Date Recorded Body temperature Heart rate Oxygen saturation Oxygen saturation in Arterial blood by Pulse oximetry Respiratory rate Systolic blood pressure Diastolic blood pressure Provider Name and Address Organization Details Last Updated DateTime 5 97.8 [degF] 105 /min 98 % 98 % 20 /min 142 mm[Hg] 84 mm[Hg] Not Available [facility] 5 15:19:46 Social History None recorded. Functional Status None recorded. Mental Status None recorded. Family History Nothing Reported. Medical History No medical history recorded. Gynecological HistoryNo gynecological history recorded. Obstetrics History GPAL:G 0 P 0 0 0 0 Past Encounters Encounter ID Performer Location Encounter Start Date Encounter Closed Date Diagnosis/Indication Diagnosis SNOMED-CT Code Diagnosis ICD10 Code Diagnosis Note [id number] BENEDICTO GAO MD [facility] [address] [place] [address] 06/28/2024 20:21:04 06/28/2024 22:41:06 COVID-19 [id number] U07.1 [id number] Lizzette Lizama MD [facility] [address] [place] [address] 08/17/2024 12:39:55 08/18/2024 17:22:49 Headache 11446183 R51.9 possible complex migraine but w/ visual changes left- feels different / more severe from usual migraine/ needs ophthalmos copic exam / possible head Ct to r/o incr ICP- also since cannot take nsaids and cannot medicate for pain other than APAP- declined given that we have nsaids/ apap only/advis ed in patient best interest to go into ED for further w/u and treatment- She requests to go to [facility]- has no ride- medic alled EMS- I called report to the ED [id number] Jorge Alberto Linn MD [facility] [address] [place] [address] 12/20/2024 15:19:44 12/20/2024 22:54:55 Syncope [id number] R55 Closed injury of head 45 72939100 06 S09.90XA Dizziness 724159438 R42 Health Concerns Section Related Observation LastModified by Organization Detai ls LastModified Time None Recorded Concern Status LastModified by Organization Details LastModified Time None Recorded Advance Directives Directive None Recorded Payers Encounter Date Sequence Insurance Name Policy Number Policy Aguilar Covered Member ID Aguilar Member ID Guarantor Name 06/28/2024 1 [employer] - DOS ON OR AFTER 2023 - DUAL ELIGIBLE - PENITENTIARY OPTIONS AND ONE CARE (MEDICARE REPLACEMENT/ADV ANTAGE - HMO) [facility] [place] [id number] [facility] 08/17/2024 1 [employer] - DOS ON OR AFTER 2023 - DUAL ELIGIBLE - PENITENTIARY OPTIONS AND ONE CARE (MEDICARE REPLACEMENT/ADV ANTAGE - HMO) [facility] [id number] [facility] 12/20/2024 1 [employer] - DOS ON OR AFTER 2023 - DUAL ELIGIBLE - PENITENTIARY OPTIONS AND ONE CARE (MEDICARE REPLACEMENT/ADV ANTAGE - HMO) [facility] [id number] [facility] Notes Date Note Type Note Provider Name and Address Organization Details Recorded Time 06/28/2024 text/html HPI: Iglesia pimentel ................... ................... ................... ................... ................... ................... ................... ........ CRC Nurse Triage Notes (Grace Jeff): Reason For Request: URI Chief Complaints: URI, Nausea/Vomiting PMH: COPD/Asthma, Other Allergies: Lidocaine Other Allergies: lidocaine celexa, Topamax, Cymbalta Lyrica tramadol Comments: Image Scientist verified the member's name//address and phone number. Member is a 29 yr old female PMH >H3 Kidney Disease, Mental illness that she takes meds for. fibromyalgia, chronic Migraines , asthma , cycling Vomiting Allergies >lidocaine celexa, Topamax, Cymbalta Lyrica tramadol The patient has been positive for COVID since Tuesday. The symptoms started around Tuesday. The patient is having MANDEL, Running eyes, nose, coughing, sore throat, chills, but no fever, mild nausea, and loose stool. Is able to drink but small amounts of food. The first few days the pt took OTC but has stopped since Tuesday. Mild sob , secondary to ASthma . Did explain she is past the Paxlovid marker as it is past 5 days Education provided on the response time and the member was advised to monitor reported s/s and seek emergency treatment if needed ................... ................... ................... ................... ................... ................... ................... ........ Acoustical Material Worker Note From Evan Barbosa: Dispatched to above address for Covid-19 symptoms. On arrival patient 29 y/o F, met SC8 at the door, walking unassisted with normal gait, AOX4, airway patent, speaking in full sentences, good color, in no apparent distress. Patient reports she began feeling unwell on Tuesday, reports malaise body aches headache and mild shortness of breath, tested positive for Covid-19 on Tuesday, symptoms have been getting worse, no relief from Dayquil, has been taking 2g Tylenol twice a day. Patients vital signs checked. Secondary assessment, pupils PERRL, airway patent, no JVD, trachea midline, equal chest rise and fall, lungs clear all maxwell, abdomen soft non tender, no signs of trauma, good radial pulse, skin pink warm and dry. [facility] contacted, spoke with Dr. Gao, advised of patient complaints and exam findings. [facility] recommends increase fluid intake rest and home care, follow up if symptoms worsen or continue without improvement for several days. Patient advised of [facility] recommendations. Patient understands. Patient has no additional questions or concerns at this time. SC8 clear. EOR. ................... ................... ................... ................... ................... ................... ................... ........ Disposition: Fulfilled BENEDICTO GAO MD [address] [place] [address],[address], [place], [address], [employer] 06/28/2024 21:01:46 08/17/2024 text/html HPI: Allergies (11)Monarch Oil? N ot Specified? C at Hair Extract? N ot Specified? C italopram? N ot Specified? G abapentin? N ot Specified? M ixed Feathers? N ot Specified? N saids? N ot Specified? S ucralose? N ot Specified? T opiramate? N ot Specified? T razodone? N ot Specified? W atermelon Flavor [flavoring Agent]? N ot Specified? W ound Dressing Adhesive? P atient with noted buykmhy4l BP last evening with headache and blurry vision as taken manually by friend 140/96. No facial numbness or weakness. Slight headache this morning also with redness of left eye. No drainage. No diagnosis of HTN not on meds. ................... ................... ................... ................... ................... ................... ................... ........ CRC Nurse Triage Notes (Grace Jeff): Chief Complaints: Headache, Hypertension PMH: COPD/Asthma Allergies: Lidocaine Other Allergies: See List in History Comments: CRC RN DID NOT NEED FURTHER INFO Acoustical Material Worker Organization Information for [facility] Legal Name: [employer] Address: [address] [place] [id number], Hot Top Liner: Rajat Robert MD CLIA No.: [id number] Acoustical Material Worker POC Test Results from [facility]STAT Chem8+ (12:26:22) Na: 142 mEq/L K: 4.2 mEq/L Cl: 104 mEq/L iCa: 1.19 mmol/L TCO2: 25 mmol/L Glu: 88 mg/dL BUN: 16 mg/dL Crea: 1.8 mg/dL Hct: 51 % Hb: 17.3 g/dL A ................... ................... ................... ................... ................... ................... ................... ........ Acoustical Material Worker Note From Mariah Lopez: Sent to a call for a pt complaining of headache and blurry vision. SC8 arrives on scene, pt is alert and oriented, airway is patent, gait is steady. Following list of allergies/reactions verified: Almonds (Migraine), Tramadol (hives), Citalopram (Hallucinations), Gabapentin (mood swings), Nsaids (contraindicated due to taking Depakote), Sucralose (Migraines), Topiramate (Serotonin Syndrome), Trazodone (Depressive thoughts), Watermelon (swollen tongue), Adhesive (hives), Preservatives in Lidocaine (itching/burning sensation), Duloxetine (mood swings), Venlafaxine (mood swings); Pt states they have a history of Migraines, and CKD III. Pt states chronic nausea and RLQ abd pain are at baseline. Pt complains of right side headache (behind eye), Left eye blurry vision,redness on side of left eye(and in left globe of eye last night) and feeling off balance when closing eyes since last night. Pt denies cp, sob, vomiting, diarrhea, fever, or loc. Pt states they took Tylenol 1,500mg last night which helped headache, but did not take it away. Pt states this headache is worse than normal migraines, and denies blurry vision in the past. (sitting) BP:126/88, P:81, RR:18, SpO2:97% RA, T:97.7; (standing) BP:155/102, P:92; Neuro exam: negative; Head: no tenderness; slight erythema near left eye; Eyes: PERRL bilaterally, no erythema or discharge noted in/coming from eye; Lung sounds: clear bilaterally; Abdomen: soft, non-tender, no distention; Back: unremarkable; Extremities: unremarkable; Skin: pink, warm, dry; Venous blood draw performed; Istat Chem8+ results: uploaded to [facility]; [facility] consulted and pt is advised they need to go to ED for further eval as we are limited in home setting. Pt agrees to transport to [facility] ED by ambulance. 911 called; Pt care is transferred to [facility] Dept. ................... ................... ................... ................... ................... ................... ................... ........ Disposition: FulfilledSEGMD: As above- allergies/ adrs reviewed- states has never had visual changes /ocular pain or redness, or dizziness with prior migraines. Denies falls, speech changes, focal weakness or numbness. Lizzette Lizama MD [address] [place] [address],[address], [place], [phone], [facility] [employer] [facility] 08/17/2024 23:43:46 12/20/2024 text/html This was a supervised home visit with e learning designer García Gudino. [facility] Nurse Triage Notes (Vanessa Fountain - KIMBERLY): Patient Reports: Dizziness with positional changeDenies: Worst Headache of life New onset of vision loss Sudden onset -unilateral weakness/gait disturbance Fall with head strike and altered LOC New onset of Slurred speech or difficulty finding words Sudden Mental status changes Head pain with fever chills and neck pain Seizure activity Chief Complaints: Falls, Back pain, DizzinessPMH: COPD/Asthma, MigrainePMH Reviewed at 12/20/2024 - :23Allergies Reviewed at 12/20/2024 - :23Comments: Patient sustained a fall yesterday due to dizziness. History of dizziness, vertigo. Patient states she has these episodes frequently. Fell backwards into your dresser with headstrike. + LOC yesterday. Patient continuing to feel dizzy. No headache or visual changes. Declines ER. Patient would like to be seen first. Patient sees a neurologist. Denies chest pain or shortness of breath. Speech is clear. Eating and drinking normally. Education provided on the response time and the member was advised to monitor reported s/s and seek emergency treatment if needed. Member to create a list of Medication allergies and Past medical history for responding medic. ................... ................... ................... ................... ................... ................... ................... ........ Acoustical Material Worker Note From García Gudino: [facility] dispatched to the address listed above for the report of a female libertarian with dizziness. Arrival on scene, patient found inside residence seated in chair, alert and oriented x4, patent airway, breathing non labored speaking in complete sentences, skin WPD in no immediate distress. +/= Chest rise. -SOB, -CP, -NVD, +Trauma, -Fever. GCS 15. Lung sounds clear in all maxwell. FASTED - 0. Abdomen soft, non tender, and non distended. Pupils 3mm and PERRL. Patient reports that she had a syncopal episode yesterday, unwitnessed lasting approximately 5-10 seconds and hit her upper forehead on a dresser when she passed out. Patient reports no neck/back pain on palpation and denies any blood thinners. Additionally patient also reports blurred vision and continuous dizziness since yesterday. Patient reports that she has history of vertigo and low K, reports she normally has about 2 syncopal episodes per week for the last 5 years. Patient reports that the dizziness does not normally last this long. Patient reports normal food/fluid intake and medication compliance. Patient vital signs obtained as noted. [facility] was consulted, recommended that patient go to the ED for a CT scan and given the patient's symptoms which patient agreed to, 911 called for patient. IV access was attempted but unsuccessful. Galina MOLINA arrival on scene, patient report given to EMS and care was transferred. EMS assisted on scene until transport initiated. [facility] clear. ................... ................... ................... ................... ................... ................... ................... ........ [facility] Consulted: Jorge Alberto Linn ................... ................... ................... ................... ................... ................... ................... ........ Disposition: Fulfilled Jorge Alberto Linn MD [address] [facility],[address], [place], [address], [employer] [facility] [employer] 12/20/2024 16:43:55 OBGyn Episode No OBEpisode recorded.
--- OUTSIDE RECORDS SUMMARY | 2025-02-20 14:09 | XMS_ITS | Encounter Summary ---
Author Organization [employer] Address [address] [place] [address] [address] [place] [address] Care Team Providers Care Plastic Press Molder Name Role Phone Sami Shaffer MD Primary Care Prov ider Encounter Details Date Type Department Care Team (Late st Contact Info) Description 07/26/2023 Orders Only [facility] [address] [place] [address] Sami Shaffer MD [address] [place] [address] Social History Tobacco Use Types Packs/Day Years Used Date Smoking Tobacco: Never Smokeless Tobacco: Never Alcohol Use Standard Drinks/Week Comments Not Currently 0 (1 standard drink = 0.6 oz pur e alcohol) Comments Unknown Sex and Gender Information Value [...] on filedocumented in this encounter Care Teams Plastic Press Molder Relationship Specialty Start Date End Date Sami Shaffer MD [address] [place] [address] PCP - General Internal Medicine 08/28/19 documented as of this encounter
--- OUTSIDE RECORDS SUMMARY | 2025-02-20 14:09 | XMS_ITS | Clinical Summary ---
Author Organization [employer] [facility] Address [address] [place] [address] 7[address] [place] [address] Care Team Providers Care Jewelry Sales Representative Name Role Phone Sami Shaffer MD Primary Care Prov ider Allergies Active Allergy Reactions Criticality Noted Date Comments [place] Oil 10/29/2022 Cat Dander 10/29/2022 Citalopram 10/29/2022 Citrullus Vulgaris Anaphylaxis,Itching, Swelling High 01/01/2020 Duloxetine Mental status change,Other 06/18/2022 Duloxetine Hcl 09/12/2024 Gabapentin 10/29/2022 Lidocaine 06/18/2022 Mixed Feathers 01/01/2020 Nsaids 03/31/2021 Other 09/12/2024 Other Reaction(s): artificial sweetener Artificial Sweetener: Causes Migraines Pregabalin Mental status change,Other 06/18/2022 Sucralose 10/29/2022 Topiramate 10/29/2022 Tramadol Hives 06/18/2022 Trazodone 10/29/2022 Venlafaxine Mental status change,Other 06/18/2022 Flavoring Agent (Non-Screening) 10/29/2022 Wound Dressing Adhesive Rash,Swelling Low 06/18/2022 Medications * This document contains information received from the source organization and may not represent a complete record from that organization. clonazePAM (KlonoPIN) 2 MG tablet Take 1 tablet by mouth at bedtime. 12/28/19 Active diphenhydrAMINE (BENADryl) 25 MG capsule Take 1 capsule by mouth Every 4-6 hours as needed. Active lurasidone (Latuda) 120 MG tablet Take 1 tablet by mouth 1 (one) time each day. With a meal 02/27/20 23 Active chlorproMAZINE (Thorazine) 10 MG tablet Take 10 mg by mouth at bedtime. 01/11/20 24 Active tamsulosin (Flomax) 0.4 MG 24 hr capsule Take 0.4 mg by mouth in the morning. Active cholecalciferol 250 MCG (56340 UT) capsule Take 1 capsule by mouth twice a week 04/26/20 Active clonazePAM (KlonoPIN) 1 MG tablet Take 1 mg by mouth in the morning. Active finasteride (Proscar) 5 MG tabletIndication s:Hair loss Take 1 tablet (5 mg) by mouth Once per day. Do not crush, chew, or split. 30 tablet 11 03/20/20 24 025 Active buPROPion SR (Wellbutrin SR) 150 MG 12 hr tablet TAKE ONE TABLET BY MOUTH TWICE A DAY TAKE 2ND DOSE NO LATER THAN 2:00PM) 07/26/20 Active amphetamine-dext roamphetamine (Adderall) 10 MG tablet Take 1 tablet by mouth in the morning. 07/26/20 24 Active Acetaminophen 500 MG capsule Take 1 capsule orally every 6 hours prn fever or pain 90 capsule 2 08/02/20 24 Active acetaZOLAMIDE (Diamox) 250 MG tablet Take 1 tablet by mouth every 8 (eight) hours. 09/03/20 24 Active butalbital-aceta minophen-caffein e 50-325-40 MG tablet Take 1 tablet by mouth every 4 (four) hours if needed for headaches. Active cloNIDine (Catapres) 0.2 MG tablet Take 1 tablet by mouth if needed in the morning and at bedtime (severe anxiety/agita tion). 08/23/20 24 Active methocarbamol (Robaxin) 750 MG tablet Take 1 tablet by mouth if needed in the morning and at bedtime for muscle spasms. Active mirtazapine (Remeron) 15 MG tablet Take 1 tablet by mouth at bedtime. 08/14/20 Active senna (Senokot) 8.6 MG tablet Take 2 tablets by mouth Once per day. 09/03/20 Active divalproex (Depakote ER) 500 MG 24 hr tablet Take 2 tablets by mouth 2 times daily. 07/26/20 Active QUEtiapine (SEROquel) 100 MG tablet Take 100 mg by mouth at bedtime. 08/14/20 Active albuterol 108 (90 Base) MCG/ACT inhaler Inhale 2 puffs every 6 (six) hours if needed for wheezing. 18 g 11 09/28/20 Active omeprazole (PriLOSEC) [address] capsule TAKE ONE CAPSULE BY MOUTH EVERY DAY BEFORE BREAKFAST DO NOT CRUSH OR CHEW 90 capsule 1 10/15/20 Active famotidine (Pepcid) 20 MG tablet Take 1 tablet by mouth 2 times daily. 11/05/20 025 Discontinued montelukast (Singulair) 10 MG tabletIndication s:Moderate persistent asthma without complication TAKE ONE TABLET BY MOUTH EVERY DAY AT BEDTIME 90 tablet 08/25/20 025 Discontinued Linzess 72 MCG capsule Take 72 mcg by mouth in the morning. 025 Discontinued ferrous sulfate 325 (65 Fe) MG tablet Take 1 tablet by mouth in the morning. 11/30/19 025 Discontinued Oyster Shell Calcium 500 MG tablet TAKE ONE TABLET BY MOUTH EVERY DAY AT 1700 01/11/20 025 Discontinued bethanechol (Urecholine) 50 MG tablet Take 50 mg by mouth 2 times daily. 025 Discontinued aMILoride (Midamor) 5 MG tablet Take 1 tablet by mouth Once per day. 01/26/20 025 Discontinued eszopiclone (Lunesta) 2 MG tablet Take 1 tablet by mouth at bedtime. 08/15/20 025 Discontinued Active Problems Problem Noted Date Diagnosed Date Irritable bowel syndrome with constipation 11/19 Assessment & Plan (11/19/2024 11:31 PM EST): Patient has tried multiple remeides and diet without improvement in symptoms, will refer to gi Acute otitis media 10/01/2024 Iron deficiency anemia 11/30/2023 Assessment & Plan (11/30/2023 7:43 PM EST): Will discontinue iron replacement, told to increase diet rich in iron will monitor Hair loss 08/29/2023 Assessment & Plan (08/29/2023 4:39 PM EDT): Will provide minoxidil shampoo, patient refers lost of hair is mostly on taoist area, no circular hair loss, no rash, will also place dermatology referral Urinary frequency 08/29/2023 Assessment & Plan (11/30/2023 7:44 PM EST): Followed by urology, had cystoscopy, taking flomax and bethanechol Assessment & Plan (08/29/2023 4:41 PM EDT): Patient refer symptoms did not resolved at all after last antibiotic therapy, will place new u/a and culture for follow up, denied fever/chills, hematuria. Gender dysphoria 03/28/2023 Assessment & Plan (05/03/2023 1:37 PM EDT): Assessment: Patient with consistent and persistent gender dysphoria since before age 14, yet did not have the language to understand their experience as transgender until they were about 16 years old. Denisse came out to their parents and community and made a social gender transition at age 23. Denisse symptoms do meet DSM-5-TR criteria for a Gender Dysphoria diagnosis, and they have been living in Non-[facility] for over 5 years. Denisse has been evaluated for coexisting mental health diagnoses and presents with history of Major Depressive Disorder, Generalized Anxiety, Bipolar Disorder and Post-Traumatic Stress Disorder which are adequately managed by outpatient mental health providers at [facility] and [facility]. Denisse is emotionally stable, and is intellectually able to make an informed decision to undergo gender- affirming hysterectomy. I strongly recommend hysterectomy to alleviate Denisse's Gender Dysphoria. Denisse indicated they have a post-surgery care plan and support with live-in family members, including mother and sibling. Hysterectomy: According to the World Professional Association for Transgender Health (WPATH) Standards of Care, Version 7, criteria for gender affirming surgery include: 1. persistent, well-documented gender dysphoria; 2. capacity to make a fully informed decision and to consent for treatment; 3. age of majority in a given country; 4. insignificant or well-controlled medical or mental health concerns; 5. 12 continuous months of hormone therapy. Denisse easily meets these criteria, and is a strong candidate for hysterectomy. Patient ready to address current needs Yes Strengths include Supportive medical team and hx of compliance with medical and mental health treatment PLAN: 1. Follow up with [facility]: Not recommended for follow-up 2. Patient goal is Continue Gender Affirming treatment to cope with Gender Dysphoria 3. Behavioral Recommendations a. Continue MH treatment with therapist and psychiatric medication management provider. b. Continue Affirming Hormone tx with Sissy Valadez Assessment & Plan (03/28/2023 11:03 AM EDT): Will renew testosterone in order for patient to get full month treatment, no complains with treatment reported, has appointment tomorrow with CNM. Recurrent major depressive disorder, in partial remission 02/10/2023 Assessment & Plan (01/19/2024 1:55 PM EDT): PLAN: (check all that apply) Continue with current services (defined as services in the past 12 months) Behavioral Health Integration Plan Patient Self Plan [facility], Comply with medication , Patient to engage in OP therapy , Patient to reach out to CB as needed, and Patient to follow-up with external team Patient is connected with [facility] ?? Patient has crisis information. Bipolar disorder 02/10/2023 Chronic migraine without aura 02/10/2023 Assessment & Plan (11/19/2024 11:30 PM EST): Patient was at [facility] from 09/01-09/03 due to headache ongoing for the past [address] scan of head and cervical spine done was non acute. Was discharged to continue fioricet and acetazolamide and follow up with neurology. Patient refers feeling better, no acute neurologic deficit. Fibromyalgia 02/10/2023 Pain of breast 02/10/2023 Pseudotumor cerebri syndrome 02/10/2023 Severe obesity 02/10/2023 Visual disturbance 02/10/2023 Multiple joint pain 10/29/2022 Assessment & Plan (10/29/2022 2:47 PM EST): Patient refers that for the past 2 weeks has been having ankle, shoulder, hand pain, denied swelling, has been trying tylenol and robaxin without improvement in symptoms, no trauma. Since patient has CKD, will provide tramadol, continue resting, applying ice/heat, in case of swelling, redness, visit er [place] 02/18/2022 Encounters Date Type Department Care Team Description 01/29/2025 2:15 PM EDT Telemedicine [facility] [address] [place] [address] Sami Shaffer MD Numbness and tingling of lower extremity (Primary Dx) 01/29/2025 Travel 01/28/2025 Travel 01/23/2025 Telephone [facility] [address] [place], [place] [phone] Sami Shaffer MD Durable Medical Equipment 01/15/2025 Telephone [facility] [address] [place], [place] [phone] Sami Shaffer MD 11/30/2024 Telephone [facility] [address] [place], [place] [phone] Sami Shaffer MD 11/23/2024 Telephone [facility] [address] [place], [place] [phone] Sami Shaffer MD from Last 3 Months Immunizations Name Administration Dates Next Due HPV 9-Valent 07/15/2023,04/22/2023,03/08/2023 HPV, Quadrivalent 07/15/2023,04/22/2023,03/08/20 23 Hep A, Adult 04/15/2015 Hep B, adult 06/09/2020 Influenza Injectable Quadriv alant Preservative Free IIV4 MDCK 10/25/2018 Influenza injectable quadriv alent IIV4 with preservative 08/30/2019,11/03/2015 Influenza injectable quadriv alent preservative free 07/26/2023,09/22/2021 Influenza, IIV3, injectable 07/26/2023,,08/12/2016 Influenza, seasonal, injecta ble, preservative free 09/03/2024 MMR 06/09/2020 Pfizer Covid-19 Vaccine 12+ 02/22/2021, Tdap 05/09/2019 Social History Tobacco Use Types Packs/Day Years Used Date Smoking Tobacco: Never Passive Smoke Exposure: Never Smokeless Tobacco: Never Tobacco Cessation:Counseling Given: Not Answered Alcohol Use Standard Drinks/Week Comments Not Currently [...] Orientation Bisexual 09/06/2022 10 :36 AM EDT Last Filed Vital Signs Vital Sign Reading Time Taken Comments Blood Pressure 131/82 09/24/2024 11:21 AM EST Pulse 108 09/24/2024 11:21 AM EST Temperature 36.1 ??C (97 ??F) 09/24/2024 11:21 AM EST Respiratory Rate 22 09/24/2024 11:21 AM EST Oxygen Saturation 97% 09/24/2024 11:21 AM EST Inhaled Oxygen Concentration - - Weight 134 kg (295 lb) 09/24/2024 11:21 AM EST Height 167.6 cm (5' 6 ) 09/24/2024 11:21 AM EST Body Mass Index 47.61 09/24/2024 11:21 AM EST Plan of Treatment Health Maintenance Due Date Last Done Comments Alcohol/Substance Use Screening 2008 Family Planning (PISQ) 02/25/2011 Pneumococcal Vaccine: Pediatrics (0 to 5 Years) and At-Risk Patients (6 to 49) Years) (1 of 2 - PCV) 02/25/2015 Hepatitis B Vaccines (2 of 3 - 19+ 3-dose series) 07/07/2020 06/09/2020 HPV Vaccines (3 - 3-dose SCDM series) 10/07/2023 07/15/2023, 07/15/2023, 04/22/2023, Additional history exists HPV/Cotest 03/17/2024 Pap Smear 03/17/2024 03/17/2021, 03/17/2021 COVID-19 Vaccine ( - 2023- season) 2024 02/22/2021, 01/30/2021 Depression Monitoring 07/21/2024 01/19/2024, 024 Depression Screening 01/18/2025 01/19/2024, 01/19/20 24 SDOH Screening 04/11/2025 04/11/2024 Tobacco Screening 09/24/2025 09/24/2024 Lipid Panel 07/12/2028 07/12/2023, 05/21/2022 DTaP/Tdap/Td Vaccines (2 - Td or Tdap) 05/09/2029 05/09/2019 Zoster Vaccines (1 of 2) 02/25/2046 RSV Patients and Patients Aged 60 years or older (1 - 1-dose 75+ series) 02/25/2071 Hepatitis A Vaccines Aged Out 04/15/2015 No long er eligible based on patient's age to complete this topic HIV Screening Completed 04/22/2023, 10/16/2020 Hepatitis C Screening Completed 04/22/2023, 022 Influenza Vaccine Completed 09/03/2024, , 07/26/2023, Additional history exists HIB Vaccines Aged Out No longer eligi ble based on patient's age to complete this topic IPV Vaccines Aged Out No longer eligi ble based on patient's age to complete this topic Meningococcal Vaccine Aged Out No pedrito romie eligible based on patient's age to complete this topic RSV under 20 months Aged Out No longe r eligible based on patient's age to complete this topic Rotavirus Vaccines Aged Out No longer eligible based on patient's age to complete this topic Procedures Procedure Name Priority Date/Time Associated Diagnosis Comments LIPID PANEL, STANDARD Routine 07/12/2023 11:03 AM EDT Iron deficiency anemia secondary to inadequate dietary iron intake HEPATITIS C AB W/REFL TO HCV RNA, QN, PCR Routine 04/22/2023 11:25 AM EDT Screening examination for venereal disease HIV 1/2 ANTIGEN/ANTIBODY, FOURTH GENERATION W/RFL Routine 04/22/2023 11:25 AM EDT Screening examination for venereal disease PAP SMEAR Routine 03/17/2021 12:00 AM EDT from Last 3 Months or Most Recently Relevant to Health Maintenance Results * (ABNORMAL) Lipid Panel, Standard (07/12/2023 11:03 AM EDT) Triglycerides 291(H) <150 mg/dL [facility] Comment:Desirable Triglyceri de: less than 150 mg/dLBorderline High Triglyceride 150-199 mg/dLHigh Triglyceride: 200-499 mg/dLVery High Triglyceride: greater than or equal to 5OO mg/dL Cholesterol 235(H) <200 mg/dL [facility] Comment:Desirable Cholestero l: less than 200 mg/dLBorderline High Cholesterol: 200-239 mg/dLHigh Cholesterol: greater than 239 mg/dL LDL Cholesterol Calculated 141(H) <100 mg/dL [facility] Comment:Desirable LDL: less than 100 mg/dLNear Optimal/Above Optimal LDL: 110- 129 mg/dLBorderline High LDL: 130-159 mg/dLHigh LDL: 160-189 mg/dLVery High LDL: greater than or equal to 190 mg/dL HDL Cholesterol 36(L) >40 mg/dL [facility] Comment:Desirable HDL: great er than 40 mg/dL Note: This HDL assay may give artificially low results in patients with liver disease. Blood Venous blood specimen / Unknown 07/12/2023 11:03 AM EDT 07/12/2023 2:17 PM EDT Sami Abel MD LAB BLOOD ORDERABL ES Final Result Performing Organization Address City/[facility]/ZIP Co de Phone Number [facility] [address] [place] [phone] * Hepatitis C Antibody with Reflex to HCV, RNA, Quantitative, Real-Time PCR (04/22/2023 11:25 AM EDT) Pathologist [facility] Hepatitis C Antibody NON-REACT DESIRE NON-REACT DESIRE [facility] [place] [facility] Index 0.09 <1.00 [facility] [place] [facility] Comment: HCV antibody was non-reactive. There is no laboratory evidence of HCV infection. In most cases, no further action is required. However, if recent HCV exposure is suspected, a test for HCV RNA (test code 03843) is suggested. For additional information please refer to http://education.MemberTender.com/faq/EBF06v1 (This link is being provided for informational/ educational purposes only.) Blood Venous blood specimen / Unknown 04/22/2023 11:25 AM EDT 04/22/2023 11:26 AM EDT us Sissy TYLER LAB BLOOD ORDERABLES Stephany l Result Performing Organization Address City/[facility]/ZIP Co de Phone Number [facility] [address], [place] [address] [facility] [place] [facility] [address] [place] [address] * HIV-1/2 Antigen and Antibodies, Fourth Generation, with Reflexes (04/22/2023 11:25 AM EDT) Pathologist [facility] HIV Antigen/Antibody, 4th Generation NON-REAC TIVE NON-REAC TIVE [facility] [place] [facility] Comment: HIV-1 antigen and HIV-1/HIV-2 antibodies were not detected. There is no laboratory evidence of HIV infection. PLEASE NOTE: This information has been disclosed to you from records whose confidentiality may be protected by state law. ??If your state requires such protection, then the state law prohibits you from making any further disclosure of the information without the specific written consent of the person to whom it pertains, or as otherwise permitted by law. A general authorization for the release of medical or other information is NOT sufficient for this purpose. ?? For additional information please refer to http://education.MemberTender.com/faq/ZCW070 (This link is being provided for informational/ educational purposes only.) The performance of this assay has not been clinically validated in patients less than 2 years old. Blood Venous blood specimen / Unknown 04/22/2023 11:25 AM EDT 04/22/2023 11:26 AM EDT Sissy Valadez [facility] LAB BLOOD ORDERABLES Stephany l Result Performing Organization Address [facility] de Phone Number [employer] [address] [place] [address], [place] [address] [facility] [address] [place] [address] * Pap Smear (03/17/2021 12:00 AM EDT) [facility] LAB CYTOLOGY ORDERABLES F inal Result Performing Organization Address [facility] Co de Phone Number [employer] [address] [place] [address], [place] [address] from Last 3 Months or Most Recently Relevant to Health Maintenance Insurance [address] [place] [address] - [employer] Care Teams Jewelry Sales Representative Relationship Specialty Start Date End Date Sami Shaffer MD [address] [place] [address] PCP - General Internal Medicine 08/28/19
--- OUTSIDE RECORDS SUMMARY | 2025-02-20 14:09 | XMS_ITS | Encounter Summary ---
Author Organization [employer] Address [address] [facility] 7t [place] [address] Care Team Providers Care Coil Former Name Role Phone Sami Shaffer MD Primary Care Prov ider Reason for Visit * Reason Onset Date Comments Referral 05/29/2024 Encounter Details Date Type Department Care Team (Late st Contact Info) Description 05/29/2024 Telephone [facility] [address] [place] [address] Sami Shaffer MD [address] [place], [place] [phone] Referral Social History Tobacco Use Types Packs/Day [...] * Telephone Encounter - Sergey Ching - 06/14/2024 11:21 AM EDT Tc from pt requesting status on referrals below. * Telephone Encounter - Lila Gipson RN - 06/05/2024 10:19 AM EDT TC to pt in regarding message below form pt- The pt would like to following referrals put in. As for the gastro referral, pt states they are unsatisfied with [facility] G[facility] and would like to see [facility] G[facility]. Pt was advised message would be sentto PCP. Pt verbalized understanding and agrees to plan. Tc from pt requesting referral for massage therapy: Address: [address] [place] [address] Facility Name: [facility] Type of specialist: Chiropractic and massage therapy TC from pt requesting new referral for Gastro: Address: [address] [place] [address] Facility Name: [facility] Type of Specialist: Gastro . * Telephone Encounter - Nakul Sanchez - 05/29/2024 11:37 AM EDT Tc from pt requesting referral for massage therapy: Address: [address] [place] [address] [place] , [place], [place] Facility Name: [facility] Type of specialist: Chiropractic and massage therapy TC from pt requesting new referral for Gastro: Address: [address] [place] [address] Facility Name: [facility]astroenterology Type of Specialist: Gastro . documented in this encounter Plan of Treatment Not on file documented as of this encounter Visit Diagnoses Not on filedocumented in this encounter Additional Health Concerns Assessment Noted Time PHQ-9 Depression Total Score: 15 024 12:57 PM EDT documented as of this encounter Care Teams Coil Former Relationship Specialty Start Date End Date Sami Shaffer MD [address] [place] [phone] PCP - General Internal Medicine 08/28/19 documented as of this encounter
--- OUTSIDE RECORDS SUMMARY | 2025-02-20 14:09 | XMS_ITS | Encounter Summary ---
Author Organization [employer] Address [address] [place] [address] [address] [place] [address] Care Team Providers Care Pharmacy Technician Name Role Phone Sami Shaffer MD Primary Care Prov ider Reason for Visit * Reason Onset Date Comments PT1 03/10/2023 Encounter Details Date Type Department Care Team (Late st Contact Info) Description 03/10/2023 Telephone [facility] [address] [place] [address] Sami Shaffer MD [address] [place] [address] PT1 Social History Tobacco Use Types Packs/Day Years [...] suspected to have Coronavirus/COVID-19? No / Unsure 02/10/2023 2:35 PM EDT documented as of this encounter Miscellaneous Notes * Telephone Encounter - Sergey Ching - 03/10/2023 9:29 AM EDT Jose Manuel ackerman with [facility] requesting to renew PT1 orders for: PT1 Name of facility: Pediatric Ophthalmology Specialty: Location: [facility] [address] [place], [place] [address] Date: June 10, 2023 Time: 3:15 pm fax: n/a wheelchair: n/a Colorist Formulator: n/a [facility] PT1 Name of facility: Specialty: [facility] Location: [address] [place] [address] Date: n/a Time: n/a fax: n/a Phone: n/a wheelchair: n/a Colorist Formulator: n/a [facility] If any questions please contact Hilda at [phone] documented in this encounter Plan of Treatment Not on file documented as of this encounter Visit Diagnoses Not on filedocumented in this encounter Care Teams Pharmacy Technician Relationship Specialty Start Date End Date MichelleSami Heredia MD [address] [place] [phone] PCP - General Internal Medicine 08/28/19 documented as of this encounter
--- OUTSIDE RECORDS SUMMARY | 2025-02-20 14:09 | XMS_ITS | Encounter Summary ---
Author Organization [employer] Address [address] [place] [address] [address] [place] [address] Care Team Providers Care Quality Assurance Auditor Name Role Phone Sami Shaffer MD Primary Care Prov ider Reason for Visit * Reason Comments Med Refill Encounter Details Date Type Department Care Team (Late st Contact Info) Description 12/22/2022 Refill [facility]EDS [address] [place] [address] Sami Shaffer MD [address] [place] [address] Gastroesophageal reflux disease without esophagitis Social History Tobacco Use Types Packs/Day Years [...] as of this encounter Visit Diagnoses Diagnosis Gastroesophageal reflux disease without esophagitis Esophageal reflux documented in this encounter Care Teams Quality Assurance Auditor Relationship Specialty Start Date End Date Sami Shaffer MD [address] [place] [address] PCP - General Internal Medicine 08/28/19 documented as of this encounter
--- OUTSIDE RECORDS SUMMARY | 2025-02-20 14:09 | XMS_ITS | Encounter Summary ---
Author Organization [employer] Address [address] [facility] 7t [place] [address] Care Team Providers Care Yarn Sorter Name Role Phone Sami Shaffer MD Primary Care Prov ider Encounter Details Date Type Department Care Team ([facility] st Contact Info) Description 01/15/2025 Telephone [facility] CHC MED & PEDS 505 [place] [address] Sami Shaffer MD 505 [place] [address] Social History Tobacco Use Types Packs/Day Years [...] documented as of this encounter Care Teams Yarn Sorter Relationship Specialty Start Date End Date Sami Shaffer MD [address] [place] [id number] PCP - General Internal Medicine 08/28/19 documented as of this encounter
--- OUTSIDE RECORDS SUMMARY | 2025-02-20 14:09 | XMS_ITS | Encounter Summary ---
Author Organization [employer] Address [address] [place] [address] 7 [place] [address] Care Team Providers Care Glove Pairer Name Role Phone Sami Shaffer MD Primary Care Prov ider Reason for Visit * Reason Comments Med Refill Encounter Details Date Type Department Care Team (Late st Contact Info) Description 12/29/2022 Refill [facility] CHC MED & PEDS 505 [place] [address] Sami Shaffer MD 505 [place] [address] Gastroesophageal reflux disease without esophagitis Social History [...] reflux documented in this encounter Care Teams Glove Pairer Relationship Specialty Start Date End Date Sami Shaffer MD 505 [place] [address] PCP - General Internal Medicine 08/28/19 documented as of this encounter
--- OUTSIDE RECORDS SUMMARY | 2025-02-20 14:09 | XMS_ITS | Encounter Summary ---
Author Organization [employer] Address [address] [place] [address] [place] [address] Care Team Providers Care Chief Telephone Operator Name Role Phone Sami Shaffer MD Primary Care Prov ider Reason for Visit * Reason Onset Date Comments PT1 07/25/2023 Encounter Details Date Type Department Care Team (Late st Contact Info) Description 07/25/2023 Telephone [facility] CHC MED & PEDS [address] [place] [address] Sami Shaffer MD 505 [place] [address] PT1 Social History Tobacco Use Types Packs/Day [...] encounter Miscellaneous Notes * Telephone Encounter - Pina Santiago - 07/25/2023 3:48 PM EDT PT-1 submitted for patient. They will receive a letter of approval or denial in the mail. * Telephone Encounter - Marlene Robertson - 07/25/2023 10:40 AM EDT PT1 Address verfied Date: 07/27/23 Time: 10:45 am Visits: Address: [address] [place] [address] [place] [address] Facility: Urology Wheel Chair: n/a Manugrapher Needed: no documented in this encounter Plan of Treatment Not on file documented as of this encounter Visit Diagnoses Not on filedocumented in this encounter Care Teams Chief Telephone Operator Relationship Specialty Start Date End Date Sami Shaffer MD [address] [place] [address] PCP - General Internal Medicine 08/28/19 documented as of this encounter
--- OUTSIDE RECORDS SUMMARY | 2025-02-20 14:09 | XMS_ITS | Encounter Summary ---
Author Organization [employer] Address [address] [facility] [address] 7t [place] [address] Care Team Providers Care Neurocritical Care Physician Name Role Phone Saim Shaffer MD Primary Care Prov ider Encounter Details Date Type Department Care Team (Late st Contact Info) Description 06/22/2024 Telephone [facility] [address] [place] [address] Sami Shaffer MD 505 [place], [place] [id number] Social History Tobacco Use Types Packs/Day Years [...] documented as of this encounter Care Teams Neurocritical Care Physician Relationship Specialty Start Date End Date Sami Shaffer MD [address] [place] [id number] PCP - General Internal Medicine 08/28/19 documented as of this encounter
--- OUTSIDE RECORDS SUMMARY | 2025-02-20 14:09 | XMS_ITS | Encounter Summary ---
Author Organization [employer] Address [address] [place] [address] 7 [place] [address] Care Team Providers Care Medical Numerical Control Operator Name Role Phone Sami Shaffer MD Primary Care Prov ider Reason for Visit * Reason Onset Date Comments PT1 07/25/2023 Encounter Details Date Type Department Care Team (Late st Contact Info) Description 07/25/2023 Telephone [facility] CHC MED & PEDS 505 [place] [address] Sami Shaffer MD 505 [place] [address] PT1 Social History Tobacco Use Types Packs/Day [...] * Telephone Encounter - Pina Santiago - 08/24/2023 12:57 PM EDT Patient doesn't qualify for PT-1. He now has [facility] for insurance and they will arrange transportation. * Telephone Encounter - Cindy Diez - 07/25/2023 9:44 AM EDT Tc harini ackerman with [facility] requesting a renewal on PT1 for pt. Date: 08/05 Time: 3 PM address: [address] [address] specialty: [place] [facility] # visits: n/a evaluation specialist: n/a Wheelchair: no turn supervisor location confirmed: [address] [place] [address] [place] [address] documented in this encounter Plan of Treatment Not on file documented as of this encounter Visit Diagnoses Not on filedocumented in this encounter Care Teams Medical Numerical Control Operator Relationship Specialty Start Date End Date MichelleSami Heredia MD [address] [place] [address] [place] [address] PCP - General Internal Medicine 08/28/19 documented as of this encounter
--- OUTSIDE RECORDS SUMMARY | 2025-02-20 14:09 | XMS_ITS | Encounter Summary ---
Author Organization [employer] Address [address] [facility] 7t [place] [address] Care Team Providers Care Apprentice Funeral Director Name Role Phone Sami Shaffer MD Primary Care Prov ider Reason for Visit * Reason Onset Date Comments Nurse Triage 03/27/2024 Encounter Details Date Type Department Care Team ([facility] st Contact Info) Description 03/27/2024 Telephone [facility] CHC MED & PEDS 505 [place] [address] Sami Shaffer MD 505 [place] [address] Nurse Triage Social History Tobacco Use Types [...] Recorded What is your housing situation today? Not on yamilet e 08/22/[address] you li ve. Do you have problems with any of the following? None of the above 08/22/2023 Food Insecurity Answer Date Recorded Within the past 12 months, y ou worried that your food would run out before you got money to buy more: Never True 08/22/2023 Within the past 12 months,th e food you bought just didn't last and you didn't have enough money to get more: Never True Transportation Answer Date Recorded In the past 12 months, has l ack of transportation kept you from medical appts, meetings, work or from getting things needed for daily living? No 08/22/2023 Utilities Answer Date Recorded In the past 12 months, has t he electric, gas, oil or water company threatened to shut off services in your home? No 08/22/2023 Depression Answer Date Recorded Patient Health Questionnaire-2 Score 0 01/19/2024 Comments Unknown Sex and Gender Information Value Date Recorded Sex Assigned at Female 09/06/2022 10:36 AM EDT Legal Sex Male 10:36 AM EDT Gender Identity Non-Binary Transmasculine 2022 12:54 PM EDT Sexual Orientation Bisexual 09/06/2022 10 :36 AM EDT documented as of this encounter Miscellaneous Notes * Telephone Encounter - Evelyn Silverio RN - 03/27/2024 10:23 AM EDT called pt to triage, spoke to pt. pt states persistent rash on right hand. pt seen 1 week ago by [facility] Derm and prescribed a cream to use. pt using the cream, but it has not gone away. pt denies worsening or severe symptoms. advised we do not schedule Derm follow up and will task to team [place] to followup. pt understands and agrees with plan. insurance verified. Protocol Used: Rash or Redness - Localized (Adult) Care Advice Discussed: * Reassurance and Education - Mild Localized Rash * Cold Pack for Mild Itching or Mild Pain * Hydrocortisone Cream for Itching * Don't Scratch * Reasons To Call Back - Rash spreads or becomes worse - Rash lasts longer than 1 week - You become worse * Telephone Encounter - Cindy Diez - 03/27/2024 9:14 AM EDT Symptom: Rash or Redness on One Body Area Only Outcome: Schedule an appointment to be seen within 3 days Reason: pt was given mupirocin (Bactroban) 2 % ointment to take for 10 days. States rash has not gotten worse but is still there. The caller accepted this outcome Please contact pt at [phone] documented in this encounter Plan of Treatment Not on file documented as of this encounter Visit Diagnoses Not on filedocumented in this encounter Additional Health Concerns Assessment Noted Time PHQ-9 Depression Total Score: 15 024 12:57 PM EDT documented as of this encounter Care Teams Apprentice Funeral Director Relationship Specialty Start Date End Date Sami Shaffer MD [address] [place] [address] PCP - General Internal Medicine 08/28/19 documented as of this encounter
--- OUTSIDE RECORDS SUMMARY | 2025-02-20 14:09 | XMS_ITS | Encounter Summary ---
Author Organization [employer] Address [address] [place] [address] 7 [place] [address] Care Team Providers Care Sewage Plant Attendant Name Role Phone Sami Shaffer MD Primary Care Prov ider Reason for Visit * Reason Comments Med Refill Encounter Details Date Type Department Care Team (Late st Contact Info) Description 01/05/2023 Refill [facility] CHC MED & PEDS [address] [place] [address] Sami Shaffer MD 505 [place] [address] Gastroesophageal reflux disease without esophagitis Social History [...] reflux documented in this encounter Care Teams Sewage Plant Attendant Relationship Specialty Start Date End Date Sami Shaffer MD 505 [place] [address] PCP - General Internal Medicine 08/28/19 documented as of this encounter
== END 2025-02-20 11:39 | disposition home or self-care (01) ==
LOC: HO.LAB 11:38
PROVIDERS: PCP Registered Nurse; Visit Provider Registered Nurse Psychiatric/Mental Health, Adult
DX: F33.2 Major depressive disorder, recurrent severe without psychotic features (principal); F64.1 Dual role transvestism; F45.1 Undifferentiated somatoform disorder
CPT/HCPCS: 36415; 80164

== ENCOUNTER 2025-04-04 14:26 | Outpatient (AMB) | payer OTHER, SELFPAY ==
--- OUTSIDE RECORDS SUMMARY | 2025-04-04 14:32 | XMS_ITS | Encounter Summary ---
Author Organization [employer] Address [address] [place] [address] 7 [place] [address] Care Team Providers Care Coil Rewind Machine Operator Name Role Phone Sami Shaffer MD Primary Care Prov ider Reason for Visit * Reason Onset Date Comments PT1 03/10/2023 Encounter Details Date Type Department Care Team ([facility] st Contact Info) Description 03/10/2023 Telephone [facility] CHC MED & PEDS 505 [place] [address] Sami Shaffer MD 505 [place] [address] PT1 Social History Tobacco Use Types Packs/Day [...] Name of facility: Pediatric Ophthalmology Specialty: Location: [facility] [address], [place] [address] Date: June 10, 2023 Time: 3:15 pm fax: n/a wheelchair: n/a Top Executive: n/a ALL Future Appts PT1 Name of facility: Specialty: ALL future Appts Location: [address] [place] [address] Date: n/a Time: n/a fax: n/a Phone: n/a wheelchair: n/a Top Executive: n/a All Future appts If any questions please contact Hilda at [phone] documented in this encounter Plan of Treatment Not on file documented as of this encounter Visit Diagnoses Not on filedocumented in this encounter Care Teams Coil Rewind Machine Operator Relationship Specialty Start Date End Date Sami Shaffer MD [address] [place] [address] PCP - General Internal Medicine 08/28/19 documented as of this encounter
--- NOTE | 2025-04-04 14:52 | MHC.OFFVIS ---
Intake Visit Reasons: 6m/PVR Intake Note: Patient presents today for follow up on: urinary retention Urology Medication: Tamsulosin Antibiotic Allergy: none Blood Thinner:NONE PVR: 14ml's Dispatch Lead Required: No Accompanied by: Self / Same As Patient Allergies lidocaine Allergy (Severe, Verified 04/04/25 15:27) severe burning- injected lidocaine only trazodone Allergy (Severe, Verified 04/04/25 15:27) Depression environmental allergies Allergy (Verified 04/04/25 15:27) Runny Nose feathers Allergy (Verified 04/04/25 15:27) Swelling gabapentin Adverse Reaction (Severe, Verified 04/04/25 15:27) blisters sucralose [From Splenda (sucralose)] Adverse Reaction (Severe, Verified 04/04/25 15:27) migraines topiramate [From Topamax] Adverse Reaction (Severe, Verified 04/04/25 15:27) serotonin syndrome watermelon Adverse Reaction (Severe, Verified 04/04/25 15:27) swollen tongue Antihistamines - Alkylamine Adverse Reaction (Intermediate, Verified 04/04/25 15:27) nose bleeds citalopram [From Celexa] Adverse Reaction (Intermediate, Verified 04/04/25 15:27) hallucinations duloxetine [From Cymbalta] Adverse Reaction (Intermediate, Verified 04/04/25 15:27) mood swings pregabalin [From Lyrica] Adverse Reaction (Intermediate, Verified 04/04/25 15:27) mood swings tramadol Adverse Reaction (Intermediate, Verified 04/04/25 15:27) hives/itching venlafaxine Adverse Reaction (Intermediate, Verified 04/04/25 15:27) mood swings NSAIDS (Non-Steroidal Anti-Inflamma Adverse Reaction (Verified 04/04/25 15:27) Unknown Medication List - Last Reconciled 04/04/25 by JEANNETTE Hauser clonazepam 2 mg (2 x 1 mg) PO BEDTIME clonazepam 1 mg PO DAILY clonazepam 2 mg PO BEDTIME clonidine HCl 0.1 mg See Protocol PO DAILY PRN diphenhydramine HCl 25 mg PO Q6H PRN divalproex 1,000 mg (2 x 500 mg) PO BID divalproex ER mg PO BID eszopiclone 3 mg PO BEDTIME famotidine 10 mg (1/2 x 20 mg) PO BID finasteride 1 mg PO BEDTIME lurasidone mg PO mirtazapine 45 mg PO BEDTIME omeprazole 40 mg PO BID@0630,1630 ondansetron 4 mg translingual Q8H PRN quetiapine mg PO sertraline 50 mg PO DAILY tamsulosin 0.4 mg PO BEDTIME 90 days HPI Comments Details: Denisse is a 30-year-old female patient who presents of Dr.?Betancourt Abel. She has a past medical history of bipolar, anxiety, panic attacks, PTSD, asthma, transgender on testosterone therapy and irritable bowel syndrome. She presents to the office today for follow-up of her incomplete bladder emptying, frequent urinary tract infections, and LUTS of urgency. In discussion with the patient today she reports to be doing and feeling well. She reports having had issues with bethanechol in her med box and has not been on bethanechol over the last 3 months. She denies having had any bothersome urinary issues or concerns since her last office visit. She does continue to report compliance with Flomax. In office urinalysis results reviewed with the patient today. PVR 14 mL. We discussed significant decrease in PVR without the use of bethanechol. Will continue with Flomax. When asked she denies urinary urgency, urinary frequency, incontinence, nocturia, hematuria, dysuria, foul smelling urine, changes to urinary stream, flank pain, fever, and or chills. She does report at times feeling episodes of incomplete bladder emptying however describes these episodes as infrequent. She is happy with her current voiding parameters. She otherwise denies any bothersome urinary issues or concerns. Previous workup has included a retroperitoneal ultrasound 06/30 noting bilateral hydronephrosis, a 6 mm nonobstructing left renal calculus and increased postvoid residual volume. [facility] Medical History Bipolar disorder Hx of concussion History of panic attacks Urinary retention with incomplete bladder emptying Encounter for screening Bipolar 1 disorder Anxiety PTSD (post-traumatic stress disorder) Asthma Irritable bowel syndrome with constipation Gastroesophageal reflux disease without esophagitis Nausea Surgical History H/O: hysterectomy Hx of wisdom tooth extraction Hx of colonoscopy (~02/2020) H/O esophagogastroduodenoscopy No pertinent past surgical history (~02/2020) Family History Mother Pacemaker Father Family history unknown Social History Household Members: Unknown / Unable to assess Housing: House Are you a primary respiratory care practitioner to a significant other at home: No Do you presently have visiting nurse or other home services: No Alcohol intake: current Alcohol intake frequency: holidays/special occasions only Patient Tobacco Use Status: Former Tobacco user Tobacco use type: Cigarette Years Smoked: 2008 Substance Use Type: Marijuana service: No Sexual orientation: Transgender Review of Systems Eyes Reports no additional complaints ENT Reports no additional complaints Card Reports no additional complaints Resp Reports no additional complaints GI Reports as per HPI Reports as per HPI Musc Reports no additional complaints Neuro Reports as per HPI Psych Reports as per HPI Endo Reports no additional complaints Jamir/Lymph Reports no additional complaints Aller/Immun Reports no additional complaints Physical Exam Const General: cooperative, comfortable, no acute distress, well developed, alert and awake Nutritional Appearance: overweight Orientation/consciousness: patient oriented x3 Limitations: ambulation with cane HEENT Head: Yes normal to inspection, Yes normocephalic and Yes atraumatic Ears: hearing grossly normal bilaterally Eyes General: appearance normal, both eyes and all related structures Neck Neck: Yes normal visual inspection and Yes trachea midline Chest Chest palpation & inspection: normal inspection of the chest Resp Effort & Inspection: normal respiratory effort and able to speak in complete sentences Cardio Rate: regular rate GI Inspection: Yes normal to inspection General: Yes no CVA tenderness Back/Spine/Pelvis Back: no CVA tenderness Skin General skin exam: no rashes or lesions noted Neuro General: patient oriented x3 Extrem Other: tremors noted to bilateral upper extremities General: Yes normal to inspection Psych Appearance: grossly normal and well kempt Mental Status: mental status grossly normal Speech and movement: Normal speech and movement present and Clear speech present Affect: Other affect and mood findings present (flat affect) Attitude: cooperative Thought process: Normal thought process present Thought content: Normal thought content present Insight: Fair insight present (Psych) Judgement: Fair judgement present (Psych) Office Procedures Post Void Residual Post Residual Void Post Void Residual (PVR): 14 [id number] Void Residual by ultrasound Results AMB Urinalysis, Automated UA Leukoctes 0 Mariza/uL Last Edit by [employer] Jacobo on 04/04/25 15:40 UA Nitrite Last Edit by Biju Jacobo on 04/04/25 15:40 UA Urobilinogen 0.2 mg/dL Last Edit by Biju Jacobo on 04/04/25 15:40 UA Protein 0 mg/dL Last Edit by [employer] on 04/04/25 15:40 UA pH 7.0 Last Edit by [employer] on 04/04/25 15:40 UA Blood 0 Brice/uL Last Edit by [employer] on 04/04/25 15:40 UA Specific [place] 1.005 Last Edit by [employer] [facility] on 04/04/25 15:40 UA Ketone Last Edit by [employer] [facility] on 04/04/25 15:40 UA Bilirubin 0 mg/dL Last Edit by [employer] on 04/04/25 15:40 UA Glucose 0 mg/dL Last Edit by [employer] [facility] on 04/04/25 15:40 Results Reviewed Results Reviewed: Laboratory Last Values Urine pH (Auto) 7.0 04/04/25 15:39 Specific [place] (Auto) 1.005 04/04/25 15:39 Urine Protein (Auto) 0 mg/dL 04/04/25 15:39 Glucose (UA)(Auto) 0 mg/dL 04/04/25 15:39 Urine Blood (Auto) 0 Brice/uL 04/04/25 15:39 Urine Bilirubin (Auto) 0 mg/dL 04/04/25 15:39 Urine Urobilinogen (Auto) 0.2 mg/dL 04/04/25 15:39 Leukocyte Esterase (Auto) 0 Mariza/uL 04/04/25 15:39 Assessment & Plan Assessment & Plan (1) Urinary retention with incomplete bladder emptying: Code(s): R33.9 - Retention of urine, unspecified Category: Medical Plan In office urinalysis results reviewed with the patient today; as noted above. PVR 14 mL. She currently denies any bothersome urinary issues or concerns. Stop bethanechol as discussed. Continue Flomax as discussed and prescribed; refill provided. Will continue with surveillance monitoring of postvoid residuals. Follow-up in 3 months with PVR; or sooner with any issues, concerns, and or questions. Orders: Orders AMB Urinalysis Automated Today Z13.9 - Encounter for screening, unspecified AMB Post Void Residual by ultrasound Today R33.9 - Retention of urine, unspecified Medications: Refilled tamsulosin 0.4 mg PO BEDTIME 90 days 90 caps 2RF Patient Instructions: The patient had an opportunity to ask questions regarding the treatment plan. All questions were answered. Physical exam, labs, and imaging were discussed and reviewed in detail. As well as risks, benefits, and discussion of treatment choices. No major barriers to understanding were identified. The patient expressed understanding and agreement with the above treatment plan. The patient was made aware they should contact our office by phone for worsening of their current condition, the appearance of new symptoms, or with any questions or concerns. Compliance is encouraged with any medications and follow up testing that is ordered. It is a privilege to be allowed the opportunity to participate in? your urological care.? Again, if you have any questions or concerns If you have any questions or concerns please do not hesitate to contact me. The office is [phone]. This note is constructed using voice recognition software. While every effort has been made to ensure accuracy baggage and mail agent errors may have been included. Yours sincerely, JEANNETTE Hauser Coding Level of Care Code Est Pt Level 3 (14384) Diagnoses Urinary retention with incomplete bladder emptying R33.9 CPT Codes Post Residual Void - PVR CPT Code: 27526-Omua Void Residual by ultrasound ([id number])
== END 2025-04-04 15:25 | disposition home or self-care (01) ==
LOC: HO.HUSH 14:26
PROVIDERS: PCP Internal Medicine; Visit Provider Nurse Practitioner Family
DX: Z13.9 Encounter for screening, unspecified (principal); R33.9 Retention of urine, unspecified
CPT/HCPCS: 99213

== ENCOUNTER → 2025-04-04 14:26 | Outpatient (BNVA) | payer OTHER, SELFPAY | PROVIDERS: PCP Internal Medicine; Visit Provider Nurse Practitioner Family | DX: R33.9 Retention of urine, unspecified (principal) | CPT/HCPCS: 51798; 81003; 99212 ==

== ENCOUNTER 2025-06-12 17:02 | Outpatient (REF) | payer OTHER, SELFPAY ==
--- OUTSIDE RECORDS SUMMARY | 2025-06-12 17:04 | XMS_ITS | Continuity of Care Document ---
Author Name Carlos Wang Address [address] [place] [address] Organization Unknown Address [address] [place] [address] Medications No known medications Problems No known problems
--- OUTSIDE RECORDS SUMMARY | 2025-06-12 17:04 | XMS_ITS | Encounter Summary ---
Author Organization [employer] Address [address] [place] [address] 7 [place] [address] Care Team Providers Care Service Girl Name Role Phone Sami Shaffer MD Primary Care Prov ider Reason for Visit * Reason Onset Date Comments PT1 03/10/2023 Encounter Details Date Type Department Care Team ([facility] st Contact Info) Description 03/10/2023 Telephone [facility] CHC MED & PEDS [address] [place] [address] Sami Shaffer MD 505 [place] [address] PT1 Social History Tobacco Use Types Packs/Day [...] Name of facility: Pediatric Ophthalmology Specialty: Location: [facility] [address], [place] [address] Date: June 10, 2023 Time: 3:15 pm fax: n/a wheelchair: n/a Supervisor Blueprinting And Photocopy: n/a ALL Future Appts PT1 Name of facility: Specialty: ALL future Appts Location: [address] [place] [address] Date: n/a Time: n/a fax: n/a Phone: n/a wheelchair: n/a Supervisor Blueprinting And Photocopy: n/a All Future appts If any questions please contact Hilda at [phone] documented in this encounter Plan of Treatment Not on file documented as of this encounter Visit Diagnoses Not on filedocumented in this encounter Care Teams Service Girl Relationship Specialty Start Date End Date Sami Shaffer MD [address] [place] [address] PCP - General Internal Medicine 08/28/19 documented as of this encounter
--- OUTSIDE RECORDS SUMMARY | 2025-06-12 17:05 | XMS_ITS | Clinical Summary ---
Author Organization [facility] Address [address] [facility] [address] [place] [address] Phone Care Team Providers Care Beauty Culture Teacher Name Role Phone Miguel Angel Sami Primary Care Provider [phone] Allergies Active Allergy Reactions Criticality Noted Date Comments Adhesive Tape Rash,Swelling Low 06/18/2022 Sibley Oil Other (see comments) 06/18/2022 Cat Dander [...] of swelling, redness, visit er Ayaka 02/18/2022 Immunizations Immunization Administration Dates Next Due Pfizer [...] Visit [facility] [address] [phone] Du Nolen MD [address] [phone] Health Maintenance Due Date Last Done Comments Hepatitis B Vaccine (1 of 3 - 19+ 3-dose series) 02/25/2015 06/09/2020 Pneumococcal Vaccine: Peds ( 0 to 5 Years) and At-Risk Patients (6 to 49 Years) (1 of 2 - PCV) 02/25/2015 Influenza Vaccine (#1) 2025 , 07/26/2023, 09/22/2021, Additional history exists Insurance ([id number]) PENELOPE ALVAREZ [id number] [facility] ([id number]) Care Teams Beauty Culture Teacher Relationship Specialty Start Date End Date Sami Michelle [address] [place] [id number] PCP - General Internal Medicine 07/05/24
--- OUTSIDE RECORDS SUMMARY | 2025-06-12 17:05 | XMS_ITS | Clinical Summary ---
Author Organization [facility] Address [address] [place] [address] Care Team Providers Care Car Seat Upholsterer Name Role Phone Unavailable Primary Care Provider [...] Screening: P ap Smear 02/25/2017 COVID-19 Vaccine ( - 2023-2 5 season) 2024 Depression Screening 11/07/2024 Influenza Vaccine (#1) 2025 HIB Vaccines Aged Out No longer [...] and At-Risk Patients (6 to 49 Years) Aged Out No longer eligible b ased on patient's age to complete this topic RSV Immunization Patients Un andrew 20 months Aged Out No longer eligible b ased on patient's age to complete this topic Varicella Vaccines Aged Out No longer eligible based on patient's age to complete this topic
--- OUTSIDE RECORDS SUMMARY | 2025-06-12 17:05 | XMS_ITS | Clinical Summary ---
Author Organization [facility] Address [address] [address] Phone Care Team Providers Care Chip Frier Name Role Phone Sami Shaffer MD Primary Care Prov ider Allergies Active Allergy Reactions Criticality Noted Date Comments Adhesive Rash,Swelling Low 06/18/2022 [place] Other (See Comments) 06/18/2022 Artificial Sweetener Other (See Comments) 06/18 Cat Dander Cough,Sneezing 06/18/2022 Citalopram Anxiety,Hallucinatio ns,Palpitati ons,Seizures High 06/18/2022 Duloxetine Mental Status Change 06/18/2022 Gabapentin Dermatitis,Hives,Men dixie Status Change,Rash,Tremor Low 06/18/2022 Lidocaine 06/18/2022 Pregabalin Mental Status Change 06/18/2022 Topiramate Other (See Comments) 06/18/2022 Tramadol Hives 06/18/2022 Trazodone Mental Status Change 06/18/2022 Venlafaxine Mental Status Change 06/18/2022 Watermelon Anaphylaxis,Itching,Swelling High 022 Medications CALCIUM-VITAMIN D3 ORAL Use as directed 1,200 mg in the mouth or throat 2 (two) times a day. Active acetaZOLAMIDE (DIAMOX) 250 MG tablet Take 250 mg by mouth 2 (two) times a day. 1 Active omeprazole (PRILOSEC) 40 MG capsule Take 40 mg by mouth 2 (two) times a day. 2 Active QUEtiapine (SEROQUEL) 50 MG tablet Take 50 mg by mouth every evening. Active testosterone cypionate 200 mg/mL Kit once a week. 1 Active potassium gluconate 595 mg (99 mg) Tab Take 99 mg by mouth daily. Active methocarbamoL (ROBAXIN) 750 MG tablet Take 1,500 mg by mouth daily. 1 Active ADDERALL XR 10 mg 24 hr capsule Take 10 mg by mouth every morning. 2 Active clonazePAM (KLONOPIN) 2 MG tablet Take 2 mg by mouth continuous prn. Active bethanechol (URECHOLINE) 10 MG tablet Take 10 mg by mouth 2 (two) times a day. 2 Active lurasidone (LATUDA) 80 mg Tab Take 80 mg by mouth every evening. Active ondansetron (ZOFRAN) 4 MG tablet Take 4 mg by mouth continuous prn for nausea. Active Medication-Free TextIndications :nurtec 75mg Indications: nurtec 75mg Active Immunizations Immunization Administration Dates Next Due COVID-19 (Pre-08/29) Pfizer Vaccine, mRNA, babak-sucrose, PF 02/22/2021,01/30/2021 Family History Medical History Relation Comments Heart disease Mother Relation Status Comments Father Alive Mother Alive Social History Tobacco Use Types Packs/Day Years Used Date Smoking Tobacco: Former Cigarettes Q uit: 2009 Smokeless Tobacco: Never Alcohol Use Standard Drinks/Week Comments Yes 0 (1 standard drink = 0.6 oz pur e alcohol) Education Answer Date Recorded Are you interested in more education? Not on yamilet e 03/05/2023 Are you concerned about learning? Not on file 03/05/2023 No 03/05/2023 No 03/05/2023 Digital Access Answer Date Recorded No 04/05/2023 No 04/05/2023 Reliable internet access at home? Not on file 04/05/2023 Device with a working camera? Not on file Comments Unknown Sex and Gender Information Value Date Recorded Sex Assigned at Female 06/10/2022 2:14 PM EDT Legal Sex Female 9:13 AM EST Gender Identity Non-binary 06/10/2022 2:14 PM EDT Sexual Orientation Bisexual 06/10/2022 2: 14 PM EDT Last Filed Vital Signs Vital Sign Reading Time Taken Comments Blood Pressure 125/85 06/18/2022 11:05 AM EDT Pulse 106 06/18/2022 11:05 AM EDT Temperature - - Respiratory Rate - - Oxygen Saturation - - Inhaled Oxygen Concentration - - Weight 111.6 kg (246 lb) 06/18/2022 11:05 AM EDT Height 165.1 cm (5' 5 ) 06/18/2022 11:05 AM EDT Body Mass Index 40.94 06/18/2022 11:05 AM EDT Plan of Treatment Health Maintenance Due Date Last Done Comments Adult Td,Tdap Booster 1996 POTASSIUM LEVEL 1996 DEPRESSION SCREENING 2008 SMOKING Hx and SMOKELESS TOBACCO SCREENING 02/25/2009 HEPATITIS C SCREENING 02/25/2014 HIV ONE-TIME SCREENING (18-6 5 YEARS) 02/25/2014 PAP SMEAR 02/25/2017 COVID-19 VACCINE (2023-2 5 season) 2024 02/22/2021, 01/30/2021 HEPATITIS A VACCINES Aged Out No long er eligible based on patient's age to complete this topic HIB VACCINES Aged Out No longer eligi ble based on patient's age to complete this topic MENINGOCOCCAL VACCINES (ACWY) Aged Out No longer eligible based on patient's age to complete this topic MENINGOCOCCAL VACCINES (B) Aged Out N o longer eligible based on patient's age to complete this topic PNEUMOCOCCAL VACCINES (0-49 years) Aged Out No longer eligible b ased on patient's age to complete this topic Medical Devices Not on file Insurance [facility] C3 ACO [facility] C3 ACO Care Teams Chip Frier Relationship Specialty Start Date End Date Sami Shaffer MD [address] [place] [id number] PCP - General Internal Medicine 09/21/21 Additional Source Comments The information contained in this document represents components of the legal health record. It is not the complete legal health record.[facility]
[2025-06-13 09:20] LABS: Bacterial Vaginosis PCR NEGATIVE (Negative); Candida Group PCR DETECTED (Not Detect); Candida glab krusei PCR NOT DETECTED (Not Detect); Trichomonas vaginalis PCR NOT DETECTED (Not Detect)
== END 2025-06-12 17:03 | disposition home or self-care (01) ==
LOC: HO.LNP 17:02
PROVIDERS: Visit Provider Advanced Practice Midwife
DX: N89.8 Other specified noninflammatory disorders of vagina (principal)
CPT/HCPCS: 81515

== ENCOUNTER 2025-07-09 13:14 | Outpatient (AMB) | payer OTHER, SELFPAY ==
--- NOTE | 2025-07-09 13:27 | A.OFFVIS_ITS ---
Intake Visit Reasons: 3m follow up/ PVR Intake Note: Patient is present for 3M/PVR Urology Medication:TAMSULOSIN Antibiotic Allergy:GABAPENTIN Blood Thinner:NONE TODAY'S PVR;0ML'S Car Shakeout Operator Required: No Allergies lidocaine Allergy (Severe, Verified 07/09/25 13:28) severe burning- injected lidocaine only trazodone Allergy (Severe, Verified 07/09/25 13:28) Depression environmental allergies Allergy (Verified 07/09/25 13:28) Runny Nose feathers Allergy (Verified 07/09/25 13:28) Swelling gabapentin Adverse Reaction (Severe, Verified 07/09/25 13:28) blisters sucralose (From Splenda (sucralose)) Adverse Reaction (Severe, Verified 07/09/25 13:28) migraines topiramate (From Topamax) Adverse Reaction (Severe, Verified 07/09/25 13:28) serotonin syndrome watermelon Adverse Reaction (Severe, Verified 07/09/25 13:28) swollen tongue Antihistamines - Alkylamine Adverse Reaction (Intermediate, Verified 07/09/25 13:28) nose bleeds citalopram (From Celexa) Adverse Reaction (Intermediate, Verified 07/09/25 13:28) hallucinations duloxetine (From Cymbalta) Adverse Reaction (Intermediate, Verified 07/09/25 13:28) mood swings pregabalin (From Lyrica) Adverse Reaction (Intermediate, Verified 07/09/25 13:28) mood swings tramadol Adverse Reaction (Intermediate, Verified 07/09/25 13:28) hives/itching venlafaxine Adverse Reaction (Intermediate, Verified 07/09/25 13:28) mood swings NSAIDS (Non-Steroidal Anti-Inflamma Adverse Reaction (Verified 07/09/25 13:28) Unknown HPI Comments Details: Denisse is a 30-year-old female patient who presents of Dr.?Betancourt Abel. She has a past medical history of bipolar, anxiety, panic attacks, PTSD, asthma, transgender on testosterone therapy and irritable bowel syndrome. She presents to the office today for follow-up of her incomplete bladder emptying, frequent urinary tract infections, and LUTS of urgency. In discussion with the patient today she reports to be doing and feeling well. She reports compliance with Flomax as prescribed. During last office visit plan was to discontinue bethanechol and further assess patient's history of incomplete bladder emptying. She reports since her last office visit here she has had no bothersome urinary issues or concerns. In office urinalysis results reviewed with the patient today. PVR 0 mL. When asked she denies urinary urgency, urinary frequency, incontinence, nocturia, hematuria, dysuria, foul smelling urine, changes to urinary stream, flank pain, fever, and or chills. She is happy with her current voiding parameters. She otherwise denies any bothersome urinary issues or concerns. Previous workup has included a retroperitoneal ultrasound 06/30 noting bilateral hydronephrosis, a 6 mm nonobstructing left renal calculus and increased postvoid residual volume. All questions were answered. She otherwise offers no other issues or concerns at this time. [facility] Medical History Bipolar disorder Hx of concussion History of panic attacks Urinary retention with incomplete bladder emptying Encounter for screening Bipolar 1 disorder Anxiety PTSD (post-traumatic stress disorder) Asthma Irritable bowel syndrome with constipation Gastroesophageal reflux disease without esophagitis Nausea Surgical History H/O: hysterectomy Hx of wisdom tooth extraction Hx of colonoscopy (~02/2020) H/O esophagogastroduodenoscopy No pertinent past surgical history (~02/2020) Family History Mother Pacemaker Father Family history unknown Social History Household Members: Unknown / Unable to assess Housing: House Are you a primary career placement services counselor to a significant other at home: No Do you presently have visiting nurse or other home services: No Alcohol intake: current Alcohol intake frequency: holidays/special occasions only Patient Tobacco Use Status: Former Tobacco user Tobacco use type: Cigarette Years Smoked: 2008 Substance Use Type: Marijuana service: No Sexual orientation: Transgender Review of Systems Eyes Reports no additional complaints ENT Reports no additional complaints Card Reports no additional complaints Resp Reports no additional complaints GI Reports as per HPI Reports as per HPI Musc Reports no additional complaints Neuro Reports as per HPI Psych Reports as per HPI Endo Reports no additional complaints Jamir/Lymph Reports no additional complaints Aller/Immun Reports no additional complaints Physical Exam Const General: cooperative, healthy appearing, comfortable, no acute distress, well developed, alert and awake Nutritional Appearance: overweight Orientation/consciousness: patient oriented x3 Limitations: no limitations HEENT Head: Yes normal to inspection, Yes normocephalic and Yes atraumatic Ears: hearing grossly normal bilaterally Eyes General: appearance normal, both eyes and all related structures Neck Neck: Yes normal visual inspection and Yes trachea midline Chest Chest palpation & inspection: normal inspection of the chest Resp Effort & Inspection: normal respiratory effort and able to speak in complete sentences Cardio Rate: regular rate GI Inspection: Yes normal to inspection General: Yes no CVA tenderness Back/Spine/Pelvis Back: no CVA tenderness Skin General skin exam: no rashes or lesions noted Neuro General: patient oriented x3 Extrem Other: tremors noted to bilateral upper extremities General: Yes normal to inspection Psych Appearance: grossly normal and well kempt Mental Status: mental status grossly normal Speech and movement: Normal speech and movement present and Clear speech present Affect: Other affect and mood findings present (flat affect) Attitude: cooperative Thought process: Normal thought process present Thought content: Normal thought content present Insight: Fair insight present (Psych) Judgement: Fair judgement present (Psych) Office Procedures Post Void Residual Post Residual Void Post Void Residual (PVR): 0 [id number] Void Residual by ultrasound Results AMB Urinalysis, Automated UA Leukoctes 0 Mariza/uL Last Edit by CHARLI Lewis on 07/09/25 13:56 UA Nitrite Negative Last Edit by CHARLI Lewis on 07/09/25 13:56 UA Urobilinogen 0.2 mg/dL Last Edit by CHARLI Lewis on 07/09/25 13:5 6 UA Protein 0 mg/dL Last Edit by CHARLI Lewis on 07/09/25 13:56 UA pH 6.0 Last Edit by CHARLI Lewis on 07/09/25 13:56 UA Blood 0 Brice/uL Last Edit by CHARLI Lewis on 07/09/25 13:56 UA Specific [place]on 1.010 Last Edit by CHARLI Lewis on 07/09/25 13: 56 UA Ketone Negative Last Edit by CHARLI Lewis on 07/09/25 13:56 UA Bilirubin 0 mg/dL Last Edit by CHARLI Lewis on 07/09/25 13:56 UA Glucose 0 mg/dL Last Edit by CHARLI Lewis on 07/09/25 13:56 Assessment & Plan Assessment & Plan (1) Urinary retention with incomplete bladder emptying: Code(s): R33.9 - Retention of urine, unspecified Category: Medical (2) Kidney stone on left side: Code(s): N20.0 - Calculus of kidney Category: Medical Plan In office urinalysis results reviewed with the patient today; as noted above. PVR 0 mL. She currently denies any bothersome urinary issues or concerns. She reports be happy with current voiding parameters. We did discuss healthy bathroom behaviors. All questions were answered. Continue Flomax. We discussed importance of adequate hydration relation to nephrolithiasis as well as overall health and well-being Will obtain retroperitoneal ultrasound in 6 months for surveillance monitoring of incomplete bladder emptying as well as history of nephrolithiasis. Follow-up in 6 months with imaging and PVR; or sooner with any issues, concerns, and or questions. Orders: Orders US retroperitoneal comp 6 Months N20.0 - Calculus of kidney, R33.9 - Retention of urine, unspecified AMB Urinalysis Automated Today Z13.9 - Encounter for screening, unspecified Medications: Refilled divalproex 1,000 mg (2 x 500 mg) PO BID 60 tabs 0RF Patient Instructions: The patient had an opportunity to ask questions regarding the treatment plan. All questions were answered. Physical exam, labs, and imaging were discussed and reviewed in detail. As well as risks, benefits, and discussion of treatment choices. No major barriers to understanding were identified. The patient expressed understanding and agreement with the above treatment plan. The patient was made aware they should contact our office by phone for worsening of their current condition, the appearance of new symptoms, or with any questions or concerns. Compliance is encouraged with any medications and follow up testing that is ordered. It is a privilege to be allowed the opportunity to participate in? your urological care.? Again, if you have any questions or concerns If you have any questions or concerns please do not hesitate to contact me. The office is [phone]. This note is constructed using voice recognition software. While every effort has been made to ensure accuracy real estate closer errors may have been included. Yours sincerely, OLU Hauser-TAMMY Coding Level of Care Code Est Pt Level 3 (31433) Diagnoses Urinary retention with incomplete bladder emptying R33.9 Kidney stone on left side N20.0 CPT Codes Post Residual Void - PVR CPT Code: 51699-Kqvu Void Residual by ultrasound ([id number])
--- OUTSIDE RECORDS SUMMARY | 2025-07-09 14:32 | XMS_ITS | Encounter Summary ---
Author Organization [email or web address] Address [address] [facility] 7[address] [place] [address] Care Team Providers Care Auto Air Conditioning Apprentice Name Role Phone Sami Shaffer MD Primary Care Prov ider Reason for Visit * Reason Comments Med Refill Encounter Details Date Type Department Care Team ([facility] st Contact Info) Description 03/30/2023 Refill [facility] [address] [place] [address] Sami Shaffer MD [address] [place] [address] Chronic rhinitis Social History Tobacco Use Types [...] I will send in vaccine rx to [facility] pharmacy. * Telephone Encounter - [...] rhinitis documented in this encounter Care Teams Auto Air Conditioning Apprentice Relationship Specialty Start Date End Date Sami Shaffer MD [address] [place] [phone] PCP - General Internal Medicine 08/28/19 documented as of this encounter
--- OUTSIDE RECORDS SUMMARY | 2025-07-09 14:32 | XMS_ITS | Clinical Summary ---
Author Organization [facility] Address [address] [phone] Phone Care Team Providers Care Painting Instructor Name Role Phone MichelleSami carpenter Primary Care Provider Allergies Active Allergy Reactions Criticality Noted Date Comments Adhesive Tape Rash,Swelling Low 06/18/2022 [place] Oil Other (see comments) 06/18/2022 Cat Dander [...] Venlafaxine Other (see comments) 06/18/2022 Medications Calcium Carb-Cholecalci ferol (Calcium-Vitami n D3) 250-125 MG-UNIT tablet Use 1,200 mg in the mouth or throat twice a day Active clonazePAM (KlonoPIN) 2 MG tablet Take 2 mg by mouth Active methocarbamol (ROBAXIN) 750 MG tablet Take 1,500 mg by mouth in the morning. 1 Active testosterone cypionate (DEPO-TESTOTERO NE) 200 MG/ML injection per week 1 Active ondansetron (ZOFRAN) 4 MG tablet Take 4 mg by mouth Active omeprazole (PriLOSEC) [address] capsule Take 40 mg by mouth in the morning and 40 mg in the evening. 2 Active clonazePAM (KlonoPIN) 1 MG dispersible tablet TAKE ONE TABLET BY MOUTH ONCE A DAY NEEDED FOR PANIC ATTACK UP TO 10 TIMES PER MONTH 2 Active famotidine (PEPCID) 20 MG tablet Take 20 mg by mouth in the morning and 20 mg in the evening. 2 Active mirtazapine (REMERON) 45 MG tablet Take 45 mg by mouth every night 2 Active Latuda 120 MG tablet TAKE ONE TABLET BY MOUTH ONCE A DAY WITH MEAL 2 Active bethanechol (URECHOLINE) 50 MG tablet Take 50 mg by mouth in the morning and 50 mg in the evening. 3 Active cloNIDine (CATAPRES) 0.1 MG tablet TAKE ONE TABLET BY MOUTH EVERY DAY NEEDED FOR SEVERE ANXIETY/ALINE TATION 3 Active Linzess 72 MCG capsule every other day 3 Active Botox 200 units injection 3 Active QUEtiapine (SEROquel) 100 MG tablet Take 200 mg by mouth at bed time 3 Active divalproex (DEPAKOTE) 500 MG EC tablet Take 1,000 mg by mouth in the morning and 1,000 mg in the evening. 4 Active finasteride (PROSCAR) 5 MG tablet Take 5 mg by mouth 1 (one) time each day DO NOT CRUSH CHEW OR SPLIT Active co-enzyme Q-10 30 MG capsule Take 400 mg by mouth 1 (one) time each day Active Magnesium 400 MG tablet Take by mouth Active acetaminophen (TYLENOL) 325 MG tablet TAKE 3 TABLETS BY MOUTH EVERY 6 HOURS (LIMIT 4000MG OF TYLENOL/RUBEN TAMINOPHEN PER DAY) 4 Active albuterol HFA (PROVENTIL HFA;VENTOLIN HFA) 108 (90 Base) MCG/ACT inhaler Inhale 2 puffs every 6 hours as needed 4 025 Active buPROPion XL (WELLBUTRIN XL) 150 MG 24 hr tablet 5 Active SUMAtriptan (IMITREX) 25 MG tablet TAKE 1 TABLET BY MOUTH DAILY NEEDED FOR MIGRAINE. MAY REPEAT DOSE AFTER 2 HOURS UP TO A MAXIMUM OF 2 Active tamsulosin (FLOMAX) 0.4 MG 24 hr capsule Take 0.4 mg by mouth in the morning. 3 Active Riboflavin 400 MG capsule Take 1 tablet by mouth in the morning. Active acetaZOLAMIDE (DIAMOX) 500 MG 12 hr capsule Take 500 mg by mouth in the morning and 500 mg in the evening. 025 Discontinued aMILoride (MIDAMOR) 5 MG tablet TAKE ONE TABLET BY MOUTH EVERY DAY 30 tablet 11 5 025 Discontinued Active Problems Problem Noted Date [...] Encounters Date Type Department Care Team Description 07/03/2025 1:00 PM EDT Office Visit [facility] [phone] Du Nolen MD Stage 3 chronic kidney disease, not otherwise specified (HCC) (Primary Dx); Nephrogenic diabetes insipidus (HCC); Hematuria of undiagnosed cause 06/21/2025 Refill [facility] [address] [facility] [address] [place] [phone] Keshawn Houston MD from Last 3 Months Immunizations Immunization Administration [...] Sign Reading Time Taken Comments Blood Pressure 120/60 07/03/2025 1:04 PM EDT Pulse 88 07/03/2025 1:04 PM EDT Temperature - - Respiratory Rate - - Oxygen Saturation 99% 12/31/2024 2:23 PM EST Inhaled Oxygen Concentration - - Weight 129 kg (284 lb) 07/03/2025 1:04 PM EDT Height - - Body Mass Index - - Plan of Treatment Upcoming Encounters Date Type Department Care Team (Late st Contact Info) Description 12/23/2025 3:00 PM EST Office Visit [facility] [address] [facility] [address] [place] [phone] Du Nolen MD [address] [facility] [address] [place] [address] Health Maintenance Due Date Last Done Comments Hepatitis B Vaccine (1 of 3 - 19+ 3-dose series) 02/25/2015 06/09/2020 Pneumococcal Vaccine: Peds ( 0 to 5 Years) and At-Risk Patients (6 to 49 Years) (1 of 2 - PCV) 02/25/2015 Influenza Vaccine (#1) 2025 4, 07/26/2023, 09/22/2021, Additional history exists Insurance * Guarantor: Miguel Angelpetar Allenrafael Account Type Relation to Patient Date of Phone Billing Address Personal/Family Self [address] ([id number]) [facility] ([id number]) Care Teams Painting Instructor Relationship Specialty Start Date End Date Sami Michelle [address] [place] [address] [phone] PCP - General Internal Medicine 07/05/24
--- OUTSIDE RECORDS SUMMARY | 2025-07-09 14:32 | XMS_ITS | Clinical Summary ---
Author Organization [facility] Address [address] [facility] 7t [place] [address] Care Team Providers Care Chemical Dependency Therapist Name Role Phone Sami Shaffer MD Primary Care Prov ider Allergies Active Allergy Reactions Criticality Noted Date Comments [place] Oil 10/29/2022 Cat Dander 10/29/2022 Citalopram 10/29/2022 [...] tablet by mouth at bedtime. 12/28/19 Active diphenhydrAMIN E (BENADryl) 25 MG capsule Take 1 capsule by mouth Every 4-6 hours as needed. Active lurasidone (Latuda) 120 MG tablet Take 1 tablet by mouth 1 (one) time each day. With a meal 02/27/20 23 Active tamsulosin (Flomax) 0.4 MG 24 hr capsule Take 0.4 mg by mouth in the morning. Active clonazePAM (KlonoPIN) 1 MG tablet Take 1 mg by mouth in the morning. Active buPROPion SR (Wellbutrin SR) 150 MG 12 hr tablet TAKE ONE TABLET BY MOUTH TWICE A DAY TAKE 2ND DOSE NO LATER THAN 2:00PM) 07/26/20 24 Active Acetaminophen 500 MG capsule Take 1 capsule orally every 6 hours prn fever or pain 90 capsule 2 08/02/20 24 Active cloNIDine (Catapres) 0.2 MG tablet Take 1 tablet by mouth if needed in the morning and at bedtime (severe anxiety/agitat ion). 08/23/20 24 Active mirtazapine (Remeron) 15 MG tablet Take 1 tablet by mouth at bedtime. 08/14/20 24 Active divalproex (Depakote ER) 500 MG 24 hr tablet Take 2 tablets by mouth 2 times daily. 07/26/20 24 Active QUEtiapine (SEROquel) 100 MG tablet Take 100 mg by mouth at bedtime. 08/14/20 24 Active albuterol 108 (90 Base) MCG/ACT inhaler Inhale 2 puffs every 6 (six) hours if needed for wheezing. 18 g 11 09/28/20 24 025 Active finasteride (Proscar) 5 MG tabletIndicati ons:Hair loss TAKE ONE TABLET BY MOUTH EVERY DAY. DO NOT CRUSH, CHEW, OR SPLIT. 30 tablet 11 03/13/20 25 Active omeprazole (PriLOSEC) [address] capsule Take 1 capsule (20 mg) by mouth before breakfast. Do not crush or chew.TAKE ONE CAPSULE BY MOUTH EVERY DAY BEFORE BREAKFAST DO NOT CRUSH OR CHEW 90 capsule 1 04/12/20 25 Active Riboflavin 400 MG capsule Take 1 tablet by mouth Once per day. Active Riboflavin-Mag nesium-Feverfe w 200-180-50 MG tablet Take 3 capsules by mouth Once per day. Active Vitamin D-Vitamin K (VITAMIN K2-VITAMIN D3 PO) Take 1 tablet by mouth Once per day. Active meclizine (Antivert) 25 MG tablet Take 25 mg by mouth if needed in the morning, at noon, and at bedtime for dizziness. Active chlorproMAZINE (Thorazine) 10 MG tablet Take 10 mg by mouth at bedtime. 01/11/20 24 025 Discontinued cholecalcifero l 250 MCG (18361 UT) capsule Take 1 capsule by mouth twice a week 04/26/20 025 Discontinued amphetamine-de xtroamphetamin e (Adderall) 10 MG tablet Take 1 tablet by mouth in the morning. 07/26/20 24 025 Discontinued acetaZOLAMIDE (Diamox) 250 MG tablet Take 1 tablet by mouth every 8 (eight) hours. 09/03/20 025 Discontinued butalbital-luann taminophen-caf feine 50-325-40 MG tablet Take 1 tablet by mouth every 4 (four) hours if needed for headaches. 025 Discontinued methocarbamol (Robaxin) 750 MG tablet Take 1 tablet by mouth if needed in the morning and at bedtime for muscle spasms. 025 Discontinued senna (Senokot) 8.6 MG tablet Take 2 tablets by mouth Once per day. 09/03/20 025 Discontinued terconazole (Terazol 7) 0.4 % vaginal cream Insert 1 applicator into the vagina at bedtime for 7 days. 45 g 06/12/20 25 025 butalbital-luann taminophen-caf feine 50-325-40 MG tablet Take 1 tablet by mouth every 6 (six) hours if needed for headaches for up to 5 days. 20 tablet 07/02/20 25 025 Active Problems Problem Noted Date Diagnosed Date Right foot pain 06/27/2025 Assessment & Plan (06/27/2025 1:47 PM EDT): No recent trauma, xray done with swelling, no bony erosions, will refer to podiatry for evaluation Imbalance 05/22/2025 Assessment & Plan (05/22/2025 2:22 PM EDT): Patient has been previously evaluated by neurology, still followed by specialist, will refer to PT Irritable bowel syndrome with constipation 11/19 Assessment [...] refers lost of hair is mostly on amish area, no circular hair loss, no rash, [...] managed by outpatient mental health providers at [facility]. Denisse is emotionally stable, and is intellectually [...] 12 continuous months of hormone therapy. Denisse rojas meets these criteria, and is a strong candidate for hysterectomy. Patient ready to address current needs Yes Strengths include Supportive medical team and hx of compliance with medical and mental health treatment PLAN: 1. Follow up with [facility]: Not recommended for follow-up 2. Patient goal [...] with treatment reported, has appointment tomorrow with [facility]. Recurrent major depressive disorder, in partial remission 02/10/2023 Assessment & Plan (01/19/2024 1:55 PM EDT): PLAN: (check all that apply) Continue with current services (defined as services in the past 12 months) Behavioral Health Integration Plan Patient Self Plan Patient to reach out to [facility] team as needed, Comply with medication , Patient to engage in OP therapy , Patient to reach out to CB as needed, and Patient to follow-up with external team Patient is connected with [facility] Patient has crisis information. Bipolar disorder 02/10/2023 Chronic migraine without aura 02/10/2023 Assessment & Plan (07/02/2025 1:51 PM EDT): Will send rx of short course fioricet, followed by neurology told to make a sooner appointment, if symptoms worsen er precautions reviewed Assessment & Plan (11/19/2024 11:30 PM EST): Patient was at [facility] from 09/01-09/03 due to headache [...] Encounters Date Type Department Care Team Description 07/09/2025 Telephone [facility] [address] [place] [phone] Sami Shaffer MD call back request 07/03/2025 Telephone [facility] [address] [place] [address] Sami Shaffer MD Prior Authorization 07/02/2025 1:30 PM EDT Telemedicine [facility] [address] [place] [address] Sami Shaffer MD Chronic migraine without aura without status migrainosus, not intractable (Primary Dx) 07/02/2025 Travel 07/02/2025 Telephone [facility] [address] [place] [address] Sami Shaffer MD Nurse Triage 06/27/2025 1:00 PM EDT Telemedicine [facility] [address] [place] [address] Sami Shaffer MD Right foot pain (Primary Dx) 06/27/2025 Travel 06/26/2025 Telephone [facility] [address] [place] [address] Sami Shaffer MD chart prep 06/25/2025 Travel 06/24/2025 Telephone [facility] [address] [place] [address] Sami Shaffer MD Referral 06/12/2025 10:15 AM EDT Office Visit [address] [address] Sissy Valadez CNM Vaginal discharge (Primary Dx); Cutaneous abscess of groin 06/12/2025 Patient Outreach [address] [address] Sami Shaffer MD Care Coordination ([facility] outreach for SDOH PT-1 and food needs-referral completed /) 06/12/2025 Travel 06/11/[address] [address] Sissy Valadez CNM chart prep 06/07/2025 Telephone [facility] [address] [place] [address] Sami Shaffer MD Nurse Triage 05/23/[address] [address] Sami Shaffer MD Nurse Triage 05/22/2025 2:00 PM EDT Office Visit [facility] [address] [place] [address] Sami Shaffer MD Imbalance (Primary Dx) 05/22/2025 Orders Only [facility] [address] [place] [address] Sami Shaffer MD 05/21/2025 Travel 05/21/2025 Telephone [facility] [address] [place] [address] Sami Shaffer MD Appointment Request 05/17/[address] [address] Sami Shaffer MD Nurse Triage 04/12/2025 Refill [facility] [address] [place] [address] Sami Shaffer MD from Last 3 Months Immunizations Immunization Administration Dates Next Due HPV 9-Valent 07/15/2023,04/22/2023,03/08/2023 [...] Answer Date Recorded Patient Health Questionnaire-9 Score 7 06/12/2025 Patient Health Questionnaire-9 Score 7 06/12/2025 Last PHQ-9: Questionnaire Data Not on file 0 06/12/2025 Housing Stability Answer Date Recorded What is your housing situation today? I have housing today, but I am worried about losing housing in the future 06/12/[address] you li ve. Do you have problems with any of the following? Pests such as bugs, ants, or mice;Water leaks 06/12/2025 Food Insecurity Answer Date Recorded Within the past 12 months, y ou worried that your food would run out before you got money to buy more: Sometimes True 2024 Within the past 12 months,th e food you bought just didn't last and you didn't have enough money to get more: Sometimes True 06/12/2025 Transportation Answer Date Recorded In the past 12 months, has l ack of transportation kept you from medical appts, meetings, work or from getting things needed for daily living? No 06/12/2025 Utilities Answer Date Recorded In the past 12 months, has t he electric, gas, oil or water company threatened to shut off services in your home? No 06/12/2025 Depression Answer Date Recorded Patient Health Questionnaire-2 Score 0 06/12/2025 Internet Access Answer Date Recorded Internet Access Q1 Yes 06/12/2025 Internet Access Q2 Not on file 06/12/2025 Comments No Intention Date Recorded No desire to become (finding) 0 06/12/2025 Sex and Gender Information Value Date Recorded Sex Assigned at Female 09/06/2022 10:36 AM EDT Legal Sex Male 10:36 AM EDT Gender Identity Non-Binary Transmasculine 2022 12:54 PM EDT Sexual Orientation Bisexual 09/06/2022 10 :36 AM EDT Last Filed Vital Signs Vital Sign Reading Time Taken Comments Blood Pressure 108/78 06/12/2025 9:51 AM EDT Pulse 108 06/12/2025 9:51 AM EDT Temperature 36.1 C (97 F) 06/12/2025 9:51 AM EDT Respiratory Rate 14 06/12/2025 9:51 AM EDT Oxygen Saturation 99% 06/12/2025 9:51 AM EDT Inhaled Oxygen Concentration - - Weight 129 kg (284 lb 9.6 oz) 06/12/2025 9:51 AM EDT Height 167.6 cm (5' 6 ) 05/22/2025 2:11 PM EDT Body Mass Index 45.94 05/22/2025 2:11 PM EDT Plan of Treatment Health Maintenance Due Date Last Done Comments Pneumococcal Vaccine: Pediatrics (0 to 5 Years) and At-Risk Patients (6 to 49) Years (1 of 2 - PCV) 02/25/2015 Hepatitis A Vaccines (2 of 2 - Risk 2-dose series) 10/15/2015 04/15/2015 Hepatitis B Vaccines (2 of 3 - 19+ 3-dose series) 07/07/2020 06/09/2020 HPV Vaccines (3 - 3-dose series) 10/07/2023 07/15/2023, 07/15/2023, 04/22/2023, Additional history exists COVID-19 Vaccine ( season) 2025 02/22/2021, 01/30/2021 Influenza Vaccine (#1) 2025 , 09/03/2024, 07/26/2023, Additional history exists Alcohol/Substance Use Screening 06/12/2026 06/12/2025 Depression Screening 06/12/2026 06/12/2025, 06/12/20 25 Disability Screening 06/12/2026 06/12/2025 Family Planning (PISQ) 06/12/2026 06/12/2025 SDOH Screening 06/12/2026 06/12/2025 Tobacco Screening 06/12/2026 06/12/2025 Lipid Panel 07/12/2028 07/12/2023, 05/21/2022 DTaP/Tdap/Td Vaccines (2 - Td or Tdap) 05/09/2029 05/09/2019 Zoster Vaccines (1 of 2) 02/25/2046 RSV Patients and Patients Aged 60 years or older (1 - 1-dose 75+ series) 02/25/2071 Pap Smear Discontinued 03/17/2021, 03/17/2021 HIV Screening Completed 04/22/2023, 10/16/2020 Hepatitis C Screening Completed 04/22/2023, 022 HIB Vaccines Aged Out No longer eligi [...] Procedure Name Priority Date/Time Associated Diagnosis Comments POCT WET [place] Routine 06/12/2025 11 :59 AM EDT Vaginal discharge BACTERIAL VAGINOSIS PANEL Routine 06/12/2025 11:00 AM EDT Vaginal discharge LIPID PANEL, STANDARD Routine 07/12/2023 11:03 AM [...] Recently Relevant to Health Maintenance Results * POCT fern test, vaginal fluid manually resulted (06/12/2025 11:59 AM EDT) [place] Prep Positive Comment:pH 4.5 neg whiff, ne g clue, neg trich, neg wbc pos yeast Vaginal Fluid 06/12/2025 11: 59 AM EDT Sissy TYLER POINT OF CARE TEST ENTER/ EDIT ORDERABLES Final Result * (ABNORMAL) Bacterial Vaginosis Panel (06/12/2025 11:00 AM EDT) TRICHOMONAS VAGINALIS DETECTION BY PCR NOT DETECTED Not Detect [facility] BACTERIAL VAGINOSIS DETECTION BY PCR NEGATIVE Negative [facility] Comment:The BV organism targ ets of the Xpert Xpress MVP test can becommensal in women; Xpert Xpress MVP positive results forbacterial vaginosis should be considered in conjunction withother clinical and patient information to determine thedisease status. Organisms that are not detected by the XpertXpress MVP test have also been reported to be associatedwith BV and aerobic vaginitis.The Xpert Xpress MVP test performance has not been evaluatedin patients under the age of 14. DONYA GROUP DETECTION BY PCR DETECTED(A) Not Detect [facility] Donya glab krusei PCR NOT DETECTED Not Detect [facility] Swab Vaginal structure / Unknown 06/12/2025 11:00 AM EDT 06/12/2025 5:04 PM EDT us Sissy Valadez CNM LAB MICROBIOLOGY - GENERA L ORDERABLES Final Result [facility] [address] [place] [address] [phone] * (ABNORMAL) Lipid Panel, Standard (07/12/2023 11:03 AM EDT) Triglycerides 291(H) <150 mg/dL [facility] Comment:Desirable Triglyceri de: less than 150 mg/dLBorderline High Triglyceride 150-199 mg/dLHigh Triglyceride: 200-499 mg/dLVery High Triglyceride: greater than or equal to 5OO mg/dL Cholesterol 235(H) <200 mg/dL [facility] Comment:Desirable Cholestero l: less than 200 mg/dLBorderline High Cholesterol: 200-239 mg/dLHigh Cholesterol: greater than 239 mg/dL LDL Cholesterol Calculated 141(H) <100 mg/dL [facility] Comment:Desirable LDL: less than 100 mg/dLNear Optimal/Above Optimal LDL: 110- 129 mg/dLBorderline High LDL: 130-159 mg/dLHigh LDL: 160-189 mg/dLVery High LDL: greater than or equal to 190 mg/dL HDL Cholesterol 36(L) >40 mg/dL [facility] Comment:Desirable HDL: great er than 40 mg/dL Note: This HDL assay may give artificially low results in patients with liver disease. Blood Venous blood specimen / Unknown 07/12/2023 11:03 AM EDT 07/12/2023 2:17 PM EDT us Sami Abel MD LAB BLOOD ORDERABL ES Final Result [facility] [address] [place] [address] [phone] * Hepatitis C Antibody with Reflex to HCV, RNA, Quantitative, Real-Time PCR (04/22/2023 11:25 AM EDT) Hepatitis C Antibody NON-REACT DESIRE NON-REACT DESIRE [facility] [place] [facility] Index 0.09 <1.00 [facility] Comment: HCV antibody was non-reactive. There is no laboratory evidence of HCV infection. In most cases, no further action is required. However, if recent HCV exposure is suspected, a test for HCV RNA (test code 54923) is suggested. For additional information please refer to http://Budge.Ozmott/faq/BNE34v8 (This link is being provided for informational/ educational purposes only.) Blood Venous blood specimen / Unknown 04/22/2023 11:25 AM EDT 04/22/2023 11:26 AM EDT Sissy Valadez [facility] LAB BLOOD ORDERABLES Stephany moon Result [facility] [address] [facility], [facility], [place] [address] [facility] [address] [place] [address] * HIV-1/2 Antigen and Antibodies, Fourth Generation, with Reflexes (04/22/2023 11:25 AM EDT) Pathologist [facility] HIV Antigen/Antibody, 4th Generation NON-REAC TIVE NON-REAC TIVE [facility] Comment: HIV-1 antigen and HIV-1/HIV-2 antibodies were not detected. There is no laboratory evidence of HIV infection. PLEASE NOTE: This information has been disclosed to you from records whose confidentiality may be protected by state law. If your state requires such protection, then the state law prohibits you from making any further disclosure of the information without the specific written consent of the person to whom it pertains, or as otherwise permitted by law. A general authorization for the release of medical or other information is NOT sufficient for this purpose. For additional information please refer to http://Budge.Ozmott/faq/SLI994 (This link is being provided for informational/ educational purposes only.) The performance of this assay has not been clinically validated in patients less than 2 years old. Blood Venous blood specimen / Unknown 04/22/2023 11:25 AM EDT 04/22/2023 11:26 AM EDT Sissy TYLER LAB BLOOD ORDERABLES Stephany l Result Performing Organization Address [facility] Co de Phone Number [facility] [address] [place] [address], [facility] [place] [address] [facility] [address] [place] [address] * Pap Smear (03/17/2021 12:00 AM EDT) Swab Sissy TYLER LAB CYTOLOGY ORDERABLES F inal Result Performing Organization Address [facility] Co de Phone Number [facility] [address] [place] [address], [place] [address] from Last 3 Months or Most Recently Relevant to Health Maintenance Insurance CARE < 65 [place] [id number] Care Teams Chemical Dependency Therapist Relationship Specialty Start Date End Date MichelleSami Heredia MD [address] [place] [address] PCP - General Internal Medicine 08/28/19
--- OUTSIDE RECORDS SUMMARY | 2025-07-09 14:32 | XMS_ITS | Encounter Summary ---
Author Organization [employer] Address [address] [place] [address] 7 [place] [address] Care Team Providers Care Hoop Flaring Machine Operator Name Role Phone Sami Shaffer MD Primary Care Prov ider Reason for Visit * Reason Onset Date Comments Appointment Request 04/21/2023 Encounter Details Date Type Department Care Team ([facility] Contact Info) Description 04/21/[address] [facility]EDS [address] [place] [address] Sami Shaffer MD [address] [place] [address] Appointment Request Social History Tobacco Use Types [...] of Gardasil shot Please contact pt at [phone] documented in this encounter Plan of Treatment Not on file documented as of this encounter Visit Diagnoses Not on filedocumented in this encounter Care Teams Hoop Flaring Machine Operator Relationship Specialty Start Date End Date Sami Shaffer MD [address] [place] [id number] PCP - General Internal Medicine 08/28/19 documented as of this encounter
--- OUTSIDE RECORDS SUMMARY | 2025-07-09 14:32 | XMS_ITS | Encounter Summary ---
Author Organization [employer] Address [address] [facility] 7 [place] [address] Care Team Providers Care Count Room Clerk Name Role Phone Sami Shaffer MD Primary Care Prov ider Reason for Visit * Reason Onset Date Comments PT1 07/25/2023 Encounter Details Date Type Department Care Team ([facility] st Contact Info) Description 07/25/2023 Telephone [facility] [address] [place] [address] Sami Shaffer MD [address] [place] [address] PT1 Social History Tobacco Use Types Packs/Day [...] Cindy Diez - 07/25/2023 9:44 AM EDT Jose Manuel ackerman with [facility] requesting a renewal on PT1 for pt. Date: 08/05 Time: 3 PM address: [address] [facility] [place] [place] [address] specialty: [place] [facility] # visits: n/a hobbies and crafts sales representative: n/a Wheelchair: no shipping and receiving supervisor location confirmed: [address] [place] [address] [place] [address] documented in this encounter Plan of Treatment Not on file documented as of this encounter Visit Diagnoses Not on filedocumented in this encounter Care Teams Count Room Clerk Relationship Specialty Start Date End Date Sami Shaffer MD [address] [place] [address] [place] [address] PCP - General Internal Medicine 08/28/19 documented as of this encounter
--- OUTSIDE RECORDS SUMMARY | 2025-07-09 14:32 | XMS_ITS | Encounter Summary ---
Author Organization [employer] Address [address] [facility] [address] [place] [address] Care Team Providers Care Label Maker Name Role Phone Sami Shaffer MD Primary Care Prov ider Encounter Details Date Type Department Care Team (Late st Contact Info) Description 06/22/2024 Telephone [facility] MED[facility]INE [address] [place] [address] Sami Shaffer MD [address] [place], [place] [phone] Social History Tobacco Use Types Packs/Day Years [...] documented as of this encounter Care Teams Label Maker Relationship Specialty Start Date End Date Sami Shaffer MD [address] [place] [phone] PCP - General Internal Medicine 08/28/19 documented as of this encounter
--- OUTSIDE RECORDS SUMMARY | 2025-07-09 14:32 | XMS_ITS | Encounter Summary ---
Author Organization [employer] Address [address] [facility] 7t [place] [address] Care Team Providers Care Picking Crew Supervisor Name Role Phone Sami Shaffer MD Primary Care Prov ider Reason for Visit * Reason Onset Date Comments Referral 05/29/2024 Encounter Details Date Type Department Care Team ([facility] st Contact Info) Description 05/29/2024 Telephone [facility] MEDICINE [address] [place] [address] Sami Shaffer MD [address] [place], [place] [phone] Referral Social History Tobacco Use Types Packs/Day [...] referral, pt states they are unsatisfied with [facility] and would like to see [facility]. Pt was advised message would be sentto PCP. Pt verbalized understanding and agrees to plan. Tc from pt requesting referral for massage therapy: Address: [address] [place] [address] [place], [place] Facility Name: [facility] Type of specialist: Chiropractic and massage therapy TC from pt requesting new referral for Gastro: Address: [address] [place] [address] Facility Name: [facility] Type of Specialist: Gastro . * Telephone Encounter - Nakul Sanchez - 05/29/2024 11:37 AM EDT Tc from pt requesting referral for massage therapy: Address: [facility] [address], [place], [place] Facility Name: [facility] Type of specialist: Chiropractic and massage therapy TC from pt requesting new referral for Gastro: Address: [address] [place] [address] Facility Name: [facility] Type of Specialist: Gastro . documented in this encounter Plan of Treatment Not on file documented as of this encounter Visit Diagnoses Not on filedocumented in this encounter Additional Health Concerns Assessment Noted Time PHQ-9 Depression Total Score: 15 024 12:57 PM EDT documented as of this encounter Care Teams Picking Crew Supervisor Relationship Specialty Start Date End Date Sami Shaffer MD [address] [place] [address] PCP - General Internal Medicine 08/28/19 documented as of this encounter
--- OUTSIDE RECORDS SUMMARY | 2025-07-09 14:32 | XMS_ITS | Encounter Summary ---
Author Organization [employer] Address [address] [facility] 7t [place] [address] Care Team Providers Care Ship Laborer Name Role Phone Sami Shaffer MD Primary Care Prov ider Encounter Details Date Type Department Care Team (Late st Contact Info) Description 07/26/2023 Orders Only [facility] MED & PEDS [address] [place], [place] [phone] Sami Shaffer MD [address] [place], [place] [phone] Social History Tobacco Use Types Packs/Day Years [...] on filedocumented in this encounter Care Teams Ship Laborer Relationship Specialty Start Date End Date Sami Shaffer MD [address] [place] [address] PCP - General Internal Medicine 08/28/19 documented as of this encounter
--- OUTSIDE RECORDS SUMMARY | 2025-07-09 14:32 | XMS_ITS | Encounter Summary ---
Author Organization [employer] Address 75 [facility] 7t [place] [address] Care Team Providers Care Auto Carrier Driver Name Role Phone Sami Shaffer MD Primary Care Prov ider Reason for Visit * Reason Comments Med Refill Encounter Details Date Type Department Care Team (Late st Contact Info) Description 12/29/2022 Refill [facility] 505 [place] [address] Sami Shaffer MD 505 [place] [address] Gastroesophageal reflux disease without esophagitis Social History [...] reflux documented in this encounter Care Teams Auto Carrier Driver Relationship Specialty Start Date End Date Sami Shaffer MD 505 [place] [address] PCP - General Internal Medicine 08/28/19 documented as of this encounter
--- OUTSIDE RECORDS SUMMARY | 2025-07-09 14:32 | XMS_ITS | Encounter Summary ---
Author Organization [employer] Address 75 [facility] 7t [place] [address] Care Team Providers Care It Program Auditor Name Role Phone Sami Shaffer MD Primary Care Prov ider Reason for Visit * Reason Onset Date Comments Appointment Request 06/25/2024 Encounter Details Date Type Department Care Team ([facility] Contact Info) Description 06/25/2024 Telephone [facility] MEDICINE [address] [place] [address] Sami Shaffer MD 505 [place], [place] [phone] Appointment Request Social History Tobacco Use Types [...] documented as of this encounter Care Teams It Program Auditor Relationship Specialty Start Date End Date Sami Shaffer MD [address] [place] [address] PCP - General Internal Medicine 08/28/19 documented as of this encounter
--- OUTSIDE RECORDS SUMMARY | 2025-07-09 14:32 | XMS_ITS | Encounter Summary ---
Author Organization [employer] Address 75 [facility] 7t [place] [address] Care Team Providers Care Human Service Worker Name Role Phone Sami Shaffer MD Primary Care Prov ider Reason for Visit * Reason Comments Med Refill Encounter Details Date Type Department Care Team (Late st Contact Info) Description 01/05/2023 Refill C [facility] 505 [place] [address] Sami Shaffer MD 505 [place] [address] Gastroesophageal reflux disease without esophagitis Social History [...] reflux documented in this encounter Care Teams Human Service Worker Relationship Specialty Start Date End Date Sami Shaffer MD 505 [place] [address] PCP - General Internal Medicine 08/28/19 documented as of this encounter
--- OUTSIDE RECORDS SUMMARY | 2025-07-09 14:32 | XMS_ITS | Encounter Summary ---
Author Organization [employer] Address 75 [facility] 7t [place] [address] Care Team Providers Care Men'S Golf Coach Name Role Phone Sami Shaffer MD Primary Care Prov ider Encounter Details Date Type Department Care Team (Late st Contact Info) Description 05/22/2025 Orders Only [facility] MED & PEDS 505 [place], [place] [phone] Sami Shaffer MD 505 [place] [address] Social History Tobacco Use Types Packs/Day Years [...] documented as of this encounter Care Teams Men'S Golf Coach Relationship Specialty Start Date End Date Sami Shaffer MD [address] [place] [address] PCP - General Internal Medicine 08/28/19 documented as of this encounter
--- OUTSIDE RECORDS SUMMARY | 2025-07-09 14:32 | XMS_ITS | Encounter Summary ---
Author Organization [employer] Address [address] [place] [address] 7 [place] [address] Care Team Providers Care Earth Boring Machine Operator Name Role Phone Sami Shaffer MD Primary Care Prov ider Reason for Visit * Reason Onset Date Comments PT1 03/10/2023 Encounter Details Date Type Department Care Team ([facility] st Contact Info) Description 03/10/2023 Telephone [facility] MED & PEDS 505 [place] [address] Sami Shaffer MD 505 [place] [address] PT1 Social History Tobacco Use Types Packs/Day [...] Name of facility: Pediatric Ophthalmology Specialty: Location: [facility] [place], [place] [address] Date: June 10, 2023 Time: 3:15 pm fax: n/a wheelchair: n/a Supervisor Carding: n/a [facility] PT1 Name of facility: Specialty: [facility] Location: [address] [place] [address] Date: n/a Time: n/a fax: n/a Phone: n/a wheelchair: n/a Supervisor Carding: n/a All Future appts If any questions please contact Hilda at [phone] documented in this encounter Plan of Treatment Not on file documented as of this encounter Visit Diagnoses Not on filedocumented in this encounter Care Teams Earth Boring Machine Operator Relationship Specialty Start Date End Date Sami Shaffer MD [address] [place] [address] PCP - General Internal Medicine 08/28/19 documented as of this encounter
--- OUTSIDE RECORDS SUMMARY | 2025-07-09 14:32 | XMS_ITS | Encounter Summary ---
Author Organization [employer] Address [address] [facility] [address] 7t [place] [address] Care Team Providers Care Plating Department Helper Name Role Phone Sami Shaffer MD Primary Care Prov ider Reason for Visit * Reason Onset Date Comments Referral 06/28/2024 Encounter Details Date Type Department Care Team ([facility] st Contact Info) Description 06/28/2024 Telephone [facility] MEDICINE 230 [place] [address] Sami Shaffer MD 505 [place], [place] [phone] Referral Social History Tobacco Use Types Packs/Day [...] TC from pt requesting new referral: Address: [address] [place] [address] Facility Name: [facility] Gastroenterology Type of Specialist: Gastroenterology documented in this encounter Plan of Treatment Not on file documented as of this encounter Visit Diagnoses Not on filedocumented in this encounter Additional Health Concerns Assessment Noted Time PHQ-9 Depression Total Score: 15 024 12:57 PM EDT documented as of this encounter Care Teams Plating Department Helper Relationship Specialty Start Date End Date Sami Shaffer MD [address] [place] [address] PCP - General Internal Medicine 08/28/19 documented as of this encounter
--- OUTSIDE RECORDS SUMMARY | 2025-07-09 14:32 | XMS_ITS | Encounter Summary ---
Author Organization [employer] Address 75 [facility] 7t [place] [address] Care Team Providers Care Intake Clerk Name Role Phone Sami Shaffer MD Primary Care Prov ider Reason for Visit * Reason Onset Date Comments Nurse Triage 08/21/2024 Encounter Details Date Type Department Care Team ([facility] Contact Info) Description 08/21/2024 Telephone C [facility] 505 [place] [address] Sami Shaffer MD 505 [place] [address] Nurse Triage Social History Tobacco Use Types [...] encounter Miscellaneous Notes * Telephone Encounter - oD Wolf RN - 08/21/2024 12:16 PM EDT Pt. States having an ongoing migraine x 5 days. Pt states that they do not have a Neurologist anymore due to Neurologist not in practice anymore. Pt did go to [facility] 08/17/24 for a migraine and they [...] send note to clinical coordinators to get [facility] note into chart from 08/17/24 visit for todays televisit with PCP at 215pm. [facility] note is in chart under Media * Telephone Encounter - Mary Jo Sandoval - 08/21/2024 12:07 PM EDT Symptom: Headache ( migraine) Outcome: Schedule a same-day appointment or talk to a nurse or provider today Reason: Caller denied all higher acuity questions The caller accepted this outcome. Patient calling to report ED visit on : Date: 08/17/24 Hospital: [facility] [place] [facility] Seen for: blood pressure and migraine documented in this encounter Plan of Treatment Not on file documented as of this encounter Visit Diagnoses Not on filedocumented in this encounter Additional Health Concerns Assessment Noted Time PHQ-9 Depression Total Score: 15 024 12:57 PM EDT documented as of this encounter Care Teams Intake Clerk Relationship Specialty Start Date End Date Sami Shaffer MD [address] [place] [address] PCP - General Internal Medicine 08/28/19 documented as of this encounter
--- OUTSIDE RECORDS SUMMARY | 2025-07-09 14:32 | XMS_ITS | Clinical Summary ---
Author Organization 175 [facility] Address [address] [place] [address] Phone Care Team Providers Care Manager Unix Name Role Phone Sami Shaffer Primary Care Provide r Social History Tobacco Use Types Packs/Day Years [...] 02/25/2017 COVID-19 Vaccine (2023-2 5 season) 2024 Depression Screening 11/07/2024 HIV Screening 07/02/2025 Hepatitis C Screening 07/02/2025 Medicare Annual Wellness Visit 07/02/2025 Social Influencers of Health Screening 07/02/2025 Influenza Vaccine (#1) 2025 HIB Vaccines Aged [...] on patient's age to complete this topic Insurance [employer] MEDICARE Member Subscriber Plan / Payer (Ef fective 2023-Present) Name:Denisse Smiley Relation to Subscriber:Self Name:Denisse Smiley Payer ID:[id number] Group ID:Not on file Type:Not on file Address: [place] [facility] [place] [address] Care Teams Manager Unix Relationship Specialty Start Date End Date Sami Shaffer [address] [place] [phone] PCP - General Internal Medicine 07/02/25
--- OUTSIDE RECORDS SUMMARY | 2025-07-09 14:32 | XMS_ITS | Encounter Summary ---
Author Organization [employer] Address 75 [facility] 7t [place] [address] Care Team Providers Care Hogshead Hooper Name Role Phone Sami Shaffer MD Primary Care Prov ider Reason for Visit * Reason Onset Date Comments call back request 07/09/2025 Encounter Details Date Type Department Care Team ([facility] Contact Info) Description 07/09/2025 Telephone [facility] MEDICINE 230 [place] [address] Sami Shaffer MD 505 [place], [place] [phone] call back request Social History Tobacco Use Types Packs/Day Years [...] Q2 Not on file 06/12/2025 Comments No Sex and Gender Information Value Date Recorded Sex Assigned at Female 09/06/2022 10:36 AM EDT Legal Sex Male 10:36 AM EDT Gender Identity Non-Binary Transmasculine 2022 12:54 PM EDT Sexual Orientation Bisexual 09/06/2022 10 :36 AM EDT documented as of this encounter Miscellaneous Notes * Telephone Encounter - Yuliya Dey - 07/09/2025 12:07 PM EDT Tc from Tenisha (MARKETING EXECUTIVE) with [facility] requesting a call back from PCP to clearance due to a procedure done by Tenisha. Contact Tenisha at [phone] documented in this encounter Plan of Treatment Not on file documented as of this encounter Visit Diagnoses Not on filedocumented in this encounter Additional Health Concerns Assessment Noted Time PHQ-9 Depression Total Score: 7 06/12/20 25 10:29 AM EDT documented as of this encounter Care Teams Hogshead Hooper Relationship Specialty Start Date End Date Sami Shaffer MD [address] [place] [address] PCP - General Internal Medicine 08/28/19 documented as of this encounter
--- OUTSIDE RECORDS SUMMARY | 2025-07-09 14:32 | XMS_ITS | Encounter Summary ---
Author Organization [employer] Address 75 [facility] 7t [place] [address] Care Team Providers Care Motorcycle Mechanic Apprentice Name Role Phone Sami Shaffer MD Primary Care Prov ider Reason for Visit * Reason Comments Med Refill Encounter Details Date Type Department Care Team ([facility] Contact Info) Description 05/20/2024 Refill [facility] CHC MED & PEDS [address] [place] [address] Sami Shaffer MD 505 [place] [address] Social History Tobacco Use Types Packs/Day Years [...] documented as of this encounter Care Teams Motorcycle Mechanic Apprentice Relationship Specialty Start Date End Date Sami Shaffer MD [address] [place] [address] PCP - General Internal Medicine 08/28/19 documented as of this encounter
--- OUTSIDE RECORDS SUMMARY | 2025-07-09 14:32 | XMS_ITS | Clinical Summary ---
Author Organization [facility] Address [address] [address] Phone Care Team Providers Care Shot Hole Driller Name Role Phone Sami Shaffer MD Primary Care Prov ider Allergies Active Allergy Reactions Criticality Noted Date Comments Adhesive Rash,Swelling Low 06/18/2022 [place] Other (See Comments) 06/18/2022 Artificial Sweetener Other [...] YEARS) 02/25/2014 PAP SMEAR 02/25/2017 COVID-19 VACCINE (3 - 2023-2 5 season) 2024 02/22/2021, 01/30/2021 INFLUENZA VACCINE (#1) 2025 , 09/22/2021 HEPATITIS A VACCINES Aged Out No long [...] topic Medical Devices Not on file Insurance [facility] [address] [place] [address] [address] [address] [place] [place] [address] C3 ACO Care Teams Shot Hole Driller Relationship Specialty Start Date End Date Sami Shaffer MD [address] [place] [address] PCP - General Internal Medicine 09/21/21 Additional Source Comments The information contained in this document represents components of the legal health record. It is not the complete legal health record.[facility]
--- OUTSIDE RECORDS SUMMARY | 2025-07-09 14:32 | XMS_ITS | Encounter Summary ---
Author Organization [employer] Address [address] [facility] [address] 7t [place] [address] Care Team Providers Care Grinder Set Up Operator Jig Name Role Phone Sami Shaffer MD Primary Care Prov ider Encounter Details Date Type Department Care Team (Late st Contact Info) Description 01/15/2025 Telephone C [facility] 505 [place], [place] [phone] Sami Shaffer MD 505 [place] [address] Social History Tobacco Use Types Packs/Day Years [...] documented as of this encounter Care Teams Grinder Set Up Operator Jig Relationship Specialty Start Date End Date Sami Shaffer MD [address] [place] [address] PCP - General Internal Medicine 08/28/19 documented as of this encounter
--- OUTSIDE RECORDS SUMMARY | 2025-07-09 14:32 | XMS_ITS | Encounter Summary ---
Author Organization [employer] Address [address] [place] [address] 7 [place] [address] Care Team Providers Care Food Scientist Name Role Phone Sami Shaffer MD Primary Care Prov ider Reason for Visit * Reason Onset Date Comments PT1 07/25/2023 Encounter Details Date Type Department Care Team ([facility] st Contact Info) Description 07/25/2023 Telephone [facility] CHC MED & PEDS 505 [place] [address] Sami Shaffer MD 505 [place] [address] PT1 Social History Tobacco Use Types Packs/Day [...] Date: 07/27/23 Time: 10:45 am Visits: Address: [address] [place] [address] [place] [address] Facility: Urology Wheel Chair: n/a Commission Broker Needed: no documented in this encounter Plan of Treatment Not on file documented as of this encounter Visit Diagnoses Not on filedocumented in this encounter Care Teams Food Scientist Relationship Specialty Start Date End Date Sami Shaffer MD [address] [place] [address] PCP - General Internal Medicine 08/28/19 documented as of this encounter
--- OUTSIDE RECORDS SUMMARY | 2025-07-09 14:32 | XMS_ITS | Encounter Summary ---
Author Organization [employer] Address 75 [facility] 7t [place] [address] Care Team Providers Care Hard Hat Diver Name Role Phone Sami Shaffer MD Primary Care Prov ider Reason for Visit * Reason Onset Date Comments Nurse Triage 03/27/2024 Encounter Details Date Type Department Care Team ([facility] Contact Info) Description 03/27/2024 Telephone C [facility] 505 [place] [address] Sami Shaffer MD 505 [place] [address] Nurse Triage Social History Tobacco Use Types [...] hand. pt seen 1 week ago by [facility] Derm and prescribed a cream to use. [...] accepted this outcome Please contact pt at [phone] documented in this encounter Plan of Treatment Not on file documented as of this encounter Visit Diagnoses Not on filedocumented in this encounter Additional Health Concerns Assessment Noted Time PHQ-9 Depression Total Score: 15 024 12:57 PM EDT documented as of this encounter Care Teams Hard Hat Diver Relationship Specialty Start Date End Date Sami Shaffer MD [address] [place] [address] PCP - General Internal Medicine 08/28/19 documented as of this encounter
--- OUTSIDE RECORDS SUMMARY | 2025-07-09 14:32 | XMS_ITS | Encounter Summary ---
Author Organization [employer] Address [address] [facility] [address] 7t [place] [address] Care Team Providers Care Lineman A Class Name Role Phone Sami Shaffer MD Primary Care Prov ider Reason for Visit * Reason Onset Date Comments Durable Medical Equipment 01/23/2025 Encounter Details Date Type Department Care Team ([facility] st Contact Info) Description 01/23/2025 Telephone [facility] MEDICINE 230 [place] [address] Sami Shaffer MD 505 [place], [place] [phone] Durable Medical Equipment Social History Tobacco Use [...] like to get measured. Contact pt at [phone] * Telephone Encounter - Kavon Walter - 01/23/2025 11:14 AM EDT Tc from pt requesting Compression socks. Pt has tried to buy them online but every time they are too small. Pt would like to get measured. Contact pt at [phone] documented in this encounter Plan of Treatment Not on file documented as of this encounter Visit Diagnoses Not on filedocumented in this encounter Additional Health Concerns Assessment Noted Time PHQ-9 Depression Total Score: 15 024 12:57 PM EDT documented as of this encounter Care Teams Lineman A Class Relationship Specialty Start Date End Date Sami Shaffer MD 505 [place] [address] PCP - General Internal Medicine 08/28/19 documented as of this encounter
--- OUTSIDE RECORDS SUMMARY | 2025-07-09 14:32 | XMS_ITS | Encounter Summary ---
Author Organization [employer] Address 75 [facility] 7t [place] [address] Care Team Providers Care Hospital Cleaning Specialist Name Role Phone Sami Shaffer MD Primary Care Prov ider Reason for Visit * Reason Comments Med Refill Encounter Details Date Type Department Care Team (Late st Contact Info) Description 12/22/2022 Refill C [facility] 505 [place] [address] Sami Shaffer MD 505 [place] [address] Gastroesophageal reflux disease without esophagitis Social History [...] reflux documented in this encounter Care Teams Hospital Cleaning Specialist Relationship Specialty Start Date End Date Sami Shaffer MD 505 [place] [address] PCP - General Internal Medicine 08/28/19 documented as of this encounter
--- OUTSIDE RECORDS SUMMARY | 2025-07-09 14:33 | XMS_ITS | Encounter Summary ---
Author Organization [employer] Address [address] [facility] [address] 7t [place] [address] Care Team Providers Care Environmental Services Floor Tech Name Role Phone Sami Shaffer MD Primary Care Prov ider Encounter Details Date Type Department Care Team (Late st Contact Info) Description 11/30/2024 Telephone C [facility]S 505 [place], [place] [phone] Sami Shaffer MD 505 [place] [address] Social History Tobacco Use Types Packs/Day Years [...] she has started going to a neurologist ([facility]) to rule out MS d/t her [...] documented as of this encounter Care Teams Environmental Services Floor Tech Relationship Specialty Start Date End Date Sami Shaffer MD [address] [place] [address] PCP - General Internal Medicine 08/28/19 documented as of this encounter
== END 2025-07-09 13:56 | disposition home or self-care (01) ==
LOC: HO.HUSH 13:15
PROVIDERS: PCP Internal Medicine; Visit Provider Nurse Practitioner Family
DX: R33.9 Retention of urine, unspecified (principal); N20.0 Calculus of kidney; Z13.9 Encounter for screening, unspecified
CPT/HCPCS: 99213

== ENCOUNTER → 2025-07-09 13:14 | Outpatient (BNVA) | payer OTHER, SELFPAY | PROVIDERS: PCP Internal Medicine; Visit Provider Nurse Practitioner Family | DX: N20.0 Calculus of kidney (principal); R33.9 Retention of urine, unspecified | CPT/HCPCS: 51798; 81003; 99212 ==

== ENCOUNTER 2025-08-09 16:20 | Outpatient (REF) | payer OTHER, SELFPAY ==
--- OUTSIDE RECORDS SUMMARY | 2025-08-09 16:23 | XMS_ITS | Clinical Summary ---
Author Organization [facility] Address [address] [address] Phone Care Team Providers Care Electrotype Molder Name Role Phone Sami Shaffer MD Primary Care Prov ider Allergies Active Allergy Reactions Criticality Noted Date Comments Adhesive Rash,Swelling Low 06/18/2022 [place] Other (See Comments) 06/18/2022 Artificial Sweetener Other [...] (18-6 5 YEARS) 02/25/2014 PAP SMEAR 02/25/2017 INFLUENZA VACCINE (#1) 2025 , 09/22/2021 COVID-19 VACCINE (3 - 2024-2 6 season) 2025 02/22/2021, 01/30/2021 HEPATITIS A VACCINES Aged Out [...] topic Medical Devices Not on file Insurance [facility] C[address] [place] [address] [place] [address] [place] [address] [place] [address] C3 ACO Care Teams Electrotype Molder Relationship Specialty Start Date End Date Sami Shaffer MD [address] [place] [address] PCP - General Internal Medicine 09/21/21 Additional Source Comments The information contained in this document represents components of the legal health record. It is not the complete legal health record.[facility]
--- OUTSIDE RECORDS SUMMARY | 2025-08-09 16:23 | XMS_ITS | Encounter Summary ---
Author Organization [employer] Address 75 [facility] 7 [place] [address] Care Team Providers Care Airframe Technical Officer Name Role Phone Sami Shaffer MD Primary Care Prov ider Reason for Visit * Reason Onset Date Comments PT1 07/25/2023 Encounter Details Date Type Department Care Team ([facility] st Contact Info) Description 07/25/2023 Telephone C [facility]S 505 [place] [address] Sami Shaffer MD 505 [place] [address] PT1 Social History Tobacco Use Types Packs/Day [...] 08/05 Time: 3 PM address: [address] [place] [address] specialty: [place] [facility] # visits: n/a clinical engineering manager: n/a Wheelchair: no community support associate location confirmed: [address] [place] [address] [place] [address] documented in this encounter Plan of Treatment Not on file documented as of this encounter Visit Diagnoses Not on filedocumented in this encounter Care Teams Airframe Technical Officer Relationship Specialty Start Date End Date Sami Shaffer MD [address] [place] [address] KEV[place] Moj[place] [address] PCP - General Internal Medicine 08/28/19 documented as of this encounter
--- OUTSIDE RECORDS SUMMARY | 2025-08-09 16:23 | XMS_ITS | Encounter Summary ---
Author Organization [employer] Address 75 [facility] 7t [place] [address] Care Team Providers Care Hairspring Ii Inspector Name Role Phone Sami Shaffer MD Primary Care Prov ider Encounter Details Date Type Department Care Team (Late st Contact Info) Description 07/26/2023 Orders Only [facility] CHC MED & PEDS 505 [place], [place] [phone] Sami Shaffer MD 505 [place], [place] [phone] Social History Tobacco Use Types Packs/Day Years [...] on filedocumented in this encounter Care Teams Hairspring Ii Inspector Relationship Specialty Start Date End Date Sami Shaffer MD 505 [place] [address] PCP - General Internal Medicine 08/28/19 documented as of this encounter
--- OUTSIDE RECORDS SUMMARY | 2025-08-09 16:23 | XMS_ITS | Encounter Summary ---
Author Organization [employer] Address [address] [place] [address] 7 [place] [address] Care Team Providers Care Digital Campaign Manager Name Role Phone Sami Shaffer MD Primary Care Prov ider Reason for Visit * Reason Onset Date Comments PT1 03/10/2023 Encounter Details Date Type Department Care Team ([facility] st Contact Info) Description 03/10/2023 Telephone [facility] CHC MED & PEDS [address] [place] [address] Sami Shaffer MD 505 [place] [address] PT1 Social History Tobacco Use Types Packs/Day [...] Name of facility: Pediatric Ophthalmology Specialty: Location: [facility] [place], [place] [address] Date: June 10, 2023 Time: 3:15 pm fax: n/a wheelchair: n/a Supervisor Fiber Locking: n/a ALL Future Appts PT1 Name of facility: Specialty: ALL future Appts Location: [address] [place] [address] Date: n/a Time: n/a fax: n/a Phone: n/a wheelchair: n/a Supervisor Fiber Locking: n/a All Future appts If any questions please contact Hilda at [phone] documented in this encounter Plan of Treatment Not on file documented as of this encounter Visit Diagnoses Not on filedocumented in this encounter Care Teams Digital Campaign Manager Relationship Specialty Start Date End Date Sami Shaffer MD [address] [place] [address] PCP - General Internal Medicine 08/28/19 documented as of this encounter
--- OUTSIDE RECORDS SUMMARY | 2025-08-09 16:23 | XMS_ITS | Encounter Summary ---
Author Organization [employer] Address [address] [place] [address] 7 [place] [address] Care Team Providers Care Assurance Senior Manager Insurance Name Role Phone Sami Shaffer MD Primary Care Prov ider Reason for Visit * Reason Onset Date Comments PT1 07/25/2023 Encounter Details Date Type Department Care Team ([facility] st Contact Info) Description 07/25/2023 Telephone [facility] CHC MED & PEDS [address] [place] [address] Sami Shaffer MD 505 [place] [address] PT1 Social History Tobacco Use Types Packs/Day [...] Date: 07/27/23 Time: 10:45 am Visits: Address: [address] [place] [address] [place] [address] Facility: Urology Wheel Chair: n/a Manager Library Needed: no documented in this encounter Plan of Treatment Not on file documented as of this encounter Visit Diagnoses Not on filedocumented in this encounter Care Teams Assurance Senior Manager Insurance Relationship Specialty Start Date End Date Sami Shaffer MD [address] [place] [address] PCP - General Internal Medicine 08/28/19 documented as of this encounter
--- OUTSIDE RECORDS SUMMARY | 2025-08-09 16:23 | XMS_ITS | Encounter Summary ---
Author Organization [employer] Address [address] [facility] 7t [place] [address] Care Team Providers Care Hospitalist Program Director Name Role Phone Sami Shaffer MD Primary Care Prov ider Reason for Visit * Reason Comments Med Refill Encounter Details Date Type Department Care Team (Late st Contact Info) Description 01/05/2023 Refill C [facility] MED [facility] PEDS 505 [place] [address] Sami Shaffer MD 505 [place] [address] Gastroesophageal reflux disease without esophagitis Social History [...] reflux documented in this encounter Care Teams Hospitalist Program Director Relationship Specialty Start Date End Date Sami Shaffer MD 505 [place] [address] PCP - General Internal Medicine 08/28/19 documented as of this encounter
--- OUTSIDE RECORDS SUMMARY | 2025-08-09 16:23 | XMS_ITS | Encounter Summary ---
Author Organization [employer] Address [address] [facility] 7t [place] [address] Care Team Providers Care Scrap Metal Processing Worker Name Role Phone Sami Shaffer MD Primary Care Prov ider Reason for Visit * Reason Comments Med Refill Encounter Details Date Type Department Care Team (Late st Contact Info) Description 12/29/2022 Refill C [facility]EDS 505 [place] [address] Sami Shaffer MD 505 [place] [address] Gastroesophageal reflux disease without esophagitis Social History [...] reflux documented in this encounter Care Teams Scrap Metal Processing Worker Relationship Specialty Start Date End Date Sami Shaffer MD 505 [place] [address] PCP - General Internal Medicine 08/28/19 documented as of this encounter
--- OUTSIDE RECORDS SUMMARY | 2025-08-09 16:23 | XMS_ITS | Encounter Summary ---
Author Organization [employer] Address [address] [facility] 7t [place] [address] Care Team Providers Care Audiometric Technician Name Role Phone Sami Shaffer MD Primary Care Prov ider Reason for Visit * Reason Comments Med Refill Encounter Details Date Type Department Care Team (Late st Contact Info) Description 12/22/2022 Refill C [facility]EDS 505 [place] [address] Sami Shaffer MD 505 [place] [address] Gastroesophageal reflux disease without esophagitis Social History [...] reflux documented in this encounter Care Teams Audiometric Technician Relationship Specialty Start Date End Date Sami Shaffer MD 505 [place] [address] PCP - General Internal Medicine 08/28/19 documented as of this encounter
--- OUTSIDE RECORDS SUMMARY | 2025-08-09 16:24 | XMS_ITS | Clinical Summary ---
Author Organization [facility]. Address [address] [address] Phone Care Team Providers Care Medical Editor Name Role Phone MichelleSami andrade Primary Care Provider [phone]- [phone] Allergies Active Allergy Reactions Criticality Noted Date Comments Adhesive Tape Rash,Swelling Low 06/18/2022 [place] [employer] Other (see comments) 06/18/2022 Cat Dander [...] MOUTH EVERY 6 HOURS (LIMIT 4000MG OF TYLENOL/ACET AMINOPHEN PER DAY) 11/30/2023 Active albuterol HFA (PROVENTIL HFA;VENTOLIN HFA) 108 (90 Base) MCG/ACT inhaler Inhale 2 puffs every 6 hours as needed 09/28/2024 09/28/20 Active buPROPion XL (WELLBUTRIN XL) 150 MG 24 hr tablet 07/01/2025 Active SUMAtriptan (IMITREX) 25 MG tablet TAKE 1 TABLET BY MOUTH DAILY NEEDED FOR MIGRAINE. MAY REPEAT DOSE AFTER 2 HOURS UP TO A MAXIMUM OF 2 Active tamsulosin (FLOMAX) 0.4 MG 24 hr capsule Take 0.4 mg by mouth in the morning. 09/13/2023 Active Riboflavin 400 MG capsule Take 1 tablet by mouth in the morning. Active Active Problems Problem Noted Date Diagnosed [...] Visit [facility] [address] [facility] [address] [place] [address] Du Nolen MD Stage 3 chronic kidney disease, not otherwise specified (HCC) (Primary Dx); Nephrogenic diabetes insipidus (HCC); Hematuria of undiagnosed cause 06/21/2025 Refill [facility] [address] [place] [place] [address] Keshawn Houston MD from Last 3 Months [...] Care Team (Late st Contact Info) Description 12/16/2025 3:15 PM EST Office Visit [facility] [address] [address] Du Nolen MD [address] [phone] Health Maintenance Due Date Last Done Comments Hepatitis B Vaccine (1 of 3 - 19+ 3-dose series) 02/25/2015 06/09/2020 Pneumococcal Vaccine: Peds ( 0 to 5 Years) and At-Risk Patients (6 to 49 Years) (1 of 2 - PCV) 02/25/2015 Influenza Vaccine (#1) 2025 , 07/26/2023, 09/22/2021, Additional history exists [place] [address] ([id number]) [facility] ([id number]) Care Teams Medical Editor Relationship Specialty Start Date End Date aSmi Michelle [address] [place] [address] PCP - General Internal Medicine 07/05/24
--- OUTSIDE RECORDS SUMMARY | 2025-08-09 16:24 | XMS_ITS | Encounter Summary ---
Author Organization [employer] Address [address] [facility] 7t [place] [address] Care Team Providers Care Belt Back Operator Name Role Phone Sami Shaffer MD Primary Care Prov ider Reason for Visit * Reason Onset Date Comments Referral 05/29/2024 Encounter Details Date Type Department Care Team ([facility] st Contact Info) Description 05/29/[address] [facility] MEDICINE [address] [place] [address] Sami Shaffer MD 505 [place], [place] [phone] Referral Social History Tobacco Use Types Packs/Day [...] referral, pt states they are unsatisfied with [facility] Gastro and would like to see [facility]. Pt was advised message would be sentto PCP. Pt verbalized understanding and agrees to plan. Tc from pt requesting referral for massage therapy: Address: [address] [place] [address] [place], [place] Facility Name: [facility] Type of specialist: Chiropractic and massage therapy TC from pt requesting new referral for Gastro: Address: [address] [place] [address] Facility Name: [facility] Gastroenterology Type of Specialist: Gastro . * Telephone Encounter - Nakul Sanchez - 05/29/2024 11:37 AM EDT Tc from pt requesting referral for massage therapy: Address: [facility] [address], [place], [place] Facility Name: [facility] Type of specialist: Chiropractic and massage therapy TC from pt requesting new referral for Gastro: Address: [address] [place] [address] Facility Name: [facility]astroenter[facility] Type of Specialist: Gastro . documented in this encounter Plan of Treatment Not on file documented as of this encounter Visit Diagnoses Not on filedocumented in this encounter Additional Health Concerns Assessment Noted Time PHQ-9 Depression Total Score: 15 024 12:57 PM EDT documented as of this encounter Care Teams Belt Back Operator Relationship Specialty Start Date End Date Sami Shaffer MD [address] [place] [address] PCP - General Internal Medicine 08/28/19 documented as of this encounter
--- OUTSIDE RECORDS SUMMARY | 2025-08-09 16:24 | XMS_ITS | Encounter Summary ---
Author Organization [employer] Address [address] [facility] 7t [place] [address] Care Team Providers Care Personnel Worker Name Role Phone Sami Shaffer MD Primary Care Prov ider Reason for Visit * Reason Comments Med Refill Encounter Details Date Type Department Care Team ([facility] Contact Info) Description 05/20/2024 Refill [facility] CHC MED & PEDS 505 [place] [address] Sami Shaffer MD 505 [place] [address] Social History Tobacco Use Types Packs/Day Years [...] documented as of this encounter Care Teams Personnel Worker Relationship Specialty Start Date End Date Sami Shaffer MD [address] [place] [address] PCP - General Internal Medicine 08/28/19 documented as of this encounter
--- OUTSIDE RECORDS SUMMARY | 2025-08-09 16:24 | XMS_ITS | Encounter Summary ---
Author Organization [employer] Address [address] [facility] 7t [place] [address] Care Team Providers Care Orderly Name Role Phone Sami Shaffer MD Primary Care Prov ider Reason for Visit * Reason Onset Date Comments Nurse Triage 03/27/2024 Encounter Details Date Type Department Care Team ([facility] Contact Info) Description 03/27/2024 Telephone C [facility] MED & PEDS [address] [place] [address] Sami Shaffer MD 505 [place] [address] Nurse Triage Social History Tobacco Use Types [...] hand. pt seen 1 week ago by [facility] Derm and prescribed a cream to [...] accepted this outcome Please contact pt at [phone] documented in this encounter Plan of Treatment Not on file documented as of this encounter Visit Diagnoses Not on filedocumented in this encounter Additional Health Concerns Assessment Noted Time PHQ-9 Depression Total Score: 15 024 12:57 PM EDT documented as of this encounter Care Teams Orderly Relationship Specialty Start Date End Date Sami Shaffer MD [address] [place] [address] PCP - General Internal Medicine 08/28/19 documented as of this encounter
--- OUTSIDE RECORDS SUMMARY | 2025-08-09 16:24 | XMS_ITS | Encounter Summary ---
Author Organization [email or web address] Address [address] [facility] [address] 7t [place] [address] Care Team Providers Care Head Cleaning Porter Name Role Phone Sami Shaffer MD Primary Care Prov ider Reason for Visit * Reason Onset Date Comments Referral 06/28/2024 Encounter Details Date Type Department Care Team ([facility] st Contact Info) Description 06/28/2024 Telephone [facility] MEDICINE [address] [place] [address] Sami Shaffer MD 505 [place], [place] [phone] Referral Social History Tobacco Use Types Packs/Day [...] TC from pt requesting new referral: Address: [address] [place] [address] Facility Name: [facility] Gastroenterology Type of Specialist: Gastroenterology documented in this encounter Plan of Treatment Not on file documented as of this encounter Visit Diagnoses Not on filedocumented in this encounter Additional Health Concerns Assessment Noted Time PHQ-9 Depression Total Score: 15 024 12:57 PM EDT documented as of this encounter Care Teams Head Cleaning Porter Relationship Specialty Start Date End Date Sami Shaffer MD [address] [place] [address] PCP - General Internal Medicine 08/28/19 documented as of this encounter
--- OUTSIDE RECORDS SUMMARY | 2025-08-09 16:24 | XMS_ITS | Clinical Summary ---
Author Organization [facility] Address [address] [place] [address] Phone Care Team Providers Care Tire Worker Name Role Phone Sami Shaffer Primary Care [...] Cervical Cancer Screening: P ap Smear 02/25/2017 HPV Vaccines (1 - 3-dose SCD M series) 02/25/2023 Depression Screening 11/07/2024 HIV Screening 07/02/2025 Hepatitis C Screening 07/02/2025 Medicare Annual Wellness Visit 07/02/2025 Social Influencers of Health Screening 07/02/2025 COVID-19 Vaccine ( - 2023-2 5 season) 2025 Influenza Vaccine (#1) 2025 RSV Immunization Adult Patie nts (1 - 1-dose 75+ series) 02/25/2071 HIB Vaccines Aged Out No longer eligi [...] on file Type:Not on file Address: [place] [address] [address] Care Teams Tire Worker Relationship Specialty Start Date End Date Sami Shaffer NPBebeto: [id number] [address] [place] [phone] PCP - General Internal Medicine 07/02/25
--- OUTSIDE RECORDS SUMMARY | 2025-08-09 16:24 | XMS_ITS | Encounter Summary ---
Author Organization [employer] Address [address] [facility] [address] 7t [place] [address] Care Team Providers Care Powder Worker Name Role Phone Sami Shaffer MD Primary Care Prov ider Encounter Details Date Type Department Care Team (Late st Contact Info) Description 01/15/2025 Telephone C [facility] MED [facility] PEDS 505 [place], [place] [phone] Sami Shaffer MD 505 [place] [address] Social History Tobacco Use Types Packs/Day Years [...] documented as of this encounter Care Teams Powder Worker Relationship Specialty Start Date End Date Sami Shaffer MD [address] [place] [address] PCP - General Internal Medicine 08/28/19 documented as of this encounter
--- OUTSIDE RECORDS SUMMARY | 2025-08-09 16:24 | XMS_ITS | Encounter Summary ---
Author Organization [employer] Address [address] [facility] [address] 7t [place] [address] Care Team Providers Care Cloth Printer Name Role Phone Sami Shaffer MD Primary Care Prov ider Encounter Details Date Type Department Care Team (Late st Contact Info) Description 11/30/2024 Telephone C [facility] MED & PEDS 505 [place], [place] [phone] Sami Shaffer MD 505 [place] [address] Social History Tobacco Use Types Packs/Day Years [...] she has started going to a neurologist ([facility]) to rule out MS d/t [...] documented as of this encounter Care Teams Cloth Printer Relationship Specialty Start Date End Date Sami Shaffer MD [address] [place] [address] PCP - General Internal Medicine 08/28/19 documented as of this encounter
--- OUTSIDE RECORDS SUMMARY | 2025-08-09 16:24 | XMS_ITS | Encounter Summary ---
Author Organization [employer] Address [address] [facility] 7t [place] [address] Care Team Providers Care Guest Relations Associate Name Role Phone Sami Shaffer MD Primary Care Prov ider Encounter Details Date Type Department Care Team (Late st Contact Info) Description 05/22/2025 Orders Only [facility] CHC MED & PEDS 505 [place], [place] [phone] Sami Shaffer MD 505 [place] [address] Social History Tobacco Use Types Packs/Day Years [...] documented as of this encounter Care Teams Guest Relations Associate Relationship Specialty Start Date End Date Sami Shaffer MD [address] [place] [address] PCP - General Internal Medicine 08/28/19 documented as of this encounter
--- OUTSIDE RECORDS SUMMARY | 2025-08-09 16:24 | XMS_ITS | Encounter Summary ---
Author Organization [facility] Address [address] [facility] [address] [place] [address] Encounters * CPT with Carlos Wang at [email or web address] on 2025-05-18 Patient with complaints of vertigo sensation after standing up from loading dishes. No fainint and no neuro defecit at time of call. trullus VulgarisDrug IngredientAnaphylaxis, Itching, SwellingHighAllergy01/01/2020Past Updates [place] OilDrug Ingredient, Food, Environmental, PlantUpdates Cat DanderDrug Ingredient, Environmental, Animal CitalopramDrug IngredientNot Specified DuloxetineDrug IngredientMental status change, OtherNot SpecifiedAllergy06/18/2022ast Updates Duloxetine HclDrugNot ZovqmrrpvVzhlgex24/6/2024ast Updates GabapentinDrug IngredientNot Iekifcedj37/23/2022ast Updates LidocaineDrug IngredientNot SpecifiedAllergy Mixed FeathersDrugNot SpecifiedAllergy01/01/2020 OtherNot OviydsvbjZrmzamd02/6/2024ast Updates Other Reaction(s): artificial sweetener Artificial Sweetener: Causes Migraines PregabalinDrug IngredientMental status change, Other SucraloseDrug IngredientNot Specified TopiramateDrug IngredientNot Specified TramadolDrug IngredientHivesNot SpecifiedAllergy06/18/2022 TrazodoneDrug IngredientNot Wgjobgcmu39/23/2022ast Updates VenlafaxineDrug IngredientMental status change, OtherNot SpecifiedAllergy06/18/2022ast Updates Watermelon Flavor [Flavoring Agent (Non-screening)] Adverse Reactions/Drug Intolerances Nsaids Wound dressing adhesives. { reasonForRequest : dizziness , patientReports : , d enies :[], chiefComplaints : Dizziness , pmh : COPD/Asthma,Migraine, Chronic Back Pain, Chronic Pain, Depression, Fibromyalgia, Irritable Bowel Syndrome (IBS), Obesity, Other , allergies : Lidocaine, Citalopram, Duloxetine, Gabapentin, Pregabalin, Topiramate, Trazodone, Venlafaxine, NSAIDS (Non- Steroidal Anti-Inflammatory Drug) ,&qu ot;otherAllergies : , painAssessment : , visitOutcome&quot ;: , additionalComments : HPI\n reviewed \nHome evaluation of current level of dizziness. Recent increase and taper of Diamox. 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 Patient states she was possibly blacked out for 2 to 3 minutes,but unsure denies neck head pain, no photophobia no spine pain no lumbar pain some point tendernessin mid thoracic, which isn???t typical for patient who has a history of chronic pain and fibromyalgia. Patient needs chest pain or shortness of breath pupils equal and reactive to light breath soundsclear bilaterally. Patient states she???s able to walk without issues and the fall occurred at noonand she???s just been mildly dizzy since then patient does have a history of vertigo. Patience seems very unsure of what she would like for solution so I spent significant time discussing different options. Dr. Morales contacted and offered a physical therapist to help teacher some balancing tricks and improve her ability to balance. Patient seems happy with that solution. Patient also going to take her meclizine which she has prescribed for her vertigo Which Seems like is the current issue and patient agrees it feels like vertigo. Mother and daughter thanked us for the visit. IV_(FLUIDS_AND/OR_MEDICATION), POC_BLOODWORK, ORTHOSTATIC_VITAL_SIGNS, PO_MEDICATION Written by Carlos Wang on 2025-05-18
--- OUTSIDE RECORDS SUMMARY | 2025-08-09 16:24 | XMS_ITS | Encounter Summary ---
Author Organization [email or web address] Address [address] [facility] 7t [place] [address] Care Team Providers Care Impact Hammer Operator Name Role Phone Sami Shaffer MD Primary Care Prov ider Reason for Visit * Reason Comments Med Refill Encounter Details Date Type Department Care Team ([facility] st Contact Info) Description 03/30/2023 Refill [facility] CHC MED & PEDS 505 [place] [address] Sami Shaffer MD 505 [place] [address] Chronic rhinitis Social History Tobacco Use Types [...] I will send in vaccine rx to [facility] pharmacy. * Telephone Encounter - Felisha [...] rhinitis documented in this encounter Care Teams Impact Hammer Operator Relationship Specialty Start Date End Date Sami Shaffer MD [address] [place] [phone] PCP - General Internal Medicine 08/28/19 documented as of this encounter
--- OUTSIDE RECORDS SUMMARY | 2025-08-09 16:24 | XMS_ITS | Encounter Summary ---
Author Organization [employer] Address [address] [facility] [address] 7t [place] [address] Care Team Providers Care Speech Language Therapist Name Role Phone Sami Shaffer MD Primary Care Prov ider Encounter Details Date Type Department Care Team (Late st Contact Info) Description 06/22/2024 Telephone [facility] MEDICINE [address] [place] [address] Sami Shaffer MD [address] [place], [place] [phone] Social History Tobacco Use Types Packs/Day Years [...] documented as of this encounter Care Teams Speech Language Therapist Relationship Specialty Start Date End Date Sami Shaffer MD [address] [place] [address] PCP - General Internal Medicine 08/28/19 documented as of this encounter
--- OUTSIDE RECORDS SUMMARY | 2025-08-09 16:24 | XMS_ITS | Encounter Summary ---
Author Organization [employer] Address [address] [facility] 7t [place] [address] Care Team Providers Care Granulator Tender Name Role Phone Sami Shaffer MD Primary Care Prov ider Reason for Visit * Reason Onset Date Comments Appointment Request 06/25/2024 Encounter Details Date Type Department Care Team ([facility] Contact Info) Description 06/25/2024 Telephone [facility] MEDICINE [address] [place] [address] Sami Shaffer MD 505 [place], [place] [phone] Appointment Request Social History Tobacco Use Types [...] documented as of this encounter Care Teams Granulator Tender Relationship Specialty Start Date End Date Sami Shaffer MD [address] [place] [address] PCP - General Internal Medicine 08/28/19 documented as of this encounter
--- OUTSIDE RECORDS SUMMARY | 2025-08-09 16:24 | XMS_ITS | Clinical Summary ---
Author Organization [facility] Address [address] [facility] 7[address] [place] [address] Care Team Providers Care Canvassing Manager Name Role Phone Sami Shaffer MD Primary Care Prov ider Allergies Active Allergy Reactions Criticality Noted Date Comments Webster Oil 10/29/2022 Cat Dander 10/29/2022 Citalopram 10/29/2022 [...] Take 1 tablet by mouth at bedtime. 3 Active diphenhydrAMINE (BENADryl) 25 MG capsule Take 1 capsule by mouth Every 4-6 hours as needed. Active lurasidone (Latuda) 120 MG tablet Take 1 tablet by mouth 1 (one) time each day. With a meal 3 Active tamsulosin (Flomax) 0.4 MG 24 hr capsule Take 0.4 mg by mouth in the morning. Active clonazePAM (KlonoPIN) 1 MG tablet Take 1 mg by mouth in the morning. Active buPROPion SR (Wellbutrin SR) 150 MG 12 hr tablet TAKE ONE TABLET BY MOUTH TWICE A DAY TAKE 2ND DOSE NO LATER THAN 2:00PM) 4 Active Acetaminophen 500 MG capsule Take 1 capsule orally every 6 hours prn fever or pain 90 capsule 2 4 Active cloNIDine (Catapres) 0.2 MG tablet Take 1 tablet by mouth if needed in the morning and at bedtime (severe anxiety/agitati on). 4 Active mirtazapine (Remeron) 15 MG tablet Take 1 tablet by mouth at bedtime. 4 Active divalproex (Depakote ER) 500 MG 24 hr tablet Take 2 tablets by mouth 2 times daily. 4 Active QUEtiapine (SEROquel) 100 MG tablet Take 100 mg by mouth at bedtime. 4 Active albuterol 108 (90 Base) MCG/ACT inhaler Inhale 2 puffs every 6 (six) hours if needed for wheezing. 18 g 11 4 09/28/20 25 Active finasteride (Proscar) 5 MG tabletIndicatio ns:Hair loss TAKE ONE TABLET BY MOUTH EVERY DAY. DO NOT CRUSH, CHEW, OR SPLIT. 30 tablet 11 5 Active omeprazole (PriLOSEC) [address] capsule Take 1 capsule (20 mg) by mouth before breakfast. Do not crush or chew.TAKE ONE CAPSULE BY MOUTH EVERY DAY BEFORE BREAKFAST DO NOT CRUSH OR CHEW 90 capsule 1 5 Active Riboflavin 400 MG capsule Take 1 tablet by mouth Once per day. Active Riboflavin-Magn esium-Feverfew 200-180-50 MG tablet Take 3 capsules by mouth Once per day. Active Vitamin D-Vitamin K (VITAMIN K2-VITAMIN D3 PO) Take 1 tablet by mouth Once per day. Active meclizine (Antivert) 25 MG tablet Take 25 mg by mouth if needed in the morning, at noon, and at bedtime for dizziness. Active ciprofloxacin-d exAMETHasone (CiproDEX) otic suspension Administer 4 drops into affected ear(s) 2 times daily for 7 days. 7.5 mL 5 07/29/20 25 carbamide peroxide (Debrox) 6.5 % otic solution Administer 5-10 drops into affected ear(s) 2 times daily for 4 days. 30 mL 5 07/26/20 25 Active Problems Problem Noted Date Diagnosed Date [...] refers lost of hair is mostly on methodist area, no circular hair loss, no rash, [...] managed by outpatient mental health providers at [facility] and [facility]. Denisse is emotionally stable, and is [...] health treatment PLAN: 1. Follow up with [facility]: Not recommended for follow-up 2. Patient goal [...] Self Plan Patient to reach out to [facility] team as needed, Comply with medication , Patient to engage in OP therapy , Patient to reach out to [facility] as needed, and Patient to follow-up with external team Patient is connected with [facility] Patient has crisis information. Bipolar disorder 02/10/2023 Chronic migraine without aura 02/10/2023 Assessment & Plan (07/02/2025 1:51 PM EDT): Will send rx of short course fioricet, followed by neurology told to make a sooner appointment, if symptoms worsen er precautions reviewed Assessment & Plan (11/19/2024 11:30 PM EST): Patient was at [facility] from 09/01-09/03 due to headache ongoing for the past [address] scan of head and cervical spine done was non acute. Was discharged to continue fioricet and acetazolamide and follow up with neurology. Patient refers feeling better, no acute neurologic deficit. Fibromyalgia 02/10/2023 Pain of breast 02/10/2023 Pseudotumor cerebri syndrome 02/10/2023 Severe obesity (CMS/HCC) 02/10/2023 Visual disturbance 02/10/2023 Multiple joint pain 10/29/2022 Assessment & Plan (10/29/2022 2:47 PM EST): Patient refers that for the past 2 weeks has been having ankle, shoulder, hand pain, denied swelling, has been trying tylenol and robaxin without improvement in symptoms, no trauma. Since patient has CKD, will provide tramadol, continue resting, applying ice/heat, in case of swelling, redness, visit er [facility] 02/18/2022 Encounters * This document contains information received from the source organization and may not represent a complete record from that organization. Date Type Department Care Team Description 07/22/2025 10:15 AM EDT Office Visit [facility] [address] [place] [address] Rajni Howard MD Impacted cerumen of left ear (Primary Dx); Other recurrent acute nonsuppurative otitis media of left ear 07/22/2025 Travel 07/22/[address] [address] Sami Shaffer MD Nurse Triage 07/09/[address] [address] Sami Shaffer MD call back request 07/03/2025 Telephone [facility] [address] [place] [address] Sami Shaffer MD Prior Authorization 07/02/2025 1:30 PM EDT Telemedicine [facility] [address] [place] [address] Sami Shaffer MD Chronic migraine without aura without status migrainosus, not intractable (Primary Dx) 07/02/2025 Travel 07/02/[address] [address] Sami Shaffer MD Nurse Triage 06/27/2025 1:00 PM EDT Telemedicine [facility] [address] [place] [phone] Sami Shaffer MD Right foot pain (Primary Dx) 06/27/2025 Travel 06/26/2025 Telephone [facility] [address] [place] [address] Sami Shaffer MD chart prep 06/25/2025 Travel 06/24/2025 Telephone [facility] [address] [place] [address] Sami Shaffer MD Referral 06/12/2025 10:15 AM EDT Office Visit [address] [address] Sissy Valadez, CHANDA Vaginal discharge (Primary Dx); Cutaneous abscess of groin 06/12/2025 Patient Outreach [facility] [address] [place] [address] Sami Shaffer MD Care Coordination ([facility] outreach for SDOH PT-1 and food needs-referral completed /) 06/12/2025 Travel 06/11/[address] [address] Sissy Valadez, CHANDA chart prep 06/07/2025 Telephone [facility] [address] [place] [address] Sami Shaffer MD Nurse Triage 05/23/[address] [address] Sami Shaffer MD Nurse Triage 05/22/2025 2:00 PM EDT Office Visit [facility] [address] [place] [address] Sami Shaffer MD Imbalance (Primary Dx) 05/22/2025 Orders Only [facility] [address] [place] [address] Sami Shaffer MD 05/21/2025 Travel 05/21/2025 Telephone [facility] [address] [place] [address] Sami Shaffer MD Appointment Request 05/17/[address] [address] Sami Shaffer MD Nurse Triage from Last 3 Months Immunizations Immunization Administration Dates Next Due HPV 9-Valent 07/15/2023,04/22/2023,03/08/2023 HPV, Quadrivalent 07/15/2023,04/22/2023,03/08/20 23 Hep A, Adult 04/15/2015 Hep B, adult 06/09/2020 Influenza Injectable Quadriv alant Preservative Free IIV4 MDCK 10/25/2018 Influenza injectable quadriv alent IIV4 with preservative 08/30/2019,11/03/2015 Influenza injectable quadriv alent preservative free 07/26/2023,09/22/2021 Influenza, IIV3, injectable 07/26/2023, 1,08/12/2016 Influenza, seasonal, injecta ble, preservative free 09/03/2024 [...] Sign Reading Time Taken Comments Blood Pressure 115/76 07/22/2025 10:10 AM EDT Pulse 84 07/22/2025 10:10 AM EDT Temperature 36.7 C (98.1 F) 07/22/2025 10:10 AM EDT Respiratory Rate 18 07/22/2025 10:10 AM EDT Oxygen Saturation 99% 06/12/2025 9:51 AM EDT Inhaled Oxygen Concentration - - Weight 130 kg (286 lb) 07/22/2025 10:10 AM EDT Height 167.6 cm (5' 6 ) 07/22/2025 10:10 AM EDT Body Mass Index 46.16 07/22/2025 10:10 AM EDT Plan of Treatment Health Maintenance [...] 04/22/2023, Additional history exists COVID-19 Vaccine ( - 2024- season) 2025 02/22/2021, 01/30/2021 Influenza Vaccine (#1) [...] Fluid 06/12/2025 11: 59 AM EDT Sissy Valadez [facility] POINT OF CARE TEST ENTER/ EDIT ORDERABLES Final Result * (ABNORMAL) Bacterial Vaginosis Panel (06/12/2025 11:00 AM EDT) TRICHOMONAS VAGINALIS DETECTION BY PCR NOT DETECTED Not Detect [facility] BACTERIAL VAGINOSIS DETECTION BY PCR NEGATIVE Negative [facility] Comment:The BV organism targ ets [...] GROUP DETECTION BY PCR DETECTED(A) Not Detect [facility] Donya glab krusei PCR NOT DETECTED Not Detect [facility] Swab Vaginal structure / Unknown 06/12/2025 11:00 AM EDT 06/12/2025 5:04 PM EDT Sissy TYLER LAB MICROBIOLOGY - GENERA L ORDERABLES Final Result [facility] [address] [place] [phone] * (ABNORMAL) Lipid Panel, Standard (07/12/2023 11:03 AM EDT) Triglycerides 291(H) <150 mg/dL [facility] Comment:Desirable Triglyceri de: less than 150 mg/dLBorderline High Triglyceride 150-199 mg/dLHigh Triglyceride: 200-499 mg/dLVery High Triglyceride: greater than or equal to 5OO mg/dL Cholesterol 235(H) <200 mg/dL [facility] Comment:Desirable Cholestero l: less than 200 mg/dLBorderline High Cholesterol: 200-239 mg/dLHigh Cholesterol: greater than 239 mg/dL LDL Cholesterol Calculated 141(H) <100 mg/dL [facility] Comment:Desirable LDL: less than 100 mg/dLNear Optimal/Above Optimal LDL: 110- 129 mg/dLBorderline High LDL: 130-159 mg/dLHigh LDL: 160-189 mg/dLVery High LDL: greater than or equal to 190 mg/dL HDL Cholesterol 36(L) >40 mg/dL [facility] Comment:Desirable HDL: great er than 40 mg/dL Note: This HDL assay may give artificially low results in patients with liver disease. Blood Venous blood specimen / Unknown 07/12/2023 11:03 AM EDT 07/12/2023 2:17 PM EDT Sami Abel MD LAB BLOOD ORDERABL ES Final Result [facility] [address] [place] [phone] * Hepatitis C Antibody with Reflex to HCV, RNA, Quantitative, Real-Time PCR (04/22/2023 11:25 AM EDT) Hepatitis C Antibody NON-REACT DESIRE NON-REACT DESIRE [email or web address] Diagnost Index 0.09 <1.00 [employer] Diagnost Comment: HCV antibody was non-reactive. There is no laboratory evidence of HCV infection. In most cases, no further action is required. However, if recent HCV exposure is suspected, a test for HCV RNA (test code 77225) is suggested. For additional information please refer to http://education.[employer]/faq/ZMI51h1 (This link is being provided for informational/ educational purposes only.) Blood Venous blood specimen / Unknown 04/22/2023 11:25 AM EDT 04/22/2023 11:26 AM EDT Sissy Valadez [facility] LAB BLOOD ORDERABLES Stephany moon Result Performing Organization Address [facility]/ZIP Co de Phone Number [address], [facility] [place] [address] [employer] [facility] [address] [place] [phone] * HIV-1/2 Antigen and Antibodies, Fourth Generation, with Reflexes (04/22/2023 11:25 AM EDT) [facility] HIV Antigen/Antibody, 4th Generation NON-REAC TIVE NON-REAC TIVE [employer] [place] [employer] [facility] Comment: HIV-1 antigen and HIV-1/HIV-2 antibodies [...] purpose. For additional information please refer to http://education.[employer].MegaPath/faq/MDE289 (This link is being provided for informational/ educational purposes only.) The performance of this assay has not been clinically validated in patients less than 2 years old. Blood Venous blood specimen / Unknown 04/22/2023 11:25 AM EDT 04/22/2023 11:26 AM EDT Sissy Allyson [facility] LAB BLOOD ORDERABLES Stephany l Result [address], [facility] [place] [phone] [employer] [facility] [address] [place] [phone] * Pap Smear (03/17/2021 12:00 AM EDT) Swab us Sissy Valadez CN LAB CYTOLOGY ORDERABLES F inal Result MARITA [address] [facility], [place] [address] from Last 3 Months or Most Recently Relevant to Health Maintenance Insurance [employer] < [address] [place] [id number] Care Teams Canvassing Manager Relationship Specialty Start Date End Date Sami Shaffer MD [address] [place] [address] PCP - General Internal Medicine 08/28/19
--- OUTSIDE RECORDS SUMMARY | 2025-08-09 16:24 | XMS_ITS | Encounter Summary ---
Author Organization [employer] Address [address] [facility] 7[address] [place] [address] Care Team Providers Care Director Of Investigations Name Role Phone Sami Shaffer MD Primary Care Prov ider Reason for Visit * Reason Onset Date Comments Nurse Triage 08/21/2024 Encounter Details Date Type Department Care Team ([facility] Contact Info) Description 08/21/2024 Telephone [facility] [address] [place] [address] Sami Shaffer MD [address] [place] [address] Nurse Triage Social History Tobacco Use Types [...] in practice anymore. Pt did go [place] [facility] 08/17[place]24 for a migraine and they [...] send note to clinical coordinators to get [facility] note into chart from 08/17/24 visit for todays televisit with PCP at 215pm. [facility] note is in chart under Media * Telephone Encounter - Mary Jo Sandoval - 08/21/2024 12:07 PM EDT Symptom: Headache ( migraine) Outcome: Schedule a same-day appointment or talk to a nurse or provider today Reason: Caller denied all higher acuity questions The caller accepted this outcome. Patient calling to report ED visit on : Date: 08/17/24 Hospital: [facility] Seen for: blood pressure and migraine documented in this encounter Plan of Treatment Not on file documented as of this encounter Visit Diagnoses Not on filedocumented in this encounter Additional Health Concerns Assessment Noted Time PHQ-9 Depression Total Score: 15 024 12:57 PM EDT documented as of this encounter Care Teams Director Of Investigations Relationship Specialty Start Date End Date Sami Shaffer MD [address] [place] [phone] PCP - General Internal Medicine 08/28/19 documented as of this encounter
--- OUTSIDE RECORDS SUMMARY | 2025-08-09 16:24 | XMS_ITS | Encounter Summary ---
Author Organization [email or web address] Address [address] [place] [place] [address] [address] [place] [address] Care Team Providers Care Machine Brusher Name Role Phone Sami Shaffer MD Primary Care Prov ider Reason for Visit * Reason Onset Date Comments Appointment Request 04/21/2023 Encounter Details Date Type Department Care Team ([facility] Contact Info) Description 04/21/[address] [facility] [address] [place] [address] Sami Shaffer MD [address] [place] [address] Appointment Request Social History Tobacco Use Types [...] of Gardasil shot Please contact pt at [phone] documented in this encounter Plan of Treatment Not on file documented as of this encounter Visit Diagnoses Not on filedocumented in this encounter Care Teams Machine Brusher Relationship Specialty Start Date End Date Sami Shaffer MD [address] [place] [phone] PCP - General Internal Medicine 08/28/19 documented as of this encounter
--- OUTSIDE RECORDS SUMMARY | 2025-08-09 16:24 | XMS_ITS | Encounter Summary ---
Author Organization [employer] Address [address] [facility] [address] [place] [address] Care Team Providers Care Home Service Advisor Name Role Phone Sami Shaffer MD Primary Care Prov ider Reason for Visit * Reason Onset Date Comments Durable Medical Equipment 01/23/2025 Encounter Details Date Type Department Care Team ([facility] st Contact Info) Description 01/23/2025 Telephone [facility] [address] [place] [address] Sami Shaffer MD [address] [place], [place] [phone] Durable Medical Equipment Social History Tobacco Use [...] like to get measured. Contact pt at [phone] * Telephone Encounter - Kavon Walter - 01/23/2025 11:14 AM EDT Tc from pt requesting Compression socks. Pt has tried to buy them online but every time they are too small. Pt would like to get measured. Contact pt at [phone] documented in this encounter Plan of Treatment Not on file documented as of this encounter Visit Diagnoses Not on filedocumented in this encounter Additional Health Concerns Assessment Noted Time PHQ-9 Depression Total Score: 15 024 12:57 PM EDT documented as of this encounter Care Teams Home Service Advisor Relationship Specialty Start Date End Date Sami Shaffer MD [address] [place] [address] PCP - General Internal Medicine 08/28/19 documented as of this encounter
[2025-08-09 17:30] LABS: Appearance Urine Clear; Glucose Urine UA Negative (Negative); PH 8.0 (5.0-9.0); Specific Gravity - Urine <= 1.005 (1.005-1.025)
== END 2025-08-09 16:21 | disposition home or self-care (01) ==
LOC: HO.LAB 16:20
PROVIDERS: PCP Internal Medicine; Visit Provider Nurse Practitioner Family
DX: R33.9 Retention of urine, unspecified (principal); N39.0 Urinary tract infection, site not specified
CPT/HCPCS: 81001; 87086